=== PATIENT | female | born 1955 | race Caucasian/White ===

== ENCOUNTER 2019-08-21 17:54 | Emergency (ER) | payer BC, SELFPAY ==
[2019-08-21 18:05] VITALS: BP 148/84; PULSE 81; RESP 18; TEMP 37.1; O2SAT 97
--- NOTE | 2019-08-21 18:25 | ED.URI ---
HPI - URI/Sore Throat General Chief Complaint: Upper Respiratory Infection Stated Complaint: BLANCA/aches/cough/scratchy throat Time Seen by Provider: 08/21/19 18:25 Source: patient and RN notes reviewed Mode of arrival: ambulatory Limitations: no limitations History of Present Illness HPI Narrative: 64-year-old female who presents to [facility] care with complaints of body aches, sneezing,sinus drainage,headache, cough and chest congestion which started yesterday. 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 Patient is concerned since she has MS and is on Aubagio so is immunocompromised due to treatment. Patient denies any shortness of breath, lungs are clear to auscultation with respirations even and non labored, SAO2 97% on room air. MD elicited complaint: cough, rhinorrhea, nasal congestion and other (bodyaches, headache) Description of mucous: clear Able to tolerate fluids by mouth: Yes Exacerbating factors: exertion Relieving factors: NSAID Related Data Home Medications Medication Instructions Recorded Confirmed bupropion HCl [Wellbutrin SR] 100 mg PO DAILY 05/11/19 05/11/19 escitalopram oxalate [Lexapro] 5 mg PO DAILY 05/11/19 05/11/19 hydrochlorothiazide 25 mg PO DAILY 05/11/19 05/11/19 irbesartan 75 mg PO DAILY 05/11/19 05/11/19 teriflunomide 14 mg tablet 14 mg PO DAILY 05/14/19 citalopram 10 mg tablet 10 mg PO DAILY 07/28/19 diazepam 2 mg tablet 2 mg PO BID PRN 07/28/19 Allergies Allergy/AdvReac Type Severity Reaction Status Date / Time droperidol [From Inapsine] Allergy Unknown dystonic Verified 08/21/19 18:17 Penicillins Allergy Hives Verified 08/21/19 18:17 Sulfa (Sulfonamide Allergy Hives Verified 08/21/19 18:17 Antibiotics) Review of Systems Review of Systems: Narrative: CONSTITUTIONAL: Denies known fever, chills, or sweats. EYES: Denies visual changes, redness, or discharge. ENT: Positive rhinorrhea, congestion, sore throat, or otalgia. CARDIOVASCULAR: Denies chest pain, palpitations, or edema. RESPIRATORY: positive cough denies dyspnea. GASTROINTESTINAL: Denies abdominal pain, nausea, vomiting, or diarrhea. GENITOURINARY: Denies dysuria or hematuria. SKIN: Denies rash or itching. MUSCULOSKELETAL: Denies back pain, joint pain, voices body aches and fatigue NEUROLOGIC: positive headache, denies numbness, or weakness. PSYCHIATRIC: positive history anxiety or depression. All systems reviewed & are unremarkable except as noted in HPI and below PMFSH Past Medical History Medical History GERD (gastroesophageal reflux disease) Hypertension Multiple sclerosis Osteoarthritis of right knee PTSD (post-traumatic stress disorder) Tear of MCL (medial collateral ligament) of knee (~04/2019) Vision loss Surgical History Surgical History History of section 1978, 1983 History of colon resection 2003 History of hysterectomy 1994 History of toe surgery 2007- Jorden Ponce Family History Family History Other Cancer Diabetes mellitus Heart disease Hypertension Social History Social History Smoking status: Never smoker Alcohol intake: current Substance use: unknown Additional living arrangements comments: Spouse- Narayan Dyer 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 There is no relevant family history pertinent to the presenting complaint Exam Narrative: Exam Narrative: GENERAL: Well-appearing, well-nourished, and in no acute distress. HEAD: Normocephalic, atraumatic. EYES: PERRLA and EOMI.
== END 2019-08-21 18:50 | disposition home or self-care (01) ==
PROVIDERS: Emergency Provider Registered Nurse; PCP Registered Nurse
DX: J06.9 Acute upper respiratory infection, unspecified (principal); D84.9 Immunodeficiency, unspecified; K21.9 Gastro-esophageal reflux disease without esophagitis; I10 Essential (primary) hypertension; G35 Multiple sclerosis; M17.11 Unilateral primary osteoarthritis, right knee
CPT/HCPCS: 87804; 99213; G0463

== ENCOUNTER 2019-10-27 13:57 | Outpatient (RCR) | payer BC, SELFPAY ==
--- NOTE | 2019-10-27 15:47 | PTOPEVAL ---
INITIAL PHYSICAL THERAPY EVALUATION and PLAN OF CARE Thank you for referring Darshana Dyer to [facility]. She will be seen in PT 2x/wk x 5 wks. Please review, sign, date and return this plan of care FINA. I agree with and certify that the following plan of care is medically necessary. Referring Physician Date Admitting Provider: Attending Provider: Doug Avila MD Referring Provider: *PT Outpatient Evaluation Start: 10/27/19 14:22 Freq: Status: Active Protocol: Document 10/27/19 14:23 MARYURI (Rec: 10/27/19 15:47 MARYURI [id number]) Therapy Assessment Status Assessment Status Assessment Status Evaluation Outpatient Past Medical History Past Medical History Source of Past Medical History Patient Neurological History Hx Multiple Sclerosis Yes Cardiovascular History Hx Hypertension Yes Respiratory History Hx Respiratory Disorders No Significant History Gastrointestinal History Hx Diverticulitis Yes Hx Other Gastrointestinal Disorders Yes: colon resection due to diverticulitis Genitourinary History Hx Genitourinary Disorders No Significant History Musculoskeletal History Hx Other Musculoskeletal Disorders Yes: 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, R knee pain Endocrine History Hx Endocrine Disorders No Significant History Reproductive History Hx Hysterectomy Yes Psychosocial History Hx Post Traumatic Stress Disorder Yes Evaluation Information Problem Diagnosis R knee pain, OA Onset September 2018 Subjective Information Nothing specific - R knee just Query Text:As Reported By Patient/ started hurting - was living Family in [place] - steroid injection, gel injections - helped Moved to area in April 2019 - moved during rain - helping movers - was carrying a heavy box - on ramp - stepped and turned -felt pain, increase in posterior knee area A few days after this injury - anterior knee pain - inability to walk - saw Dr. Parson - took X rays Dr Avila July 2019 -steroid injection - helped beginning of September - steroid injection New Neuro - they wanted her to have PT before any type of procedure R leg is her weaker leg Still has a fear
--- NOTE | 2019-11-23 14:22 | PCPTNOTE ---
PHYSICAL THERAPY DISCHARGE NOTE Admitting Provider: Attending Provider: Doug Avila MD Patient:Darshana Dyer Date of :1955 Darshana has not returned for any further treatments since 10/27/2019. She was phoned and spoken with on 11/11/2019 in regards to PT and she said that she had forgotten to make appointments. She said that she would, but she has not returned to PT. Therefore she will be discharged at this time. Patient?s initial visit was on 10/27/2019 and that was the only visit she attended. HEP was provided. The goals have not been met. Thank you for referring Darshana to [facility]. Please review, sign, date and return this discharge summary FINA. I have been updated about Darshana's current status and I agree with discharge from the above service at this time. Referring Physician Date
== END 2019-11-24 11:10 | disposition home or self-care (01) ==
LOC: ANHPT 13:57
PROVIDERS: PCP Registered Nurse; Visit Provider Orthopaedic Surgery
DX: M17.11 Unilateral primary osteoarthritis, right knee (principal)
CPT/HCPCS: 97110; 97161

== ENCOUNTER 2019-11-11 08:05 | Outpatient (CLI) | payer BC, SELFPAY ==
--- NOTE | ~2019-11-11 | MR_ITS ---
EXAMINATION: MR knee RT wo con DATE: 11/11/2019 09:51 INDICATION: Right knee pain TECHNIQUE: Magnetic resonance imaging (MRI) of the right knee was performed without intravenous contr ast. Sequences included coronal PD-weighted FSE, coronal PD-weighted FS FSE, sagittal T2-weighted FS E, sagittal PD-weighted FS FSE and axial PD weighted fat saturated FSE. COMPARISON: None. FINDINGS: Medial compartment: Medial extrusion of the medial meniscal body. The posterior horn is small consistent with meniscal te ar with either displacement or secondary degeneration resulting in the decreased meniscal tissue. The re appears be cephalad displacement of a meniscal flap extending from the posterior aspect of the med ial meniscal body which extends into the recess deep to the proximal medial collateral ligament and w hich may account for the displaced tissue from the posterior horn. Extensive cartilage loss along the anterior to central medial tibial plateau and weightbearing medial femoral condyle. In places this r eaches full/near full full-thickness with underlying subarticular edema. In addition there is mild ir regularity to the articular cortex tiny central osteophytes at the central weightbearing medial femor al condyle. Small marginal osteophytes are present. Lateral compartment: Lateral meniscus is normal. Partial-thickness cartilage loss and deep fissuring without degenerative subarticular changes along the medial side of the lateral tibial plateau along the shoulder of the in tercondylar eminence. Deep oblique nondisplaced chondral flap tear at the anterior weightbearing late ral femoral condyle. Additional partial thickness cartilage loss with mild chondral surface regularit y the central aspect of the weightbearing lateral femoral condyle. Patellofemoral compartment: Deep chondral ulceration with relatively smooth chondral surface at the superomedial aspect of the la teral patellar facet. Additional deep chondral ulceration and fissuring with mild irregularity to the underlying articular cortex at the trochlear groove and medial side of the lateral trochlea. Ligaments and tendons: Anterior and posterior cruciate ligaments are normal. The medial collateral ligament and fibular ana ateral ligament complex are normal. Mild distal quadriceps and proximal patellar tendinopathy with sm all enthesophytes along the anterior patella and distal quadriceps tendon. The visualized medial and lateral hamstring tendons as well as the iliotibial band are normal. Fluid: Small right knee joint effusion with mild associated synovitis. No loose osteochondral bodies identif ied. 5.9 x 3.1 x 2.2 cm Jackson's cyst, also with mild associated synovitis. Osseous/other: Bone alignment is normal. No fracture or pathologic marrow replacing process. IMPRESSION: 1. Complex medial meniscal tear with likely displaced meniscal flap arising from the posterior horn. 2. Moderate medial compartment predominant tricompartmental osteoarthritis with regions of high-grade chondromalacia in the medial and patellofemoral compartments and moderate grade chondromalacia in th e lateral compartment. 3. Small right knee joint effusion with moderate sized Jackson's cyst. 4. Mild enthesopathy at the patellar insertions of the distal quadriceps and proximal patellar tendon s. Reviewed, dictated and finalized at location A. IMPRESSION: 1. Complex medial meniscal tear with likely displaced meniscal flap arising fro m the posterior horn. 2. Moderate medial compartment predominant tricompartmental osteoarthritis with regions of high-grade chondromalacia in the medial and patellofemoral compartm ents and moderate grade chondromalacia in the lateral compartment. 3. Small right knee joint effusion with mode
== END 2019-11-11 08:06 | disposition home or self-care (01) ==
PROVIDERS: PCP Registered Nurse; Visit Provider Orthopaedic Surgery
DX: M25.561 Pain in right knee (principal); S83.231A Complex tear of medial meniscus, current injury, right knee, initial encounter; M17.11 Unilateral primary osteoarthritis, right knee; M94.261 Chondromalacia, right knee; M25.461 Effusion, right knee; M71.21 Synovial cyst of popliteal space [Baker], right knee; M76.51 Patellar tendinitis, right knee
CPT/HCPCS: 73721

== ENCOUNTER 2020-01-18 09:43 | Emergency (ER) | payer BC, SELFPAY ==
[2020-01-18 09:55] VITALS: BP 155/80; PULSE 83; RESP 18; TEMP 36.3; O2SAT 97
--- NOTE | 2020-01-18 10:46 | ED.GENADULT ---
HPI - General Adult General Chief complaint: Unspecified Stated complaint: decreased smell, wants covid test Time Seen by Provider: 01/18/20 10:18 Source: patient Mode of arrival: ambulatory Limitations: no limitations History of Present Illness HPI narrative: This is a 64-year-old female that presents the emergency department for COVID testing. Reports she called the hotline yesterday and screened to be tested. She tried to get this set up through her primary and was unable to. Reports for the last 3 days she has had decreased sense of smell and taste. Also reports some fatigue. Denies fever, chest pain, shortness of breath, abdominal pain, vomiting, or dysuria. Related Data Allergies Allergy/AdvReac Type Severity Reaction Status Date / Time droperidol [From Inapsine] Allergy Unknown Verified 01/18/20 10:01 Penicillins Allergy Unknown Verified 01/18/20 10:01 Sulfa (Sulfonamide Allergy Unknown Verified 01/18/20 10:01 Antibiotics) Review of Systems Review of Systems: Narrative: CONSTITUTIONAL: Denies fever ENT: Denies rhinorrhea, congestion, sore throat CARDIOVASCULAR: Denies chest pain RESPIRATORY: Denies dyspnea. GASTROINTESTINAL: Denies abdominal pain, nausea, vomiting GENITOURINARY: Denies dysuria All systems reviewed & are unremarkable except as noted in HPI and below PMFSH Past Medical History Medical History (Updated 01/18/20 @ 10:51 by Laly Wagoner PA-C) History of hypertension History of multiple sclerosis Social History Social History Gender identity (if verbalized by the patient): Female Exam Narrative: Exam Narrative: GENERAL: Well-appearing, obese, and in no acute distress. HEAD: Normocephalic, atraumatic. EYES: PERRLA and EOMI. ENT: Nares clear, no rhinorrhea or epistaxis. Mucous membranes moist. Oropharynx without tonsillar hypertrophy exudate or other lesions. Bilateral TMs pearly yoo non-bulging NECK: Supple. No adenopathy or masses. CHEST: Clear to auscultation. No respiratory distress. No wheezes rales or rhonchi HEART: Regular rate and rhythm. No murmur heard. Normal peripheral pulses. ABDOMEN: Soft, nontender, nondistended, normal active bowel sounds. EXTREMITIES: Normal range of motion. No edema. Strength equal in bilateral upper and lower extremities (5/5) SKIN: Warm, dry, no rash. NEURO: No focal deficits. Alert and oriented x3. Cranial nerves II through XII grossly intact PSYCH: Normal mood and affect Course Vital Signs Vital signs: Vital Signs Temperature 97.3 F L 01/18/20 09:55 Pulse Rate 83 01/18/20 09:55 Respiratory Rate 18 01/18/20 09:55 Blood Pressure 155/80 H 01/18/20 09:55 Pulse Oximetry 97 01/18/20 09:55 Temperature 97.3 F L 01/18/20 09:55 Pulse Rate 83 01/18/20 09:55 Respiratory Rate 18 01/18/20 09:55 Blood Pressure 155/80 H 01/18/20 09:55 Pulse Oximetry 97 01/18/20 09:55 Medical Decision Making MDM Narrative Medical decision making narrative: Patient presents to the emergency department requesting COVID testing. Reports fatigue and decreased sense of smell. Denies any other localizing symptoms. She is afebrile and nontoxic-appearing. Oxygen saturation normal on room air. I offered laboratory evaluation. Patient declined. Reports she gets regular laboratory testing and does not think it is necessary. 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 Patient is stable and felt appropriate further outpatient evaluation. She was instructed to follow-up with her doctor. She was given warnings to return to the ER Vital Signs Vital Signs: Vital Signs Temperature 97.3 F L 01/18/20 09:55 Pulse Rate 83 01/18/20 09:55 Respiratory Rate 18 01/18/20 09:55 Blood Pressure 155/80 H 01/18/20 09:55 Pulse Oximetry 97 01/18/20 09:55 Temperature 97.3 F L 01/18/20 09:55 Pulse Rate 83 01/18/20 09:55 Respiratory Rate 18 01/18/20 09:55 Blood Pressure 155/8
[2020-01-18 19:09] LABS: SARS-CoV-2 RNA PCR Negative
== END 2020-01-18 11:18 | disposition home or self-care (01) ==
PROVIDERS: Physician Assistant; Emergency Provider Emergency Medicine; PCP Registered Nurse
DX: Z20.828 Contact with and (suspected) exposure to other viral communicable diseases (principal); R43.9 Unspecified disturbances of smell and taste; I10 Essential (primary) hypertension; G35 Multiple sclerosis
CPT/HCPCS: 87635; 99283; C9803; U0003

== ENCOUNTER 2020-05-31 08:06 | Outpatient (CLI) | payer BC, SELFPAY ==
--- NOTE | 2020-05-31 09:08 | ECG_ITS ---
Measurements Intervals [place] Rate: 70 P: 55 DC: 183 QRS: 28 QRSD: 86 T: 58 QT: 378 QTc: 409 Interpretive Statements SINUS RHYTHM DELAYED PRECORDIAL R/S TRANSITION BORDERLINE ECG Electronically Signed On 05-31-2020 9:25:22 [employer]IRRING [employer]ACHINE [employer]ATOR [employer] by Billy Frank D.O.
[2020-05-31 09:39] LABS: Albumin Level 4.5 g/dL (3.5-5.1)
[2020-05-31 09:41] LABS: Hemoglobin A1C 5.9 % (<5.7)
[2020-05-31 09:45] LABS: Urine Cotinine NEGATIVE
== END 2020-05-31 08:07 | disposition home or self-care (01) ==
PROVIDERS: PCP Registered Nurse; Visit Provider Orthopaedic Surgery
DX: Z01.810 Encounter for preprocedural cardiovascular examination (principal); M17.11 Unilateral primary osteoarthritis, right knee
CPT/HCPCS: 80307; 82040; 83036; 86850; 86900; 86901; 87081; 93005

== ENCOUNTER 2020-08-19 09:55 | Outpatient (CLI) | payer MEDICARE, BC, SELFPAY ==
[2020-08-19 11:03] LABS: Basophils Absolute Auto 0.1 K/mm3 (0.0-0.1); Basophils Percent Auto 0.9 % (0.2-1.2); Eosinophils Absolute Auto 0.2 K/mm3 (0-0.3); Eosinophils Percent Auto 2.6 % (0-4.4); Hematocrit 39.6 % (37.0-47.0); Hemoglobin 12.6 g/dL (12.0-15.0); Immature Granulocyte Absolute 0.03 K/mm3 (0.00-0.031); Immature Granulocyte Percent A 0.3 % (0-0.5); Lymphocytes Absolute Auto 1.63 K/mm3 (0.9-3.2); Lymphocytes Percent Auto 18.5 % (18.3-44.2); Mean Corpuscular HGB Conc 31.8 g/dl (32-36); Mean Corpuscular Hemoglobin 28.3 pg (26-34); Mean Platelet Volume 12.1 fl (7.4-10.4); Monocytes Absolute Auto 0.5 K/mm3 (0.1-0.6); Monocytes Percent Auto 5.8 % (2.6-8.5); Neutrophils Absolute Auto 6.3 K/mm3 (1.3-6.7); Neutrophils Percent Auto 71.9 % (45.5-73.1); Platelet Count Result 230 k/mm3 (150-375); Red Blood Count 4.45 M/mm3 (4.2-5.4); Red Cell Distribution Width 14.2 % (11.5-14.5); White Blood Count 8.8 K/mm3 (4.5-10.0)
[2020-08-19 11:18] LABS: Alanine Aminotransferase 19 U/L (4-35); Albumin Level 4.4 g/dL (3.5-5.1); Alkaline Phosphatase 57 U/L (38-126); Anion Gap 6 mmol/L (8-16); Aspartate Amino Transferase 25 U/L (14-36); Bilirubin,Total 0.3 mg/dL (0.2-1.3); Blood Urea Nitrogen 19 mg/dL (7-17); CRP 1.7 mg/dL (<1.0); Calcium 9.3 mg/dL (8.4-10.2); Carbon Dioxide 33 mmol/L (22-30); Chloride 101 mmol/L (98-107); Estimated Glomerular Filt Rate > 60; Glucose 101 mg/dL (65-105); Potassium 3.9 mmol/L (3.4-5.0); Sodium 140 mmol/L (137-145)
[2020-08-19 12:32] LABS: Vitamin D 25 Hydroxy 25.8 ng/mL
[2020-08-19 12:50] LABS: Erythrocyte Sedimentation Rate 22 mm/hr (0-20)
[2020-08-23 12:23] LABS: SM Antibody <1.0; SM/RNP Antibody <1.0
== END 2020-08-19 09:56 | disposition home or self-care (01) ==
PROVIDERS: PCP Registered Nurse
DX: M25.50 Pain in unspecified joint (principal); E03.9 Hypothyroidism, unspecified; E55.9 Vitamin D deficiency, unspecified
CPT/HCPCS: 36415; 80053; 82306; 84443; 85025; 85652; 86140; 86235

== ENCOUNTER 2020-10-09 12:14 | Outpatient (CLI) | payer MEDICARE, SELFPAY ==
--- NOTE | ~2020-10-09 | US_ITS ---
EXAMINATION: US venous doppler LE EXAM DATE: 10/09/2020 12:55 INDICATION: Bilateral leg swelling. TECHNIQUE: Multiple grayscale, color flow and Doppler images of the lower extremity deep venous syste ms bilaterally were obtained and reviewed. There is no prior study for comparison. FINDINGS: Right side: The right common femoral, femoral and profunda veins demonstrate normal color flow, respi ratory variation, augmentation and compressibility. Compressibility, color flow confirmed within the right popliteal, posterior tibial, peroneal, and greater saphenous veins. There is a Jackson's cyst me asuring 2.6 x 2.0 x 5.3 cm Left side: The left common femoral, femoral and profunda veins demonstrate normal color flow, respira tory variation, augmentation and compressibility. Compressibility, color flow confirmed within the l eft popliteal, posterior tibial, peroneal, and greater saphenous veins. IMPRESSION: 1. No lower extremity deep venous thrombosis bilaterally. 2. Moderate-sized right-sided Jackson's cyst. Reviewed, dictated and finalized at location A.
[2020-10-09 13:09] LABS: Basophils Absolute Auto 0.1 K/mm3 (0.0-0.1); Eosinophils Absolute Auto 0.3 K/mm3 (0-0.3); Eosinophils Percent Auto 3.2 % (0-4.4); Hematocrit 39.7 % (37.0-47.0); Hemoglobin 12.8 g/dL (12.0-15.0); Immature Granulocyte Absolute 0.03 K/mm3 (0.00-0.031); Immature Granulocyte Percent A 0.4 % (0-0.5); Lymphocytes Absolute Auto 1.78 K/mm3 (0.9-3.2); Lymphocytes Percent Auto 22.2 % (18.3-44.2); Mean Corpuscular HGB Conc 32.2 g/dl (32-36); Mean Platelet Volume 11.6 fl (7.4-10.4); Monocytes Absolute Auto 0.4 K/mm3 (0.1-0.6); Monocytes Percent Auto 5.5 % (2.6-8.5); Neutrophils Absolute Auto 5.4 K/mm3 (1.3-6.7); Neutrophils Percent Auto 67.7 % (45.5-73.1); Platelet Count Result 214 k/mm3 (150-375); Red Blood Count 4.41 M/mm3 (4.2-5.4); Red Cell Distribution Width 14.5 % (11.5-14.5)
[2020-10-09 13:22] LABS: Alanine Aminotransferase 21 U/L (4-35); Albumin Level 4.6 g/dL (3.5-5.1); Alkaline Phosphatase 50 U/L (38-126); Anion Gap 5 mmol/L (8-16); Aspartate Amino Transferase 28 U/L (14-36); Bilirubin,Total 0.2 mg/dL (0.2-1.3); Blood Urea Nitrogen 13 mg/dL (7-17); Calcium 9.2 mg/dL (8.4-10.2); Carbon Dioxide 35 mmol/L (22-30); Chloride 99 mmol/L (98-107); Estimated Glomerular Filt Rate > 60; Glucose 142 mg/dL (65-105); Potassium 3.6 mmol/L (3.4-5.0); Sodium 139 mmol/L (137-145)
[2020-10-09 13:31] LABS: NT Pro B Type Natriuretic Pept 50 PG/ML (5-100)
[2020-10-12 11:21] LABS: Hemoglobin A1C 5.9 % (<5.7)
== END 2020-10-09 12:15 | disposition home or self-care (01) ==
PROVIDERS: PCP Registered Nurse; Visit Provider Student in an Organized Health Care Education/Training Program
DX: R60.0 Localized edema (principal); R06.9 Unspecified abnormalities of breathing; R73.01 Impaired fasting glucose; M71.21 Synovial cyst of popliteal space [Baker], right knee
CPT/HCPCS: 36415; 80053; 83036; 83880; 85025; 93970

== ENCOUNTER 2021-02-02 14:19 | Emergency (ER) | payer MEDICARE, SELFPAY ==
--- NOTE | ~2021-02-02 | XR_ITS ---
EXAMINATION: XR knee LT min 4V EXAM DATE: 02/02/2021 15:29 INDICATION: Left knee pain posteriorly, hyperextension a month ago. TECHNIQUE: Left knee frontal, crosstable lateral, orthogonal oblique projections for interpretation. Comparison is made to prior examination from 12/30/2019. FINDINGS: No evidence osteochondral defect or joint body in the left knee joint. There is moderate patellofemoral, less tibiofemoral compartment primary osteoarthritis. There are no acute fractures o r dislocations identified. There is no subcutaneous gas. The soft tissue is unremarkable, No joint effusion. There are no radiopaque foreign bodies. IMPRESSION: Left knee patellofemoral compartment predominant osteoarthritis. Reviewed, dictated and finalized at location B.
[2021-02-02 14:37] VITALS: BP 135/67; PULSE 90; RESP 18; TEMP 36.4; O2SAT 98
--- NOTE | 2021-02-02 14:49 | ED.LOWEXIN ---
HPI - Extremity Injury (Lower) General Chief Complaint: Extremity Problem,Nontraumatic Stated Complaint: left knee pain Time Seen by Provider: 02/02/21 14:49 Source: patient Mode of arrival: ambulatory Limitations: no limitations History of Present Illness HPI Narrative: Darshana Dyer is a 65 yo female with a PMH of multiple sclerosis. Anxiety; hypertension; [facility] of left knee pain that is developed in the last couple weeks after hyperextending her knee while leaving the hospital. 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 She is waiting for a knee replacement on the right is been counseled 5x2 Covid and agrees that she probably favors her left leg. He has had some mask added to her right knee by her orthopedist for comfort until knee replacement can be done. She is scheduled to see him later this week and came here for preliminary treatment Related Data Home Medications Medication Instructions Recorded Confirmed bupropion HCl [Wellbutrin SR] 100 mg PO HS 05/11/19 02/02/21 hydrochlorothiazide 25 mg PO DAILY PRN 05/11/19 02/02/21 calcium carbonate [Tums] 200 mg PO HS 05/31/20 02/02/21 cholecalciferol (vitamin D3) 6,000 unit PO DAILY 05/31/20 02/02/21 irbesartan 300 mg PO QAM 05/31/20 02/02/21 meloxicam 7.5 mg PO DAILY PRN 05/31/20 02/02/21 Allergies Allergy/AdvReac Type Severity Reaction Status Date / Time droperidol [From Inapsine] Allergy Confusion Verified 02/02/21 16:04 Penicillins Allergy Hives Verified 02/02/21 16:04 Sulfa (Sulfonamide Allergy Hives Verified 02/02/21 16:04 Antibiotics) Review of Systems Review of Systems: CONSTITUTIONAL: Denies fever, chills, sweats. EYES: Denies visual changes, redness, discharge. ENT: Denies rhinorrhea, congestion, sore throat, otalgia. CARDIOVASCULAR: Denies chest pain, palpitations, edema. RESPIRATORY: Denies dyspnea, wheezing, cough GASTROINTESTINAL: Denies abdominal pain, nausea, vomiting, diarrhea. GENITOURINARY: Denies dysuria, hematuria, abnormal discharge SKIN: Denies rash or itching. NEUROLOGIC: Denies numbness, or focal weakness. PSYCHIATRIC: Denies anxiety or depression. Left knee pain with swelling of the lower extremity PMFSH Past Medical History Medical History BMI 34.0-34.9,adult BMI 36.0-36.9,adult BMI 38.0-38.9,adult GERD (gastroesophageal reflux disease) History of hypertension History of multiple sclerosis Hypertension Multiple sclerosis Osteoarthritis of right knee PTSD (post-traumatic stress disorder) Tear of MCL (medial collateral ligament) of knee (~04/2019) Vision loss Surgical History Surgical History History of section 1978, 1983 History of colon resection 2003 History of hysterectomy 1994 History of toe surgery 2007- Jorden Pocne Family History Family History Other Cancer Diabetes mellitus Heart disease Hypertension Social History Social History Smoking status: Never smoker Second hand tobacco smoke exposure: No Additional smoking assessment comments: DENIES ANY FORM OF TOBACCO USE Alcohol intake: current Alcohol use details: ONE DRINK PER MONTH Substance use: unknown Additional living arrangements comments: Spouse- Narayan Dyer 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 There is no relevant family history pertinent to the presenting complaint. Exam Narrative: GENERAL: This is a well-nourished, well-developed patient, in mild distress. HEAD: normocephalic, atraumatic. EYES: Sclera clear/white. Vision is gross
== END 2021-02-02 16:03 | disposition home or self-care (01) ==
PROVIDERS: Emergency Provider Nurse Practitioner; PCP Registered Nurse
DX: M25.562 Pain in left knee (principal); K21.9 Gastro-esophageal reflux disease without esophagitis; I10 Essential (primary) hypertension; G35 Multiple sclerosis; M17.11 Unilateral primary osteoarthritis, right knee
CPT/HCPCS: 73564; 99213; G0463

== ENCOUNTER 2021-02-15 11:05 | Emergency (ER) | payer MEDICARE, SELFPAY ==
[2021-02-15 11:42] VITALS: BP 140/90; PULSE 77; RESP 16; TEMP 36.9; O2SAT 98
--- NOTE | 2021-02-15 14:08 | ED.LOWEXIN ---
HPI - Extremity Injury (Lower) General Chief Complaint: Extremity Injury, Lower Stated Complaint: right knee pain Time Seen by Provider: 02/15/21 13:25 History of Present Illness HPI Narrative: 65 yo female with h/o arthritis, MS presents to the ED for left knee pain. She has chronic knee pain. Worse for about the past month after a minor injury. She reports that she was walking when she twisted and felt a pop. Since that time she has had increased pain. It was initially all over, now it is primarily located inferomedial to the patella. She has seen her PCP, ortho, and urgent care. She had x-rays done a few weeks ago showing nothing acute. Pain has gotten severe enough that she cannot walk upright. No fever, trauma, redness, swelling. Related Data Home Medications Medication Instructions Recorded Confirmed bupropion HCl [Wellbutrin SR] 100 mg PO HS 05/11/19 02/02/21 hydrochlorothiazide 25 mg PO DAILY PRN 05/11/19 02/02/21 calcium carbonate [Tums] 200 mg PO HS 05/31/20 02/02/21 cholecalciferol (vitamin D3) 6,000 unit PO DAILY 05/31/20 02/02/21 irbesartan 300 mg PO QAM 05/31/20 02/02/21 meloxicam 7.5 mg PO DAILY PRN 05/31/20 02/02/21 Allergies Allergy/AdvReac Type Severity Reaction Status Date / Time droperidol [From Inapsine] Allergy Confusion Verified 02/15/21 13:39 Penicillins Allergy Hives Verified 02/15/21 13:39 Sulfa (Sulfonamide Allergy Hives Verified 02/15/21 13:39 Antibiotics) Review of Systems Review of Systems: All systems reviewed & are unremarkable except as noted in HPI and below PMFSH Past Medical History Medical History BMI 34.0-34.9,adult BMI 36.0-36.9,adult BMI 38.0-38.9,adult GERD (gastroesophageal reflux disease) History of hypertension History of multiple sclerosis Hypertension Multiple sclerosis Osteoarthritis of right knee PTSD (post-traumatic stress disorder) Tear of MCL (medial collateral ligament) of knee (~04/2019) Vision loss Surgical History Surgical History History of section 1978, 1983 History of colon resection 2003 History of hysterectomy 1994 History of toe surgery 2007- Jorden Rodriguezn Family History Family History Other Cancer Diabetes mellitus Heart disease Hypertension Social History Social History Smoking status: Never smoker Second hand tobacco smoke exposure: No Additional smoking assessment comments: DENIES ANY FORM OF TOBACCO USE Alcohol intake: current Alcohol use details: ONE DRINK PER MONTH Substance use: unknown Additional living arrangements comments: Spouse- Narayan Dyer 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 Course Vital Signs Vital signs: Vital Signs Temperature 36.9 C 02/15/21 11:42 Pulse Rate 77 02/15/21 11:42 Respiratory Rate 16 02/15/21 11:42 Blood Pressure 140/90 02/15/21 11:42 Pulse Oximetry 98 02/15/21 11:42 Temperature 36.9 C 02/15/21 11:42 Pulse Rate 72 02/15/21 14:46 Respiratory Rate 14 02/15/21 14:46 Blood Pressure 147/90 H 02/15/21 14:56 Pulse Oximetry 98 02/15/21 14:46 Procedures Joint Aspiration/Injection Joint Asp./Inject. 1: Joint Aspiration Date: 02/15/21 Joint As
[2021-02-15 14:46] VITALS: PULSE 72; RESP 14; O2SAT 98
[2021-02-15 14:56] VITALS: BP 147/90
== END 2021-02-15 14:57 | disposition home or self-care (01) ==
PROVIDERS: Emergency Provider Emergency Medicine; PCP Registered Nurse
DX: M25.562 Pain in left knee (principal); I10 Essential (primary) hypertension; G35 Multiple sclerosis; M19.90 Unspecified osteoarthritis, unspecified site
CPT/HCPCS: 20610; 99282

== ENCOUNTER 2022-06-10 19:20 | Emergency (ER) | payer MEDICARE, SELFPAY ==
[2022-06-10 19:41] VITALS: BP 159/91; PULSE 77; RESP 18; TEMP 36.7; O2SAT 96
[2022-06-10 20:01] LABS: Basophils Absolute Auto 0.1 K/mm3 (0.0-0.1); Eosinophils Absolute Auto 0.2 K/mm3 (0-0.3); Eosinophils Percent Auto 2.5 % (0-4.4); Hemoglobin 12.5 g/dL (12.0-15.0); Immature Granulocyte Absolute 0.03 K/mm3 (0.00-0.031); Immature Granulocyte Percent A 0.3 % (0-0.5); Lymphocytes Absolute Auto 0.84 K/mm3 (0.9-3.2); Lymphocytes Percent Auto 9.6 % (18.3-44.2); Mean Corpuscular HGB Conc 32.9 g/dl (32-36); Mean Corpuscular Hemoglobin 30.3 pg (26-34); Mean Platelet Volume 11.7 fl (7.4-10.4); Monocytes Absolute Auto 0.7 K/mm3 (0.1-0.6); Monocytes Percent Auto 7.9 % (2.6-8.5); Neutrophils Absolute Auto 6.9 K/mm3 (1.3-6.7); Neutrophils Percent Auto 78.7 % (45.5-73.1); Platelet Count Result 209 k/mm3 (150-375); Red Blood Count 4.13 M/mm3 (4.2-5.4); Red Cell Distribution Width 14.1 % (11.5-14.5); White Blood Count 8.7 K/mm3 (4.5-10.0)
--- NOTE | 2022-06-10 20:07 | PC.NURSE ---
patient reports that pain is completely relieved and left waiting room without seeing a provider
[2022-06-10 20:12] LABS: Alanine Aminotransferase 70 U/L (6-35); Albumin Level 4.4 g/dL (3.5-5.1); Alkaline Phosphatase 65 U/L (38-126); Anion Gap 6 mmol/L (8-16); Aspartate Amino Transferase 115 U/L (14-36); Bilirubin,Total 0.3 mg/dL (0.2-1.3); Blood Urea Nitrogen 19 mg/dL (7-17); Calcium 8.9 mg/dL (8.4-10.2); Carbon Dioxide 32 mmol/L (22-30); Chloride 98 mmol/L (98-107); Estimated CRCL calculation 59 ml/min; Estimated Glomerular Filt Rate 55; Glucose 108 mg/dL (65-110); Lipase 79 U/L (23-300); Potassium 4.4 mmol/L (3.4-5.0); Sodium 136 mmol/L (137-145)
== END 2022-06-10 21:14 | disposition left against medical advice (07) ==
PROVIDERS: Emergency Provider Emergency Medicine; PCP Registered Nurse
DX: R10.11 Right upper quadrant pain (principal)
CPT/HCPCS: 36415; 80053; 83690; 85025; 99199

== ENCOUNTER 2022-06-18 10:17 | Outpatient (CLI) | payer MEDICARE, SELFPAY ==
--- NOTE | ~2022-06-18 | US_ITS ---
US abdomen limited INDICATION: Right upper quadrant pain PROCEDURE: Realtime right upper abdominal ultrasound. COMPARISON: No prior studies for comparison. FINDINGS: The pancreas is normal without focal mass or pancreatic ductal dilation. Liver echotexture is diffusely increased, consistent with fatty infiltration. There is normal directional flow in the portal vein. There is a gallstone. No gallbladder wall thickening or pericholecystic fluid. Common bile duct sylvia ures 9 mm. IMPRESSION: 1: Cholelithiasis with dilated common bile duct. Consider cholecystitis in the appropriate clinical s etting. 2: Hepatic steatosis. Reviewed, dictated and finalized at location B. ER ATTENDANT IMPRESSION: 1: Cholelithiasis with dilated common bile duct. Consider cholecystitis in the appropriate clinical setting. 2: Hepatic steatosis.
[2022-06-18 12:00] LABS: Basophils Absolute Auto 0.1 K/mm3 (0.0-0.1); Eosinophils Absolute Auto 0.2 K/mm3 (0-0.3); Eosinophils Percent Auto 2.8 % (0-4.4); Hematocrit 41.8 % (37.0-47.0); Hemoglobin 13.5 g/dL (12.0-15.0); Immature Granulocyte Absolute 0.02 K/mm3 (0.00-0.031); Immature Granulocyte Percent A 0.3 % (0-0.5); Lymphocytes Absolute Auto 0.27 K/mm3 (0.9-3.2); Lymphocytes Percent Auto 4.5 % (18.3-44.2); Mean Corpuscular HGB Conc 32.3 g/dl (32-36); Mean Corpuscular Hemoglobin 30.1 pg (26-34); Mean Corpuscular Volume 93.3 fl (80-100); Mean Platelet Volume 11.8 fl (7.4-10.4); Monocytes Absolute Auto 0.6 K/mm3 (0.1-0.6); Monocytes Percent Auto 9.2 % (2.6-8.5); Neutrophils Percent Auto 82.2 % (45.5-73.1); Platelet Count Result 232 k/mm3 (150-375); Red Blood Count 4.48 M/mm3 (4.2-5.4); Red Cell Distribution Width 14.3 % (11.5-14.5); White Blood Count 6.1 K/mm3 (4.5-10.0)
[2022-06-18 12:13] LABS: Alanine Aminotransferase 52 U/L (6-35); Albumin Level 4.4 g/dL (3.5-5.1); Alkaline Phosphatase 79 U/L (38-126); Anion Gap 5 mmol/L (8-16); Aspartate Amino Transferase 29 U/L (14-36); Bilirubin,Total 0.4 mg/dL (0.2-1.3); Blood Urea Nitrogen 15 mg/dL (7-17); Calcium 9.1 mg/dL (8.4-10.2); Carbon Dioxide 34 mmol/L (22-30); Chloride 101 mmol/L (98-107); Cholesterol 249 mg/dL (0-200); Estimated Glomerular Filt Rate > 60; Glucose 93 mg/dL (65-110); HDL Direct 59 mg/dL; Potassium 4.5 mmol/L (3.4-5.0); Sodium 140 mmol/L (137-145); Triglycerides 212 mg/dL (<150)
[2022-06-18 12:24] LABS: LDL Cholesterol Direct 111 mg/dL
[2022-06-18 12:48] LABS: Free T4 Free Thyroxine 0.98 ng/mL (0.78-2.19); Vitamin D 25 Hydroxy 37.5 ng/mL
== END 2022-06-18 10:18 | disposition home or self-care (01) ==
PROVIDERS: PCP Registered Nurse; Visit Provider Registered Nurse
DX: K80.20 Calculus of gallbladder without cholecystitis without obstruction (principal); K83.8 Other specified diseases of biliary tract; K76.0 Fatty (change of) liver, not elsewhere classified; E03.9 Hypothyroidism, unspecified; E55.9 Vitamin D deficiency, unspecified
CPT/HCPCS: 36415; 76705; 80053; 80061; 82306; 84439; 84443; 85025

== ENCOUNTER 2022-06-26 08:58 | Outpatient (CLI) | payer MEDICARE, SELFPAY ==
--- NOTE | 2022-06-26 09:09 | ECG_ITS ---
Measurements Intervals [place] Rate: 70 P: 55 PA: 191 QRS: 18 QRSD: 92 T: 47 QT: 383 QTc: 415 Interpretive Statements SINUS RHYTHM COMPARED TO ECG 05/31/2020 09:45:44 NO SIGNIFICANT CHANGES Electronically Signed On 06-26-2022 17:56:54 DANCE COSTUME DESIGNER by Paulo Rosario M.D.
[2022-06-26 09:42] LABS: Amylase 58 U/L (30-110)
== END 2022-06-26 08:59 | disposition home or self-care (01) ==
PROVIDERS: PCP Registered Nurse; Visit Provider Surgery
DX: K80.10 Calculus of gallbladder with chronic cholecystitis without obstruction (principal); I10 Essential (primary) hypertension; Z01.818 Encounter for other preprocedural examination
CPT/HCPCS: 36415; 82150; 86850; 86900; 86901; 93005

== ENCOUNTER 2022-07-03 00:57 | Day surgery (SDC) | payer MEDICARE, SELFPAY ==
[2022-06-25 12:42] VITALS: BMI 37.2
--- NOTE | 2022-06-25 13:06 | PC.NURSE ---
PRE0OP INSTRUCTIONS, PLEASE READ CAREFULLY Report to the Outpatient Waiting Room, entrance under the green pavilion located off [facility], at time _1200_ on date _07/03/22_. Planned Procedure Time: _2 PM_. Time changes happen often and if your time is changed the preop area will call you the afternoon before. - You and your visitor will be asked to self-screen and do not enter if you have any COVID symptoms. - Only one visitor is requested with a max of two and NO children visitors are allowed at this time. - The patient visitor may be requested to leave or wait in car when not with patient due to distancing restrictions. - A mask is requested within the hospital. Patients may have clear liquids (water, carbonated beverages, clear teas, apple juice) until 3 hours prior to surgery (1100 AM) with a maximum of 20 ounces. - No food from midnight until time of surgery Take the following medications with a SIP of water the morning of surgery: Medications to discontinue per physician Date to take last dose Please no make-up, nail danish, hairspray, perfume, deodorant, or body powder the day of surgery. No jewelry (including any body piercings) or valuables the day of surgery, leave them at home. Please take a shower or bath the night before, or the morning of, surgery with an antibacterial soap. Wear comfortable, loose fitting clothing. - Jewelry must be removed prior to entering the operating room. Rings and piercings that are not removed may be cut off. - The hospital will not accept responsibility for valuables. - Please leave all valuables, including medications, at home the day of surgery. If you are going home after surgery, a licensed hazmat truck driver must drive you home. - NO public transportation without another adult if you receive anesthesia. - We recommend that an adult stay with you for 24 hours following discharge. - We also recommend that you do not drive, make important decision, drink alcoholic beverages, or take any drugs that were not prescribed by your health care provider for at least 24 hours after your discharge time. Follow any additional instructions given to you from your surgeon. SAMICLENS DIRECTED If you or anyone in your household have experienced Covid symptoms in the past week, please notify your surgeon or the nurse liaison at the phone number below for possible testing. Telephone instructions given to _PATIENT_and asked if any additional questions and then verbalized understanding. Patient advised to call surgeon office or pre surgery nurse liaison [phone] if any additional questions.
--- NOTE | 2022-06-25 13:09 | PC.NURSE ---
PRE-OP INSTRUCTIONS, PLEASE READ CAREFULLY Report to the Outpatient Waiting Room, entrance under the green pavilion located off [facility], at time _1200_ on date _07/03/22_. Planned Procedure Time: _2 PM_. Time changes happen often and if your time is changed the preop area will call you the afternoon before. - You and your visitor will be asked to self-screen and do not enter if you have any COVID symptoms. - Only one visitor is requested with a max of two and NO children visitors are allowed at this time. - The patient visitor may be requested to leave or wait in car when not with patient due to distancing restrictions. - A mask is required within the hospital. Patients may have clear liquids (water, carbonated beverages, clear teas, apple juice) until 3 hours prior to surgery (1100 AM) with a maximum of 20 ounces. - No food from midnight until time of surgery Take the following medications with a SIP of water the morning of surgery: _LEVOTHYROXINE, SIPONIMOD, BACLOFEN IF NEEDED_ Medications to discontinue -_DICLOFENAC PER DR. WRIGHT'S INSTRUCTIONS__ Please no make-up, nail german, hairspray, perfume, deodorant, or body powder the day of surgery. No jewelry (including any body piercings) or valuables the day of surgery, leave them at home. Please take a shower or bath the night before, or the morning of, surgery with an antibacterial soap. Wear comfortable, loose fitting clothing. - Jewelry must be removed prior to entering the operating room. Rings and piercings that are not removed may be cut off. - The hospital will not accept responsibility for valuables. - Please leave all valuables, including medications, at home the day of surgery. If you are going home after surgery, a licensed non emergency services ambulance driver must drive you home. - NO public transportation without another adult if you receive anesthesia. - We recommend that an adult stay with you for 24 hours following discharge. - We also recommend that you do not drive, make important decision, drink alcoholic beverages, or take any drugs that were not prescribed by your health care provider for at least 24 hours after your discharge time. Follow any additional instructions given to you from your surgeon. HIBICLENS DIRECTED If you or anyone in your household have experienced Covid symptoms in the past week, please notify your surgeon or the nurse liaison at the phone number below for possible testing. Telephone instructions given to _PATIENT_and asked if any additional questions and then verbalized understanding. Patient advised to call surgeon office or pre surgery nurse liaison [phone] if any additional questions.
[2022-07-03] VITALS (10 sets, daily range): BP systolic 130–164; BP diastolic 52–91; PULSE 72–87; RESP 12–18; TEMP 36–37.1; O2SAT 93–100
[2022-07-03] MEDS: ACETAMINOPHEN 500 MG TABLET 1000 MG PO (12:12)
[2022-07-03] MEDS: LACTATED RINGERS 1,000 ML 30 ML IV CONT ×3 (12:30→16:54)
[2022-07-03] MEDS: KETOROLAC 15 MG/ML VIAL (*BKC) IV PUSH (12:38)
--- NOTE | 2022-07-03 13:16 | WPDANESEPPF ---
Anes - Initial Pre Proc Eval Procedure: Operation Date: 07/03/22 14:00 Proposed Procedures p Laparoscopic Cholecystectomy - Ana Nielsen MD Date/Time: 07/03/22 13:16 Surgeon: Ana Nielsen MD Pre Op Diagnosis: cholecystitis with stones Patient Data Age: 67 Gender: F Height: 1.68 m Weight: 105.7 kg Last Vital Signs Temp 37.1 C 07/03/22 12:19 Pulse 81 07/03/22 12:19 Resp 16 07/03/22 12:19 BP 152/85 H 07/03/22 12:19 Pulse Ox 98 07/03/22 12:19 O2 Del Method Room Air 07/03/22 12:19 Allergies Allergy/AdvReac Type Severity Reaction Status Date / Time droperidol [From Inapsine] Allergy Confusion Verified 07/03/22 12:07 Penicillins Allergy Hives Verified 07/03/22 12:07 Sulfa (Sulfonamide Allergy Hives Verified 07/03/22 12:07 Antibiotics) Home Medications Medication Instructions Recorded Confirmed Type bupropion HCl 100 mg tablet,12 hr 100 mg PO HS 05/11/19 07/03/22 History sustained-release (Wellbutrin SR) hydrochlorothiazide 25 mg tablet 25 mg PO DAILY 05/11/19 07/03/22 History baclofen 5 mg/5 mL oral solution 5 mg PO DAILY PRN Muscle Spasm 01/17/22 07/03/22 History siponimod 1 mg tablet (Mayzent) 2 mg PO DAILY 01/17/22 07/03/22 History lisinopril 10 mg tablet 10 mg PO DAILY 06/12/22 07/03/22 History chlorhexidine gluconate 4 % 1 applic topical .COMPLEX #118 mL 06/25/22 07/03/22 Rx topical liquid (Hibiclens) diclofenac sodium 75 mg 75 mg PO QAM 06/25/22 07/03/22 History tablet,delayed release levothyroxine 25 mcg tablet 25 mcg QAM 06/25/22 07/03/22 History Patient hx anesthesia problems: none Family hx anesthesia problems: none Results Review: All pre-operative results and documents have been reviewed as part of the pre-operative evaluation. [facility] Past Medical History Medical History BMI 34.0-34.9,adult BMI 36.0-36.9,adult BMI 38.0-38.9,adult GERD (gastroesophageal reflux disease) History of hypertension History of multiple sclerosis Hypertension Multiple sclerosis Osteoarthritis of right knee PTSD (post-traumatic stress disorder) Tear of MCL (medial collateral ligament) of knee (~04/2019) Vision loss Surgical History Surgical History (Updated 07/03/22 @ 13:17 by Reji Gonzalez MD) H/O cervical spine surgery History of section 1978, 1983 History of colon resection 2003 History of hysterectomy 1994 History of toe surgery 2007- Jorden Rodriguezn Family History Family History Other Cancer Diabetes mellitus Heart disease Hypertension Social History Social History Smoking status: Never smoker Second hand tobacco smoke exposure: No Additional smoking assessment comments: DENIES ANY FORM OF TOBACCO USE Alcohol intake: current Alcohol use details: MAYBE 1 / MONTH Substance use: never Substance use type: does not use Lack of Transportation: No Lack of Food: Never True Current Housing: I Have Housing Concerned About Future Housing: No Difficulty Paying Gas/Electric Bills: No Difficulty Paying for Meds: No Currently Unemployed: No Education: Master's Degree or Higher Difficulty w/ Childcare or Family Care: No Living arrangements: with family Additional living arrangements comments: Spouse- Narayan Dyer 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
--- NOTE | 2022-07-03 13:20 | WPDHPUPDATE1 ---
History and Physical Update Update Date/Time: 07/03/22 13:20 History and Physical has been reviewed, including an updated exam of the patient. There are NO changes in the patient's condition. Risks, benefits, and alternatives have been discussed and questions answered. Patient agrees to proceed with procedure.
[2022-07-03] MEDS: ceFAZolin 2 GM/D5W 50 ML 2 GM/50 ML BAG IVPB (14:04)
[2022-07-03] MEDS: BUPIVACAINE/EPINEPHRINE 0.5% 10 ML VIAL 30 ML INFILTRATE (14:33)
--- NOTE | 2022-07-03 14:52 | W.PM.PROC2 ---
Procedure Note - Detailed Date of Procedure 07/03/22 Pre-op Diagnosis cholecystitis with stones Post-op Diagnosis Same Procedure Performed Laparoscopic cholecystectomy Surgeon Ana Nielsen MD Anesthesia General Indications 67-year-old female presented to the office complaining of postprandial right upper quadrant abdominal pain associated with nausea and vomiting. Workup including imaging significant for cholecystitis, cholelithiasis. Findings Cholecystitis with cholelithiasis Description of Procedure The patient was taken to the operating room placed in the supine position. After adequate induction of general anesthesia, the patient was prepped and draped in normal sterile fashion. A time-out was then performed to verify the patient's identity as well as the procedure being performed. I then made a 5 mm incision in the infraumbilical region. Through this, a Veress needle was placed into the peritoneal cavity and CO2 gas was then insufflated. After adequate pneumoperitoneum was achieved, the Veress needle was removed and a 5 mm optiview trocar was placed through this incision under direct visualization. I then placed the laparoscope through this trocar site and under direct visualization placed a further 12 mm subxiphoid port as well as 2 additional 5 mm ports in the right upper abdomen. The gallbladder was then identified and was noted to be moderately inflamed and distended. I was able to place a grasper at the dome of the gallbladder and this was retracted anterior and cephalad up over the liver. A 2nd retractor was then placed at the infundibulum and retracted laterally, this allowed visualization of the triangle of Calot. I then was able to visualize the cystic duct in its entirety from its proximal insertion into the gallbladder, to its distal junction with the common hepatic/common bile duct junction. At this point, I carefully skeletonized the proximal cystic duct with the [place] dissector. I then clipped and transected the proximal cystic duct. Next I visualized the cystic artery. Again the artery was skeletonized, clipped, and transected. I then used the Bovie cautery to take down the peritoneal attachments of the gallbladder off the liver bed. This was somewhat difficult given the amount of inflammation in the posterior space. Once the gallbladder specimen was completely detached, an endo-pouch was placed through the 12 mm port site. I then placed the gallbladder specimen into the Endo pouch and removed the endo-pouch from the 12 mm port site. The specimen will now be sent to pathology for further review. I then copiously irrigated the right upper quadrant. Some mild oozing was noted in the liver bed and this was controlled with the bovie cautery. Hemostasis was noted in the liver bed, the clips were noted to be in good position on both the cystic duct stump and the cystic artery stump. No other pathology was noted in the right upper quadrant. I then moved the laparoscope to the subxiphoid port. No iatrogenic injury or other pathology was noted in the lower abdomen. I then closed the 12 mm trocar site under direct visualization using the Kristopher cone and 0 Vicryl suture. At this point, the abdomen was desufflated and all ports removed. All port sites were then closed with 4.O Monocryl subcuticular sutures. Dermabond was placed on each incision. The patient tolerated the procedure well, was extubated in the operating room postoperative and will be transferred to the recovery room in stable condition Estimated Blood Loss 5 Drains No Packing No Pathology Yes Complications No immediate complications Condition Stable Disposition PACU [facility] Billing Surgery - Charge Forward: Surgery Billing
[2022-07-03] MEDS: fentaNYL CITRATE INJ (*CRX) 100 MCG/2 ML VIAL 25 MCG IV PUSH ×6 (15:12→15:58)
[2022-07-03] MEDS: ONDANSETRON INJ 4 MG/2 ML VIAL IV PUSH (15:40)
[2022-07-03] MEDS: SCOPOLAMINE 1.5 MG PATCH TRANSDERM (16:45)
--- NOTE | 2022-07-03 17:15 | SUR.PHASEII ---
pt said she is feeling better with pain and nause improving but wants to hang out a little longer
== END 2022-07-03 17:44 | disposition home or self-care (01) ==
PROVIDERS: PCP Registered Nurse; Visit Provider Surgery
PROC: 0FT44ZZ Resection of Gallbladder, Percutaneous Endoscopic Approach (ICD-10-PCS; CPT 47562; principal; 2022-07-03 14:00)
DX: K81.1 Chronic cholecystitis (principal); I10 Essential (primary) hypertension; G35 Multiple sclerosis; K21.9 Gastro-esophageal reflux disease without esophagitis; F43.10 Post-traumatic stress disorder, unspecified; E66.9 Obesity, unspecified; Z68.37 Body mass index [BMI] 37.0-37.9, adult
CPT/HCPCS: 47562; 88304; A9270; J0690; J1100; J1885; J2250; J2405; J2704; J2710; J3010; J7120

== ENCOUNTER 2022-07-23 09:43 | Outpatient (CLI) | payer MEDICARE, SELFPAY ==
[2022-07-23 10:06] LABS: Basophils Absolute Auto 0.1 K/mm3 (0.0-0.1); Eosinophils Absolute Auto 0.2 K/mm3 (0-0.3); Hematocrit 39.4 % (37.0-47.0); Hemoglobin 12.7 g/dL (12.0-15.0); Immature Granulocyte Absolute 0.01 K/mm3 (0.00-0.031); Immature Granulocyte Percent A 0.2 % (0-0.5); Lymphocytes Percent Auto 4.8 % (18.3-44.2); Mean Corpuscular HGB Conc 32.2 g/dl (32-36); Mean Corpuscular Hemoglobin 29.5 pg (26-34); Mean Corpuscular Volume 91.4 fl (80-100); Mean Platelet Volume 11.9 fl (7.4-10.4); Monocytes Absolute Auto 0.6 K/mm3 (0.1-0.6); Monocytes Percent Auto 8.8 % (2.6-8.5); Neutrophils Absolute Auto 5.1 K/mm3 (1.3-6.7); Neutrophils Percent Auto 82.2 % (45.5-73.1); Platelet Count Result 232 k/mm3 (150-375); Red Blood Count 4.31 M/mm3 (4.2-5.4); White Blood Count 6.3 K/mm3 (4.5-10.0)
[2022-07-23 10:24] LABS: Alanine Aminotransferase 55 U/L (6-35); Albumin Level 4.3 g/dL (3.5-5.1); Alkaline Phosphatase 70 U/L (38-126); Anion Gap 5 mmol/L (8-16); Aspartate Amino Transferase 36 U/L (14-36); Bilirubin,Total 0.3 mg/dL (0.2-1.3); Blood Urea Nitrogen 19 mg/dL (7-17); Calcium 9.1 mg/dL (8.4-10.2); Carbon Dioxide 31 mmol/L (22-30); Chloride 100 mmol/L (98-107); Estimated Glomerular Filt Rate > 60; Glucose 96 mg/dL (65-110); Potassium 4.1 mmol/L (3.4-5.0); Sodium 136 mmol/L (137-145)
[2022-07-23 10:30] LABS: Prothrombin Time 12.6 Seconds (11.1-14.7)
[2022-07-23 10:31] LABS: Partial Thromboplastin Time 26.9 SECONDS (22.3-36.8)
[2022-07-23 11:30] LABS: Free T4 Free Thyroxine 0.96 ng/mL (0.78-2.19)
== END 2022-07-23 09:44 | disposition home or self-care (01) ==
PROVIDERS: PCP Registered Nurse
DX: E03.9 Hypothyroidism, unspecified (principal); R23.3 Spontaneous ecchymoses
CPT/HCPCS: 36415; 80053; 84439; 84443; 85025; 85610; 85730

== ENCOUNTER 2022-08-05 15:12 | Outpatient (RCR) | payer MEDICARE, SELFPAY ==
--- NOTE | 2022-08-05 16:08 | PTOPEVAL1 ---
Assessment and note entered by Quin Davila, PT Evaluation Information Assessment Status Evaluation Diagnosis L LE strengthening prior to L TKR Onset 2019 Subjective Information have had issues with scheduling L TKR- covid restrictions, neck surgery, gall bladder removed; have not had knee replacement yet; plan to get scheduled, may be October; has not been doing any fitness exercises, have been recovering from cervical surgery and gall bladder removed; do have a membership at [employer], returned there about 3 weeks ago- doing recumbant stepper for 5 min, then knee pain increases and arm weights; have pain in both knees, just got injection R knee last week---helped knee pain; also had injection L foot/achilles tendon Reported Pain Level Pain Score Self Report Additional Pain Score Comments pain range 0-8/10 L knee; increase pain with walking 15 minutes and stairs; get up from sitting when first stand up; decrease pain with heat, take diclofanac, but stopped recently due to bruising of unknown reason; Assessment PT Clinical Summary Darshana has PT orders for strengthening prior to L TKR. Her medical history includes recent cervical fusion and gall bladder removal; MS with sensory changes. She is retired, and was active before these recent surgeries. She also has L hip, R knee and B foot/ankle pain. With the evaluation, she has decreased extension ROM of L knee, with crepitus of L knee; decreased strength of L knee; 5 reps sit/stand test time and 2 minute walking distance were WNL; Skilled PT services are indicated to increase L knee strength, education for HEP in prep for TKR. Plan of Care Interventions Hot Pack/Cold Pack,Neuro Re-education,Patient/ Caregiver Education,Therapeutic Activities, Therapeutic Exercise,Other Other Interventions taping PT Services Indicated Yes Treatment Frequency and 0-1x/wk for 5 weeks Duration These treatments will address the objective and functional deficits as defined above. The patient will be advanced safely and appropriately in order for the patient to progress towards his/her prior level of function. Additional exercises will be introduced and as well as a comprehensive home exercise program upon discharge, if needed, ?to ensure carryover of functional gains achieved in the clinic. This
--- NOTE | 2022-09-20 13:13 | PCPTNOTE ---
PHYSICAL THERAPY DISCHARGE 09-20-22 Attending Provider: Darren Nelson MD Patient:Darshana Dyer Date of :1955 Ms. Dyer has not returned for any further treatments since the initial evaluation on 08/05/2022, therefore she will be discharged at this time. The goals were not assessed. Thank you for referring Darshana to [facility].
== END 2022-09-23 11:22 | disposition home or self-care (01) ==
LOC: ANHPT 15:12
PROVIDERS: PCP Registered Nurse; Visit Provider Orthopaedic Surgery
DX: M17.12 Unilateral primary osteoarthritis, left knee (principal)
CPT/HCPCS: 97110; 97161

== ENCOUNTER 2022-08-07 13:24 | Outpatient (CLI) | payer MEDICARE, SELFPAY ==
--- NOTE | ~2022-08-07 | CT_ITS ---
EXAMINATION: CT LE LT wo con DATE: 08/07/2022 14:04 INDICATION: Left knee pain TECHNIQUE: High resolution computed tomography (CT) of the left lower limb from the hip through the a nkle was performed without intravenous contrast. Additional sagittal and coronal reconstructions were performed. Automated exposure control and iterative reconstruction technique were employed. The dose -length product was 1674.65 mGy-cm. COMPARISON: 06/12/2022 FINDINGS: No fractures. Minimal genu varum with medial compartment joint space narrowing at the knee which is s evere on the prior weightbearing radiographs. There is subarticular eburnation on both the weightbear ing medial femoral condyle and medial tibial plateau. Small to moderate-sized marginal osteophytes in all 3 compartments of the knee. There are also enthesophytes along the proximal and distal patella. No right knee joint effusion. Moderate osteoarthritis at the left sacroiliac joint. Mild osteoarthrit is at the left hip and ankle joints. There is a 5 x 4 mm densely sclerotic lesion with surrounding ri m of relative lucency along the medial rim of the talar dome which could represent either a bone humberto nd with somewhat atypical surrounding lucency or osteochondral lesion with secondary central sclerosi s. Multiple small heterotopic ossicles at the deep deltoid ligament consistent with sequela of chroni c sprain. Small enthesopathic ossicles and moderate-sized enthesophytes at the calcaneal insertion of the distal Achilles tendon and proximal plantar aponeurosis. Postoperative changes in the pelvis inc luding prior hysterectomy and colon surgery with anastomotic suture line at the distal sigmoid colon. No pathologically enlarged left pelvic or inguinal lymphadenopathy. IMPRESSION: 1. Severe medial compartment predominant tricompartmental osteoarthritis of the left knee. 2. 5 x 4 mm densely sclerotic lesion at the medial rim of the talar dome most likely either a bone is land with somewhat atypical mild surrounding relative lucency or chronic osteochondral lesion with se condary sclerosis. Reviewed, dictated and finalized at location A. ER DEVELOPMENT ENGINEER IMPRESSION: 1. Severe medial compartment predominant tricompartmental osteoarthritis of the left knee. 2. 5 x 4 mm densely sclerotic lesion at the medial rim of the talar dome most l ikely either a bone island with somewhat atypical mild surrounding relative terell ency or chronic osteochondral lesion with secondary sclerosis.
== END 2022-08-07 13:25 | disposition home or self-care (01) ==
PROVIDERS: PCP Registered Nurse; Visit Provider Orthopaedic Surgery
DX: Z01.818 Encounter for other preprocedural examination (principal); M17.12 Unilateral primary osteoarthritis, left knee; M89.8X6 Other specified disorders of bone, lower leg
CPT/HCPCS: 73700

== ENCOUNTER 2022-10-04 09:45 | Outpatient (CLI) | payer MEDICARE, SELFPAY ==
[2022-10-04 11:15] LABS: Basophils Absolute Auto 0.1 K/mm3 (0.0-0.1); Basophils Percent Auto 1.4 % (0.2-1.2); Eosinophils Absolute Auto 0.2 K/mm3 (0-0.3); Eosinophils Percent Auto 2.9 % (0-4.4); Hematocrit 38.1 % (37.0-47.0); Hemoglobin 12.4 g/dL (12.0-15.0); Immature Granulocyte Absolute 0.02 K/mm3 (0.00-0.031); Immature Granulocyte Percent A 0.3 % (0-0.5); Lymphocytes Absolute Auto 1.19 K/mm3 (0.9-3.2); Lymphocytes Percent Auto 16.3 % (18.3-44.2); Mean Corpuscular HGB Conc 32.5 g/dl (32-36); Mean Corpuscular Hemoglobin 30.1 pg (26-34); Mean Corpuscular Volume 92.5 fl (80-100); Monocytes Absolute Auto 0.5 K/mm3 (0.1-0.6); Monocytes Percent Auto 7.4 % (2.6-8.5); Neutrophils Absolute Auto 5.2 K/mm3 (1.3-6.7); Neutrophils Percent Auto 71.7 % (45.5-73.1); Platelet Count Result 247 k/mm3 (150-375); Red Blood Count 4.12 M/mm3 (4.2-5.4); Red Cell Distribution Width 14.1 % (11.5-14.5); White Blood Count 7.3 K/mm3 (4.5-10.0)
[2022-10-04 11:24] LABS: Albumin Level 4.4 g/dL (3.5-5.1)
[2022-10-04 11:27] LABS: INR 1.1; Prothrombin Time 13.3 Seconds (11.1-14.7)
[2022-10-04 11:28] LABS: Partial Thromboplastin Time 27.3 SECONDS (22.3-36.8); Urine Cotinine NEGATIVE
[2022-10-04 11:29] LABS: Anion Gap 3 mmol/L (8-16); Blood Urea Nitrogen 15 mg/dL (7-17); Calcium 9.4 mg/dL (8.4-10.2); Carbon Dioxide 37 mmol/L (22-30); Chloride 98 mmol/L (98-107); Estimated Glomerular Filt Rate > 60; Glucose 89 mg/dL (65-110); Potassium 4.3 mmol/L (3.4-5.0); Sodium 138 mmol/L (137-145)
[2022-10-04 11:32] LABS: Hemoglobin A1C 5.5 % (<5.7)
== END 2022-10-04 09:46 | disposition home or self-care (01) ==
PROVIDERS: Anesthesiology; PCP Registered Nurse; Visit Provider Orthopaedic Surgery
DX: M17.12 Unilateral primary osteoarthritis, left knee (principal); R74.8 Abnormal levels of other serum enzymes; Z79.899 Other long term (current) drug therapy; Z01.818 Encounter for other preprocedural examination
CPT/HCPCS: 36415; 80048; 80307; 82040; 83036; 85025; 85610; 85730; 87081

== ENCOUNTER 2022-10-29 00:58 | Day surgery (SDC) | payer MEDICARE, SELFPAY ==
[2022-10-04 09:58] VITALS: BMI 38.0
[2022-10-04 10:05] VITALS: BP 128/77; PULSE 73; RESP 16; TEMP 37; O2SAT 94
--- NOTE | 2022-10-04 10:30 | PC.NURSE ---
Report to the Outpatient Waiting Room, entrance under the green pavilion located off [facility], at time __6:00AM on date __10/29/22 . Planned Procedure Time: __7:30AM . Time changes happen often and if your time is changed the preop area will call you the afternoon before. - You and your visitor will be asked to self-screen and do not enter if you have any COVID symptoms. - Only one visitor is requested with a max of two and NO children visitors are allowed at this time. - The patient visitor may be requested to leave or wait in car when not with patient due to distancing restrictions. - A mask is optional within the hospital at this time. Patients may have clear liquids (water, carbonated beverages, clear teas, apple juice) until 3 hours prior to surgery with a maximum of 20 ounces. - No food from midnight until time of surgery Take the following medications with a SIP of water the morning of surgery: ____BUPROPION, LEVOTHYROXINE DO NOT STOP ANY OF YOUR OTHER PRESCRIPTION MEDICATIONS PRIOR TO SURGERY ?EXCEPT THE FOLLOWING Medications to discontinue per physician ___HOLD ALL VITAMINS/SUPPLEMENTS 3 DAYS PRE-OP Date to take last dose____10/25/22 Please no make-up, nail syriac, hairspray, perfume, deodorant, or body powder the day of surgery. No jewelry (including any body piercings) or valuables the day of surgery, leave them at home. Please take a shower or bath the night before, or the morning of, surgery with an antibacterial soap. Wear comfortable, loose fitting clothing. Children are encouraged to wear pajamas. - Jewelry must be removed prior to entering the operating room. Rings and piercings that are not removed may be cut off. - The hospital will not accept responsibility for valuables. - Please leave all valuables, including medications, at home the day of surgery. If you are going home after surgery, a licensed compressed air pile driver operator must drive you home. - NO public transportation without another adult if you receive anesthesia. - We recommend that an adult stay with you for 24 hours following discharge. - We also recommend that you do not drive, make important decision, drink alcoholic beverages, or take any drugs that were not prescribed by your health care provider for at least 24 hours after your discharge time. Follow any additional instructions given to you from your surgeon. If you or anyone in your household have experienced Covid symptoms in the past week, please notify your surgeon or the nurse liaison at the phone number below for possible testing. Telephone instructions given to __PATIENT and asked if any additional questions and then verbalized understanding. Patient advised to call surgeon office or pre surgery nurse liaison [phone] if any additional questions.
--- NOTE | 2022-10-28 13:04 | WPDANESEPPF ---
Anes - Initial Pre Proc Eval Procedure: Operation Date: 10/29/22 07:30 Proposed Procedures p Left Custom Total Knee Arthroplasty - Darren Nelson MD Date/Time: 10/28/22 13:04 Surgeon: Darren Nelson MD Pre Op Diagnosis: Prim O.A. Lt Knee Patient Data Age: 67 Gender: F Height: 1.66 m Weight: 104.4 kg Last Vital Signs Temp 37.0 C 10/04/22 10:05 Pulse 73 10/04/22 10:05 Resp 16 10/04/22 10:05 BP 128/77 10/04/22 10:05 Pulse Ox 94 10/04/22 10:05 O2 Del Method Room Air 10/04/22 10:05 Allergies Allergy/AdvReac Type Severity Reaction Status Date / Time Penicillins Allergy Hives Verified 10/29/22 06:21 Sulfa (Sulfonamide Allergy Hives Verified 10/29/22 06:21 Antibiotics) droperidol [From Inapsine] AdvReac Confusion Verified 10/29/22 07:15 Home Medications Medication Instructions Recorded Confirmed Type bupropion HCl 100 mg tablet,12 hr 100 mg PO QAM 05/11/19 10/29/22 History sustained-release (Wellbutrin SR) hydrochlorothiazide 25 mg tablet 25 mg PO QAM 05/11/19 10/29/22 History lisinopril 10 mg tablet 10 mg PO QAM 06/12/22 10/29/22 History levothyroxine 25 mcg tablet 25 mcg PO QAM 06/25/22 10/29/22 History baclofen 10 mg tablet 10 mg PO TID PRN Muscle Spasm 10/04/22 10/29/22 History cholecalciferol (vitamin D3) 125 125 mcg PO DAILY 10/04/22 10/29/22 History mcg (5,000 unit) capsule semaglutide (weight loss) 0.5 0.5 mg subcut WEEKLY 10/04/22 10/29/22 History mg/0.5 mL subcutaneous pen injector gabapentin 100 mg capsule 100 mg PO TID 10/29/22 10/29/22 History Patient hx anesthesia problems: other (hx vocal cord paralysis) Family hx anesthesia problems: none Results Review: All pre-operative results and documents have been reviewed as part of the pre-operative evaluation. [facility] Past Medical History Medical History (Updated 10/28/22 @ 13:05 by Yonny Gil DO) BMI 34.0-34.9,adult BMI 36.0-36.9,adult BMI 38.0-38.9,adult GERD (gastroesophageal reflux disease) History of hypertension History of multiple sclerosis Hypertension Multiple sclerosis Osteoarthritis of right knee Panic attack PTSD (post-traumatic stress disorder) Tear of MCL (medial collateral ligament) of knee (~04/2019) Vision loss Vocal cord paralysis after cervical fusion 03/2022 Surgical History Surgical History H/O cervical spine surgery History of section 1978, 1983 History of colon resection 2003 History of hysterectomy 1994 History of toe surgery 2007- Jorden Ponce Hx laparoscopic cholecystectomy 07/03/22 Family History Family History Other Cancer Diabetes mellitus Heart disease Hypertension Social History Social History Smoking status: Never smoker Second hand tobacco smoke exposure: No Additional smoking assessment comments: DENIES ANY FORM OF TOBACCO USE Alcohol intake: current Alcohol use details: MAYBE 1 / MONTH Substance use: never Substance use type: does not use Lack of Transportation: No Lack of Food: Never True Current Housing: I Have Housing Concerned About Future Housing: No Difficulty Paying Gas/Electric Bills: No Difficulty Paying for Meds: No Currently Unemployed: No Education: Master's Degree or Higher Difficulty w/ Childcare or Family Care: No Living arrangements: with family Additional living arrangements comments: [place] Occupation/Education: occupation 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
[2022-10-29] VITALS (13 sets, daily range): BP systolic 108–149; BP diastolic 56–94; PULSE 72–88; RESP 8–20; TEMP 35.6–37; O2SAT 93–100
--- NOTE | ~2022-10-29 | XR_ITS ---
EXAMINATION: [id number] DATE: 10/29/2022 10:20 INDICATION: Total left knee arthroplasty. Postop. TECHNIQUE: 2 views of left knee were obtained. COMPARISON: Left knee radiographs 06/12/2022 FINDINGS: There is a total left knee arthroplasty with patellar resurfacing in near-anatomic alignmen t. No fracture. There is gas in the knee joint and soft tissues, consistent with recent surgery. IMPRESSION: 1. Total left knee arthroplasty in near-anatomic alignment. Reviewed, dictated and finalized at location A.
[2022-10-29] MEDS: TRANEXAMIC ACID 1,000MG/ISO100 1,000 MG/100 ML BAG 200 MG IVPB (06:58)
[2022-10-29] MEDS: LACTATED RINGERS 1,000 ML 30 ML IV CONT ×2 (07:01→10:42)
[2022-10-29] MEDS: SCOPOLAMINE 1.5 MG PATCH TRANSDERM (07:09)
--- NOTE | 2022-10-29 07:21 | WPDHPUPDATE1 ---
History and Physical Update Update Date/Time: 10/29/22 07:21 History and Physical has been reviewed, including an updated exam of the patient. There are NO changes in the patient's condition. Risks, benefits, and alternatives have been discussed and questions answered. Patient agrees to proceed with procedure.
[2022-10-29] MEDS: ceFAZolin 2 GM/D5W 50 ML 2 GM/50 ML BAG IVPB ×3 (07:34→23:10)
--- NOTE | 2022-10-29 07:34 | WPDANESPNB ---
Anes - Peripheral Nerve Block Date/Time: 10/29/22 07:34 I have discussed with the patient/family/POA the placement of a peripheral nerve block for post-operative pain management, including associated risks, benefits, complications, and side effects. Alternative methods of post-operative analgesia were detailed. Questions were solicited and answers provided to the satisfaction of the patient/family/POA. Time-Out: A pre-procedural Time-Out was completed immediately before starting the procedure and confirmed: Patient Identification, Site, Procedure, Patient Position and the Availability of Requisite Equipment. Clinical Indications: Acute post-operative pain management requested by the operative surgeon. Nerve Block Insertion Note Anes-nerve block: adductor canal left Patient position: supine Skin prep: chlorhexidine Needle: 22 gauge, stimulating, insulated echogenic needle. Needle length: 80 mm Technique: ultrasound Injectate: bupivacaine 0.5% with epi 5 mcg/ml (30cc - no epi) Observations: tolerated well Complications: none Procedure start time:: 726 Procedure end time:: 729
[2022-10-29] MEDS: GENTAMICIN BONE CEMENT REFOBACIN 1 EACH TOPICAL (08:17)
--- NOTE | 2022-10-29 10:14 | P.OP_ITS ---
Procedure Note - Detailed Date of Procedure 10/29/22 Pre-op Diagnosis Prim O.A. Lt Knee Post-op Diagnosis Same Procedure Performed Total knee arthroplasty, left Surgeon Darren Nelson MD Anesthesia General and Regional (Subsartorial block.) Findings Mild medial release. Slight PCL release. Very good bone quality. Description of Procedure Preoperative antibiotics were given. The limb was prepped and draped in the usual sterile fashion with a well-padded tourniquet high on the thigh. The limb was exsanguinated and the tourniquet inflated to 300 mmHg. A longitudinal incision was created just medial to the patella. A trivector approach to the knee was performed. Arthrotomy was taken down through the joint capsule. No significant releases were initially taken. The femur was exposed and the F1 jig was applied. The coring tool was used to remove the cartilage for the F2 jig to sit flush with the bone. The jig was pinned and the distal cut carefully taken. Caliper measurements confirmed appropriate bony resections according to the preoperative templated plan. The F4 cutting jig for the femur was applied, at the standard rotation. The AP and anterior chamfer cuts were taken. The F5 jig was applied and the posterior chamfer cuts were taken. The tibia was prepared using the T1 jig, after removing cartilage for the jig contact points. Proper alignment was checked with the alignment ajit. The tibia was cut using the T1u guide. Gap balancing was performed. Gap measurements were taken and the knee was trialed. Excellent alignment and soft tissue balancing was confirmed. The posterior cruciate ligament was recessed along the proximal tibia. The patella was cut for resurfacing. Three lug holes were drilled. Meniscal remnants were removed. The trial components were assembled. Excellent range of motion and proper soft tissue balancing were confirmed throughout the full range of motion. Patellar tracking was excellent. The knee was copiously irrigated periodically throughout the procedure. The real implants were izabel ented into position. Excess cement was carefully removed. The wound was closed in layers with interrupted #1 Vicryl suture, #2 strata fix suture, 2-0 strata fix suture, 3-0 strata fix suture. Steri-Strips placed on the skin with the knee flexed. Sterile bulky dressing applied. The patient was brought to the recovery room in stable condition. There were no complications. Implants [employer] total knee arthroplasty. Cemented. Cruciate retaining. 7 mm insert. 32 mm oval patella. Estimated Blood Loss -50.0 Tourniquet Time 70 Drains No Complications No immediate complications Condition Stable Disposition PACU [facility] Billing Surgery - Charge Forward: Surgery Billing
[2022-10-29] MEDS: fentaNYL CITRATE INJ (*CRX) 100 MCG/2 ML VIAL 25 MCG IV PUSH ×5 (10:38→11:10)
--- NOTE | 2022-10-29 11:40 | PC.NURSE ---
This patient, Darshana Dyer, was admitted to 3 [facility] Surg Room 329-01. Patient/family oriented to hospital policies and general routines including ID bracelet, bed and alarms, visiting hours, pain management, procedures, bathroom and other care routines, personal items, smoking policy, room service/diet, and visiting hours.Report received from Cady MARI. Information on how to activate the Rapid Response Team has been discussed. Patient/Family are encouraged to report perceived risks to care and to ask questions if they do not understand what they are told or what they should do.
[2022-10-29] MEDS: ACETAMINOPHEN 500 MG TABLET 1000 MG PO ×3 (12:23→23:10)
[2022-10-29] MEDS: ONDANSETRON INJ 4 MG/2 ML VIAL IV PUSH (12:25)
[2022-10-29] MEDS: GABAPENTIN 100 MG CAPSULE PO ×2 (13:39→17:36)
[2022-10-29] MEDS: MECLIZINE HCL 12.5 MG TABLET PO (17:35)
[2022-10-29] MEDS: MELOXICAM 7.5 MG TABLET PO (17:36)
[2022-10-29] MEDS: ASPIRIN 81 MG ENTERIC TABLET PO (17:37)
[2022-10-29] MEDS: FAMOTIDINE 20 MG TABLET PO (19:48)
[2022-10-30 00:27] VITALS: BP 134/78; PULSE 85; RESP 18; TEMP 36.3; O2SAT 94
[2022-10-30 04:00] VITALS: BP 113/64; PULSE 68; RESP 16; TEMP 36.2; O2SAT 91
[2022-10-30] MEDS: ceFAZolin 2 GM/D5W 50 ML 2 GM/50 ML BAG IVPB (05:57)
[2022-10-30] MEDS: ACETAMINOPHEN 500 MG TABLET 1000 MG PO (05:58)
[2022-10-30] MEDS: LEVOTHYROXINE SODIUM 25 MCG TABLET PO (05:58)
[2022-10-30 06:15] LABS: Basophils Percent Auto 0.2 % (0.2-1.2); Eosinophils Percent Auto 0.1 % (0-4.4); Hematocrit 33.5 % (37.0-47.0); Hemoglobin 10.5 g/dL (12.0-15.0); Immature Granulocyte Absolute 0.11 K/mm3 (0.00-0.031); Immature Granulocyte Percent A 0.7 % (0-0.5); Lymphocytes Absolute Auto 1.19 K/mm3 (0.9-3.2); Lymphocytes Percent Auto 7.4 % (18.3-44.2); Mean Corpuscular HGB Conc 31.3 g/dl (32-36); Mean Corpuscular Hemoglobin 29.4 pg (26-34); Mean Corpuscular Volume 93.8 fl (80-100); Mean Platelet Volume 11.6 fl (7.4-10.4); Monocytes Absolute Auto 1.2 K/mm3 (0.1-0.6); Monocytes Percent Auto 7.5 % (2.6-8.5); Neutrophils Absolute Auto 13.5 K/mm3 (1.3-6.7); Neutrophils Percent Auto 84.1 % (45.5-73.1); Platelet Count Result 209 k/mm3 (150-375); Red Blood Count 3.57 M/mm3 (4.2-5.4); Red Cell Distribution Width 14.1 % (11.5-14.5)
[2022-10-30 06:24] LABS: Anion Gap 4 mmol/L (8-16); Blood Urea Nitrogen 14 mg/dL (7-17); Calcium 8.3 mg/dL (8.4-10.2); Carbon Dioxide 34 mmol/L (22-30); Chloride 100 mmol/L (98-107); Estimated CRCL calculation 64 ml/min; Estimated Glomerular Filt Rate > 60; Glucose 108 mg/dL (65-110); Potassium 4.1 mmol/L (3.4-5.0); Sodium 138 mmol/L (137-145)
[2022-10-30 08:00] VITALS: BP 121/63; PULSE 66; RESP 16; TEMP 36; O2SAT 97
[2022-10-30] MEDS: buPROPion HCL SR (12HR) 100 MG TABCR PO (08:13)
[2022-10-30] MEDS: SENNA/DOCUSATE SODIUM TABLET 2 TAB PO (08:13)
[2022-10-30] MEDS: GABAPENTIN 100 MG CAPSULE PO (08:13)
[2022-10-30] MEDS: MELOXICAM 7.5 MG TABLET PO (08:13)
[2022-10-30] MEDS: hydroCHLOROthiazide 25 MG TABLET PO (08:13)
[2022-10-30] MEDS: predniSONE 5 MG TABLET PO (08:13)
[2022-10-30] MEDS: lisinopriL 10 MG TABLET PO (08:13)
[2022-10-30] MEDS: ASPIRIN 81 MG ENTERIC TABLET PO (08:13)
[2022-10-30] MEDS: FAMOTIDINE 20 MG TABLET PO (08:13)
--- NOTE | 2022-10-30 08:36 | PM.DS ---
DS: Admitting Diagnosis Discharge Date 10/30/22 Admitting Diagnosis OA knee Left DS: Discharge Diagnosis Discharge Diagnosis (1) Status post total left knee replacement: Code(s): Z96.652 - Presence of left artificial knee joint Status: Acute Assessment and Plan: Postop day 1: Left total Knee arthroplasty. Patient tolerated procedure well. No complications. Pain manageable with pain medication. No numbness or tingling. We had a lengthy discussion regarding postoperative wound care, limitations, expectations, and exercises. Patient shows good understanding. She has had initial physical therapy and is tolerating it well. White count slightly elevated. She is feeling fine. No fever or other source of infection. Likely response from surgery. We have already planned for extended antibiotics for the patient. Patient has followup appointment with Dr. Nelson in 3 weeks. DS: Summary Hospital Course Reason for hospitalization: Total knee arthroplasty Hospital Course: Patient tolerated procedure well. Has had initial PT/OT. Status at Discharge Functional status at discharge: uses cane/walker Overall status at discharge: patient is progressing back to baseline Time Spent with Patient Time attestation: Total time spent providing and/or coordinating discharge services: Exam Narrative: 67-year-old overweight female. Resting comfortably in chair. Alert and oriented x3. No acute distress. Wearing compression socks bilaterally. Dressing intact without drainage. Mild swelling. No ecchymosis. No erythema. No hematoma. Range of motion limited due to pain. Calf nontender. Neurologic status intact. No varicosities. Distal pulses palpable. DS: Data Data Completed and Pending Labs on day of discharge: Labs from last 24 hours 10/30/22 05:35 WBC 16.0 H RBC 3.57 L Hgb 10.5 L Hct 33.5 L MCV 93.8 MCH 29.4 MCHC 31.3 L RDW 14.1 Plt Count 209 MPV 11.6 H Immature Gran % (Auto) 0.7 H Neut % (Auto) 84.1 H Lymph % (Auto) 7.4 L [place] % (Auto) 7.5 Eos % (Auto) 0.1 Baso % (Auto) 0.2 Lymph # (Auto) 1.19 [place] # (Auto) 1.2 H Eos # (Auto) 0.0 Baso # (Auto) 0.0 Abs Immat Gran (auto) 0.11 H Absolute Neuts (auto) 13.5 H Absolute Nucleated RBC 0.0 Nucleated RBC % 0.0 Sodium 138 Potassium 4.1 Chloride 100 Carbon Dioxide 34 H Anion Gap 4 L BUN 14 Creatinine 0.90 Estim Creat Clear Calc 64 Estimated GFR > 60 Glucose 108 Calcium 8.3 L Discharge Plan Discharge Patient Disposition: Home, Self-Care Discharge Instructions: See green instruction sheets Patient Instructions: Knee Replacement (DC) Stand Alone Forms: General Discharge Instructions Follow-up/Referrals: Ana Rosa PA [Physician Guest Service Team Leader] - Discharge Medications: New aspirin 81 mg tablet,delayed release (DR/EC) 81 mg PO BID 14 Days Qty: 28 0RF meloxicam 15 mg tablet 15 mg PO DAILY Qty: 30 0RF Rx Instructions: Cut in half. Take 1/2 in morning and 1/2 at night. Take with food. Stop if stomach upset. prednisone 5 mg tablet 5 mg PO DAILY 21 Days Qty: 21 0RF oxycodone-acetaminophen 5-325 mg tablet 1 - 2 tablet PO Q4-6H MDD 6 PRN (Reason: pain) Qty: 30 0RF cephalexin 500 mg capsule 500 mg PO BID 10 Days Qty: 20 0RF Rx Instructions: Take twice a day for 10 days. ondansetron 4 mg tablet,disintegrating 4 mg PO Q6H PRN (Reason: nausea and vomiting) Qty: 20 0RF Continued bupropion HCl [Wellbutrin SR] 100 mg Tablet Sustained-Release 12 Hr 100 mg PO QAM hydrochlorothiazide 25 mg Tablet 25 mg PO QAM lisinopril 10 mg tablet 10 mg PO QAM Patient Comments: QAM levothyroxine 25 mcg tablet 25 mcg PO QAM baclofen 10 mg tablet 10 mg PO TID PRN (Reason: Muscle Spasm) cholecalciferol (vitamin D3) 125 mcg (5,000 unit) Capsule 125 mcg PO DAILY semaglutide (weight loss) 0.5 mg/0.5 mL Pen In
[2022-10-30] MEDS: traMADol HCL (*CRX) 50 MG TABLET PO (09:39)
== END 2022-10-30 11:15 | disposition home or self-care (01) ==
LOC: ANHSURGERY 10:23 → ANH3MEDSUR 11:34
PROVIDERS: Physician Assistant Surgical; PCP Registered Nurse; Visit Provider Orthopaedic Surgery
PROC: (CPT 27447; principal; 2022-10-29 07:30)
DX: M17.12 Unilateral primary osteoarthritis, left knee (principal); G89.18 Other acute postprocedural pain; I10 Essential (primary) hypertension; G35 Multiple sclerosis; F43.10 Post-traumatic stress disorder, unspecified; J38.00 Paralysis of vocal cords and larynx, unspecified; Z98.1 Arthrodesis status; Z79.899 Other long term (current) drug therapy; E66.9 Obesity, unspecified; Z68.37 Body mass index [BMI] 37.0-37.9, adult
CPT/HCPCS: 27447; 64447; 36415; 73560; 80048; 85025; 86850; 86900; 86901; 97110; 97116; 97161; 97165; 97530; 97535; A9270; C1713; C1776; J0131; J0171; J0330; J0690; J1100; J1170; J1885; J2250; J2270; J2405; J2704; J2795; J3010; J7120; J7512

== ENCOUNTER 2022-12-16 09:45 | Outpatient (RCR) | payer MEDICARE, SELFPAY ==
--- NOTE | 2022-11-12 11:43 | PTOPEVAL1 ---
Assessment and note entered by Quin Davila, PT Evaluation Information Assessment Status Evaluation Diagnosis L TKR Onset 10-29-22 Subjective Information using wheeled walker or cane in home, doing well getting around in her home; entry steps are wide and can use the walker on them; have not been into basement yet; doing the exercises from the hospital, doing 10 at a time, several times a day; wearing the compression socks from the hospital Reported Pain Level Pain Score Self Report Additional Pain Score Comments pain range in the past few days: 0-7/10; deep ache hurts, pain in L knee; sharp- medial-distal patella, numb over knee; taking tylenol PRN, using ice and heat--instructed to NOT use heat over red, swollen knee; have issues with cold due to MS; Assessment PT Clinical Summary Darshana is s/p L TKR 2 weeks ago. Prior to surgery, she used a cane for ambulation, due to MS and decreased balance/strength. She is motivated and has been doing her exercises at home. With the evaluation, she is using the wheeled walker for ambulation, 2 minute walking test distance of 290'; sitting R knee active ROM is (- 20') to 95' and with supine passive stretch knee extension (-15'); she reports more swelling in her knee this AM; 5 reps sit/stand time of 21 sec without use of UE's; Skilled PT services are indicated to increase L knee active ROM and strength, gait and balance skills, with modalities for pain control and education for progression of HEP and gait retraining. Plan of Care Interventions Electrical Stimulation,Gait Training,Hot Pack/Cold Pack,Intermittent Compression,Manual Therapy, Neuro Re-education,Patient/Caregiver Education, Therapeutic Activities,Therapeutic Exercise,Other Other Interventions taping PT Services Indicated Yes Treatment Frequency and 2x/wk for 4 weeks Duration These treatments will address the objective and functional deficits as defined above. The patient will be advanced safely and appropriately in order for the patient to progress towards his/her prior level of function. Additional exercises will be introduced and as well as a comprehensive home exercise program upon discharge, if needed, ?to ensure carryover of functional gains achieved in the clinic. This treatment plan has been reviewed and agreement upon by the patient.
--- NOTE | 2022-12-11 09:51 | PTOPPROG ---
Assessment and note entered by Quin Davila, PT Evaluation Information Assessment Status Progress Diagnosis L TKR Onset 10-29-22 Subjective Information Darshana reports: knee is doing great; L heel is really bothering her now; been doing the knee exercises; more active--did yard work and weed eater; still cannot get knee all the way straight ; want to continue with therapy; feel like her MS is hindering a little; foot dr does not want her to overstretch her calf due to foot pain; does OK going up the stairs, but anxious going down the stairs, due to hurting her heel; tends to avoid going into the basesment due to the stairs; PAIN: range in the past week 0-6/10; still have swelling in her knee; is using the ice and elevation; is taking tylenol PRN for pain; L heel is giving her more pain than the knee; Assessment PT Clinical Summary Darshana has received 9 PT sessions. She has improved in all areas: pain rating at worse; ROM and strength L knee; increased activity level--still hesitant on stairs due to L heel pain; not using assistive device; education for HEP. She is WNL for : 2 minute walking test distance of 525' and 5 reps sit/stand of 14 sec. Her active knee ROM is (-10') to 120' in sitting; there is edema over her knee. The goals were partially met--strength and mobility goals achieved; Continue PT to decrease edema and increase extension ROM. Plan of Care Interventions Gait Training,Intermittent Compression pump,Manual Therapy,Neuro Re-education,Patient Education,Therapeutic Activities,Therapeutic Exercise,Ultrasound,Other Other Interventions [facility] PT Services Indicated Yes Treatment Frequency and 2x/wk for 3 weeks Duration These treatments will address the objective and functional deficits as defined above. The patient will be advanced safely and appropriately in order for the patient to progress towards his/her prior level of function. Additional exercises will be introduced and as well as a comprehensive home exercise program upon discharge, if needed, ?to ensure carryover of functional gains achieved in the clinic. This treatment plan has been reviewe
--- NOTE | 2022-12-19 09:27 | PCPTNOTE ---
Pt. canceled the rest of her appointments as the MD released her for now but is planning on being back for another issue.
--- NOTE | 2022-12-20 15:47 | PTOPDC ---
Assessment and note entered by Quin Davila, PT Evaluation Information Assessment Status Discharge - Pt Not Present Diagnosis L TKR Onset 10-29-22 Assessment PT Clinical Summary Darshana called and canceled all of her remaining appointments; stated told her she did not need anymore therapy. Discharge PT services. Plan of Care PT Services Indicated No
== END 2022-12-20 16:17 | disposition home or self-care (01) ==
LOC: ANHPT 09:45
PROVIDERS: PCP Registered Nurse; Visit Provider Physician Assistant Surgical
DX: Z47.1 Aftercare following joint replacement surgery (principal); Z96.652 Presence of left artificial knee joint
CPT/HCPCS: 97014; 97016; 97110; 97112; 97116; 97140; 97161; 97530; G0283

== ENCOUNTER 2023-01-24 17:26 | Emergency (ER) | payer MEDICARE, SELFPAY ==
[2023-01-24 17:44] VITALS: BP 145/90; PULSE 88; RESP 16; TEMP 37.2; O2SAT 100
--- NOTE | 2023-01-24 17:58 | ED.SKABFB ---
HPI - Skin/Abscess/Foreign Bdy General Chief complaint: Skin/Abscess/Foreign Body Stated complaint: Right Foot Toe Pain Time Seen by Provider: 01/24/23 17:49 Source: patient and RN notes reviewed Mode of arrival: ambulatory Limitations: no limitations History of Present Illness HPI narrative: Patient presents today complaining of a one-week history of redness and drainage from the right toenail. She was started on twice daily Keflex by her PCP without much relief. She was also some clindamycin topically prescribed by her working second hand previously. Patient states she has also been cleaning her toe with peroxide. Patient previously had a partial toenail avulsion performed by her working second hand in August. Related Data Home Medications Medication Instructions Recorded Confirmed bupropion HCl 100 mg tablet,12 hr 100 mg PO QAM 05/11/19 12/20/22 sustained-release (Wellbutrin SR) lisinopril 10 mg tablet 10 mg PO QAM 06/12/22 12/20/22 levothyroxine 25 mcg tablet 25 mcg PO QAM 06/25/22 12/20/22 cholecalciferol (vitamin D3) 125 125 mcg PO DAILY 10/04/22 12/20/22 mcg (5,000 unit) capsule semaglutide (weight loss) 0.5 0.5 mg subcut WEEKLY 10/04/22 12/20/22 mg/0.5 mL subcutaneous pen injector gabapentin 100 mg capsule 100 mg PO TID 10/29/22 12/20/22 diazepam 2 mg tablet (Valium) 2 mg PO QHS PRN 11/20/22 12/20/22 diclofenac sodium 75 mg 75 mg PO ONCE 11/20/22 12/20/22 tablet,delayed release furosemide 20 mg tablet (Lasix) 20 mg PO QAM 12/19/22 12/20/22 Allergies Allergy/AdvReac Type Severity Reaction Status Date / Time Penicillins Allergy Hives Verified 01/24/23 17:40 Sulfa (Sulfonamide Allergy Hives Verified 01/24/23 17:40 Antibiotics) droperidol [From Inapsine] AdvReac Confusion Verified 01/24/23 17:40 Review of Systems Review of Systems: CONSTITUTIONAL: Denies body aches, fever, chills, or sweats. EYES: Denies visual changes, redness, or discharge. ENT: Denies rhinorrhea, congestion, sore throat, or otalgia. CARDIOVASCULAR: Denies chest pain, palpitations, or edema. RESPIRATORY: Denies cough or dyspnea. GASTROINTESTINAL: Denies abdominal pain, nausea, vomiting, or diarrhea. GENITOURINARY: Denies dysuria or hematuria. SKIN: + right great toe redness and drainage MUSCULOSKELETAL: Denies back pain, joint pain, or myalgia. NEUROLOGIC: Denies headache, numbness, tingling, or weakness. PSYCH: Denies depression or anxiety. COUNTS INCLUDE 234 BEDS AT THE [facility] Past Medical History Medical History BMI 34.0-34.9,adult BMI 36.0-36.9,adult BMI 38.0-38.9,adult GERD (gastroesophageal reflux disease) History of hypertension History of multiple sclerosis Hypertension Multiple sclerosis Osteoarthritis of right knee Panic attack PTSD (post-traumatic stress disorder) Tear of MCL (medial collateral ligament) of knee (~04/2019) Vision loss Vocal cord paralysis after cervical fusion 03/2022 Surgical History Surgical History H/O cervical spine surgery History of section 1978, 1983 History of colon resection 2003 History of hysterectomy 1994 History of left knee replacement (~10/29/22) History of toe surgery 2007- Jorden Ponce Hx laparoscopic cholecystectomy 07/03/22 Family History Family History Other Cancer Diabetes mellitus Heart disease Hypertension Social History Social History Smoking status: Never smoker Second hand tobacco smoke exposure: No Additional smoking assessment comments: DENIES ANY FORM OF TOBACCO USE Alcohol intake: never Alcohol use details: MAYBE 1 / MONTH Substance use: never Substance use type: does not use Lack of Transportation: No Lack of Food: Never True Current Housing: I Have Housing Concerned About Future Housing: No Difficulty Pay
== END 2023-01-24 18:08 | disposition home or self-care (01) ==
PROVIDERS: Emergency Provider Nurse Practitioner; PCP Registered Nurse
DX: L60.0 Ingrowing nail (principal); K21.9 Gastro-esophageal reflux disease without esophagitis; I10 Essential (primary) hypertension; G35 Multiple sclerosis; M17.11 Unilateral primary osteoarthritis, right knee; Z96.652 Presence of left artificial knee joint
CPT/HCPCS: 99213; G0463

== ENCOUNTER 2023-03-19 09:37 | Outpatient (CLI) | payer MEDICARE, SELFPAY ==
--- NOTE | ~2023-03-19 | MR_ITS ---
MRI of the left ankle Clinical history: Pain Technique: Coronal proton-density and proton-density fat-sat images, axial proton-density and proton- density fat-sat images, and sagittal proton-density and proton-density fat-sat images were acquired. Findings: Syndesmotic ligaments are intact. Anterior and posterior talofibular ligaments, and calcane ofibular ligament are intact. Deltoid ligament is intact. Medial flexor tendons, peroneal tendons, and anterior extensor tendons are intact. There is moderate to severe distal Achilles tendinosis with low-grade interstitial tearing distally. No high-grade part ial or full-thickness tear evident. There is mild thickening of the origin of the plantar fascia with plantar calcaneal spur present. No soft tissue edema at this region. No suspicious bone marrow signal abnormality seen. There is retroca lcaneal bursitis. No soft tissue mass seen. Normal signal preserved in the sinus Tarsi. Impression: Moderate to severe distal to stenosis with low-grade interstitial tearing. No high-grade partial or f ull-thickness tear. Thickening of the origin of the plantar fascia with plantar calcaneal spur. No surrounding soft tissu e edema. Mild retrocalcaneal bursitis. Reviewed, dictated and finalized at location . Impression: Moderate to severe distal to stenosis with low-grade interstitial tearing. No h igh-grade partial or full-thickness tear. Thickening of the origin of the plantar fascia with plantar calcaneal spur. No surrounding soft tissue edema. Mild retrocalcaneal bursitis.
--- NOTE | ~2023-03-19 | MR_ITS ---
MRI of the right ankle Clinical history: Pain Technique: Coronal proton-density and proton-density fat-sat images, axial proton-density and proton- density fat-sat images, and sagittal proton-density and proton-density fat-sat images were acquired. Findings: Syndesmotic ligaments are intact. Anterior and posterior talofibular ligaments, and calcane ofibular ligament are intact. Deltoid ligament is intact. Medial flexor tendons, peroneal tendons, and anterior extensor tendons are intact. There is moderate tendinosis of the distal Achilles tendon. No partial or full-thickness tear. No osteochondral lesion of the talar dome identified. Bone marrow signals are unremarkable. Mild dege nerative change of the tarsometatarsal joints noted. No significant joint effusion. Plantar fascia is intact. Normal signal preserved in the sinus Tarsi. Probable mild retrocalcaneal bu rsitis. Impression: Moderate distal Achilles tendinosis. Mild retrocalcaneal bursitis. Reviewed, dictated and finalized at location . Impression: Moderate distal Achilles tendinosis. Mild retrocalcaneal bursitis.
== END 2023-03-19 09:38 | disposition home or self-care (01) ==
PROVIDERS: PCP Registered Nurse; Visit Provider Student in an Organized Health Care Education/Training Program
DX: M25.571 Pain in right ankle and joints of right foot (principal); M76.61 Achilles tendinitis, right leg; M76.62 Achilles tendinitis, left leg
CPT/HCPCS: 73721

== ENCOUNTER 2023-04-23 08:35 | Outpatient (CLI) | payer MEDICARE, SELFPAY ==
--- NOTE | 2023-04-23 11:15 | NEURO_ITS ---
Impression: # Complains of feet pain. History of left total knee replacement. # Mild left posterior tibial nerve polyphasic response on proximal stimulation. # No Tarsal Tunnel Syndrome. # Needle/EMG exam revealed mild neurogenic changes in left gastroc but no acute changes. Nerve Conduction Studies Anti Sensory Summary Table Stim Site NR Peak (ms) P-T Amp (?V) Site1 Site2 Delta-P (ms) Dist (cm) Cricket (m/s) Left Sup Fibular Anti Sensory (Ant Lat Mall) 14 cm 3.9 4.8 14 cm Ant Lat Mall 3.9 16.0 41 Right Sup Fibular Anti Sensory (Ant Lat Mall) 14 cm 3.3 4.8 14 cm Ant Lat Mall 3.3 16.0 48 Left Sural Anti Sensory (Lat Mall) Calf 3.5 5.5 Calf Lat Mall 3.5 16.0 46 Right Sural Anti Sensory (Lat Mall) Calf 4.0 21.8 Calf Lat Mall 4.0 16.0 40 Motor Summary Table Stim Site NR Onset (ms) O-P Amp (mV) Site1 Site2 Delta-0 (ms) Dist (cm) Cricket (m/s) Left Lateral Plantar Motor (ADM) Med Mall 4.9 0.6 Right Lateral Plantar Motor (ADM) Med Mall 4.4 1.8 Left Peroneal Motor (Vastus Med) Ankle 4.1 2.0 Popit Ankle 7.7 40.0 52 Popit 11.8 1.5 Right Peroneal Motor (Vastus Med) Ankle 4.0 1.7 Popit Ankle 7.6 31.0 41 Popit 11.6 1.5 Left Tibial Motor (Abd Velasco Brev) Ankle 4.2 1.4 Knee Ankle 8.0 42.0 53 Knee 12.2 0.2 Right Tibial Motor (Abd Velasco Brev) Ankle 4.6 3.3 Knee Ankle 7.9 42.0 53 Knee 12.5 2.0 F Wave Studies NR F-Lat (ms) L-R F-Lat (ms) Left Peroneal (Mrkrs) (EDB) 50.00 2.63 Right Peroneal (Mrkrs) (EDB) 52.63 2.63 Left Tibial (Mrkrs) (Abd Hallucis) 50.74 0.87 Right Tibial (Mrkrs) (Abd Hallucis) 51.61 0.87 EMG Side Muscle Nerve Root Ins Act Fibs Amp Dur Recrt Comment Right AntTibialis Dp Br Fibular L4-5 Nml Nml Nml Nml Nml Right Gastroc Tibial S1-2 Nml Nml Nml Nml Nml Right Fibularis Long Sup Br Fibular L5-S1 Nml Nml Nml Nml Nml Right Flex Dig Long Tibial L5-S2 Nml Nml Nml Nml Nml Right Ext Dig Brev Dp Br Fibular L5, S1 Nml Nml Nml Nml Nml Left AntTibialis Dp Br Fibular L4-5 Nml Nml Nml Nml Nml Left Gastroc Tibial S1-2 Nml Nml Nml >12ms Reduced Left Fibularis Long Sup Br Fibular L5-S1 Nml Nml Nml Nml Nml Left Flex Dig Long Tibial L5-S2 Nml Nml Nml Nml Nml Left Ext Dig Brev Dp Br Fibular L5, S1 Nml Nml Nml Nml Nml MTDD
== END 2023-04-23 08:36 | disposition home or self-care (01) ==
LOC: ANHNEURO 08:36
PROVIDERS: PCP Registered Nurse; Visit Provider Student in an Organized Health Care Education/Training Program
DX: G57.51 Tarsal tunnel syndrome, right lower limb (principal); G57.52 Tarsal tunnel syndrome, left lower limb; Z96.652 Presence of left artificial knee joint; R94.131 Abnormal electromyogram [EMG]
CPT/HCPCS: 95886; 95911

== ENCOUNTER 2023-06-03 10:15 | Outpatient (RCR) | payer MEDICARE, SELFPAY ==
--- NOTE | 2023-04-04 09:03 | OPREHPOC ---
Outpatient Therapy Plan of Care This is a Multidisciplinary Plan of Care that may contain components documented by all disciplines (PT, OT, and ST.) PT Problem 1 PT Problem #1 Knowledge Deficit PT Goal 1 Goal 1* indep with HEP PT Problem 2 PT Problem #2 Pain PT Goal 1 Goal 1* pt report pain rating at worst in R and L heel of 7/10 2* pt report walking distance of 300' before pain increases pt able to tolerate light pressure over heel : 3* R 4* L PT Problem 3 PT Problem #3 Impaired Flexibility PT Goal 1 Goal increase ankle DF ROM to increase length of gastroc active DF in long sitting position 1* R 10' 2* L 10' 3* no tenderness with palpation over L medial gastroc
--- NOTE | 2023-04-04 09:03 | PTOPEVAL1 ---
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, and during work able to sit PRN; use cane PRN when more pain; does stretching when first wake up in AM: ankle DF/PF, circles, hamstring stretch,stand gastroc stretch; wear compression knee high socks; Reported Pain Level Pain Score Self Report Additional Pain Score Comments pain range past week 2-1010; 10/10 with zingers, at worst constant pain 7/10 R lateral foot and posterior heel; L Achilles shooting pain -zingers and more swollen; R seems to start hurting first but easier to calm down/ L more severe pain increase pain: walking over 150'; at store, use grocery cart to lean on; cannot tolerate any shoe touching her heel decrease pain: rest/sit,ice, hold L foot in inversion position;kinesiotape over foot/heel have ankle braces- use PRN, sometimes helps L heel have swelling over L posterior heel-changes reinforced pain control with ice, home stim, self massage, tape Assessment PT Clinical Summary Darshana has the diagnosis of R and L Achilles tendonitis. She has had MRI with changes noted of stenosis of interstitial tear, calcaneal spur, thickening plantar fascia. 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 She is to have an EMG in few weeks. With the evaluation, she has good ROM of her ankles, with tenderness & edema over posterior calcaneus and distal Achilles tendon--cannot tolerate shoe touching her heel.
--- NOTE | 2023-05-01 11:38 | OPREHPOC ---
Outpatient Therapy Plan of Care This is a Multidisciplinary Plan of Care that may contain components documented by all disciplines (PT, OT, and ST.) PT Problem 1 PT Problem #1 Knowledge Deficit PT Goal 1 Goal 1* indep with HEP Progress Met Comment 04-30-23 progress met goal continue with goal to progress education and HEP PT Problem 2 PT Problem #2 Pain PT Goal 1 Goal 1* pt report pain rating at worst in R and L heel of 7/10 2* pt report walking distance of 300' before pain increases pt able to tolerate light pressure over heel : 3* R 4* L Progress Partially Met Comment 04-30-23 progress met goals 3,4; NEW GOALS: 1* pain rating at worst of R and L heel/gastroc of 5/10 2* pt report walking distance of 250' before have to sit down PT Problem 3 PT Problem #3 Impaired Flexibility PT Goal 1 Goal increase ankle DF ROM to increase length of gastroc active DF in long sitting position 1* R 10' 2* L 10' 3* no tenderness with palpation over L medial gastroc Progress Met Comment 04-30-23 progress met goals NEW GOALS: with palpation over gastroc, minimal spasms and minimal tenderness reported: 1* R 2* L
--- NOTE | 2023-05-01 11:38 | PTOPPROG ---
Assessment and note entered by Quin Davila, PT Evaluation Information Assessment Status Progress Diagnosis R and L achilles tendonitis Onset about 18 months Subjective Information pain is better, able to sit/rest and not have any pain at all; is tracking her daily step totals-- they are staying at a higher number/day; PAIN: range in past week 0-8/10; have less zingers, sharp pain; R pain is more frequent and in a different spot; L has more zinger pain; decrease pain: sit, rest, heat, ice, tape; increase pain: after taking few steps and have to stop walking 150'; can tolerate light pressure over posterior calcaneus Assessment PT Clinical Summary Darshana has received a total of 7 PT sessions. Compared to the initial evaluation: pain has decreased from 2-10/10 to 0-8/10, with less times of sharp, zinger pain; increase flexibility of gastroc with ankle DF range of motion increase; less tenderness with palpation over R and L calcaneus and less spasms over R and L gastrocs; reported walking tolerance before have to sit down is the same at 150'; education for HEP, pain management techniques. The goals were partially achieved. Continue PT to further decrease pain and spasms over R and L gastrocs and heels. Plan of Care Interventions Gait Training,Manual Therapy,Neuro Re-education, Patient Education,Therapeutic Activities, Therapeutic Exercise,Ultrasound,Other Other Interventions tape, [facility] PT Services Indicated Yes Treatment Frequency and 1-2x/wk for 5 weeks Duration These treatments will address the objective and functional deficits as defined above. The patient will be advanced safely and appropriately in order for the patient to progress towards his/her prior level of function. Additional exercises will be introduced and as well as a comprehensive home exercise program upon discharge, if needed, ?to ensure carryover of functional gains achieved in the clinic. This treatment plan has been reviewed and agreement upon by the patient.
--- NOTE | 2023-06-03 11:12 | OPREHPOC ---
Outpatient Therapy Plan of Care This is a Multidisciplinary Plan of Care that may contain components documented by all disciplines (PT, OT, and ST.) PT Problem 1 PT Problem #1 Knowledge Deficit PT Goal 1 Goal 1* indep with HEP Progress Met Comment 04-30-23 progress met goal continue with goal to progress education and HEP PT Goal 2 Progress Met Comment 06-03-23 progress met goal continue to progress education and HEP PT Problem 2 PT Problem #2 Pain PT Goal 1 Goal 1* pt report pain rating at worst in R and L heel of 7/10 2* pt report walking distance of 300' before pain increases pt able to tolerate light pressure over heel : 3* R 4* L Progress Partially Met Comment 04-30-23 progress met goals 3,4; NEW GOALS: 1* pain rating at worst of R and L heel/gastroc of 5/10 2* pt report walking distance of 250' before have to sit down PT Goal 2 Progress Partially Met Comment 06-03-23 progress met goal 2: NEW GOALS: 1* pain rating at worst of 6/10 R and L PT Problem 3 PT Problem #3 Impaired Flexibility PT Goal 1 Goal increase ankle DF ROM to increase length of gastroc active DF in long sitting position 1* R 10' 2* L 10' 3* no tenderness with palpation over L medial gastroc Progress Met Comment 04-30-23 progress
--- NOTE | 2023-06-03 11:12 | PTOPPROG ---
Assessment and note entered by Quin Davila, PT Progress Information Assessment Status Progress Diagnosis R and L achilles tendonitis Onset about 18 months Subjective Information is walking more--step count up on smart watch; pain levels are the same at high, but now have times of NO pain; has an appointment with the foot tomorrow. Wants to continue therapy--to decrease the spasms of her calves and have better balance with walking. 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 She called and canceled 2 appointments due to illness. Compared to the last reevaluation: pain reports in both calves and ankles with less zingers and sharp pain, and can do more walking/activity before pain onset; continues to have 8/10 at worst has good ROM of ankle DF; less spasms and tightness over gastrocs, but continues to have tenderness over calcaneus; 2 minute walking distance of 375' with pain increase; decreased strength of ankles with single leg standing and bilateral PF standing. Dry needling treatments and manual therapy are helping to decrease her pain and spasms. The goals were partially met. Continue PT treatment to further decrease pain and spasms and increase strength and gait skills. With progression of HEP and activity as pain allows. Plan of Care Interventions Manual Therapy,Neuro Re-education,Patient Education,Therapeutic Activities,ther exercises Therapeutic Exercise,Other Other Interventions dry needling, [facility] PT Services Indicated Yes Treatment Frequency and 1x/wk for 5 weeks Duration These treatments will address the objective and functional deficits as defined above. The patient will be advanced safely and appropriately in order for the patient to progress towards hi
--- NOTE | 2023-07-02 15:48 | PTOPDC ---
Assessment and note entered by Quin Davila, PT Physical Therapy Discharge PT Clinical Summary Darshana has been ill and has not returned for PT since the last progress report dated 06-03-23. She called today and stated to discharge her from therapy. And she will obtain a new order when she feels better and goes back to Discharge PT services. The goals were not addressed. Plan of Care PT Services Indicated No
== END 2023-07-02 16:32 | disposition home or self-care (01) ==
LOC: ANHPT 10:15
PROVIDERS: PCP Registered Nurse; Visit Provider Student in an Organized Health Care Education/Training Program
DX: M76.61 Achilles tendinitis, right leg (principal); M76.62 Achilles tendinitis, left leg
CPT/HCPCS: 97110; 97140; 97161; 97530

== ENCOUNTER 2023-06-10 11:28 | Emergency (ER) | payer MEDICARE, SELFPAY ==
--- NOTE | 2023-06-10 11:37 | ED.URI ---
HPI - URI/Sore Throat General Chief Complaint: Upper Respiratory Infection Stated Complaint: covid + home test Time Seen by Provider: 06/10/23 11:37 Source: patient Mode of arrival: ambulatory Limitations: no limitations History of Present Illness HPI Narrative: Darshana is a 68-year-old female patient presenting to the clinic today with complaints of cough, chills, body aches, and sore throat since yesterday. She reports she tested positive for COVID yesterday. Did have COVID back on the 25 of May. States that she tested negative for to going back to work on Friday however she developed symptoms yesterday again and tested positive. States her tested positive for COVID yesterday as well. MD elicited complaint: sore throat and nasal congestion Related Data Home Medications Medication Instructions Recorded Confirmed bupropion HCl 100 mg tablet,12 hr 100 mg PO QAM 05/11/19 06/10/23 sustained-release (Wellbutrin SR) lisinopril 10 mg tablet 10 mg PO QAM 06/12/22 06/10/23 levothyroxine 25 mcg tablet 25 mcg PO QAM 06/25/22 06/10/23 cholecalciferol (vitamin D3) 125 125 mcg PO DAILY 10/04/22 06/10/23 mcg (5,000 unit) capsule gabapentin 100 mg capsule 100 mg PO TID 10/29/22 06/10/23 diazepam 2 mg tablet (Valium) 2 mg PO QHS PRN Anxiety 11/20/22 06/10/23 diclofenac sodium 75 mg 75 mg PO ONCE 11/20/22 06/10/23 tablet,delayed release furosemide 20 mg tablet (Lasix) 20 mg PO QAM 12/19/22 06/10/23 Allergies Allergy/AdvReac Type Severity Reaction Status Date / Time droperidol [From Inapsine] AdvReac Intermediate Confusion Verified 06/10/23 11:45 Penicillins AdvReac Mild Hives Verified 06/10/23 11:45 Sulfa (Sulfonamide AdvReac Mild Hives Verified 06/10/23 11:45 Antibiotics) Review of Systems Review of Systems: Pertinent positives per HPI. Patient denies any fever, chills, rash, headache, visual changes, dizziness, shortness of breath, chest pain, palpitations, nausea, vomiting, diarrhea, constipation, abdominal pain, or any urinary issues. PMFSH Past Medical History Medical History BMI 34.0-34.9,adult BMI 36.0-36.9,adult BMI 38.0-38.9,adult GERD (gastroesophageal reflux disease) History of hypertension History of multiple sclerosis Hypertension Multiple sclerosis Osteoarthritis of right knee Panic attack PTSD (post-traumatic stress disorder) Tear of MCL (medial collateral ligament) of knee (~04/2019) Vision loss Vocal cord paralysis after cervical fusion 03/2022 Surgical History Surgical History H/O cervical spine surgery History of section 1978, 1983 History of colon resection 2003 History of hysterectomy 1994 History of left knee replacement (~10/29/22) History of toe surgery 2007- Jorden Ponce Hx laparoscopic cholecystectomy 07/03/22 Family History Family History Other Cancer Diabetes mellitus Heart disease Hypertension Social History Social History Smoking status: Never smoker Second hand tobacco smoke exposure: No Additional smoking assessment comments: DENIES ANY FORM OF TOBACCO USE Alcohol intake: never Alcohol use details: MAYBE 1 / MONTH Substance use: never Substance use type: does not use Lack of Transportation: No Lack of Food: Never True Current Housing: I Have Housing Concerned About Future Housing: No Difficulty Paying Gas/Electric Bills: No Difficulty Paying for Meds: No Currently Unemployed: No Education: Master's Degree or Higher Difficulty w/ Childcare or Family Care: No Living arrangements: with family Additional living arrangements comments: [place] Occupation/Education: occupation 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
[2023-06-10 11:46] VITALS: BP 136/64; PULSE 77; RESP 18; TEMP 36.3; O2SAT 96
[2023-06-10 11:47] VITALS: BP 136/64; PULSE 77; RESP 18; TEMP 36.3; O2SAT 96
== END 2023-06-10 12:13 | disposition home or self-care (01) ==
PROVIDERS: Emergency Provider Nurse Practitioner Family; PCP Registered Nurse
DX: U07.1 COVID-19 (principal); J21.9 Acute bronchiolitis, unspecified; I10 Essential (primary) hypertension; G35 Multiple sclerosis; M17.11 Unilateral primary osteoarthritis, right knee; F41.0 Panic disorder [episodic paroxysmal anxiety]
CPT/HCPCS: 87081; 87426; 87804; 87880; 99213; C9803; G0463

== ENCOUNTER 2023-06-17 12:59 | Emergency (ER) | payer MEDICARE, SELFPAY ==
--- NOTE | ~2023-06-17 | XR_ITS ---
EXAMINATION: XR chest 2V DATE: 06/17/2023 14:06 INDICATION: Cough and shortness of breath TECHNIQUE: PA and lateral views of the chest are obtained. COMPARISON: 01/29/2023 FINDINGS: The lungs are free of acute opacities. No pleural effusion or pneumothorax. The cardiomedia stinal silhouette is normal. Changes of anterior fusion are noted in the cervicothoracic spine. Surgi oxana clips in the right upper quadrant are likely from prior cholecystectomy. IMPRESSION: 1. No acute cardiopulmonary abnormality. Reviewed, dictated and finalized at location L. [employer]
[2023-06-17 13:27] VITALS: BP 125/71; PULSE 92; RESP 18; TEMP 36.5; O2SAT 100
--- NOTE | 2023-06-17 14:03 | ED.URI ---
HPI - URI/Sore Throat General Chief Complaint: Upper Respiratory Infection Stated Complaint: cough,congestion, COVID + last week Source: patient Mode of arrival: ambulatory Limitations: no limitations History of Present Illness HPI Narrative: 68 y/o female presented for c/o relentless cough since 05/25/23, and now with sob with exertion. Cough is frequent nonproductive. Also reports ears itch, and right ear pain with blowing nose. pt tested positive for Covid on 05/25/23, symptoms improved, then tested positive again 06/10/23. Patient has been using a nebulizer machine, Tessalon Perles, and drinking whiskey at night. Denies significant improvement. Related Data Home Medications Medication Instructions Recorded Confirmed bupropion HCl 100 mg tablet,12 hr 100 mg PO QAM 05/11/19 06/17/23 sustained-release (Wellbutrin SR) lisinopril 10 mg tablet 10 mg PO QAM 06/12/22 06/17/23 levothyroxine 25 mcg tablet 25 mcg PO QAM 06/25/22 06/17/23 cholecalciferol (vitamin D3) 125 125 mcg PO DAILY 10/04/22 06/17/23 mcg (5,000 unit) capsule gabapentin 100 mg capsule 100 mg PO TID 10/29/22 06/17/23 diazepam 2 mg tablet (Valium) 2 mg PO QHS PRN Anxiety 11/20/22 06/17/23 diclofenac sodium 75 mg 75 mg PO ONCE 11/20/22 06/17/23 tablet,delayed release furosemide 20 mg tablet (Lasix) 20 mg PO QAM 12/19/22 06/17/23 Allergies Allergy/AdvReac Type Severity Reaction Status Date / Time droperidol [From Inapsine] AdvReac Intermediate Confusion Verified 06/17/23 13:53 Penicillins AdvReac Mild Hives Verified 06/17/23 13:53 Sulfa (Sulfonamide AdvReac Mild Hives Verified 06/17/23 13:53 Antibiotics) Review of Systems Review of Systems: CONSTITUTIONAL: Denies body aches, fever, chills, or sweats. EYES: Denies visual changes, redness, or discharge. ENT: Denies rhinorrhea, congestion, sore throat, or otalgia. CARDIOVASCULAR: Denies chest pain, palpitations, or edema. RESPIRATORY: Reports cough, sob, denies wheezing. GASTROINTESTINAL: Denies abdominal pain, nausea, vomiting, or diarrhea. GENITOURINARY: Denies dysuria or hematuria. SKIN: Denies rash, itching, or wounds. MUSCULOSKELETAL: Denies back pain, joint pain, or myalgia. NEUROLOGIC: Denies headache, numbness, tingling, or weakness. All systems reviewed & are unremarkable except as noted in HPI and below PMFSH Past Medical History Medical History BMI 34.0-34.9,adult BMI 36.0-36.9,adult BMI 38.0-38.9,adult GERD (gastroesophageal reflux disease) History of hypertension History of multiple sclerosis Hypertension Multiple sclerosis Osteoarthritis of right knee Panic attack PTSD (post-traumatic stress disorder) Tear of MCL (medial collateral ligament) of knee (~04/2019) Vision loss Vocal cord paralysis after cervical fusion 03/2022 Surgical History Surgical History H/O cervical spine surgery History of section 1978, 1983 History of colon resection 2003 History of hysterectomy 1994 History of left knee replacement (~10/29/22) History of toe surgery 2007- Jorden Ponce Hx laparoscopic cholecystectomy 07/03/22 Family History Family History Other Cancer Diabetes mellitus Heart disease Hypertension Social History Social History Smoking status: Never smoker Second hand tobacco smoke exposure: No Additional smoking assessment comments: DENIES ANY FORM OF TOBACCO USE Alcohol intake: never Alcohol use details: MAYBE 1 / MONTH Substance use: never Substance use type: does not use Lack of Transportation: No Lack of Food: Never True Current Housing: I Have Housing Concerned About Future Housing: No Difficulty Paying Gas/Electric Bills: No Difficulty Paying for Meds: No Currently Unemployed: No Education: Master's
== END 2023-06-17 14:30 | disposition home or self-care (01) ==
PROVIDERS: Emergency Provider Nurse Practitioner Family; PCP Registered Nurse
DX: B34.9 Viral infection, unspecified (principal); K21.9 Gastro-esophageal reflux disease without esophagitis; I10 Essential (primary) hypertension; G35 Multiple sclerosis; M17.11 Unilateral primary osteoarthritis, right knee; F41.0 Panic disorder [episodic paroxysmal anxiety]; F43.10 Post-traumatic stress disorder, unspecified; Z96.652 Presence of left artificial knee joint
CPT/HCPCS: 71046; 99213; G0463

== ENCOUNTER → 2023-07-29 08:30 | Outpatient (CLI) | payer MEDICARE, SELFPAY ==
--- NOTE | ~2023-07-29 | XR_ITS ---
XR knee LT 3V 07/29/2023 08:50 Indication: Left knee pain Procedure: 3 views left knee Comparison: 02/25/2023 Findings: No fracture, subluxation or dislocation. There are changes of left total knee arthroplasty. Stable prosthetic/bone interval lucency. No evidence for loosening. No significant joint effusion. Impression: 1: No acute bone or joint abnormality. Reviewed, dictated and finalized at location L. [employer] [employer] Impression: 1: No acute bone or joint abnormality.
== END ==
PROVIDERS: PCP Orthopaedic Surgery; Visit Provider Orthopaedic Surgery
DX: M25.562 Pain in left knee (principal); Z47.1 Aftercare following joint replacement surgery; Z96.652 Presence of left artificial knee joint
CPT/HCPCS: 73562

== ENCOUNTER 2024-01-20 10:51 | Observation (INO) | payer MEDICARE, SELFPAY ==
[2024-01-20] VITALS (9 sets, daily range): BP systolic 126–153; BP diastolic 64–81; PULSE 73–88; RESP 12–94; TEMP 36.2–36.6; O2SAT 12–98; BMI 36.8
--- NOTE | ~2024-01-20 | CT_ITS ---
Non-contrast Head CT History: Radial Technique: Axial non-contrast imaging of the brain was performed. Dose reduction technique was used on this scan by utilizing automated exposure control and iterative reconstruction technique. The dose -length product (DLP) was 681.00 mGy-cm. Findings: There is no evidence of intracranial hemorrhage, mass lesion, or acute infarct. Brain par enchyma appears normal. The ventricles and subarachnoid spaces are normal in size. The calvarium ap pears normal. The visualized paranasal sinuses and mastoid air cells are clear. Impression: No significant abnormality seen. Reviewed, dictated and finalized at location . Impression: No significant abnormality seen.
[2024-01-20 12:43] LABS: Basophils Absolute Auto 0.1 K/mm3 (0.0-0.1); Basophils Percent Auto 0.7 % (0.2-1.2); Eosinophils Absolute Auto 0.1 K/mm3 (0-0.3); Eosinophils Percent Auto 1.3 % (0-4.4); Hematocrit 39.3 % (37.0-47.0); Hemoglobin 12.8 g/dL (12.0-15.0); Immature Granulocyte Absolute 0.03 K/mm3 (0.00-0.031); Immature Granulocyte Percent A 0.3 % (0-0.5); Lymphocytes Absolute Auto 0.99 K/mm3 (0.9-3.2); Mean Corpuscular HGB Conc 32.6 g/dl (32-36); Mean Corpuscular Hemoglobin 29.3 pg (26-34); Mean Corpuscular Volume 89.9 fl (80-100); Mean Platelet Volume 11.9 fl (7.4-10.4); Monocytes Absolute Auto 0.5 K/mm3 (0.1-0.6); Monocytes Percent Auto 4.6 % (2.6-8.5); Neutrophils Absolute Auto 8.2 K/mm3 (1.3-6.7); Neutrophils Percent Auto 83.1 % (45.5-73.1); Platelet Count Result 214 k/mm3 (150-375); Red Blood Count 4.37 M/mm3 (4.2-5.4); Red Cell Distribution Width 14.5 % (11.5-14.5); White Blood Count 9.9 K/mm3 (4.5-10.0)
[2024-01-20 12:59] LABS: Alanine Aminotransferase 19 U/L (6-35); Albumin Level 4.7 g/dL (3.5-5.1); Alkaline Phosphatase 51 U/L (38-126); Anion Gap 9 mmol/L (4-12); Aspartate Amino Transferase 25 U/L (14-36); Bilirubin,Total 0.5 mg/dL (0.2-1.3); Blood Urea Nitrogen 22 mg/dL (7-17); Calcium 9.3 mg/dL (8.4-10.2); Carbon Dioxide 33 mmol/L (22-30); Chloride 97 mmol/L (98-107); Estimated CRCL calculation 63 ml/min; Estimated Glomerular Filt Rate > 60; Glucose 121 mg/dL (65-110); Potassium 4.7 mmol/L (3.4-5.0); Sodium 139 mmol/L (137-145)
[2024-01-20] MEDS: SODIUM CHLORIDE 0.9% IV 1,000 ML 999 ML IV CONT (13:07)
[2024-01-20] MEDS: SCOPOLAMINE 1 MG PATCH 1 PATCH TRANSDERM (13:09)
[2024-01-20] MEDS: MECLIZINE HCL 25 MG TABLET PO (13:09)
--- NOTE | 2024-01-20 15:39 | ED.GENADULT ---
HPI - General Adult General Chief complaint: Dizziness Stated complaint: dizziness, vomiting Time Seen by Provider: 01/20/24 11:52 History of Present Illness HPI narrative: This is a 60-year-old female with history of labyrinthitis and MS presenting with vertigo. Symptoms started last night at 7:30 p.m.. Patient took dose of her meclizine and then went to sleep. When she woke morning she was still having her vertigo symptoms. She says that she gets labyrinthitis about once a year. However he is not typically this year. Patient's symptoms completely resolved in between episodes. They are triggered by head movement. She noted that she had decreased hearing in her right ear yesterday but it has now returned to normal. Patient states that she has a history of double vision at baseline but denies any worsening of her vision. No dysarthria dysphagia or lack of coordination. No weakness to any extremity. Patient says that her MS typically presents with weakness in her right leg. Related Data Home Medications Medication Instructions Recorded Confirmed bupropion HCl 100 mg tablet,12 hr 100 mg PO QAM 05/11/19 07/29/23 sustained-release (Wellbutrin SR) levothyroxine 25 mcg tablet 25 mcg PO QAM 06/25/22 07/29/23 cholecalciferol (vitamin D3) 125 125 mcg PO DAILY 10/04/22 07/29/23 mcg (5,000 unit) capsule diazepam 2 mg tablet (Valium) 2 mg PO QHS PRN Anxiety 11/20/22 07/29/23 gabapentin 100 mg capsule 200 mg PO TID 07/29/23 07/29/23 hydrochlorothiazide 25 mg tablet 25 mg PO DAILY 07/29/23 07/29/23 losartan 25 mg tablet 25 mg PO DAILY 07/29/23 07/29/23 Allergies Allergy/AdvReac Type Severity Reaction Status Date / Time celecoxib [From Celebrex] Allergy Hives Verified 01/20/24 11:26 droperidol [From Inapsine] AdvReac Intermediate Confusion Verified 07/29/23 15:27 Penicillins AdvReac Mild Hives Verified 07/29/23 15:27 Sulfa (Sulfonamide AdvReac Mild Hives Verified 07/29/23 15:27 Antibiotics) [facility] Past Medical History Medical History BMI 34.0-34.9,adult BMI 36.0-36.9,adult BMI 38.0-38.9,adult GERD (gastroesophageal reflux disease) History of hypertension History of multiple sclerosis Hypertension Multiple sclerosis Osteoarthritis of right knee Panic attack PTSD (post-traumatic stress disorder) Tear of MCL (medial collateral ligament) of knee (~04/2019) Vision loss Vocal cord paralysis after cervical fusion 03/2022 Surgical History Surgical History H/O cervical spine surgery History of section 1978, 1983 History of colon resection 2003 History of hysterectomy 1994 History of left knee replacement (~10/29/22) History of toe surgery 2007- Jorden Ponce Hx laparoscopic cholecystectomy 07/03/22 Family History Family History Other Cancer Diabetes mellitus Heart disease Hypertension Social History Social History (Updated 07/29/23 @ 15:30 by Faith Beckham) Smoking status: Never smoker Second hand tobacco smoke exposure: No Additional smoking assessment comments: DENIES ANY FORM OF TOBACCO USE Alcohol intake: never Alcohol use details: MAYBE 1 / MONTH Substance use: never Substance use type: does not use Do You Feel Safe in your Home?: Yes Lack of Transportation: No Lack of Food: Never True Current Housing: I Have Housing Concerned About Future Housing: No Difficulty Paying Gas/Electric Bills: No Difficulty Paying for Meds: No Currently Unemployed: No Education: Master's Degree or Higher Difficulty w/ Childcare or Family Care: No Living arrangements: with family Additional living arrangements comments: [place] Occupation/Education: occupation 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
[2024-01-20] MEDS: METOCLOPRAMIDE HCL INJ 10 MG/2 ML VIAL IV PUSH (16:07)
[2024-01-20] MEDS: methylPREDNISolone SOD SUCC 1,000 MG in DEXTROSE 5% 100 ML 116 MG IVPB (16:10)
[2024-01-20] MEDS: diazePAM (*CRX) 2 MG TABLET 1 MG PO (16:16)
--- NOTE | 2024-01-20 19:20 | PM.IMHP ---
H&P: HPI History of Present Illness Date/Time: 01/20/24 21:15 Chief Complaint: Dizziness. Narrative: This is a pleasant 68-year-old female with history of vertigo, multiple sclerosis, hypertension, and hypothyroidism who presented to the emergency department via private vehicle for evaluation of dizziness. The patient provides the following history. 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 When she got off work at about 21:00 she felt a bit lightheaded and she noticed that she had some congestion on the right side of her face and the right ear seemed a bit muffled. She did not pay much attention to it and went to bed. A couple of hours later she was awakened from sleep with severe vertigo, feeling as things were moving. She had to go to the bathroom and her had to help her due to the vertigo. The vertigo was so severe that she was nauseated had several episodes of emesis. Sometime during the night she took a meclizine and was able to sleep. Upon waking she was still having vertigo and she came in for evaluation. Her symptoms are worse with position changes, especially when turning her head to the left. She has had similar symptoms in the past but never this severe. She has chronic, intermittent diplopia and right lower extremity weakness and paresthesias from her MS which is unchanged. She denies loss of hearing, headache, facial droop, dysarthria, dysphagia, and change in weakness or paresthesias from her baseline. In the ED: She was afebrile on arrival with stable vital signs. CMP and CBC did not show any significant findings. Head CT showed no significant abnormality. She received diazepam, meclizine, methylprednisolone, metoclopramide, scopolamine in the ED as well as 1 L of normal saline. Unfortunately she continues to have episodes of vertigo to the point where she cannot even stand without severe nausea. She is being admitted in this setting. Review of Systems Review of Systems: 12 systems were reviewed and are negative except for as per HPI. [facility] Past Medical History Medical History (Updated 01/20/24 @ 19:25 by Cherie Garza PA-C) Diverticulitis Gastroesophageal reflux disease Hypertension Hypothyroidism Kidney stones Multiple sclerosis Osteoarthritis of right knee Vocal cord paralysis after cervical fusion 03/2022 Surgical History Surgical History (Updated 01/20/24 @ 19:25 by Cherie Garza PA-C) History of appendectomy History of cataract extraction with lens replacement History of section 1983 History of colon resection (2003) For recurrent diverticulitis. History of fusion of cervical spine (03/2022) History of hysterectomy (1994) History of laparoscopic cholecystectomy (06/2022) History of left knee replacement (10/29/22) History of toe surgery (2007) Family History Family History (Updated 01/20/24 @ 21:46 by Joselin Norris RN) Mother Diabetes mellitus Heart disease Hypertension Cancer Father Diabetes mellitus Heart disease Cancer Hypertension Social History Social History (Updated 01/20/24 @ 19:26 by Cherie Garza PA-C) Social History: Surrogate medical decision maker: Narayan Dyer, spouse. Code status: Full code. Smoking status: Never smoker Second hand tobacco smoke exposure: No Alcohol intake: never Substance use: never Substance use type: does not use Do You Feel Safe in your Home?: Yes Lack of Transportation: YES Lack of Food: Never True Current Housing: I Have Housing Concerned About Future Housing: No Difficulty Paying Gas/Electric Bills: No Difficulty Paying for Meds: No Currently Unemployed: No Education: Master's Degree or Higher Difficulty w/ Childcare or Family Care: No Living arrangements: with family Additional living arrangements comments: Lives with spouse in [place]. Occupation/Education: occupation Ad
--- NOTE | 2024-01-20 21:39 | ADMGEN ---
This patient, Darshana Dyer, was admitted to Medical Room 341-01. Patient/family oriented to hospital policies and general routines including ID bracelet, bed and alarms, visiting hours, pain management, procedures, bathroom and other care routines, personal items, smoking policy, room service/diet, and visiting hours. Information on how to activate the Rapid Response Team has been discussed. Patient/Family are encouraged to report perceived risks to care and to ask questions if they do not understand what they are told or what they should do.
[2024-01-21 06:00] VITALS: BP 128/70; PULSE 76; RESP 16; TEMP 36.1; O2SAT 94
[2024-01-21] MEDS: LEVOTHYROXINE SODIUM 25 MCG TABLET PO (06:30)
[2024-01-21] MEDS: MECLIZINE HCL 25 MG TABLET PO (06:32)
[2024-01-21] MEDS: buPROPion HCL SR (12HR) 100 MG TABCR PO (08:44)
[2024-01-21] MEDS: lisinopriL 20 MG TABLET 40 MG PO (08:44)
[2024-01-21] MEDS: GABAPENTIN 100 MG CAPSULE 200 MG PO (08:44)
[2024-01-21] MEDS: hydroCHLOROthiazide 25 MG TABLET PO (08:44)
[2024-01-21] MEDS: CHOLECALCIFEROL 5,000 UNITS TABLET 5000 UNITS PO (08:44)
--- NOTE | 2024-01-21 13:22 | PM.DS ---
DS: Admitting Diagnosis Discharge Date 01/21/24 Admitting Diagnosis Vertigo Multiple sclerosis Hypertension Hypothyroidism DS: Summary Hospital Course Reason for hospitalization: Vertigo Multiple sclerosis Hypertension Hypothyroidism Hospital Course: This is a 68-year-old female who presented to the hospital on 01/20/2024 for evaluation of dizziness. Patient states that she felt a little lightheaded yesterday after work and reported not drinking enough water during her shift. She states that she felt a little bit congested on the right side of her face and her ear on the right seemed a bit muffled. She went to bed and did not pay much attention to it and then woke up several hours later with severe dizziness nausea and vomiting. Workup in the hospital included a head CT which did not show any significant abnormality. Initial labs were essentially unremarkable. Patient was given a dose of volume and meclizine while in the ED. she states today that she is feeling much better however she still feels a little bit dizzy and is requesting to go home. Patient is stable for discharge at this time. She was sent home with prescription meclizine and Zofran. PT was ordered for vestibular training. She was also given a Solu-Medrol Dosepak and told to take Flonase and Claritin or Zyrtec [id number]. She will need to follow up with her primary care physician in 1 week. Final diagnosis: Vertigo Status at Discharge Cognitive/behavioral status at discharge: Alert and oriented x4 Functional status at discharge: independent ambulation Overall status at discharge: patient is progressing back to baseline Time Spent with Patient Time attestation: Total time spent providing and/or coordinating discharge services: Time spent: Greater than 30 minutes Exam Narrative: General: In no acute distress, well nourished Head: atraumatic, no encephalopathy Eyes: EOMI, PERRLA, sclera clear, no nystagmus noted ENT: moist mucous membranes, nasal passages clear Neck: supple, no JVD, no adenopathy, trachea midline Cardiac: Normal S1 and S2. RRR, No murmur, gallops or friction rubs, peripheral pulses intact. Respiratory: Lungs clear to auscultation, no adventitious lung sounds currently on room air Gastrointestinal: soft, non-distended, non-tender, normoactive bowel sounds. : voiding without difficulty. Extremities: moves all extremities well, no edema, good ROM, strength 5/5 Skin: clean, dry, intact. No wounds or lesions. Neuro: Alert and oriented x4, cranial nerves intact, no neuro deficits. Still reports dizziness however much improved from yesterday Psych: normal mood, normal affect, interactive DS: Data Data Completed and Pending Completed studies during hospitalization: Head CT Pending studies at discharge: None Procedures/Treatments: None Discharge Plan Discharge Attending physician on discharge: Viri Gale Consulting providers: Candelaria Pena Discharging Clinician: Candelaria Pena Anticipated Discharge Date/Time: 01/21/24 13:15 Patient Disposition: Home, Self-Care Activity: as tolerated Diet: as tolerated Discharge Instructions: Continue Vestibular training as needed for your Vertigo Start taking Flonase daily as this will help open up your eustachian tubes and allow ear to drain Continue Meclizine. You can take up to 4x a day as tolerated. This medication may cause constipation and dry mouth. I also prescribed a steroid tape for you. Continue taking this medication as directed until completed I also prescribed Zofran for nausea in case you need this. Follow up with PCP in 1 week If your symptoms continue or worsen, please come back to the hospital Patient Instructions: Antibiotic Form, Meclizine (By mouth), Vertigo (DC) Patient Language: Mosotho Stand Alone Forms: General Discharge Information Follow-up/Referrals: primary [Other] - Follow Up with Primary Dr Discharge Medications: New
[2024-01-21 14:00] VITALS: BP 121/58; PULSE 84; RESP 19; TEMP 36.4; O2SAT 98
--- NOTE | 2024-01-21 16:31 | PCPTNOTE ---
On 01/21/24, the student, [Jessi Tim], provided care and completed [facility] documentation on this patient. I have reviewed the student's documentation and agree with the findings.
== END 2024-01-21 16:50 | disposition home or self-care (01) ==
LOC: ANHED 15:45 → ANH3MED 20:21
PROVIDERS: Admitting Provider Internal Medicine; Emergency Provider Emergency Medicine; PCP Registered Nurse; Visit Provider General Practice
DX: R42 Dizziness and giddiness (principal); G35 Multiple sclerosis; I10 Essential (primary) hypertension; F43.10 Post-traumatic stress disorder, unspecified; E03.9 Hypothyroidism, unspecified; K21.9 Gastro-esophageal reflux disease without esophagitis; Z98.1 Arthrodesis status
CPT/HCPCS: 36415; 70450; 80053; 83735; 85025; 96361; 96365; 96375; 97112; 97161; 99285; A9270; G0378; J2765; J2919; J7030

== ENCOUNTER 2024-02-16 13:22 | Outpatient (CLI) | payer MEDICARE, SELFPAY | END 2024-02-16 13:23 | disposition home or self-care (01) | PROVIDERS: PCP Registered Nurse; Visit Provider Registered Nurse | DX: R42 Dizziness and giddiness (principal) | CPT/HCPCS: 92557; 92567 ==

== ENCOUNTER 2024-11-19 12:46 | Outpatient (CLI) | payer MEDICARE, SELFPAY ==
--- NOTE | 2024-11-19 | ECHO_ITS ---
Patient Info Name: Darshana Dyer Age: 69 years : 1955 Gender: Female Ht: 66 in Wt: 222 lbs BSA: 2.21 m2 HR: 85 bpm BP: 144 / 93 mmHg Heart Rhythm: Sinus Rhythm Technical Quality: Good Exam Date: 11/19/2024 12:58 PM Patient Status: O Admit Date: 11/19/2024 Exam Type: CA echo doppler color flow Complete two-dimensional, color flow and Doppler transthoracic echocardiogram is performed. Gas Distribution And Emergency Clerk: Magdalena Alex Attending Provider: Candelaria Booker Summary 1. Complete two-dimensional, color flow and Doppler transthoracic echocardiogram is performed. 2. Left ventricular chamber dimension is normal. 3. Left ventricular systolic function is normal, estimated at 65-70. 4. The left ventricular diastolic function is grade I diastolic dysfunction. 5. E/e' 11 is mildly elevated. 6. Left atrial chamber dimension is mildly enlarged. 7. There is trace aortic valve regurgitation. 8. There is trace tricuspid valve regurgitation. 9. No pulmonary hypertension, estimated pulmonary arterial systolic pressure is 21 mmHg. Left Ventricle E/e' 11 is mildly elevated. Left ventricular chamber dimension is normal. Left ventricular systolic function is normal, estimated at 65-70. The left ventricular diastolic function is grade I diastolic dysfunction. Right Ventricle Right ventricular chamber dimension is normal. Right ventricular systolic function is normal. Left Atria Left atrial chamber dimension is mildly enlarged. Right Atria Right atrial chamber dimension is normal. Aortic Valve The aortic valve is trileaflet. There is no aortic valve stenosis. There is trace aortic valve regurgitation. Pulmonic Valve There is no pulmonic regurgitation. Mitral Valve There is no mitral valve stenosis. There is no mitral valve regurgitation. Tricuspid Valve There is trace tricuspid valve regurgitation. No pulmonary hypertension, estimated pulmonary arterial systolic pressure is 21 mmHg. Pericardium/Pleural There is no pericardial effusion. Inferior Vena Cava Normal inferior vena cava with >50% collapse upon inspiration consistent with normal right atrial pressure, 5 mmHg. Aorta The aortic root size at the sinus of Valsalva is normal. Left Ventricular Outflow Tract Name Value Normal LVOT 2D LVOT Diameter 2.0 cm LVOT Doppler LVOT Peak Velocity 158 cm/s LVOT Peak Gradient 10 mmHg LVOT Mean Gradient 5 mmHg LVOT VTI 29 cm LVOT VTI/AV VTI Ratio 0.8 LVOT Stroke Volume 94 ml LVOT CO 7.3 l/min LVOT CI 3.3 l/min/m2 Pulmonic Valve Name Value Normal RVOT Doppler RVOT Peak Velocity 101 cm/s RVOT Peak Gradient 4 mmHg PV Doppler PV Peak Velocity 124 cm/s PV Peak Gradient 6 mmHg Mitral Valve Name Value Normal MV Diastolic Function MV E Peak Velocity 85 cm/s MV A Peak Velocity 87 cm/s MV E/A 1.0 MV Decel Time (PW) 213 ms MV Annular TDI MV E/e' (Septal) 13.7 MV E/e' (Lateral) 9.8 MV E/e' (Average) 11.7 Tricuspid Valve Name Value Normal TV Regurgitation Doppler TR Peak Velocity 200 cm/s TR Peak Gradient 16 mmHg Estimated PAP/RSVP RA Pressure 5 mmHg <=5 PA Systolic Pressure 21 mmHg <36 RV Systolic Pressure 21 mmHg <36 TV Annular TDI TV Lateral Dinora s' Velocity 12.4 cm/s >=9.5 Aorta Name Value Normal Ascending Aorta Ao Root Diameter (MM) 3.5 cm Ao Root Diam Index (MM) 1.6 cm/m2 Aortic Valve Name Value Normal AV Doppler AV Peak Velocity 201 cm/s AV Peak Gradient 16 mmHg AV Mean Gradient 8 mmHg AV VTI 38 cm AV Area (Cont Eq VTI) 2.5 cm2 >=3.0 AV Area (Cont Eq Cricket) 2.5 cm2 AV DI (Cricket) 0.79 AV Regurgitation 2D LVOT Area 3.2 cm2 Ventricles Name Value Normal LV Dimensions 2D/MM IVS Diastolic Thickness (2D) 1.0 cm 0.6-1.0 LVID Diastole (2D) 5.0 cm 3.8-5.2 LVIW Diastolic Thickness (2D) 1.0 cm 0.6-0.9 LVID Systole (2D) 3.4 cm 2.2-3.5 LVOT Diameter 2.0 cm LV Mass (2D Cubed) 179.13 g 67.00-162.00 LV Mass Index (2D Cubed) 81 g/m2 43-95 Relative Wall Thickness (2D) 0.38 <=0.42 LV Fractional Shortening/Ejection Fraction 2D/MM LV Fractional Shortening (2D) 32 % 27-45 LV EF (2D Teichholz) 60 % LV Diastolic Volume (4C MOD) 58 ml LV EF (4C MOD) 72 % LV Diastolic Volume (2C MOD) 61 ml LV EF (2C MOD) 73 % LV Diastolic Volume (BP MOD) 59 ml 46-106 LV Diastolic Volume Index (BP MOD) 27 ml/m2 29-61 LV Systolic Volume (BP MOD) 16 ml 14-42 LV Systolic Volume Index (BP MOD) 7 ml/m2 8-24 LV EF (BP MOD) 72 % 54-74 LV Diastolic Length (4C) 7.5 cm LV Systolic Length (4C) 5.8 cm LV Stroke Volume (4C MOD) 41 ml Atria Name Value Normal LA Dimensions LA Dimension (MM) 4.0 cm 2.7-3.8 LA Volume (4C A-L) 79 ml LA Volume (BP A-L) 72 ml RA Dimensions RA Area (4C) 19.1 cm2 <=18.0 Report Signatures
--- OUTSIDE RECORDS SUMMARY | 2024-11-19 12:55 | XMS_ITS | Encounter Summary ---
Author Organization [facility] Address [address] [place] [address] Care Team Providers Care Mobile Pet Groomer Name Role Phone Candelaria Booker Primary Care Provider [phone] Encounter Details Date Type Department Care Team (Late st Contact Info) Description 05/02/2022 apta.met Message Enc [facility] Family & Internal Medicine [id number] [place] [address] Candelaria Booker APNP [facility] [place], [place] [id number] ENT notes Social History Tobacco Use Types Packs/Day Years Used Date Smoking Tobacco: Never Smokeless Tobacco: Never Comments:non smoker Alcohol Use Standard Drinks/Week Comments Yes 0 (1 standard drink = 0.6 oz pure alcohol) rarely-one glass in the past 4 months PHQ-2 Answer Date Recorded PHQ-2 Score - If the patient scores above 3, please move on to questions 3-9 1 05/03/2022 Comments No Sex and Gender Information Value Date Recorded Sex Assigned at Female 10/19/2024 11:31 AM CDT 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 No / Unsure 05/03/2022 11:39 AM CDT documented as of this encounter Plan of Treatment Not on file documented as of this encounter Visit Diagnoses Not on filedocumented in this encounter Additional Health Concerns Assessment Noted Time PHQ-9 Depression Total Score: 0 10/10/19 21 10:28 AM CDT documented as of this encounter Care Teams Mobile Pet Groomer Relationship Specialty Start Date End Date Candelaria Booker APNP [address] [place] [id number] PCP - General NURSE PRACTITIONER 08/02/19 documented as of this encounter
--- OUTSIDE RECORDS SUMMARY | 2024-11-19 12:55 | XMS_ITS | Encounter Summary ---
Author Organization 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
--- OUTSIDE RECORDS SUMMARY | 2024-11-19 12:55 | XMS_ITS | Encounter Summary ---
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
--- OUTSIDE RECORDS SUMMARY | 2024-11-19 12:55 | XMS_ITS | Encounter Summary ---
Author Organization [facility] Address [address] [place] [address] Phone Care Team Providers Care Box Estimator Name Role Phone Candelaria Booker Primary Care Provider + Encounter Details Date Type Department Care Team (Late st Contact Info) Description 08/19/2020 Orders Only [facility] Scanning, Provider Social History Tobacco Use Types Packs/Day Years Used Date Smoking Tobacco: Never Smokeless Tobacco: Never Comments Unknown Sex and Gender Information Value Date Recorded Sex Assigned at Not on file 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 Gender Identity Not on file Sexual Orientation Not on file documented as of this encounter Plan of Treatment Not on file documented as of this encounter Procedures Procedure Name Priority Date/Time Associated Diagnosis Comments SCAN - LABS 08/19/2020 documented in this encounter Results * SCAN - LABS (08/19/2020) us Provider Scanning Edited Result - Final documented in this encounter Visit Diagnoses Not on filedocumented in this encounter Care Teams Box Estimator Relationship Specialty Start Date End Date Candelaria Booker PA [address] [place] [phone] PCP - General Nurse Practitioner 08/26/19 documented as of this encounter
--- OUTSIDE RECORDS SUMMARY | 2024-11-19 12:55 | XMS_ITS | Referral Summary ---
Author Organization [facility] Address [address] [place] [address] Care Team Providers Care Marketing Director Assisted Living Name Role Phone Candelaria Booker Primary Care Provider + Allergies Active Allergy Reactions Criticality Noted Date Comments Celecoxib Itching Medium 08/15/2020 Droperidol Agitation,Anxiety,De julia ons,Dystonia,Other (See comments) High 11/05/2014 Dystonia Dystonia Oxycodone Hallucinations Medium 07/03/2023 Penicillins Hives Medium 11/05/2014 Childhood reaction Sulfa (Sulfonamide Antibiotics) Hives Medium 11/05/2014 Medications calcium carbonate (TUMS) 500 mg calcium (200 mg of elemental calcium) chewable tablet Take 1 tablet/chew tab (500 mg total) by mouth nightly Active hydroCHLOROthia zide (HYDRODIURIL) 25 mg tablet Take 1 tablet (25 mg total) by mouth daily Active albuterol HFA (PROVENTIL HFA,VENTOLIN HFA,PROAIR HFA) 90 mcg/actuation inhaler 2 inhalations q 4 hours prn. 0 Active diazePAM (VALIUM) 2 mg tablet Take 0.5 tablets (1 mg total) by mouth nightly as needed prn 0 Active levothyroxine (SYNTHROID) 25 mcg tablet Take 1 tablet (25 mcg total) by mouth daily 2 Active buPROPion XL (WELLBUTRIN XL) 150 mg 24 hr tablet Take 1 tablet (150 mg total) by mouth nightly Active cholecalciferol (VITAMIN D-3) 25 mcg (1,000 unit) tablet Take 3 tablets (3,000 Units total) by mouth daily Active diclofenac DR (VOLTAREN) 75 mg EC tablet Take 1 tablet (75 mg total) by mouth nightly Active diphenhydrAMINE -acetaminophen (TYLENOL PM) 25-500 mg tablet Take 1 tablet by mouth nightly as needed for sleep Active lisinopriL (PRINIVIL,ZESTR IL) 40 mg tablet Take 1 tablet (40 mg total) by mouth daily 3 Active semaglutide (OZEMPIC SUBQ) Inject under the skin Takes 0.1mg per week. Active baclofen (LIORESAL) 10 mg tablet 5-10 mg as needed for stiffness 30 tablet 5 4 Active gabapentin (NEURONTIN) 300 mg capsule Take 1 capsule (300 mg total) by mouth 2 (two) times a day 1 capsule early evening and 1 capsule at bedtime 60 capsule 3 5 Active Active Problems Problem Noted Date Diagnosed Date Dysesthesia of multiple sites 04/16/2024 History of COVID-19 04/16/2024 De Quervain's disease (radial styloid tenosynovi tis) 06/07/2023 Arthritis of carpometacarpal (CMC) joint of righ t thumb 06/07/2023 Voice hoarseness 04/30/2022 Overview (04/30/2022): Added automatically from request for surgery [id number] Vocal cord paralysis 04/30/2022 Overview (04/30/2022): Added automatically from request for surgery [id number] Cervical disc disorder with myelopathy 2 Cervical disc disorder with myelopathy of mid-cervical region 02/25/2022 Overview (02/25/2022): Added automatically from request for surgery [id number] Immunosuppression due to drug therapy 02/15/2022 Spasticity 02/15/2022 Immunocompromised 09/12/2021 Abnormality of gait and mobility 02/12/2021 Neurogenic bladder disorder 02/12/2021 Medication monitoring encounter 03/31/2020 Multiple sclerosis 09/09/2019 High risk medication use 09/09/2019 Abnormal MRI 09/09/2019 Vitamin D deficiency 09/09/2019 Mixed anxiety and depressive disorder 09/09/2019 Hypertension 08/02/2019 Dysphagia Immunizations Immunization Administration Dates Next Due Influenza, Quad, Adjuvantate d, Intramuscular 04/13/2021 Influenza, Quadrivalent, Hig h Dose, Preservative Free, Intrr 06/23/2022 Influenza, Quadrivalent, Spl it, Preservative Free, Intramuscular 06/06/2018 Influenza, Unspecified 04/07/2023,2022,04/13/2021,04/06,06/06/2018 Pfizer SARS-CoV-2 Monovalent Vaccination (12+ Yrs) PURPLE 08/01/2020,07/11/2020 Pneumococcal Polysaccharide PPV23 04/13/2021 Tdap 04/13/2021,08/02/2016 ZOSTER Recombinant 09/02/2023 Social History Tobacco Use Types Packs/Day Years Used Date Smoking Tobacco: Never Passive Smoke Exposure: Never Smokeless Tobacco: Never Tobacco Cessation:Counseling Given: Not Answered AUDIT-C Answer Date Recorded Q1: How often do you have a drink containing alcohol? Never 05/06/2022 Q2: How many drinks containi ng alcohol do you have on a typical day when you are drinking? Patient does not drink Q3: How often do you have si x or more drinks on one occasion? Never 05/06/2022 Comments No Sex and Gender Information Value Date Recorded Sex Assigned at Not on file Legal Sex Female 10:38 AM CONSTRUCTION DIRECTOR Gender Identity Not on file Sexual Orientation Not on file Last Filed Vital Signs Vital Sign Reading Time Taken Comments Blood Pressure 123/85 04/22/2024 12:59 PM CDT Pulse 75 04/22/2024 12:59 PM CDT Temperature 36.4 C (97.5 F) 04/22/2024 12:59 PM CDT Respiratory Rate 18 03/17/2022 9:27 AM CDT Oxygen Saturation 95% 05/06/2022 1:50 PM CDT Inhaled Oxygen Concentration - - Weight 104.1 kg (229 lb 9.6 oz) 024 12:59 PM CDT Height 167.6 cm (5' 6 ) 04/22/2024 12:5 9 PM CDT Body Mass Index 37.06 04/22/2024 12:59 PM CDT Plan of Treatment Not on file Medical Devices Implanted Type Area Access Director Device Identifier Shelf Expiration Date Model / Serial / Lot Abyrx Hemasorb Os-Spa Spatula Wax 2gm Bone Sterile Os-201 - [id number] Implanted:Qty: 1 on 03/13/2022 by Danny Stauffer MD at [facility] N/A: Spine Cervical Abyrx 11/03/2024 OS-201 / / [id number] [employer] Allograft Bone Putty 2.5cc 700 - [id number] Implanted:Qty: 1 on 03/13/2022 by Danny Stauffer MD at [facility] N/A: Spine Cervical [employer] [id number] 09/03/2024 700-025 / / [id number] [employer] Cage Spinal Cervical 12d X 14w X 7h 6 Degree [id number] - [id number] Implanted:Qty: 1 on 03/13/2022 by Danny Stauffer MD at [facility] N/A: Spine Cervical [employer] [id number] 05/03/2026 [id number] / / [id number] [employer] Cage Spinal Cervical 12d X 14w X 6h 6 Degree [id number] - [id number] Implanted:Qty: 1 on 03/13/2022 by Danny Stauffer MD at [facility] N/A: Spine Cervical [employer] [id number] 08/30/2026 [id number] / / [id number] [employer] Cage Spinal Cervical 12d X 14w X 6h 6 Degree [id number] - [id number] Implanted:Qty: 1 on 03/13/2022 by Danny Stauffer MD at [facility] N/A: Spine Cervical [employer] [id number] 12/20/2026 [id number] / / [id number] [facility] [id number] Mambo 40mm 6 Hole Modular [place] 1 Step Lock Mechanism Spine - [id number] Implanted:Qty: 1 on 03/13/2022 by Danny Stauffer MD at [facility] N/A: Spine Cervical [facility] 1820-40 / / [facility] [id number] Mambo Extension Spine Cervical Small Plate Bone Yellow - [id number] Implanted:Qty: 1 on 03/13/2022 by Danny Stauffer MD at [facility] N/A: Spine Cervical [facility] 1820-02 / / [facility] [id number] Mambo Settle Spinal Cervical Screw Bone Silver - [id number] Implanted:Qty: 3 on 03/13/2022 by Danny Stauffer MD at [facility] N/A: Spine Cervical [facility] 1826- / / [facility] Screw Mambo Bone Self-Drilling 3.5mm Length 15mm - [id number] Implanted:Qty: 8 on 03/13/2022 by Danny Stauffer MD at [facility] N/A: Spine Cervical [facility] 18307-21 / / Procedures Procedure Name Priority Date/Time Associated Diagnosis Comments HEPATITIS C ANTIBODY Routine 02/12/2021 11:56 AM CDT Multiple sclerosis (HCC) Medication monitoring encounter Abnormal MRI Vitamin D deficiency Abnormality of gait and mobility Mixed anxiety and depressive disorder from Last 3 Months or Most Recently Relevant to Health Maintenance Results * Hepatitis C antibody (02/12/2021 11:56 AM CDT) Hep C Ab Nonreactive Nonreactive [facility] Comment:Antibodies to HCV no t detected. Does NOT exclude the possibility of recent exposure to HCV. Blood specimen (specimen) 02/12/2021 11:56 AM CDT 02/12/2021 12:34 PM CDT Joselyn Rondon TELEPHONE ANSWERING SERVICE OPERATOR LAB MICROBIOLOGY - GENERAL ORD ERABLES Edited Result - Final [facility] Department [place] [address] from Last 3 Months or Most Recently Relevant to Health Maintenance Insurance MEDICARE [facility] MEDICARE BLUE CROSS MEDICARE SUPPLEMENT MEDICARE [facility] Advance Directives For more information, please contact: [phone] * Full Code (Latest Code Status on File) Date Activated Date Inactivated Comments 03/13/2022 3:08 PM 03/15/2022 9:16 PM Care Teams Marketing Director Assisted Living Relationship Specialty Start Date End Date Candelaria Booker PA [address] [place] [address] PCP - General Nurse Practitioner 08/26/19
--- OUTSIDE RECORDS SUMMARY | 2024-11-19 12:55 | XMS_ITS | Encounter Summary ---
Author Organization [facility] Address [address] [place] [address] Care Team Providers Care Optometric Assistant Name Role Phone Candelaria Booker Primary Care Provider [phone] Encounter Details Date Type Department Care Team (Late st Contact Info) Description 05/09/2022 IN[employer] Message Enc [facility] Medical Group Family & Internal Medicine [address] [place] [address] Candelaria Booker APNP [facility] [place], [place] [id number] We[employer]y Social History Tobacco Use Types Packs/Day Years [...] AM CDT Legal Sex Female 11:40 AM WELFARE ADVISER Gender Identity Not on file Sexual Orientation [...] documented as of this encounter Care Teams Optometric Assistant Relationship Specialty Start Date End Date Candelaria Booker APNP [address] [place] [address] PCP - General NURSE PRACTITIONER 08/02/19 documented as of this encounter
--- OUTSIDE RECORDS SUMMARY | 2024-11-19 12:55 | XMS_ITS | Encounter Summary ---
Author Organization [facility] Address [address] [place] [address] Care Team Providers Care Gate Attendant Name Role Phone Candelaria Booker Primary Care Provider [phone] Encounter Details Date Type Department Care Team (Late st Contact Info) Description 07/02/2022 Made[employer]oset Message Enc [facility] Medical Group Family & Internal Medicine [address] [address] Candelaria Booker APNP [address] [place] [address] Cholecystectomy Social History Tobacco Use Types Packs/Day Years [...] AM CDT Legal Sex Female 11:40 AM COAL CARRIER Gender Identity Not on file Sexual Orientation Not on file documented as of this encounter Plan of Treatment Not on file documented as of this encounter Visit Diagnoses Not on filedocumented in this encounter Additional Health Concerns Assessment Noted Time PHQ-9 Depression Total Score: 4 05/03/20 22 1:06 PM CDT documented as of this encounter Care Teams Gate Attendant Relationship Specialty Start Date End Date Candelaria Booker APNP [address] [place] [address] PCP - General NURSE PRACTITIONER 08/02/19 documented as of this encounter
--- OUTSIDE RECORDS SUMMARY | 2024-11-19 12:55 | XMS_ITS | Encounter Summary ---
Author Organization [facility] Address [address] [place] [address] Care Team Providers Care Bilingual School Psychologist Name Role Phone Candelaria Booker Primary Care Provider [phone] Encounter Details Date Type Department Care Team (Late st Contact Info) Description 05/13/2022 Brite[employer]hart Message Enc [facility] Medical Group Family & Internal Medicine [address] [place] [address] Candelaria Booker APNP [facility] [place], [place] [id number] Speech therapy Social History Tobacco Use Types Packs/Day Years [...] AM CDT Legal Sex Female 11:40 AM CHEMICAL DEPENDENCY THERAPIST Gender Identity Not on file Sexual Orientation [...] documented as of this encounter Care Teams Bilingual School Psychologist Relationship Specialty Start Date End Date Candelaria Booker APNP [address] [place] [address] PCP - General NURSE PRACTITIONER 08/02/19 documented as of this encounter
--- OUTSIDE RECORDS SUMMARY | 2024-11-19 12:55 | XMS_ITS | Encounter Summary ---
Author Organization [facility] Address [address] [place] [address] Care Team Providers Care Lead Esthetician Name Role Phone Candelaria Booker Primary Care Provider [phone] Encounter Details Date Type Department Care Team (Late st Contact Info) Description 05/05/2022 Airy [employer]st Message Enc [facility] Medical Group Family & Internal Medicine [address] [place] [address] Candelaria Booker APNP [facility] [place], [place] [id number] Lisinopril Social History Tobacco Use Types Packs/Day Years [...] AM CDT Legal Sex Female 11:40 AM STOCK ROLLER Gender Identity Not on file Sexual Orientation [...] documented as of this encounter Care Teams Lead Esthetician Relationship Specialty Start Date End Date Candelaria Booker APNP [address] [place] [address] PCP - General NURSE PRACTITIONER 08/02/19 documented as of this encounter
--- OUTSIDE RECORDS SUMMARY | 2024-11-19 12:55 | XMS_ITS | Clinical Summary ---
Author Organization [facility] Address [address] [place] [address] Care Team Providers Care Stock Counter Name Role Phone Candelaria Booker Primary Care [...] (04/30/2022): Added automatically from request for surgery [id number] Vocal cord paralysis 04/30/2022 Overview (04/30/2022): Added automatically from request for surgery [id number] Cervical disc disorder with myelopathy 2 Cervical disc disorder with myelopathy of mid-cervical region 02/25/2022 Overview (02/25/2022): Added automatically from request for surgery [id number] Immunosuppression due to drug therapy 02/15/2022 Spasticity [...] PPV23 04/13/2021 Tdap 04/13/2021,08/02/2016 ZOSTER Recombinant 09/02/2023 Surgical History Surgery Date Site/Laterality Comments COLECTOMY 07/07/2003 - 07/06/2004 diverticultitis SECTION HYSTERECTOMY TOE SURGERY LEG SURGERY SPINE SURGERY 03/13/2022 CHOLECYSTECTOMY 07/03/2022 JOINT REPLACEMENT 10/29/2022 Medical History Medical History Date Comments Multiple sclerosis (HCC) HTN (hypertension) Depression Coccidiomycosis, progressive 2016 Arthritis Neuromuscular disorder (HCC) GERD (gastroesophageal reflux disease) Thyroid disease Autoimmune disease Family History Medical History Relation Name Comments Multiple sclerosis Brother 1 Hypertension Brother 2 Jax Arthritis Father Reji Cancer Father Reji Heart disease Father Reji Hypertension Father Reji Osteoarthritis Father Reji Stroke Father Reji Diabetes Mother Anjana Hypertension Mother Anjana Hypothyroidism Mother Anjana Memory loss Mother Anjana Obesity Mother's Brother Bucky Obesity Mother's Sister Sandi Cancer Son Rikki Relation Name Status Comments Brother 1 Brother 2 Jax Father Reji Mother Anjana Mother's Brother Bucky Mother's Sister Sandi Son Rikki Social History Tobacco Use Types Packs/Day Years [...] on file Legal Sex Female 10:38 AM SECONDARY MARKET MANAGER Gender Identity Not on file Sexual Orientation Not on file Obstetrics History Last Filed Vital Signs Vital Sign Reading [...] 04/22/2024 12:59 PM CDT Plan of Treatment Health Maintenance Due Date Last Done Comments Colon Cancer Screening-Colonoscopy 1955 Depression Screening 1955 Osteoporosis Screening-Bone Density Scan 1955 Hepatitis B Screening 1973 Well Visit 65+ 2020 Pneumococcal vaccine 65+ (2 of 2 - PCV) 04/13/2022 04/13/2021 Fall Risk Assessment 05/06/2023 05/06/2022 Breast Cancer Screening-Mammogram 09/02/2023 09/02/2022, 09/02/2022, 05/25/2020 Zoster Vaccine (2 of 2) 10/28/2023 09/02/2023 Covid-19 Vaccine (4 - 2023-2 5 season) 2024 03/08/2021, 08/01/2020, 07/11/2020 Influenza Vaccine (Season Ended) 2025 04/07/2023, 04/06/2023, 06/23/2022, Additional history exists DTaP/Tdap/Td Vaccine (3 - Td or Tdap) 04/13/2031 04/13/2021, 08/02/2016 Hepatitis C Screening Completed 02/12/2021 Medical Devices Implanted Type Area City Council Member Device Identifier Shelf Expiration Date Model / Serial / Lot Abyrx Hemasorb Os-Spa Spatula Wax 2gm Bone Sterile Os-201 - [id number] Implanted:Qty: 1 on 03/13/2022 by Danny Stauffer MD at [facility] N/A: Spine Cervical Abyrx 11/03/2024 OS-201 / / [id number] [employer] Allograft Bone Putty 2.5cc 700-025 - [id number] Implanted:Qty: 1 on 03/13/2022 by Danny Stauffer MD at [facility] N/A: Spine Cervical [employer] [id number] 09/03/2024 700-025 / / [id number] [employer] Cage Spinal Cervical 12d X 14w X 7h 6 Degree [id number] - [id number] Implanted:Qty: 1 on 03/13/2022 by Danny Stauffer MD at [facility] N/A: Spine Cervical [employer] [id number] 05/03/2026 [id number] / / [id number] [employer] Cage Spinal Cervical 12d X 14w X 6h 6 Degree [id number] - [id number] Implanted:Qty: 1 on 03/13/2022 by Danny Stauffer MD at [facility] N/A: Spine Cervical [employer] [id number] 08/30/2026 [id number] / / [id number] [employer] Cage Spinal Cervical 12d X 14w X 6h 6 Degree [id number] - [id number] Implanted:Qty: 1 on 03/13/2022 by Danny Stauffer MD at [facility] N/A: Spine Cervical [employer] [id number] 12/20/2026 [id number] / / [id number] [facility] [id number] Mambo 40mm 6 Hole Modular [place] 1 Step Lock Mechanism Spine - [id number] Implanted:Qty: 1 on 03/13/2022 by Danny Stauffer MD at [facility] N/A: Spine Cervical [facility] CS 1820-40 / / [facility] [id number] Mambo Extension Spine Cervical Small Plate Bone Yellow - [id number] Implanted:Qty: 1 on 03/13/2022 by Danny Stauffer MD at [facility] N/A: Spine Cervical [facility] 1820- / / [facility] [id number] Mambo Settle Spinal Cervical Screw Bone Silver - [id number] Implanted:Qty: 3 on 03/13/2022 by Danny Stauffer MD at [facility] N/A: Spine Cervical [facility] 1826- / / [facility] Screw Mambo Bone Self-Drilling 3.5mm Length 15mm - [id number] Implanted:Qty: 8 on 03/13/2022 by Danny Stauffer MD at [facility] N/A: Spine Cervical [facility] / / Procedures Procedure Name Priority Date/Time [...] CDT) Hep C Ab Nonreactive Nonreactive [facility] Comment:Antibodies to HCV no t detected. Does NOT exclude the possibility of recent exposure to HCV. Blood specimen (specimen) 02/12/2021 11:56 AM CDT 02/12/2021 12:34 PM CDT Joselyn Rondon GRANULAR OPERATOR LAB MICROBIOLOGY - GENERAL ORD ERABLES Edited Result - Final [facility] [place] [address] from Last 3 Months or Most Recently Relevant to Health Maintenance Insurance MEDICARE [facility] MEDICARE BLUE CROSS MEDICARE SUPPLEMENT MEDICARE [facility] Advance Directives For more information, please contact: [phone] * Full Code (Latest Code Status on File) Date Activated Date Inactivated Comments 03/13/2022 3:08 PM 03/15/2022 9:16 PM Care Teams Stock Counter Relationship Specialty Start Date End Date Candelaria Booker PA [address] [place] [address] PCP - General Nurse Practitioner 08/26/19
--- OUTSIDE RECORDS SUMMARY | 2024-11-19 12:56 | XMS_ITS | Encounter Summary ---
Author Organization [facility] Address [address] [place] [address] Care Team Providers Care Fixed Route Operator Name Role Phone Candelaria Booker Primary Care Provider [phone] Encounter Details Date Type Department Care Team (Late st Contact Info) Description 10/04/2019 Cool de Sach[employer] Message Enc [facility] Medical Group Family & Internal Medicine [address] [address] Candelaria Booker APNP [facility] [place] [address] RE: Follow Up/Update Social History Tobacco Use Types Packs/Day Years Used Date Smoking Tobacco: Never Smokeless Tobacco: Never Alcohol Use Standard Drinks/Week Comments Yes 0 (1 standard drink = 0.6 oz pure alcohol) rarely-one glass in the past 4 months PHQ-2 Answer Date Recorded PHQ-2 Score 0 08/02/2019 Comments Unknown Sex and Gender Information Value Date Recorded Sex Assigned at Female 10/19/2024 11:31 AM CDT Legal Sex Female 11:40 AM DOOR TO DOOR FUNDRAISING COLLECTOR Gender Identity Not on file Sexual Orientation Not on file documented as of this encounter Plan of Treatment Not on file documented as of this encounter Visit Diagnoses Not on filedocumented in this encounter Additional Health Concerns Infection Onset Date Last Indicated Resolved Time COVID-19 Rule Out 01/18/2020 01/21/2020 02/02/2020 7:51 AM CDT COVID-19 Rule Out 05/29/2020 05/29/2020 07/28/2020 12:33 AM DOOR TO DOOR FUNDRAISING COLLECTOR Assessment Noted Time PHQ-9 Depression Total Score: 0 08/02/19 20 8:42 AM DOOR TO DOOR FUNDRAISING COLLECTOR documented as of this encounter Care Teams Fixed Route Operator Relationship Specialty Start Date End Date Candelaria Booker APNP [address] [place], [place] [phone] PCP - General NURSE PRACTITIONER 08/02/19 documented as of this encounter
--- OUTSIDE RECORDS SUMMARY | 2024-11-19 12:56 | XMS_ITS | Encounter Summary ---
Author Organization [facility] Address [address] [place] [address] Care Team Providers Care Electrician Chief Name Role Phone Candelaria Booker Primary Care Provider [phone] Encounter Details Date Type Department Care Team (Late st Contact Info) Description 10/23/2021 [facility] Message Enc [facility] Medical Group Family & Internal Medicine [address] [address] Candelraia Booker APNP [facility] [place], [place] [phone] Handicap car placard Social History Tobacco Use Types Packs/Day Years Used Date Smoking Tobacco: Never Smokeless Tobacco: Never Comments:non smoker Alcohol Use Standard Drinks/Week Comments Yes 0 (1 standard drink = 0.6 oz pure alcohol) rarely-one glass in the past 4 months PHQ-2 Answer Date Recorded PHQ-2 Score - If the patient scores above 3, please move on to questions 3-9 0 10/09/2020 Comments No Sex and Gender Information Value Date Recorded Sex Assigned at Female 10/19/2024 11:31 AM CDT Legal Sex Female 11:40 AM AIRPLANE FLIGHT ATTENDANT Gender Identity Not on file Sexual Orientation Not on file documented as of this encounter Plan of Treatment Not on file documented as of this encounter Visit Diagnoses Not on filedocumented in this encounter Additional Health Concerns Assessment Noted Time PHQ-9 Depression Total Score: 0 10/10/19 21 10:28 AM CDT documented as of this encounter Care Teams Electrician Chief Relationship Specialty Start Date End Date Candelaria Booker APNP [address] [place] [address] PCP - General NURSE PRACTITIONER 08/02/19 documented as of this encounter
--- OUTSIDE RECORDS SUMMARY | 2024-11-19 12:56 | XMS_ITS | Encounter Summary ---
Author Organization [facility] Address [address] [place] [address] Care Team Providers Care Manager Of Finance Name Role Phone Candelaria Booker Primary Care Provider [phone] Encounter Details Date Type Department Care Team (Late st Contact Info) Description 08/04/2020 BBspacehart Message Enc [facility] Medical Group Family & Internal Medicine [address] [phone] Candelaria Booker APNP [facility] [place] [address] RE: Test Results Social History Tobacco Use Types Packs/Day Years Used Date Smoking Tobacco: Never Smokeless Tobacco: Never Alcohol Use Standard Drinks/Week Comments Yes 0 (1 standard drink = 0.6 oz pure alcohol) rarely-one glass in the past 4 months PHQ-2 Answer Date Recorded PHQ-2 Score 0 08/02/2019 Comments No Sex and Gender Information Value Date Recorded Sex Assigned at Female 10/19/2024 11:31 AM CDT Legal Sex Female 11:40 AM WASH DRILLER HELPER Gender Identity Not on file Sexual Orientation Not on file COVID-19 Exposure Response Date Recorded In the last month, have you been in contact with someone who was confirmed or suspected to have Coronavirus / COVID-19? Yes 07/28/2020 10:46 AM WASH DRILLER HELPER documented as of this encounter Plan of Treatment Not on file documented as of this encounter Visit Diagnoses Not on filedocumented in this encounter Additional Health Concerns Assessment Noted Time PHQ-9 Depression Total Score: 0 08/02/19 20 8:42 AM WASH DRILLER HELPER documented as of this encounter Care Teams Manager Of Finance Relationship Specialty Start Date End Date Candelaria Booker APNP [address] [place] [address] PCP - General NURSE PRACTITIONER 08/02/19 documented as of this encounter
--- OUTSIDE RECORDS SUMMARY | 2024-11-19 12:56 | XMS_ITS | Encounter Summary ---
Author Organization [facility] Address [address] [place] [address] Care Team Providers Care Planning Official Name Role Phone Candelaria Booker Primary Care Provider [phone] Encounter Details Date Type Department Care Team (Late st Contact Info) Description 01/16/2023 Valentin Uzhunt Message Enc [facility] Medical Group Family & Internal Medicine [address] [phone] Candelaria Booker APNP [facility]1 [place], [place] [id number] Correction to telephone note Social History Tobacco Use Types Packs/Day Years [...] AM CDT Legal Sex Female 11:40 AM RN TEAM LEADER Gender Identity Not on file Sexual Orientation Not on file documented as of this encounter Plan of Treatment Not on file documented as of this encounter Visit Diagnoses Not on filedocumented in this encounter Additional Health Concerns Assessment Noted Time PHQ-9 Depression Total Score: 4 05/03/20 22 1:06 PM CDT documented as of this encounter Care Teams Planning Official Relationship Specialty Start Date End Date Candelaria Booker APNP [address] [place] [address] PCP - General NURSE PRACTITIONER 08/02/19 documented as of this encounter
--- OUTSIDE RECORDS SUMMARY | 2024-11-19 12:56 | XMS_ITS | Encounter Summary ---
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
--- OUTSIDE RECORDS SUMMARY | 2024-11-19 12:56 | XMS_ITS | Encounter Summary ---
Author Organization [facility] Address [address] [place] [address] Care Team Providers Care Biological Technician Name Role Phone Candelaria Booker Primary Care Provider [phone] Encounter Details Date Type Department Care Team (Late st Contact Info) Description 08/04/2020 Orqis Medicalhart Message Enc [facility] Medical Group Family & Internal Medicine [address] [phone] Candelaria Booker APNP [address] [place] [address] RE: Follow Up/Update Social History Tobacco Use [...] AM CDT Legal Sex Female 11:40 AM PHYSICS TUTOR Gender Identity Not on file Sexual Orientation Not on file COVID-19 Exposure Response Date Recorded In the last month, have you been in contact with someone who was confirmed or suspected to have Coronavirus / COVID-19? Yes 07/28/2020 10:46 AM PHYSICS TUTOR documented as of this encounter Plan of Treatment Not on file documented as of this encounter Visit Diagnoses Not on filedocumented in this encounter Additional Health Concerns Assessment Noted Time PHQ-9 Depression Total Score: 0 08/02/19 20 8:42 AM PHYSICS TUTOR documented as of this encounter Care Teams Biological Technician Relationship Specialty Start Date End Date Candelaria Booker APNP [address] [place] [address] PCP - General NURSE PRACTITIONER 08/02/19 documented as of this encounter
--- OUTSIDE RECORDS SUMMARY | 2024-11-19 12:56 | XMS_ITS | Encounter Summary ---
Author Organization [facility] Healthcare Address [address] [place] [address] Care Team Providers Care Director Of Occupational Therapy Name Role Phone Candelaria Booker Primary Care Provider + Encounter Details Date Type Department Care Team (Late st Contact Info) Description 01/17/2022 Telephone [facility] Radiology 1 [place] [address] Amanda Wayne MD [address] [facility] [address] [place] [address] Social History Tobacco Use Types Packs/Day Years Used Date Smoking Tobacco: Never Smokeless Tobacco: Never Comments Unknown Sex and Gender Information Value Date Recorded Sex Assigned at Not on file Legal Sex Female 10:38 AM GENERAL LABORER Gender Identity Not on file Sexual Orientation Not on file documented as of this encounter Plan of Treatment Not on file documented as of this encounter Visit Diagnoses Not on filedocumented in this encounter Care Teams Director Of Occupational Therapy Relationship Specialty Start Date End Date Candelaria Booker PA [address] [place] [address] PCP - General Nurse Practitioner 08/26/19 documented as of this encounter
--- OUTSIDE RECORDS SUMMARY | 2024-11-19 12:56 | XMS_ITS | Encounter Summary ---
Author Organization [facility] Address [address] [place] [address] Care Team Providers Care Spray Dyer Name Role Phone Candelaria Booker Primary Care Provider [phone] Encounter Details Date Type Department Care Team (Late st Contact Info) Description 11/05/2022 getuppt Message Enc [facility] Medical Group Family & Internal Medicine [address] [phone] Candelaria Booker APNP [address] [place] [address] Nystatin Social History Tobacco Use Types Packs/Day Years [...] AM CDT Legal Sex Female 11:40 AM TICKET COLLECTOR Gender Identity Not on file Sexual Orientation Not on file documented as of this encounter Plan of Treatment Not on file documented as of this encounter Visit Diagnoses Not on filedocumented in this encounter Additional Health Concerns Assessment Noted Time PHQ-9 Depression Total Score: 4 05/03/20 22 1:06 PM CDT documented as of this encounter Care Teams Spray Dyer Relationship Specialty Start Date End Date Candelaria Booker APNP [address] [place] [address] PCP - General NURSE PRACTITIONER 08/02/19 documented as of this encounter
--- OUTSIDE RECORDS SUMMARY | 2024-11-19 12:56 | XMS_ITS | Encounter Summary ---
Author Organization [facility] Address [address] [place] [address] Care Team Providers Care Manufacturer Representative Name Role Phone Candelaria Booker Primary Care Provider [phone] Encounter Details Date Type Department Care Team (Late st Contact Info) Description 07/10/2020 SecureWatershart Message Enc [facility] Medical Group Family & Internal Medicine [facility] [address] [place] [address] Candelaria Booker APNP [address] [place] [address] RE: Question Social History Tobacco Use Types Packs/Day Years [...] AM CDT Legal Sex Female 11:40 AM 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 Gender Identity Not on file Sexual Orientation Not on file documented as of this encounter Plan of Treatment Not on file documented as of this encounter Visit Diagnoses Not on filedocumented in this encounter Additional Health Concerns Infection Onset Date Last Indicated Resolved Time COVID-19 Rule Out 05/29/2020 05/29/2020 07/28/2020 12:33 AM 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 Assessment Noted Time PHQ-9 Depression Total Score: 0 08/02/19 20 8:42 AM 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 documented as of this encounter Care Teams Manufacturer Representative Relationship Specialty Start Date End Date Candelaria Booker APNP [address] [place] [address] PCP - General NURSE PRACTITIONER 08/02/19 documented as of this encounter
--- OUTSIDE RECORDS SUMMARY | 2024-11-19 12:56 | XMS_ITS | Encounter Summary ---
Author Organization [facility] Address [address] [place] [address] Care Team Providers Care Print Line Supervisor Name Role Phone Candelaria Booker Primary Care Provider [phone] Encounter Details Date Type Department Care Team (Late st Contact Info) Description 02/06/2021 Qoniachart Message Enc [facility] Medical Group Family & Internal Medicine [phone] [place] [phone] Candelaria Booker APNP [facility]1 [place], [place] [id number] RE: Medication Questions Social History Tobacco Use Types Packs/Day Years [...] AM CDT Legal Sex Female 11:40 AM OFFENDER EMPLOYMENT SPECIALIST Gender Identity Not on file Sexual Orientation Not on file COVID-19 Exposure Response Date Recorded In the last month, have you been in contact with someone who was confirmed or suspected to have Coronavirus / COVID-19? No / Unsure 02/06/2021 10:52 AM CDT documented as of this encounter Plan of Treatment Not on file documented as of this encounter Visit Diagnoses Not on filedocumented in this encounter Additional Health Concerns Assessment Noted Time PHQ-9 Depression Total Score: 0 10/10/19 21 10:28 AM CDT documented as of this encounter Care Teams Print Line Supervisor Relationship Specialty Start Date End Date Candelaria Booker APNP [address] [place] [address] PCP - General NURSE PRACTITIONER 08/02/19 documented as of this encounter
--- OUTSIDE RECORDS SUMMARY | 2024-11-19 12:56 | XMS_ITS | Encounter Summary ---
Author Organization [facility] Address [address] [place] [address] Care Team Providers Care Worldwide Chief Creative Officer Name Role Phone Candelaria Booker Primary Care Provider [phone] Encounter Details Date Type Department Care Team (Late st Contact Info) Description 08/27/2022 Reapplixt Message Enc [facility] Medical Group Family & Internal Medicine [address] [phone] Candelaria Booker APNP [address] [place] [address] Lab results Social History Tobacco Use Types Packs/Day Years [...] AM CDT Legal Sex Female 11:40 AM 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
--- OUTSIDE RECORDS SUMMARY | 2024-11-19 12:56 | XMS_ITS | Encounter Summary ---
Author Organization [facility] Address [address] [place] [address] Care Team Providers Care Energy Sales Broker Name Role Phone Candelaria Booker Primary Care Provider [phone] Encounter Details Date Type Department Care Team (Late st Contact Info) Description 09/16/2024 BabyFirstTVhart Message Enc [facility] Medical Group Family & Internal Medicine [address] [phone] Candelaria Booker APNP [address] [place] [address] [place] eye Social History Tobacco Use Types Packs/Day Years Used Date Smoking Tobacco: Never Smokeless Tobacco: Never Alcohol Use Standard Drinks/Week Comments Yes 0 (1 standard drink = 0.6 oz pure alcohol) rarely-one glass in the past 4 months PHQ-2 Answer Date Recorded Patient Health Questionnaire-2 Score 0 09/24/2023 Comments No Sex and Gender Information Value Date Recorded Sex Assigned at Female 10/19/2024 11:31 AM CDT Legal Sex Female 11:40 AM SCHOOL LABORATORY TECHNICIAN Gender Identity Not on file Sexual Orientation Not on file documented as of this encounter Progress Notes * JANINE Petty - 09/16/2024 4:35 PM CDT Abx sent over If too expensive or not covered, let us know documented in this encounter Plan of Treatment Not on file documented as of this encounter Visit Diagnoses Diagnosis Acute bacterial conjunctivitis of both eyes- Primary documented in this encounter Additional Health Concerns Assessment Noted Time PHQ-9 Depression Total Score: 4 05/03/20 22 1:06 PM CDT documented as of this encounter Care Teams Energy Sales Broker Relationship Specialty Start Date End Date Candelaria Booker APNP [address] [place] [address] PCP - General NURSE PRACTITIONER 08/02/19 documented as of this encounter
--- OUTSIDE RECORDS SUMMARY | 2024-11-19 12:56 | XMS_ITS | Encounter Summary ---
Author Organization [facility] Address [address] [place] [address] Care Team Providers Care Farm Equipment Mechanic Name Role Phone Candelaria Booker Primary Care Provider [phone] Reason for Visit * Reason Onset Date Comments Cough 09/27/2019 constant cough, constant tickle in her chest. cough and cold for two weeks. Encounter Details Date Type Department Care Team (Late st Contact Info) Description 09/27/2019 Cooolio Onlinet Message Enc [facility] Medical Group Family & Internal Medicine [facility] [address] [place] [address] Candelaria Booker APNP [address] [place] [address] RE: Other Social History Tobacco Use Types Packs/Day Years [...] AM CDT Legal Sex Female 11:40 AM AUTOMATION DESIGN ENGINEER Gender Identity Not on file Sexual Orientation Not on file documented as of this encounter Progress Notes * Mikhail Beltrán RN - 09/28/2019 9:06 AM CDT RN triaged respirators symptoms 2 week history of cough and cold. Afebrile. Tickle in her chest when she tries to take a deep breath. Head congestion- clear, post nasal drainage. 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 Constant tickle and cough. Taking medication as often as can take it. Coughing non stop on the phone. Sending to [place] [facility] for evaluation. Pt instructions: Push PO fluids, take over the counter Tylenol, decongestants, cough medications. Log twice daily temperature and any symptoms as they occur or resolve . Stay home, self isolate, use good hand hygiene, sanitize all surfaces. If symptoms worsen return call with update. documented in this encounter Plan of Treatment Not on file documented as of this encounter Visit Diagnoses Not on filedocumented in this encounter Additional Health Concerns Infection Onset Date Last Indicated Resolved Time COVID-19 Rule Out 01/18/2020 01/21/2020 02/02/2020 7:51 AM CDT COVID-19 Rule Out 05/29/2020 05/29/2020 07/28/2020 12:33 AM AUTOMATION DESIGN ENGINEER Assessment Noted Time PHQ-9 Depression Total Score: 0 08/02/19 20 8:42 AM AUTOMATION DESIGN ENGINEER documented as of this encounter Care Teams Farm Equipment Mechanic Relationship Specialty Start Date End Date Candelaria Booker APNP [address] [place] [address] PCP - General NURSE PRACTITIONER 08/02/19 documented as of this encounter
--- OUTSIDE RECORDS SUMMARY | 2024-11-19 12:56 | XMS_ITS | Encounter Summary ---
Author Organization [facility] Address [address] [place] [address] Care Team Providers Care Fuel Attendant Name Role Phone Candelaria Booker Primary Care Provider [phone] Encounter Details Date Type Department Care Team (Late st Contact Info) Description 09/16/2022 Heliaehart Message Enc [facility] Medical Group Family & Internal Medicine [address] [place] [address] Candelaria Booker APNP [facility] [place] [address] Covid Social History Tobacco Use Types Packs/Day Years [...] AM CDT Legal Sex Female 11:40 AM GOLF CLUB 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 No / Unsure 09/02/2022 2:55 PM GOLF CLUB WEIGHER documented as of this encounter Plan of Treatment Not on file documented as of this encounter Visit Diagnoses Not on filedocumented in this encounter Additional Health Concerns Assessment Noted Time PHQ-9 Depression Total Score: 4 05/03/20 22 1:06 PM CDT documented as of this encounter Care Teams Fuel Attendant Relationship Specialty Start Date End Date Candelaria Booker APNP [address] [place] [address] PCP - General NURSE PRACTITIONER 08/02/19 documented as of this encounter
--- OUTSIDE RECORDS SUMMARY | 2024-11-19 12:56 | XMS_ITS | Encounter Summary ---
Author Organization [facility] Address [address] [place] [address] Care Team Providers Care Mica Miner Blasting Name Role Phone Candelaria Booker Primary Care Provider [phone] Encounter Details Date Type Department Care Team (Late st Contact Info) Description 02/25/2021 [employer] [place] Foundationhart Message Enc [facility] Medical Group Family & Internal Medicine [address] [phone] Candelaria Booker [address]NP [facility] [place] [address] Medication Questions Social History Tobacco Use Types [...] AM CDT Legal Sex Female 11:40 AM PUBLIC INFORMATION OFFICER Gender Identity Not on file Sexual Orientation [...] documented as of this encounter Care Teams Mica Miner Blasting Relationship Specialty Start Date End Date Candelaria Booker APNP [address] [place] [address] PCP - General NURSE PRACTITIONER 08/02/19 documented as of this encounter
--- OUTSIDE RECORDS SUMMARY | 2024-11-19 12:56 | XMS_ITS | Encounter Summary ---
Author Organization [facility] Address [address] [place] [address] Care Team Providers Care Process Helper Name Role Phone Candelaria Booker Primary Care Provider [phone] Reason for Visit * Reason Onset Date Comments Letter 05/29/2020 Encounter Details Date Type Department Care Team (Late st Contact Info) Description 05/29/2020 Telephone [facility] Family & Internal Medicine [facility] [address] [place] [address] Candelaria Booker APNP [facility] [place], [place] [id number] Letter Social History Tobacco Use Types Packs/Day Years [...] AM CDT Legal Sex Female 11:40 AM ARCHITECTURAL DRAFTSPERSON Gender Identity Not on file Sexual Orientation Not on file COVID-19 Exposure Response Date Recorded In the last month, have you been in contact with someone who was confirmed or suspected to have Coronavirus / COVID-19? Yes 05/25/2020 12:51 PM ARCHITECTURAL DRAFTSPERSON documented as of this encounter Progress Notes * Najma Adhikari MA - 05/01/2021 3:29 PM CDT Medication sent to the pharmacy. Pt notified and v/u to this. BB 05/01/2021 * Najma Adhikari MA - 05/01/2021 3:27 PM CDT ----- Message from JANINE Petty sent at 05/01/2021 2:35 PM CDT ----- Regarding: FW: Medication Questions Contact: OK to refill diclofenac. 75 mg PO BID, #60, no refills ----- Message ----- From: Allison Rios MA Sent: 04/30/2021 4:37 PM CDT To: JANINE Petty Subject: FW: Medication Questions ----- Message ----- From: Darshana Dyer Sent: 04/30/2021 12:19 PM CDT To: Candelaria Paz Nurse Subject: Medication Questions Is it possible to get a refill on Diclofenac? I haven't had to get it refilled since I lived in [place] but I have been having to take it daily for my knees. It works much better than Tylenol or ibuprofen. Thanks * Najma Adhikari MA - 07/24/2020 4:11 PM CST COVID anti-body testing ordered for pt and sent. BB 07/24/20 ITECTURAL DRAFTSPERSON * Najma Adhikari MA - 07/24/2020 4:10 PM CST ----- Message from JANINE Petty sent at 07/10/2020 2:19 PM ARCHITECTURAL DRAFTSPERSON ----- Regarding: FW: Question Contact: Can you order COVID ab testing for this pt. ----- Message ----- From: Tiffanie Hankins MA Sent: 07/10/2020 12:33 PM ARCHITECTURAL DRAFTSPERSON To: JANINE Petty Subject: FW: Question ----- Message ----- From: Darshana Dyer Sent: 07/10/2020 7:38 AM ARCHITECTURAL DRAFTSPERSON To: Candelaria Paz Nurse Subject: Question Last question, I promise. Is it possible for me to have covid antibody testing? My nasal swab testing in January came back negative (headache. Complete loss of taste and smell), but it would be helpful to know if I have antibodies before I sign up for a vaccination. Thanks ITECTURAL DRAFTSPERSON * Najma Adhikari MA - 07/24/2020 4:05 PM CST ----- Message from JANINE Petty sent at 07/10/2020 2:19 PM ARCHITECTURAL DRAFTSPERSON ----- Regarding: FW: Question Contact: Can you order COVID ab testing for this pt. ----- Message ----- From: Tiffanie Hankins MA Sent: 07/10/2020 12:33 PM ARCHITECTURAL DRAFTSPERSON To: JANINE Petty Subject: FW: Question ----- Message ----- From: Darshana Dyer Sent: 07/10/2020 7:38 AM ARCHITECTURAL DRAFTSPERSON To: Candelaria Paz Nurse Subject: Question Last question, I promise. Is it possible for me to have covid antibody testing? My nasal swab testing in January came back negative (headache. Complete loss of taste and smell), but it would be helpful to know if I have antibodies before I sign up for a vaccination. Thanks ITECTURAL DRAFTSPERSON * Zina Carbajal RN - 06/05/2020 4:27 PM CST Patient did go to the hospital and they did a EKG and used blood work from [facility]. They typed and crossed her. This was done at [facility]. ITECTURAL DRAFTSPERSON * JANINE Petty - 06/05/2020 1:42 PM CST OK, Is pt still going to pre op at the hospital? I do not have a recent EKG on her. ITECTURAL DRAFTSPERSON * Christine Gage MA - 06/02/2020 11:26 AM CST Patient states at [facility]she asked if she needed to come in again and was told she did not. Her Surgery is scheduled as out patient on June 12 ITECTURAL DRAFTSPERSON * Zina Carbajal RN - 05/29/2020 11:15 AM CST Patient needing a new surgical clearance letter from us for Dr. Avila for knee replacement. She is atrail patient for the outpatient knee replacement. ITECTURAL DRAFTSPERSON documented in this encounter Plan of Treatment Not on file documented as of this encounter Visit Diagnoses Diagnosis Close exposure to COVID-19 virus- Primary Unknown status of immunity to COVID-19 virus Knee pain Pain in joint, lower leg documented in this encounter Additional Health Concerns Infection Onset Date Last Indicated Resolved Time COVID-19 Rule Out 05/29/2020 05/29/2020 07/28/2020 12:33 AM ARCHITECTURAL DRAFTSPERSON Assessment Noted Time PHQ-9 Depression Total Score: 0 08/02/19 20 8:42 AM ARCHITECTURAL DRAFTSPERSON documented as of this encounter Care Teams Process Helper Relationship Specialty Start Date End Date Candelaria Booker APNP [address] [place] [address] PCP - General NURSE PRACTITIONER 08/02/19 documented as of this encounter
--- OUTSIDE RECORDS SUMMARY | 2024-11-19 12:56 | XMS_ITS | Encounter Summary ---
Author Organization [facility] Address [address] [place] [address] Care Team Providers Care Design Director Name Role Phone Candelaria Booker Primary Care Provider [phone] Encounter Details Date Type Department Care Team (Late st Contact Info) Description 07/09/2020 Fanzilahart Message Enc [facility] Medical [facility] Family & Internal Medicine [facility] [address] [place] [address] Candelaria Booker APNP [address] [place] [address] RE: Question Social History Tobacco Use Types [...] AM CDT Legal Sex Female 11:40 AM BELT BUILDER HELPER Gender Identity Not on file Sexual Orientation Not on file documented as of this encounter Plan of Treatment Not on file documented as of this encounter Visit Diagnoses Not on filedocumented in this encounter Additional Health Concerns Infection Onset Date Last Indicated Resolved Time COVID-19 Rule Out 05/29/2020 05/29/2020 07/28/2020 12:33 AM BELT BUILDER HELPER Assessment Noted Time PHQ-9 Depression Total Score: 0 08/02/19 20 8:42 AM BELT BUILDER HELPER documented as of this encounter Care Teams Design Director Relationship Specialty Start Date End Date Candelaria Booker APNP [address] [place] [address] PCP - General NURSE PRACTITIONER 08/02/19 documented as of this encounter
--- OUTSIDE RECORDS SUMMARY | 2024-11-19 12:56 | XMS_ITS | Clinical Summary ---
Author Organization [facility] Address [address] [place] [address] Care Team Providers Care Mortarman Name Role Phone Rufino Booker JANINE Primary Care Provider Allergies Active Allergy Reactions Criticality Noted Date Comments Celecoxib Rash Low 09/22/2020 Droperidol Dystonia 11/05/2014 Dystonia Oxycodone Hallucinations Medium 07/03/2023 Penicillins Hives 11/05/2014 Sulfa Antibiotics Hives 11/05/2014 Medications albuterol sulfate HFA (PROAIR HFA) 108 (90 Base) MCG/ACT inhalerIndication s:Acute bronchitis, unspecified organism 2 inhalations q 4 hours prn. 1 Inhaler 020 Active calcium carbonate (TUMS) 500 MG chewable tablet Chew 1 tablet (500 mg total) by mouth daily. Active Cholecalciferol (VITAMIN D3) 50 MCG (2000 UT) Cap Take 2,000 Units by mouth daily. Active diphenhydrAMINE-A PAP (TYLENOL PM) 25-500 MG Tab tablet Take 1 tablet by mouth nightly as needed. Active diclofenac EC (VOLTAREN) 75 MG tabletIndications :Primary osteoarthritis of right knee Take 1 tablet (75 mg total) by mouth daily. 90 tablet 1 023 Active nystatin (MYCOSTATIN) 574646 UNIT/ML suspensionIndicat ions:Thrush Take 2 mLs (200,000 Units total) by mouth 4 (four) times daily. 240 mL 023 Active gabapentin (NEURONTIN) 100 MG capsuleIndication s:Peripheral polyneuropathy take 1 capsule by mouth three times daily 90 capsule 024 Active Additional Information Patient taking differently: 200 mgOralDaily, Reported on 09/24/2023 lisinopril (PRINIVIL) 40 MG tabletIndications :Primary hypertension Take 1 tablet by mouth once daily 90 tablet 3 024 Active baclofen (LIORESAL) 10 MG tablet 5-10 mg as needed for stiffness 024 Active meclizine (ANTIVERT) 25 MG tablet 024 Active ondansetron (ZOFRAN-ODT) 4 MG disintegrating tablet 024 Active diazePAM (VALIUM) 2 MG tabletIndications :PTSD (post-traumatic stress disorder) TAKE 1/2 (ONE-HALF) TABLET BY MOUTH EVERY 8 HOURS NEEDED FOR DIZZINESS. 15 tablet 024 Active levothyroxine (SYNTHROID) 25 MCG tabletIndications :Acquired hypothyroidism Take 1 tablet (25 mcg total) by mouth every morning. 90 tablet 1 024 Active Levomefolate Glucosamine (METHYL-FOLATE OR) Active Tobramycin-dexAME THasone 0.3-0.05 % SuspensionIndicat ions:Acute bacterial conjunctivitis of both eyes Place 1 drop into both eyes 3 (three) times daily. 5 mL 025 Active buPROPion SR (WELLBUTRIN SR) 150 MG 12 hr tabletIndications :PTSD (post-traumatic stress disorder) TAKE 1 TABLET BY MOUTH ONCE DAILY. APPOINTMENT NEEDED. PLEASE CONTACT OFFICE. 30 tablet 2 025 Active hydroCHLOROthiazi de (HYDRODIURIL) 25 MG tabletIndications :Primary hypertension TAKE 1 TABLET BY MOUTH ONCE DAILY IN THE MORNING 90 tablet 025 Active hydroCHLOROthiazi de (HYDRODIURIL) 25 MG tabletIndications :Primary hypertension TAKE 1 TABLET BY MOUTH ONCE DAILY IN THE MORNING 90 tablet 1 024 2024 Discontinued buPROPion SR (WELLBUTRIN SR) 150 MG 12 hr tabletIndications :PTSD (post-traumatic stress disorder) Take 1 tablet (150 mg total) by mouth daily. APPOINTMENT NEEDED. PLEASE CONTACT OFFICE. 30 tablet 025 2024 Discontinued Active Problems Problem Noted Date Diagnosed Date Class 2 severe obesity due t o excess calories with serious comorbidity and body mass index (BMI) of 37.0 to 37.9 in adult 01/30/2024 Primary osteoarthritis of right knee 06/07/2021 Abnormality of gait and mobility 02/12/2021 Neurogenic bladder 02/12/2021 Medication monitoring encounter 03/31/2020 Abnormal MRI 09/09/2019 High risk medication use 09/09/2019 Vitamin D deficiency 08/05/2019 Diverticulosis 08/05/2019 MS (multiple sclerosis) ([facility]) 2019 Hypertension 08/02/2019 PTSD (post-traumatic stress disorder) 08/02/2019 Encounters Date Type Department Care Team Description 10/19/2024 11:20 AM CDT Office Visit [facility] Family & Internal Medicine [address] [address] Rufino Booker APNP Surgical Clearance 10/19/2024 Travel 10/04/2024 Scan [employer] INFO SRVCS Scanned, Doc Med Group Image (SCAN) 09/16/2024 MyChart Message Enc [facility] Family & Internal [address] [address] Rufino Bokoer APNP [place] [facility] from Last 3 Months Immunizations Immunization Administration Dates Next Due Fluzone High Dose - >Age 65 (Prefilled Syringe) 04/07/2023,06/23/2022 Influenza (Generic) 04/06/2019 Influenza Adult (Generic) 04/13/2021,04/06/2019, 06/06/2018 PFIZER COVID-19 (ORIGINAL FO RMULATION, PURPLE CAP) mRNA, LNP-S, PF, 30 MCG/0.3 ML DOSE 08/01/2020,07/11/2020 Pneumococcal (Pneumovax 23) 04/13/2021 Shingrix 12/01/2023,09/02/2023 Tdap (Generic) 04/13/2021,08/02/2016 Family History Medical History Relation Comments CHF Brother 1 Multiple Sclerosis Brother 1 Mental Health Brother 2 Cancer Father colon Diabetes Father Heart Disease Father Hypertension Father Stroke Father hypothyroid Father Breast Cancer Mother Cancer Mother Dementia Mother Depression Mother Diabetes Mother Hypertension Mother Cancer Son Relation Status Comments Brother 1 Brother 2 Alive Father Mother Son Alive Social History Tobacco Use Types Packs/Day Years Used Date Smoking Tobacco: Never Smokeless Tobacco: Never Tobacco Cessation:Counseling Given: Not Answered Alcohol Use Standard Drinks/Week Comments Yes 0 (1 standard drink = 0.6 oz pur e alcohol) Rare PHQ-2 Answer Date Recorded Patient Health Questionnaire-2 Score 0 09/24/2023 Comments No Sex and Gender Information Value Date Recorded Sex Assigned at Female 10/19/2024 11:31 AM CDT Legal Sex Female 11:40 AM RENTAL CLERK 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 Gender Identity Not on file Sexual Orientation Not on file Last Filed Vital Signs Vital Sign Reading Time Taken Comments Blood Pressure 114/74 10/19/2024 11:31 AM CDT Pulse 81 10/19/2024 11:31 AM CDT Temperature 36.3 C (97.4 F) 10/19/2024 11:31 AM CDT Respiratory Rate 16 10/19/2024 11:31 AM CDT Oxygen Saturation 95% 10/19/2024 11:31 AM CDT Inhaled Oxygen Concentration - - Weight 101.6 kg (224 lb) 10/19/2024 11:31 AM CDT Height 167.6 cm (5' 6 ) 10/19/2024 11:31 AM CDT Body Mass Index 36.15 10/19/2024 11:31 AM CDT Plan of Treatment Health Maintenance Due Date Last Done Comments Colorectal Cancer Screening Colonoscopy (10 Years) 1955 Hepatitis C 1973 Annual Medicare Wellness Visit 2020 Dexa Scan (General) 2020 COVID-19 Vaccine (2023-2 5 season) 2024 03/08/2021, 08/01/2020, 07/11/2020 PHQ-2 (Physician [place]) 07/07/2024 09/24/2023 Mammogram Screening 09/02/2024 09/02/2022, 05/25/2020 Pneumococcal Vaccine: 50+ Years (2 of 2 - PCV) 10/19/2025 04/13/2021 Postponed from 02/2022 (Patient Refused) RSV Immunization or 60+ Years (1 - 1-dose 75+ series) 2030 DTaP, Tdap and Td Vaccines ( 3 - Td or Tdap) 04/13/2031 04/13/2021, 08/02/2016 Zoster Vaccines Completed 12/01/2023, 09/02/2023 Meningococcal B Vaccine Aged Out No l onger eligible based on patient's age to complete this topic Meningococcal Vaccine Aged Out No johnny manuel eligible based on patient's age to complete this topic RSV Immunizations Under 20 Months Aged Out No longer eligible b ased on patient's age to complete this topic Procedures Procedure Name Priority Date/Time Associated Diagnosis Comments ELECTROCARDIOGRAM (NON MIDMARK ACQUIRED) Routine 10/19/2024 12:18 PM CDT Pre-op examination URINALYSIS AUTO DIP Routine 10/19/2024 Other microscopic hematuria IMAGE GENERIC 10/04/2024 MG SCREENING W ARBEN BASSAM DIGI Routine 09/02/2022 3:43 PM RENTAL CLERK 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 Encounter for screening mammogram for malignant neoplasm of breast from Last 3 Months or Most Recently Relevant to Health Maintenance Results * EKG WELCHALLEN ACQUIRED (10/19/2024 12:18 PM CDT) 10/19/2024 12:1 8 PM CDT Narrative [facility] - 10/26/2024 5:18 PM CDT [place] [address] [address] Test Date: 2024-10-19 Pat Name: DARSHANA ANKUR Department: 171 Room: Gender: Female Financial Examiner: : 1955 Requested By: LYLE BRYAN Order Number: [id number] Reading MD: Lyle Bryan Measurements Intervals [place] Rate: 70 P: 62 HI: 187 QRS: 28 QRSD: 85 T: 61 QT: 375 QTc: 405 Interpretive Statements SINUS RHYTHM No prior ECG for comparison Procedure Note Lyle Bryan MD - 10/26/2024 [facility] [address] [place] [address] Test Date: 2024-10-19 Pat Name: DARSHANA PASCUAL Department: 171 Room: Gender: Female Financial Examiner: : 1955 Requested By: LYLE BRYAN Order Number: [id number] Reading MD: Lyle Bryan Measurements Intervals [place] Rate: 70 P: 62 HI: 187 QRS: 28 QRSD: 85 T: 61 QT: 375 QTc: 405 Interpretive Statements SINUS RHYTHM No prior ECG for comparison Lyle Bryan MD PROCEDURES-ORDERABLE NO CHARGE Final Result Performing Organization Address [facility] Co de Phone Number [facility] * URINALYSIS AUTO DIP (10/19/2024) COLOR (U) YELLOW YELLOW [facility] TRANSPARENCY CLEAR CLEAR [facility] GLUCOSE (U) NEGATIVE NEGATIVE MG/DL [facility] BILIRUBIN (U) NEGATIVE [facility]GATIVE [facility] KETONES MG/DL (U) NEGATIVE NEGATIVE MG/DL [facility] SPECIFIC GRAVITY (U) 1.025 1.001 - 1.035 [facility] BLOOD (U) NEGATIVE NEGATIVE [facility] U PH 5.5 5.0 - 9.0 [facility] PROTEIN (U) NEGATIVE NEGATIVE mg/dL [facility] UROBILINOGEN 0.2 0.2 - 1.0 EU/dL = mg/dL [facility] NITRITES NEGATIVE NEGATIVE MG/DL [facility] LEUKOCYTES (U) NEGATIVE NEGATIVE [facility] URINE SPECIMEN OBTAINED BY CLEAN CATCH PROCEDURE / Unknown 10/19/2024 Rufino MEHTA URINE ORDERABLES Final Resu lt Performing Organization Address [facility] de Phone Number [facility] [address] [place] [address], [place] * IMAGE GENERIC (10/04/2024) Anatomical Region Laterality Modality Other 10/04/2024 us [facility] Scanned SCANNING Final Resu lt * MG SCREENING W ARBEN BASSAM DIGI (09/02/2022 3:43 PM RENTAL CLERK 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) Anatomical Region Laterality Modality Breast Bilateral Mammography 09/03/2022 7:02 AM RENTAL CLERK 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 Narrative 09/03/2022 7:03 AM RENTAL CLERK 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 Examination: Screening bilateral mammogram Exam Date/Time: 09/02/2022 3:27 PM Clinical history: No current complaints. Comparison: 05/25/2020 Technique: Digital screening mammography of both breasts was performed. Breast tomosynthesis acquisitions were obtained and reviewed. This study was read with the assistance of a computer-aided detection system. Tissue density: There are scattered areas of fibroglandular density. Findings: No suspicious masses, malignant appearing calcifications, skin thickening or other abnormalities are present. No significant change from the prior exam. IMPRESSION: No suspicious mammographic findings. Recommendation: 1. Routine Screening, Bilateral Assessment: ACR BI-RADS 2 - BENIGN FINDING(S) Ordered By: RUFINO BOOKER Interpreted By: Philip Caputo, 09/03/2022 7:02 AM Rufino Booker APNP MAMMO Final Resul t from Last 3 Months or Most Recently Relevant to Health Maintenance Insurance MEDICARE [facility] Care Teams Mortarman Relationship Specialty Start Date End Date Rufino Booker APNP [address] [place] [address] [phone] PCP - General NURSE PRACTITIONER 08/02/19
--- OUTSIDE RECORDS SUMMARY | 2024-11-19 12:56 | XMS_ITS | Encounter Summary ---
Author Organization [facility] Address [address] [place] [address] Care Team Providers Care Educational Technology Coordinator Name Role Phone Candelaria Booker Primary Care Provider [phone] Encounter Details Date Type Department Care Team (Late st Contact Info) Description 11/16/2022 stickappshart Message Enc [facility] Medical Group Family & Internal Medicine [place] [id number] [place] [address] Candelaria Booker APNP [facility] [place] [address] Hctz Social History Tobacco Use Types Packs/Day Years [...] AM CDT Legal 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 notified * JANINE Petty - 11/20/2022 3:08 PM CDT Lasix and potassium sent over * JANINE Petty - 11/20/2022 2:16 PM CDTFrom: Darshana Dyer To: Candelaria Booker Sent: 11/16/2022 11:49 AM CDT Subject: Hctz Is it possible to switch from hctz to lasix or a different diuretic? Iâ€™ve really struggled with neuropathic pain in my feet, have bilateral Achilles tendinitis and it seems better since I stopped taking hctz. Without it my legs and feet get really puffy. Thanks documented in this encounter Plan of Treatment Not on file documented as of this encounter Visit Diagnoses Diagnosis Primary hypertension- Primary Unspecified essential hypertension documented in this encounter Additional Health Concerns Assessment Noted Time PHQ-9 Depression Total Score: 4 05/03/20 22 1:06 PM CDT documented as of this encounter Care Teams Educational Technology Coordinator Relationship Specialty Start Date End Date Candelaria Booker APNP [address] [place] [address] PCP - General NURSE PRACTITIONER 08/02/19 documented as of this encounter
--- OUTSIDE RECORDS SUMMARY | 2024-11-19 12:56 | XMS_ITS | Encounter Summary ---
Author Organization [facility] Address [address] [place] [address] Care Team Providers Care Network Specialist Name Role Phone Candelaria Booker Primary Care Provider [phone] Encounter Details Date Type Department Care Team (Late st Contact Info) Description 06/07/2021 Affiniohart Message Enc [facility] Family & Internal Medicine [address] [address] Candelaria Booker APNP [facility] [place] [address] Labs Social History Tobacco Use Types Packs/Day Years [...] AM CDT Legal Sex Female 11:40 AM WHITE LEAD 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 No / Unsure 06/07/2021 8:17 AM WHITE LEAD GRINDER documented as of this encounter Plan of Treatment Not on file documented as of this encounter Visit Diagnoses Not on filedocumented in this encounter Additional Health Concerns Assessment Noted Time PHQ-9 Depression Total Score: 0 10/10/19 21 10:28 AM CDT documented as of this encounter Care Teams Network Specialist Relationship Specialty Start Date End Date Candelaria Booker APNP [address] [place] [address] PCP - General NURSE PRACTITIONER 08/02/19 documented as of this encounter
--- OUTSIDE RECORDS SUMMARY | 2024-11-19 12:56 | XMS_ITS | Encounter Summary ---
Author Organization [facility] Address [address] [place] [address] Care Team Providers Care Diversional Therapist'S Assistant Name Role Phone Candelaria Booker Primary Care Provider [phone] Encounter Details Date Type Department Care Team (Late st Contact Info) Description 04/30/2021 Bustlet Message Enc [facility] Medical Group Family & Internal Medicine [address] [address] Candelaria Booker APNP [address] [place] [address] Medication Questions Social History Tobacco Use Types [...] AM CDT Legal Sex Female 11:40 AM RELIGIOUS LEADER Gender Identity Not on file Sexual Orientation Not on file documented as of this encounter Plan of Treatment Not on file documented as of this encounter Visit Diagnoses Not on filedocumented in this encounter Additional Health Concerns Assessment Noted Time PHQ-9 Depression Total Score: 0 10/10/19 21 10:28 AM CDT documented as of this encounter Care Teams Diversional Therapist'S Assistant Relationship Specialty Start Date End Date Candelaria Booker APNP [address] [place] [address] PCP - General NURSE PRACTITIONER 08/02/19 documented as of this encounter
--- OUTSIDE RECORDS SUMMARY | 2024-11-19 12:56 | XMS_ITS | Encounter Summary ---
Author Organization [facility] Address [address] [place] [address] Care Team Providers Care Seam Stayer Name Role Phone Candelaria Booker Primary Care Provider [phone] Encounter Details Date Type Department Care Team (Late st Contact Info) Description 09/20/2021 ProductBiohart Message Enc [facility] Family & Internal Medicine [id number] [place] [phone] Candelaria Booker APNP [facility] [place], [place] [id number] Covid vaccine Social History Tobacco Use Types Packs/Day Years [...] AM CDT Legal Sex Female 11:40 AM RADIOLOGY SPECIAL PROCEDURE TECH Gender Identity Not on file Sexual Orientation Not on file COVID-19 Exposure Response Date Recorded In the last 10 days, have yo u been in contact with someone who was confirmed or suspected to have Coronavirus/COVID-19? No / Unsure 08/31/2021 9:54 AM RADIOLOGY SPECIAL PROCEDURE TECH documented as of this encounter Plan of Treatment Not on file documented as of this encounter Visit Diagnoses Not on filedocumented in this encounter Additional Health Concerns Assessment Noted Time PHQ-9 Depression Total Score: 0 10/10/19 21 10:28 AM CDT documented as of this encounter Care Teams Seam Stayer Relationship Specialty Start Date End Date Candelaria Booker APNP [address] [place] [id number] PCP - General NURSE PRACTITIONER 08/02/19 documented as of this encounter
--- OUTSIDE RECORDS SUMMARY | 2024-11-19 12:56 | XMS_ITS | Encounter Summary ---
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
== END 2024-11-19 12:47 | disposition home or self-care (01) ==
LOC: ANHCARD 12:46
PROVIDERS: PCP Registered Nurse; Visit Provider Registered Nurse
DX: R93.1 Abnormal findings on diagnostic imaging of heart and coronary circulation (principal); R01.1 Cardiac murmur, unspecified
CPT/HCPCS: 93306

== ENCOUNTER 2024-12-29 12:26 | Emergency (ER) | payer MEDICARE, SELFPAY ==
[2024-12-29 12:35] VITALS: BP 141/84; PULSE 79; RESP 16; TEMP 36.8; O2SAT 96
--- NOTE | 2024-12-29 13:14 | ED_ITS ---
HPI - URI/Sore Throat General Chief Complaint: Upper Respiratory Infection Stated Complaint: headache Time Seen by Provider: 12/29/24 12:30 Source: patient and RN notes reviewed Mode of arrival: ambulatory Limitations: no limitations History of Present Illness HPI Narrative: 69-year-old female presents Express Care complaining of 6 sinus symptoms and headache for approximately 10 days. Patient stated symptoms started as sinus pressure in progress to a frontal headache along upper dental pain. She does report congestion and thick discharge. Patient denies any vision changes, blurry vision, focal weakness, slurred speech, dizziness, lightheadedness, loss of consciousness, fevers, body aches, chills, or any other upper respiratory symptoms. Patient has been taking Tylenol and ibuprofen for the pain and doing sinus rinses, and taking Sudafed and states she has gotten some relief but not getting much better. Related Data Home Medications ?Medication ?Instructions ?Recorded ?Confirmed ?Last Taken ?Type bupropion HCl 100 mg tablet,12 hr 100 mg PO QAM 05/11/19 10/04/24 10/29/22 05:30 History sustained-release (Wellbutrin SR) levothyroxine 25 mcg tablet 25 mcg PO QAM 06/25/22 10/04/24 10/29/22 05:30 History cholecalciferol (vitamin D3) 125 125 mcg PO DAILY 10/04/22 10/04/24 Unknown History mcg (5,000 unit) capsule gabapentin 100 mg capsule 200 mg PO DAILY 07/29/23 10/04/24 Unknown History hydrochlorothiazide 25 mg tablet 25 mg PO DAILY 07/29/23 10/04/24 Unknown History lisinopril 40 mg tablet 40 mg PO DAILY 01/20/24 10/04/24 Unknown History diazepam 2 mg tablet (Valium) 1 mg PO QHS PRN Anxiety 10/04/24 10/04/24 Unknown History Allergies Allergy/AdvReac Type Severity Reaction Status Date / Time celecoxib (From Celebrex) Allergy Hives Verified 10/04/24 08:43 droperidol (From Inapsine) AdvReac Intermediate Confusion Verified 10/04/24 08:43 Penicillins AdvReac Mild Hives Verified 10/04/24 08:43 Sulfa (Sulfonamide AdvReac Mild Hives Verified 10/04/24 08:43 Antibiotics) Review of Systems Review of Systems: CONSTITUTIONAL: Denies fever, chills, body aches, or sweats. EYES: Denies visual changes, blurry vision, redness, or discharge. ENT: Positive for rhinorrhea, sore throat, or otalgia. Positive for congestion and sinus pressure. CARDIOVASCULAR: Denies chest pain, palpitations, dizziness, lightheadedness, or edema. RESPIRATORY: Negative for dyspnea and cough. GASTROINTESTINAL: Denies abdominal pain, nausea, vomiting, or diarrhea. GENITOURINARY: Denies dysuria or hematuria. SKIN: Denies rash or itching. MUSCULOSKELETAL: Denies back pain, joint pain, or myalgia. NEUROLOGIC: Denies numbness, slurred speech, focal weakness, facial droop, loss of consciousness, seizures, or weakness. Positive for headaches. PSYCHIATRIC: Denies anxiety or depression. All other systems reviewed are negative, except as documented in HPI. [facility] Past Medical History Medical History Hypothyroidism Kidney stones Diverticulitis Gastroesophageal reflux disease Vocal cord paralysis after cervical fusion 03/2022 Osteoarthritis of right knee Hypertension Multiple sclerosis Surgical History Surgical History History of cataract extraction with lens replacement History of appendectomy History of laparoscopic cholecystectomy (06/2022) History of fusion of cervical spine (03/2022) History of left knee replacement (10/29/22) History of toe surgery (2007) History of colon resection (2003) For recurrent diverticulitis. History of hysterectomy (1994) History of section 1978, 1983 Family History Family History Mother Diabetes mellitus Heart disease Hypertension Cancer Father Diabetes mellitus Heart disease Cancer Hypertension Social History Social History Social History: Surrogate medical decision maker: Narayan Gomez, spouse. Code status: Full code. Smoking status: Never smoker Second hand tobacco smoke exposure: No Alcohol intake: never Substance use: never Substance use type: does not use Do You Feel Safe in your Home?: Yes Lack of Transportation: No Lack of Food: Never True Current Housing: I Have Housing Concerned About Future Housing: No Difficulty Paying Gas/Electric Bills: No Difficulty Paying for Meds: No Currently Unemployed: No Education: Master's Degree or Higher Difficulty w/ Childcare or Family Care: No Living arrangements: with family Additional living arrangements comments: Lives with spouse in [place]. 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 Spiritual care concerns: No Comments At the time of my signature, I reviewed and agree with the nursing past medical, surgical, social, and family history. There is no relevant family history pertinent to the patient complaint. Exam Narrative: GENERAL: This is a well-nourished, well-developed adult, in no apparent distress. They are non ill-appearing, nontoxic appearing. HEAD: normocephalic, atraumatic. EYES: Sclera clear/white. Vision is grossly intact. Conjunctiva normal bilaterally. Extraocular movements intact. Pupils PERRLA. EARS: External ears normal, auditory canals clear and without drainage, TMs without erythema or perforation. Hearing grossly intact. NOSE: External nose normal with no obvious nasal discharge, nasal turbinates erythematous with thick discharge present, no rhinorrhea. Sinus tenderness to palpation maxillary and frontal sinus. Abnormal transillumination maxillary sinuses bilaterally. THROAT: Mucous membranes moist, posterior pharynx without redness or swelling, no exudate. Uvula is midline. Postnasal drip present. NECK: Neck supple, non-tender without lymphadenopathy, masses or thyromegaly. CARDIOVASCULAR: Regular rate and rhythm without murmurs, gallops, or rubs. RESPIRATORY: Clear to auscultation. Breath sounds equal bilaterally. No wheezes, rales, or rhonchi. SKIN: warm, Dry, intact with no suspicious lesions or rash, good texture and turgor. NEURO: awake, alert, and oriented to person, place and time. There were no obvious focal neurologic abnormalities. No pronator drift, watch dial printer strength equal bilaterally, no limb ataxia, no facial droop, tongue midline, speech is clear and comprehensive. EXTREMITIES: No joint tenderness, effusion, or edema noted. BACK: Nontender without deformity. Course Course Emergency Course: Portions of this record may have been created with voice recognition software Level of Care: Express Care Visit Vital Signs Vital signs: Vital Signs Temperature 98.2 F 12/29/24 12:35 Pulse Rate 79 12/29/24 12:35 Respiratory Rate 16 12/29/24 12:35 Blood Pressure 141/84 H 12/29/24 12:35 Pulse Oximetry 96 12/29/24 12:35 Temperature 98.2 F 12/29/24 12:35 Pulse Rate 79 12/29/24 12:35 Respiratory Rate 16 12/29/24 12:35 Blood Pressure 141/84 H 12/29/24 12:35 Pulse Oximetry 96 12/29/24 12:35 MDM - URI/Sore Throat MDM Narrative Medical decision making narrative: Symptoms consistent with bacterial sinusitis given length of symptoms. Neurological exam unremarkable. Will treat with doxycycline. Patient has allergies to penicillins. Discussed physical exam findings. Advised supportive measures and signs/symptoms to go to the ER. Pt is appropriate for outpt treatment and f/u. Differential Diagnosis Differential diagnosis: Likely upper respiratory infection, sinusitis and other (Migraine, cluster headaches) Discharge Plan Discharge Clinical Impression: Sinusitis Qualifiers: Sinusitis location: unspecified location Chronicity: acute Recurrence: non- recurrent Qualified Code(s): J01.90 - Acute sinusitis, unspecified Patient Disposition: Home Condition: Stable Instructions: Antibiotic Form, Sinusitis (ED) Additional Instructions: Take the antibiotics as directed and complete the course even if you start to feel better. Please wear sunscreen if her to be outside while taking doxycycline. You may use a Neti pot saline rinse 3 times a day with lukewarm distilled water Continue to take Tylenol or Motrin for pain. Use a humidifier or vaporizer at night. Drink plenty of water. 8-10 glasses per day. Use flonase 2 times per day for 5 days then as needed Take mucinex 2 times per day and be sure to take with 8oz of water. Follow up with Primary provider in 3-5 days Please go to the ER if he develops any difficulty breathing, worsening headaches, focal weakness, slurred speech, worsening symptoms, or any other concerns Patient Language: Hungarian Prescriptions: New doxycycline monohydrate 100 mg capsule 100 mg PO BID 7 Days Qty: 14 0RF No Action bupropion HCl [Wellbutrin SR] 100 mg Tablet Sustained-Release 12 Hr 100 mg PO QAM hydrochlorothiazide 25 mg tablet 25 mg PO DAILY diazepam [Valium] 2 mg tablet 1 mg PO QHS PRN (Reason: Anxiety) levothyroxine 25 mcg tablet 25 mcg PO QAM lisinopril 40 mg tablet 40 mg PO DAILY meclizine 25 mg Tablet 25 mg PO BID PRN (Reason: Vertigo) Qty: 60 0RF ondansetron 4 mg tablet,disintegrating 4 mg PO Q8H PRN (Reason: nausea and vomiting) Qty: 14 0RF cholecalciferol (vitamin D3) 125 mcg (5,000 unit) Capsule 125 mcg PO DAILY gabapentin 100 mg capsule 200 mg PO DAILY Follow-up/Referrals: Ade,ADRIÁN Gaona [Primary Care Provider] - Time of Disposition: 12:58
== END 2024-12-29 13:00 | disposition home or self-care (01) ==
PROVIDERS: PCP Registered Nurse
DX: J01.90 Acute sinusitis, unspecified (principal); E03.9 Hypothyroidism, unspecified; I10 Essential (primary) hypertension
CPT/HCPCS: 99213; G0463

== ENCOUNTER 2025-02-15 06:51 | Outpatient (CLI) | payer MEDICARE, SELFPAY ==
--- OUTSIDE RECORDS SUMMARY | 2025-02-15 06:53 | XMS_ITS | Encounter Summary ---
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
--- OUTSIDE RECORDS SUMMARY | 2025-02-15 06:53 | XMS_ITS | Encounter Summary ---
Author Organization [facility] Address [address] [place] [address] Care Team Providers Care Duplicator Punch Set Up Operator Name Role Phone Candelaria Booker Primary Care Provider [phone] Encounter Details Date Type Department Care Team (Late st Contact Info) Description 06/11/2022 Auspherixt Message Enc [facility] Medical Group Family & Internal Medicine [address] [phone] Candelaria Booker APNP [address] [place] [phone] Abdominal pain Social History Tobacco Use Types [...] AM CDT Legal Sex Female 11:40 AM TELE RN Gender Identity Not on file Sexual Orientation Not on file documented as of this encounter Plan of Treatment Not on file documented as of this encounter Visit Diagnoses Not on filedocumented in this encounter Additional Health Concerns Assessment Noted Time PHQ-9 Depression Total Score: 4 05/03/20 22 1:06 PM CDT documented as of this encounter Care Teams Duplicator Punch Set Up Operator Relationship Specialty Start Date End Date Candelaria Booker APNP [address] [place] [id number] PCP - General NURSE PRACTITIONER 08/02/19 documented as of this encounter
--- OUTSIDE RECORDS SUMMARY | 2025-02-15 06:53 | XMS_ITS | Clinical Summary ---
Author Organization [facility] Address [address] [place] [address] Care Team Providers Care Fruit Or Nut Farmworker Name Role Phone Candelaria Booker Primary Care [...] (3,000 Units total) by mouth daily Active diphenhydrAMINE -acetaminophen (TYLENOL PM) 25-500 mg tablet Take 1 tablet by mouth nightly as needed for sleep Active lisinopriL (PRINIVIL,ZESTR IL) 40 mg tablet Take 1 tablet (40 mg total) by mouth daily 3 Active baclofen (LIORESAL) 10 mg tablet 5-10 mg as needed for stiffness 30 tablet 5 4 Active gabapentin (NEURONTIN) 100 mg capsuleIndicati ons:Neuropathic Pain 100 -200 mg BID prn neuropathic pain. 120 capsule 5 5 Active traMADoL (ULTRAM) 50 mg tablet Take 1 tablet (50 mg total) by mouth every 6 (six) hours as needed for pain 15 tablet 5 Active ibuprofen (ADVIL,MOTRIN) 600 mg tablet Take 1 tablet (600 mg total) by mouth every 8 (eight) hours as needed for pain 90 tablet 5 03/05/20 25 Active Active Problems Problem Noted Date Diagnosed Date Osteoarthritis of carpometac arpal (CMC) joint of right thumb 01/11/2025 Dysesthesia of multiple sites 04/16/2024 History of COVID-19 04/16/2024 De Quervain's disease (radial styloid tenosynovi tis) 06/07/2023 Arthritis of carpometacarpal (CMC) joint of righ t thumb 06/07/2023 Voice hoarseness 04/30/2022 Overview (04/30/2022): Added automatically from request for surgery [id number] Vocal cord paralysis 04/30/2022 Overview (04/30/2022): Added automatically from request for surgery [id number] Cervical disc disorder with myelopathy 2 Cervical disc disorder with myelopathy of mid-cervical region 02/25/2022 Overview (02/25/2022): Added automatically from request for surgery [id number] Immunosuppression due to drug therapy 02/15/2022 Spasticity 02/15/2022 Immunocompromised 09/12/2021 Abnormality of gait and mobility 02/12/2021 Neurogenic bladder disorder 02/12/2021 Medication monitoring encounter 03/31/2020 Multiple sclerosis 09/09/2019 High risk medication use 09/09/2019 Abnormal MRI 09/09/2019 Vitamin D deficiency 09/09/2019 Mixed anxiety and depressive disorder 09/09/2019 Hypertension 08/02/2019 Dysphagia Encounters Date Type Department Care Team Description 02/03/2025 11:30 AM CDT - 02/03/2025 12:30 PM CDT Surgery [facility] [place] [address] [place] [address] Doug Lazar MD RIGHT FIRST CARPOMETACARPAL ARTHROPLASTY WITH LIGAMENT RECONSTRUCTION 02/03/2025 10:56 AM CDT Anesthesia Event [facility] [place] [address] [place] [address] Cherri Augustin MD Kuntz, Navjot Schaefer MD 02/03/2025 9:25 AM CDT Ancillary Procedure [facility] [place] [address] [place] [address] 02/03/2025 8:26 AM CDT - 02/03/2025 1:20 PM CDT Hospital Encounter [facility] [place] [address] [place] [address] Doug Lazar MD Primary osteoarthritis of first carpometacarpal joint of right hand [M18.11] (Primary Dx); Arthritis of carpometacarpal (CMC) joint of right thumb [M18.11] Discharge Disposition: Discharge to home or self care 01/11/2025 Orders Only [facility] Multiple Sclerosis [address] [facility] 7[address] [place] [address] Joselyn Rondon, SINTER PRESS OPERATOR Multiple sclerosis (HCC) (Primary Dx); Dysesthesia of multiple sites 01/03/2025 10:00 AM CDT Office Visit [facility] Hand Surgery [facility] [address] [address] Doug Lazar MD Arthritis of carpometacarpal (CMC) joint of right thumb (Primary Dx) 12/10/2024 7:23 AM CDT - 12/10/2024 11:59 PM CDT Hospital Encounter [facility] 1 DIAG IMG [address] [place] [address] Right hand pain Discharge Disposition: Discharge to home or self care 12/10/2024 7:15 AM CDT Office Visit [facility] Hand Surgery [address] [facility] [address] [place] [phone] Doug Lazar MD Right hand pain (Primary Dx); De Quervain's disease (radial styloid tenosynovitis); Arthritis of carpometacarpal (CMC) joint of right thumb 11/23/2024 11:30 AM CDT Office Visit [facility] Multiple Sclerosis [facility] [facility] 7th [place] [address] Amanda Wayne MD Multiple sclerosis (HCC) (Primary Dx); Monocular diplopia of both eyes from Last 3 Months Immunizations Immunization Administration Dates Next Due Influenza, [...] SURGERY 03/13/2022 CHOLECYSTECTOMY 07/03/2022 JOINT REPLACEMENT 10/29/2022 HAND ARTHROPLASTY 02/03/2025 Right 1st cmc Medical History Medical History Date Comments Multiple sclerosis (HCC) HTN (hypertension) Depression Coccidiomycosis, progressive 2016 Arthritis Neuromuscular disorder GERD (gastroesophageal reflux disease) Thyroid disease Autoimmune disease Vocal cord paralysis 2021 left side i njury from past anesthesia. some residual remains. Aspiration potential in the past used thickened liquids. Normal consistency currently. Motion sickness PONV (postoperative nausea and vomiting) Obesity BPPV (benign paroxysmal posi tional vertigo) Family History Medical History Relation Name Comments [...] often do you have a drink containing alc ohol? Monthly or less 01/27/2025 Q2: How many drinks containi ng alcohol do you have on a typical day when you are drinking? 1 or 2 01/27/2025 Q3: How often do you have si x or more drinks on one occasion? Never 01/27/2025 Personal Safety Answer Date Recorded Have you ever been in or are you currently in a harmful physical or emotional relationship or is someone making you feel afraid or unsafe? Denies 02/03/2025 Comments No Sex and Gender Information Value Date Recorded Sex Assigned at Not on file Legal Sex Female 10:38 AM SURGICAL SERVICES ASST Gender Identity Not on file Sexual Orientation Not on file Obstetrics History Last Filed Vital Signs Vital Sign Reading Time Taken Comments Blood Pressure 144/85 02/03/2025 12:50 PM CDT Pulse 51 02/03/2025 12:50 PM CDT Temperature 36.1 C (97 F) 02/03/2025 12:20 PM CDT Respiratory Rate 16 02/03/2025 12:5 0 PM CDT Oxygen Saturation 95% 02/03/2025 12: 50 PM CDT Inhaled Oxygen Concentration - - Weight 102.6 kg (226 lb 3.2 oz) 02/03/2025 8:33 AM CDT Height 167.6 cm (5' 6) 02/03/2025 8:33 AM CDT Body Mass Index 36.51 02/03/2025 8:33 AM CDT Plan of Treatment Health Maintenance Due Date Last Done Comments Colon Cancer Screening-Colonoscopy 1955 Depression Screening 1955 Osteoporosis Screening-Bone Density Scan 1955 Hepatitis B Screening 1973 Well Visit 65+ 2020 Pneumococcal vaccine 65+ (2 of 2 - PCV) 04/13/2022 04/13/2021 Breast Cancer Screening-Mammogram 09/02/2023 09/02/2022, 09/02/2022, 05/25/2020 Covid-19 Vaccine (4 - 2023-2 5 season) 2024 03/08/2021, 08/01/2020, 07/11/2020 Influenza Vaccine (#1) 2025 , 04/06/2023, 06/23/2022, Additional history exists Fall Risk Assessment 02/03/2026 02/03/2025 DTaP/Tdap/Td Vaccine (3 - Td or Tdap) 04/13/2031 04/13/2021, 08/02/2016 Hepatitis C Screening Completed 02/12/2021 Zoster Vaccine Completed 12/01/2023, 09/02/2023 Medical Devices Implanted Type Area Senior Graduate Advisor Device Identifier Shelf Expiration Date Model / Serial / Lot Abyrx Hemasorb Os-Spa Spatula Wax 2gm Bone Sterile Os-201 - [id number] Implanted:Qty: 1 on 03/13/2022 by Danny Stauffer MD at [facility] N/A: Spine Cervical Abyrx 11/03/2024 OS-201 / / [id number] [employer] Allograft Bone Putty 2.5cc 700-025 - [id number] Implanted:Qty: 1 on 03/13/2022 by Danny Stauffer MD at [facility] N/A: Spine Cervical [employer] [id number] 09/03/2024 700-025 / / [id number] [employer] Cage Spinal Cervical 12d X 14w X 7h 6 Degree [id number] - [id number] Implanted:Qty: 1 on 03/13/2022 by Danny Stauffer MD at [facility] N/A: Spine Cervical [employer] [id number] 05/03/2026 [id number] / / [id number] [employer] Cage Spinal Cervical 12d X 14w X 6h 6 Degree [id number] - [id number] Implanted:Qty: 1 on 03/13/2022 by Danny Stauffer MD at [facility] N/A: Spine Cervical [employer] [id number] 08/30/2026 [id number] / / [id number] [employer] Cage Spinal Cervical 12d X 14w X 6h 6 Degree [id number] - [id number] Implanted:Qty: 1 on 03/13/2022 by Danny Stauffer MD at [facility] N/A: Spine Cervical [employer] [id number] 12/20/2026 [id number] / / [id number] [facility] [id number] Mambo 40mm 6 Hole Modular [place] 1 Step Lock Mechanism Spine - [id number] Implanted:Qty: 1 on 03/13/2022 by Danny Stauffer MD at [facility] N/A: Spine Cervical [facility] CS 1820-40 / / [facility] [id number] Mambo Extension Spine Cervical Small Plate Bone Yellow - [id number] Implanted:Qty: 1 on 03/13/2022 by Danny Stauffer MD at [facility] N/A: Spine Cervical [facility] CS 1820-02 / / [facility] [id number] Mambo Settle Spinal Cervical Screw Bone Silver - [id number] Implanted:Qty: 3 on 03/13/2022 by Danny Stauffer MD at [facility] N/A: Spine Cervical [facility] 1826- / / [facility] Screw Mambo Bone Self-Drilling 3.5mm Length 15mm 183-15 - [id number] Implanted:Qty: 8 on 03/13/2022 by Danny Stauffer MD at [facility] N/A: Spine Cervical [facility] 1831-15 / / [employer] Suture [place] Knotless Fibertak Resorbable [id number] - [id number] Implanted:Qty: 1 on 02/03/2025 by Doug Lazar MD at [facility] Right: Thumb [employer] [id number] 09/03/2029 [id number] / / [id number] Procedures Procedure Name Priority Date/Time Associated Diagnosis Comments FL FLUOROSCOPY < 1 HOUR IP Routine 02/03/2025 11:29 AM CDT OH AN PROCEDURE PLACEHOLDER Routine 02/03/2025 11:08 AM CDT OH AN ELECTIVE SUPRAGLOTTIC AIRWAY Routine 02/03/2025 11:08 AM CDT ARTHROPLASTY CARPOMETACARPAL INTERPOSITIONAL WITH RECONSTRUCTION LIGAMENT - THUMB 02/03/2025 10:56 AM CDT Osteoarthritis of carpometacarpal (CMC) joint of right thumb, unspecified osteoarthritis type Case Notes RT 1ST CMC ARTHROPLASTY WITH LIGAMENT RECON *ARTHREX* Special Needs ARTHREX OH AN PROCEDURE PLACEHOLDER Routine 02/03/2025 9:56 AM CDT POCUS INJ NERVOUS SYSTEM UNLISTED IP Routine 02/03/2025 9:22 AM CDT POCT CREATININE FOR CONTRAST EVALUATION Routine 02/03/2025 9:10 AM CDT POC BLOOD GAS AND CHEMISTRIES, VENOUS Routine 02/03/2025 9:06 AM CDT XR HAND RIGHT 3 OR MORE VIEWS Schedule Routine, Read Routine (OP Routine) 12/10/2024 7:29 AM CDT Right hand pain OH ARTHROCENTESIS ASPIR&/INJ SMALL JT/BURSA W/O US Routine 12/10/2024 7:15 AM CDT Arthritis of carpometacarpal (CMC) joint of right thumb HEPATITIS C ANTIBODY Routine 02/12/2021 11:56 AM CDT Multiple sclerosis (HCC) Medication monitoring encounter Abnormal MRI Vitamin D deficiency Abnormality of gait and mobility Mixed anxiety and depressive disorder from Last 3 Months or Most Recently Relevant to Health Maintenance Results * FL Fluoroscopy < 1 Hour (02/03/2025 11:29 AM CDT) Narrative LUCIEN_SELWYN_MHB_MHE - 02/03/2025 11:29 AM CDT The images from this study are not interpreted by Radiology. Please refer to the physician's procedure / OR operative note. us Doug Lazar MD IMG FLUOROSCOPY PROCEDUR ES Final Result RAD_SELWYN_MHB_MHE * OH AN ELECTIVE SUPRAGLOTTIC AIRWAY, OH AN PROCEDURE PLACEHOLDER (02/03/2025 11:08 AM CDT) Narrative Tim Mobley CRNA - 02/03/2025 11:08 AM CDT Tim Mobley CRNA 02/03/2025 11:08 AM Airway Patient location: OR Urgency: elective Indications for airway management: anesthesia Difficult airway: no Staff: Supervising provider: Cherri Augustin MD Placed by: TENTS ASSEMBLER: Tim Mobley CRNA Emergent airway documentation: Risks and benefits discussed: yes Consent obtained: yes Consent given by: patient Airway prep: Preoxygenated: yes Patient position: sniffing Mask difficulty assessment: 0 - not attempted Spontaneous ventilation during airway: absent Sedation level during airway: deep Final airway details: Final airway type: supraglottic airway Final supraglottic airway: classic SGA size: 4 Number of attempts: 1 us Cherri Augustin MD ANESTHESIA ORDERABLES Final Result * OH AN PROCEDURE PLACEHOLDER (02/03/2025 9:56 AM CDT) Narrative Cherri Augustin MD - 02/03/2025 9:56 AM CDT Cherri Augustin MD 02/03/2025 9:56 AM Peripheral Block Patient location during procedure: pre-op holding Start time: 02/03/2025 9:47 AM Reason for block: post-op pain management per surgeon request Ultrasound image in chart or stored: yes Block type: single shot Laterality: right Block type: brachial - supraclavicular Staff: Placed by: Anesthesiologist: Cherri Augustin MD Procedure prep: Preprocedure checklist: patient identified, procedure contraindications assessed, site marked, procedure consent, surgical consent, IV checked, risks, benefits and alternatives discussed, monitors and equipment checked and timeout performed Patient position: head of bed elevated and supine Procedure performed while patient: sedate with meaningful contact Monitoring: ECG, oximetry and blood pressure Supplemental O2: nasal cannula Prep solution: chlorhexidine/alcohol PPE: provider hat/mask, sterile gloves and sterile probe cover and gel Peripheral nerve block: Technique: ultrasound guided Needle type: insulated, short-bevel and echogenic Needle gauge: 22 G Needle length: 50 mm Injection assessment: injection made incrementally with constant monitoring, local visualized surrounding nerve on ultrasound, negative aspiration for heme, see flowsheet for medication details, no paresthesias noted and normal resistance to injection Assessment: Block success: full evaluation pending Events: patient tolerated procedure well with no complications Cherri Augustin MD ANESTHESIA ORDERABLES Final Result * POCUS INJ NERVOUS SYSTEM UNLISTED (02/03/2025 9:22 AM CDT) Narrative RAD_PACS_POCUS_[facility] - 02/03/2025 9:22 AM CDT This procedure was performed and interpreted by the provider. Please refer to the provider's procedure/OR operative note for results. Cherri Augustin MD POCUS ORDERABLES Final Resu lt RAD_PACS_POCUS_[facility] * POCT creatinine for contrast evaluation (02/03/2025 9:10 AM CDT) Creatinine POC 1.00 0.60 - 1.10 mg/dL Comment:Testing performed by : [facility], [address] [place] [address]., [address] Blood 02/03/2025 9:10 AM CDT 02/03/2025 9:10 AM CDT Doug Lazar MD POINT OF CARE TEST ORDER CHERYL Final Result [facility] [address] [facility] [place] [address] * (ABNORMAL) POC Blood Gas and Chemistries, Venous - (02/03/2025 9:06 AM CDT) pH,reid POC 7.41 7.32 - 7.43 Comment:Testing performed by : [address] [address] pCO2, reid POC 50 40 - 50 mmHg [facility] Comment:Testing performed by : [address] [address] pO2,reid POC 42 mmHg [facility] Comment: Interpretive Data No reference range established. Current interpretive data was last revised 2020. Testing performed by: [address] [address] HCO3, reid (Calc) POC 32(H) 20 - 30 mmol/L [facility] Comment:Testing performed by : [address] [address] Base excess, reid POC 7 mmol/L [facility] Comment: Interpretive Data No reference range established. Current interpretive data was last revised 2020. Testing performed by: [address] [address] Hemoglobin, reid POC 12.6 11.9 - 15.5 g/dL [facility] Comment:Testing performed by : [address] [address] Hematocrit, reid POC 37.0 35.6 - 45.5 % [facility] Comment:Testing performed by : [address] [address] Sodium, reid POC 140 135 - 145 mmol/L [facility] Comment:Testing performed by : [address] [address] Potassium, reid POC 4.1 3.3 - 4.9 mmol/L [facility] Comment: Interpretive Data This method is not able to assess for hemolysis, which may falsely increase potassium concentrations. If further testing is needed to evaluate this result, consider in-laboratory plasma potassium. Current Interpretive Data was last revised on 2022. Testing performed by: [address] [address] Glucose, reid POC 85 70 - 199 mg/dL [facility] Comment:Testing performed by : [address] [address] Ionized Calcium, reid POC 5.00 4.50 - 5.10 mg/dL [facility] Comment:Testing performed by : [address] [address] Blood 02/03/2025 9:06 AM CDT 02/03/2025 9:06 AM CDT us Doug Lazar MD LAB POCT ORDERABLES - DE VICE Final Result [facility] [address] [facility] [place] [address] * XR Hand Right 3 or More Views (12/10/2024 7:29 AM CDT) Anatomical Region Laterality Modality Upper Extremities, Hand Right Computed Radiography Impressions 02/09/2025 5:56 AM CDT Right 1st CMC arthrosis Narrative 02/09/2025 5:56 AM CDT EXAM DESCRIPTION: XR Hand Right 3 or More Views REASON FOR STUDY: Right hand pain COMPARISON: June 06, 2023 FINDINGS: AP lateral and oblique x-rays right hand show arthritic changes at the 1st CMC joint us Doug Lazar MD IMG XR PROCEDURES Final Result * OH ARTHROCENTESIS ASPIR&/INJ SMALL JT/BURSA W/O US (12/10/2024 7:15 AM CDT) Narrative Doug Lazar MD - 12/10/2024 7:15 AM CDT Doug Lazar MD 12/10/2024 7:49 AM Small Joint (Foot, Fingers, Toes) Injection: R thumb CMC Performed by: Doug Lazar MD Authorized by: Doug Lazar MD Small Joint Injection/Aspiration: Consent Given by: Patient Site marked: the procedure site was marked Verbal consent obtained?: Yes Supporting Documentation: Indications: Pain Procedure Details: Location: Thumb Site: R thumb CMC Prep: patient was prepped using a clean techinque Needle Size: 22 G Approach: Radial Ultrasound guidance: No Medications: 1 mL lidocaine 10 mg/mL (1 %); 40 mg triamcinolone 40 mg/mL Patient tolerance: Patient tolerated the procedure well with no immediate complications Doug Lazar MD IN CLINIC/BEDSIDE ORDERA BLES Final Result * Hepatitis C antibody (02/12/2021 11:56 AM CDT) Hep C Ab Nonreactive Nonreactive [facility] Comment:Antibodies to HCV no t detected. Does NOT exclude the possibility of recent exposure to HCV. Blood specimen (specimen) 02/12/2021 11:56 AM CDT 02/12/2021 12:34 PM CDT Joselyn Sheppard Harshadchava SINTER PRESS OPERATOR LAB MICROBIOLOGY - GENERAL ORD ERABLES Edited Result - Final [facility] Department [place] [address] from Last 3 Months or Most Recently Relevant to Health Maintenance Insurance MEDICARE [facility] MEDICARE SUPPLEMENT [facility] MEDICARE SUPPLEMENT MEDICARE [facility] Advance Directives For more information, please contact: [phone] * Full Code (Latest Code Status on File) Date Activated Date Inactivated Comments 03/13/2022 3:08 PM 03/15/2022 9:16 PM Care Teams Fruit Or Nut Farmworker Relationship Specialty Start Date End Date Candelaria Booker PA [address] [place] [address] PCP - General Nurse Practitioner 08/26/19
--- OUTSIDE RECORDS SUMMARY | 2025-02-15 06:53 | XMS_ITS | Encounter Summary ---
Author Organization [facility] Address [address] [place] [address] Care Team Providers Care System Safety Engineer Name Role Phone Candelaria Booker Primary Care Provider [phone] Encounter Details Date Type Department Care Team (Late st Contact Info) Description 05/09/2022 HighWire Presst Message Enc [facility] Family & Internal Medicine [id number] [place] [address] Candelaria Booker APNP [facility] [place], [place] [id number] Wegovy Social History Tobacco Use Types Packs/Day [...] AM CDT Legal Sex Female 11:40 AM GROUP FITNESS INSTRUCTOR Gender Identity Not on file Sexual Orientation [...] documented as of this encounter Care Teams System Safety Engineer Relationship Specialty Start Date End Date Candelaria Booker APNP [address] [place] [address] PCP - General NURSE PRACTITIONER 08/02/19 documented as of this encounter
--- OUTSIDE RECORDS SUMMARY | 2025-02-15 06:53 | XMS_ITS | Encounter Summary ---
Author Organization [facility] Address [address] [place] [address] Care Team Providers Care Bartenders Name Role Phone Candelaria Booker Primary Care Provider [phone] Encounter Details Date Type Department Care Team (Late st Contact Info) Description 05/02/2022 Hipcampt Message Enc [facility] Family & Internal Medicine [id number] [place] [phone] Candelaria Booker APNP [facility] [place], [place] [id number] ENT notes Social History Tobacco Use Types [...] AM CDT Legal Sex Female 11:40 AM TALLOW MAKER Gender Identity Not on file Sexual [...] documented as of this encounter Care Teams Bartenders Relationship Specialty Start Date End Date Candelaria Booker APNP [address] [place] [address] PCP - General NURSE PRACTITIONER 08/02/19 documented as of this encounter
--- OUTSIDE RECORDS SUMMARY | 2025-02-15 06:53 | XMS_ITS | Encounter Summary ---
Author Organization [facility] Address [address] [place] [address] Phone Care Team Providers Care Supervisor Epoxy Fabrication Name Role Phone Candelaria Booker Primary Care Provider + Encounter Details Date Type Department Care Team (Late st Contact Info) Description 08/19/2020 Orders Only [facility] Scanning, Provider Social History Tobacco Use Types Packs/Day Years Used Date Smoking Tobacco: Never Smokeless Tobacco: Never Comments Unknown Sex and Gender Information Value Date Recorded Sex Assigned at Not on file Legal Sex Female 10:38 AM ENGINE MECHANIC Gender Identity Not on file Sexual Orientation [...] on filedocumented in this encounter Care Teams Supervisor Epoxy Fabrication Relationship Specialty Start Date End Date Candelaria Booker PA [address] [place] [address] PCP - General Nurse Practitioner 08/26/19 documented as of this encounter
--- OUTSIDE RECORDS SUMMARY | 2025-02-15 06:53 | XMS_ITS | Encounter Summary ---
Author Organization [facility] Address [address] [place] [address] Care Team Providers Care Ferryboat Captain Name Role Phone Candelaria Booker Primary Care Provider [phone] Encounter Details Date Type Department Care Team (Late st Contact Info) Description 05/05/2022 NurseBuddyt Message Enc [facility] Family & Internal Medicine [phone] [place] [address] Candelaria oBoker APNP [facility] [place] [address] Lisinopril Social History Tobacco Use Types Packs/Day [...] AM CDT Legal Sex Female 11:40 AM FURNITURE FINISHER HELPER Gender Identity Not on file Sexual [...] documented as of this encounter Care Teams Ferryboat Captain Relationship Specialty Start Date End Date Candelaria Booker APNP [address] [place] [address] PCP - General NURSE PRACTITIONER 08/02/19 documented as of this encounter
--- OUTSIDE RECORDS SUMMARY | 2025-02-15 06:53 | XMS_ITS | Encounter Summary ---
Author Organization [facility] Address [address] [place] [address] Care Team Providers Care Bronc Buster Name Role Phone Candelaria Booker Primary Care Provider [phone] Encounter Details Date Type Department Care Team (Late st Contact Info) Description 06/18/2022 MaPSt Message Enc [facility] Medical Group Family & Internal Medicine [address] [address] Candelaria Booker APNP [address] [place] [address] Kacey goldberg Social History Tobacco Use Types [...] AM CDT Legal Sex Female 11:40 AM LEGEND MAKER Gender Identity Not on file Sexual Orientation Not on file documented as of this encounter Plan of Treatment Not on file documented as of this encounter Visit Diagnoses Not on filedocumented in this encounter Additional Health Concerns Assessment Noted Time PHQ-9 Depression Total Score: 4 05/03/20 22 1:06 PM CDT documented as of this encounter Care Teams Bronc Buster Relationship Specialty Start Date End Date Candelaria Booker APNP [address] [place] [address] PCP - General NURSE PRACTITIONER 08/02/19 documented as of this encounter
--- OUTSIDE RECORDS SUMMARY | 2025-02-15 06:53 | XMS_ITS | Encounter Summary ---
Author Organization [facility] Address [address] [place] [address] Care Team Providers Care Senior Tax Analyst Name Role Phone Candelaria Booker Primary Care Provider [phone] Encounter Details Date Type Department Care Team (Late st Contact Info) Description 05/13/2022 [employer] [place] [employer]hart Message Enc [facility] Medical Group Family & Internal Medicine [id number] [place] [address] Candelaria Booker APNP [facility] [place] [address] Speech therapy Social History Tobacco Use Types [...] AM CDT Legal Sex Female 11:40 AM FLOWER PICKER Gender Identity Not on file Sexual Orientation [...] documented as of this encounter Care Teams Senior Tax Analyst Relationship Specialty Start Date End Date Candelaria Booker APNP [address] [place] [address] PCP - General NURSE PRACTITIONER 08/02/19 documented as of this encounter
--- OUTSIDE RECORDS SUMMARY | 2025-02-15 06:54 | XMS_ITS | Encounter Summary ---
Author Organization [facility] Address [address] [place] [address] Care Team Providers Care Nailing Machine Operator Automatic Name Role Phone Candelaria Booker Primary Care Provider [phone] Encounter Details Date Type Department Care Team (Late st Contact Info) Description 07/10/2020 Innovatient Solutionshart Message Enc [facility] Medical Group Family & Internal Medicine [facility] [address] [place] [address] Candelaria Booker APNP [address] [place] [address] RE: Question Social History Tobacco Use Types [...] AM CDT Legal Sex Female 11:40 AM GAMING ASSOCIATE Gender Identity Not on file Sexual Orientation Not on file documented as of this encounter Plan of Treatment Not on file documented as of this encounter Visit Diagnoses Not on filedocumented in this encounter Additional Health Concerns Infection Onset Date Last Indicated Resolved Time COVID-19 Rule Out 05/29/2020 05/29/2020 07/28/2020 12:33 AM GAMING ASSOCIATE Assessment Noted Time PHQ-9 Depression Total Score: 0 08/02/19 20 8:42 AM GAMING ASSOCIATE documented as of this encounter Care Teams Nailing Machine Operator Automatic Relationship Specialty Start Date End Date Candelaria Booker APNP [address] [place] [address] PCP - General NURSE PRACTITIONER 08/02/19 documented as of this encounter
--- OUTSIDE RECORDS SUMMARY | 2025-02-15 06:54 | XMS_ITS | Encounter Summary ---
Author Organization [facility] Address [address] [place] [address] Care Team Providers Care Fitness And Wellness Instructor Name Role Phone Candelaria Booker Primary Care Provider [phone] Encounter Details Date Type Department Care Team (Late st Contact Info) Description 08/27/2022 Vital Sensorst Message Enc [facility] Medical Group Family & Internal Medicine [address] [address] Candelaria Booker APNP [address] [place] [address] Lab results Social History Tobacco Use Types [...] AM CDT Legal Sex Female 11:40 AM POLICE COMMUNICATIONS DISPATCHER Gender Identity Not on file Sexual Orientation Not on file documented as of this encounter Plan of Treatment Not on file documented as of this encounter Visit Diagnoses Not on filedocumented in this encounter Additional Health Concerns Assessment Noted Time PHQ-9 Depression Total Score: 4 05/03/20 22 1:06 PM CDT documented as of this encounter Care Teams Fitness And Wellness Instructor Relationship Specialty Start Date End Date Candelaria Booker APNP [address] [place] [address] PCP - General NURSE PRACTITIONER 08/02/19 documented as of this encounter
--- OUTSIDE RECORDS SUMMARY | 2025-02-15 06:54 | XMS_ITS | Encounter Summary ---
Author Organization [facility] Address [address] [place] [address] Care Team Providers Care Violent Crimes Detective Name Role Phone Candelaria Booker Primary Care Provider [phone] Encounter Details Date Type Department Care Team (Late st Contact Info) Description 04/30/2021 Motobuykerst Message Enc [facility] Medical Group Family & Internal Medicine [address] [address] Candelaria Booker APNP [address] [place] [address] Medication Questions Social History Tobacco Use Types [...] AM CDT Legal Sex Female 11:40 AM BROADCASTER Gender Identity Not on file Sexual Orientation Not on file documented as of this encounter Plan of Treatment Not on file documented as of this encounter Visit Diagnoses Not on filedocumented in this encounter Additional Health Concerns Assessment Noted Time PHQ-9 Depression Total Score: 0 10/10/19 21 10:28 AM CDT documented as of this encounter Care Teams Violent Crimes Detective Relationship Specialty Start Date End Date Candelaria Booker APNP [address] [place] [address] PCP - General NURSE PRACTITIONER 08/02/19 documented as of this encounter
--- OUTSIDE RECORDS SUMMARY | 2025-02-15 06:54 | XMS_ITS | Encounter Summary ---
Author Organization [facility] Address [address] [place] [address] Care Team Providers Care Gas Check Pad Maker Name Role Phone Candelaria Booker Primary Care Provider [phone] Encounter Details Date Type Department Care Team (Late st Contact Info) Description 10/23/2021 Applied Mineralst Message Enc [facility] Medical Group Family & Internal Medicine [address] [address] Candelaria Booker APNP [facility]1 [place], [place] [id number] Handicap car placard Social History Tobacco Use [...] AM CDT Legal Sex Female 11:40 AM CARD SERVICES SPECIALIST Gender Identity Not on file Sexual Orientation Not on file documented as of this encounter Plan of Treatment Not on file documented as of this encounter Visit Diagnoses Not on filedocumented in this encounter Additional Health Concerns Assessment Noted Time PHQ-9 Depression Total Score: 0 10/10/19 21 10:28 AM CDT documented as of this encounter Care Teams Gas Check Pad Maker Relationship Specialty Start Date End Date Candelaria Booker APNP [address] [place] [address] PCP - General NURSE PRACTITIONER 08/02/19 documented as of this encounter
--- OUTSIDE RECORDS SUMMARY | 2025-02-15 06:54 | XMS_ITS | Encounter Summary ---
Author Organization [facility] Address [address] [place] [address] Care Team Providers Care Hand Cutter Apprentice Name Role Phone Candelaria Booker Primary Care Provider [phone] Encounter Details Date Type Department Care Team (Late st Contact Info) Description 07/09/2020 Bliphart Message Enc [facility] Medical Group Family & Internal Medicine [facility] [address] [place] [address] Candelaria Booker APNP [address] [place] [address] RE: Question Social History Tobacco Use Types [...] AM CDT Legal Sex Female 11:40 AM SENIOR COMPENSATION ANALYST Gender Identity Not on file Sexual Orientation Not on file documented as of this encounter Plan of Treatment Not on file documented as of this encounter Visit Diagnoses Not on filedocumented in this encounter Additional Health Concerns Infection Onset Date Last Indicated Resolved Time COVID-19 Rule Out 05/29/2020 05/29/2020 07/28/2020 12:33 AM SENIOR COMPENSATION ANALYST Assessment Noted Time PHQ-9 Depression Total Score: 0 08/02/19 20 8:42 AM SENIOR COMPENSATION ANALYST documented as of this encounter Care Teams Hand Cutter Apprentice Relationship Specialty Start Date End Date Candelaria Booker APNP [address] [place] [address] PCP - General NURSE PRACTITIONER 08/02/19 documented as of this encounter
--- OUTSIDE RECORDS SUMMARY | 2025-02-15 06:54 | XMS_ITS | Encounter Summary ---
Author Organization [facility] Address [address] [place] [address] Care Team Providers Care Fingerer Name Role Phone Candelaria Booker Primary Care Provider [phone] Encounter Details Date Type Department Care Team (Late st Contact Info) Description 08/04/2020 Fridayhart Message Enc [facility] Medical Group Family & Internal Medicine [address] [address] Candelaria Booker APNP [facility]1 [place] [address] RE: Test Results Social History Tobacco Use [...] AM CDT Legal Sex Female 11:40 AM DENTAL MECHANIC Gender Identity Not on file Sexual Orientation Not on file COVID-19 Exposure Response Date Recorded In the last month, have you been in contact with someone who was confirmed or suspected to have Coronavirus / COVID-19? Yes 07/28/2020 10:46 AM DENTAL MECHANIC documented as of this encounter Plan of Treatment Not on file documented as of this encounter Visit Diagnoses Not on filedocumented in this encounter Additional Health Concerns Assessment Noted Time PHQ-9 Depression Total Score: 0 08/02/19 20 8:42 AM DENTAL MECHANIC documented as of this encounter Care Teams Fingerer Relationship Specialty Start Date End Date Candelaria Booker APNP [address] [place] [address] PCP - General NURSE PRACTITIONER 08/02/19 documented as of this encounter"
--- OUTSIDE RECORDS SUMMARY | 2025-02-15 06:54 | XMS_ITS | Encounter Summary ---
Author Organization [facility] Address [address] [place] [address] Care Team Providers Care Supervisor Hardboard Name Role Phone Candelaria Booker Primary Care Provider [phone] Encounter Details Date Type Department Care Team (Late st Contact Info) Description 09/16/2024 Soft Sciencehart Message Enc [facility] Medical Group Family & Internal Medicine [address] [address] Candelaria Booker APNP [address] [place] [address] [place]ronelle eye Social History Tobacco Use Types Packs/Day [...] AM CDT Legal Sex Female 11:40 AM EMBOSSING PRESS OPERATOR Gender Identity Not on file Sexual [...] documented as of this encounter Care Teams Supervisor Hardboard Relationship Specialty Start Date End Date Candelaria Booker APNP [address] [place] [address] PCP - General NURSE PRACTITIONER 08/02/19 documented as of this encounter
--- OUTSIDE RECORDS SUMMARY | 2025-02-15 06:54 | XMS_ITS | Encounter Summary ---
Author Organization [facility] Address [address] [place] [address] Care Team Providers Care Crm Marketing Analyst Name Role Phone Candelaria Booker Primary Care Provider [phone] Encounter Details Date Type Department Care Team (Late st Contact Info) Description 02/06/[address] [facility] Medical Group Family & Internal Medicine [address] [place] [address] Candelaria Booker APNP [facility] [place] [address] RE: Medication Questions Social History Tobacco Use [...] AM CDT Legal Sex Female 11:40 AM TIER AND DETONATOR Gender Identity Not on file Sexual Orientation [...] documented as of this encounter Care Teams Crm Marketing Analyst Relationship Specialty Start Date End Date Candelaria Booker APNP [address] [place] [address] PCP - General NURSE PRACTITIONER 08/02/19 documented as of this encounter
--- OUTSIDE RECORDS SUMMARY | 2025-02-15 06:54 | XMS_ITS | Clinical Summary ---
Author Organization [facility] Address [address] [place] [address] Care Team Providers Care Regrind Mill Operator Name Role Phone Rufino Weems JANINE Primary Care Provider [phone] Allergies Active Allergy Reactions Criticality Noted Date [...] tablet by mouth nightly as needed. Active gabapentin (NEURONTIN) 100 MG capsuleIndication s:Peripheral polyneuropathy take 1 capsule by mouth three times daily 90 capsule 024 Active Additional Information Patient taking differently: 200 mgOralDaily, Reported on 01/18/2025 baclofen (LIORESAL) 10 MG tablet 5-10 mg as needed for stiffness 024 Active meclizine (ANTIVERT) 25 MG tablet 024 Active diazePAM (VALIUM) 2 MG tabletIndications :PTSD (post-traumatic stress disorder) TAKE 1/2 (ONE-HALF) TABLET BY MOUTH EVERY 8 HOURS NEEDED FOR DIZZINESS. 15 tablet 024 Active Tobramycin-dexAME THasone 0.3-0.05 % SuspensionIndicat ions:Acute bacterial conjunctivitis of both eyes Place 1 drop into both eyes 3 (three) times daily. 5 mL 025 Active Additional Information Patient not taking.Reported on 01/18/2025 hydroCHLOROthiazi de (HYDRODIURIL) 25 MG tabletIndications :Primary hypertension TAKE 1 TABLET BY MOUTH ONCE DAILY IN THE MORNING 90 tablet 025 Active lisinopril (PRINIVIL) 40 MG tabletIndications :Primary hypertension Take 1 tablet by mouth once daily 90 tablet 025 Active levothyroxine (SYNTHROID) 25 MCG tabletIndications :Acquired hypothyroidism TAKE 1 TABLET BY MOUTH ONCE DAILY IN THE MORNING 90 tablet 025 Active nystatin (MYCOSTATIN) 531161 UNIT/ML suspensionIndicat ions:Thrush Take 2 mLs (200,000 Units total) by mouth 4 (four) times daily. 240 mL 1 025 Active buPROPion SR (WELLBUTRIN SR) 150 MG 12 hr tabletIndications :PTSD (post-traumatic stress disorder) Take 1 tablet (150 mg total) by mouth daily. 90 tablet 025 Active diclofenac EC (VOLTAREN) 75 MG tabletIndications :Primary osteoarthritis of right knee Take 1 tablet (75 mg total) by mouth daily. 90 tablet 1 023 2024 Discontinued nystatin (MYCOSTATIN) 852581 UNIT/ML suspensionIndicat ions:Thrush Take 2 mLs (200,000 Units total) by mouth 4 (four) times daily. 240 mL 023 2024 Discontinued(R eorder) ondansetron (ZOFRAN-ODT) 4 MG disintegrating tablet 024 2024 Discontinued(T herapy completed) Levomefolate Glucosamine (METHYL-FOLATE OR) 2024 Discontinued buPROPion SR (WELLBUTRIN SR) 150 MG 12 hr tabletIndications :PTSD (post-traumatic stress disorder) TAKE 1 TABLET BY MOUTH ONCE DAILY . APPOINTMENT REQUIRED FOR FUTURE REFILLS 30 tablet 025 2024 Discontinued Active Problems [...] deficiency 08/05/2019 Diverticulosis 08/05/2019 MS (multiple sclerosis) ([facility]) 2019 Hypertension 08/02/2019 PTSD (post-traumatic stress disorder) 08/02/2019 Encounters Date Type Department Care Team Description 01/18/2025 11:00 AM CDT Telemedicine [facility] Internal [address] [address] Rufino Weems APNP Thrush (Pt recently completed course of doxycycline and is now suffering thrush. She reports the roof of her mouth is raw and painful, and her tongue is fuzzy. She is requesting a refill of Nystatin oral suspension she has previously been prescribed. ) 01/18/2025 Travel 01/03/2025 Scan [facility] INFO SRVCS Scanned, Doc [facility] 12/30/2024 Telephone [facility] Internal [address] [address] Rufino Weems APNP Information 12/29/2024 Scan [facility] INFO SRVCS Scanned, Doc Med Group 12/10/2024 Scan [facility] INFO SRVCS Scanned, Doc Med Group 12/08/2024 MyChart Message Enc [facility] Internal [address] [address] Rufino Weems APNP Labs 12/03/2024 Telephone [facility] Internal [address] [address] Rufino Weems APNP Surgical Clearance 11/23/2024 Scan [facility] INFO SRVCS Scanned, Doc Med Group 11/19/2024 Scan [facility] INFO SRVCS Scanned, Doc Med Group Echo (SCAN) from Last 3 Months Immunizations Immunization Administration [...] AM CDT Legal Sex Female 11:40 AM AUTOMATIC WINDER OPERATOR Gender Identity Not on file Sexual [...] 11:31 AM CDT Height 167.6 cm (5' 6) 10/19/2024 11:31 AM CDT Body Mass Index 36.15 10/19/2024 11:31 AM CDT Plan of Treatment Health Maintenance Due Date Last Done Comments Colorectal Cancer Screening Colonoscopy (10 Years) 1955 Hepatitis C 1973 Annual Medicare Wellness Visit 2020 Dexa Scan (General) 2020 COVID-19 Vaccine (4 - 2023-2 5 season) 2024 03/08/2021, 08/01/2020, 07/11/2020 PHQ-2 (Physician [place]) 07/07/2024 09/24/2023 Mammogram Screening 09/02/2024 09/02/2022, 05/25/2020 [...] Procedure Name Priority Date/Time Associated Diagnosis Comments ECHO GENERIC (SCAN ORDER) 11/19/2024 MG SCREENING W ARBEN BASSAM DIGI Routine 09/02/2022 3:43 PM AUTOMATIC WINDER OPERATOR Encounter for screening mammogram for malignant neoplasm of breast from Last 3 Months or Most Recently Relevant to Health Maintenance Results * ECHO GENERIC (SCAN ORDER) (11/19/2024) Anatomical Region Laterality Modality Other 11/19/2024 us Doc [facility] Scanned SCANNING Final Resu lt * MG SCREENING W ARBEN BASSAM DIGI (09/02/2022 3:43 PM AUTOMATIC WINDER OPERATOR) Anatomical Region Laterality Modality Breast Bilateral Mammography 09/03/2022 7:02 AM AUTOMATIC WINDER OPERATOR Narrative 09/03/2022 7:03 AM AUTOMATIC WINDER OPERATOR Examination: Screening bilateral mammogram Exam Date/Time: 09/02/2022 [...] 2 - BENIGN FINDING(S) Ordered By: RUFINO WEEMS Interpreted By: Philip Caputo, 09/03/2022 7:02 AM Rufino Weems APNP MAMMO Final Resul t from Last 3 Months or Most Recently Relevant to Health Maintenance Insurance MEDICARE [facility] Care Teams Regrind Mill Operator Relationship Specialty Start Date End Date Rufino Weems APNP [facility] [place] [address] PCP - General NURSE PRACTITIONER 08/02/19
--- OUTSIDE RECORDS SUMMARY | 2025-02-15 06:54 | XMS_ITS | Encounter Summary ---
Author Organization [facility] Address [address] [place] [address] Care Team Providers Care Java Tech Lead Name Role Phone Candelaria Booker Primary Care Provider [phone] Encounter Details Date Type Department Care Team (Late st Contact Info) Description 06/07/2021 [employer]hart Message Enc [facility] Medical Group Family & Internal Medicine [address] [address] Candelaria Booker APNP [facility] [place] [address] Labs Social History Tobacco Use Types Packs/Day [...] AM CDT Legal Sex Female 11:40 AM MACHINE BANDER AND CELLOPHANER Gender Identity Not on file Sexual Orientation Not on file COVID-19 Exposure Response Date Recorded In the last month, have you been in contact with someone who was confirmed or suspected to have Coronavirus / COVID-19? No / Unsure 06/07/2021 8:17 AM MACHINE BANDER AND CELLOPHANER documented as of this encounter Plan of Treatment Not on file documented as of this encounter Visit Diagnoses Not on filedocumented in this encounter Additional Health Concerns Assessment Noted Time PHQ-9 Depression Total Score: 0 10/10/19 21 10:28 AM CDT documented as of this encounter Care Teams Java Tech Lead Relationship Specialty Start Date End Date Candelaria Booker APNP [address] [place] [address] PCP - General NURSE PRACTITIONER 08/02/19 documented as of this encounter
--- OUTSIDE RECORDS SUMMARY | 2025-02-15 06:54 | XMS_ITS | Encounter Summary ---
Author Organization [facility] Address [address] [place] [address] Care Team Providers Care Flatwork Tier Name Role Phone Candelaria Booker Primary Care Provider [phone] Encounter Details Date Type Department Care Team (Late st Contact Info) Description 10/04/2019 Contractors_A[employer]hart Message Enc [facility] Medical Group Family & Internal Medicine [address] [address] Candelaria Booker APNP [facility] [place] [address] RE: Follow Up/Update Social History Tobacco Use [...] AM CDT Legal Sex Female 11:40 AM STORE DELI MANAGER Gender Identity Not on file Sexual Orientation Not on file documented as of this encounter Plan of Treatment Not on file documented as of this encounter Visit Diagnoses Not on filedocumented in this encounter Additional Health Concerns Infection Onset Date Last Indicated Resolved Time COVID-19 Rule Out 01/18/2020 01/21/2020 02/02/2020 7:51 AM CDT COVID-19 Rule Out 05/29/2020 05/29/2020 07/28/2020 12:33 AM STORE DELI MANAGER Assessment Noted Time PHQ-9 Depression Total Score: 0 08/02/19 20 8:42 AM STORE DELI MANAGER documented as of this encounter Care Teams Flatwork Tier Relationship Specialty Start Date End Date Candelaria Booker APNP [address] [place], [place] [phone] PCP - General NURSE PRACTITIONER 08/02/19 documented as of this encounter
--- OUTSIDE RECORDS SUMMARY | 2025-02-15 06:54 | XMS_ITS | Encounter Summary ---
Author Organization [facility] Address [address] [place] [address] Care Team Providers Care Paintings Restorer Name Role Phone Candelaria Booker Primary Care Provider [phone] Encounter Details Date Type Department Care Team (Late st Contact Info) Description 08/05/2024 Ace Met[employer]hart Message Enc [facility] Medical Group Family & Internal Medicine [address] [address] Candelaria Booker APNP [facility] [place] [address] Tendonitis Social History Tobacco Use Types Packs/Day [...] AM CDT Legal Sex Female 11:40 AM 3D MODELER Gender Identity Not on file Sexual Orientation Not on file documented as of this encounter Plan of Treatment Not on file documented as of this encounter Visit Diagnoses Not on filedocumented in this encounter Additional Health Concerns Assessment Noted Time PHQ-9 Depression Total Score: 4 05/03/20 22 1:06 PM CDT documented as of this encounter Care Teams Paintings Restorer Relationship Specialty Start Date End Date Candelaria Booker APNP [address] [place] [address] PCP - General NURSE PRACTITIONER 08/02/19 documented as of this encounter
--- OUTSIDE RECORDS SUMMARY | 2025-02-15 06:54 | XMS_ITS | Encounter Summary ---
Author Organization [facility] Address [address] [place] [address] Care Team Providers Care Java Groovy Developer Name Role Phone Candelaria Booker Primary Care Provider [phone] Encounter Details Date Type Department Care Team (Late st Contact Info) Description 11/05/2022 [employer] Innovationst Message Enc [facility] Medical Group Family & Internal Medicine [address] [address] Candelaria Booker APNP [address] [place] [address] Nystatin Social History Tobacco Use Types Packs/Day [...] AM CDT Legal Sex Female 11:40 AM MOTOR COACH TOUR OPERATOR Gender Identity Not on file Sexual Orientation Not on file documented as of this encounter Plan of Treatment Not on file documented as of this encounter Visit Diagnoses Not on filedocumented in this encounter Additional Health Concerns Assessment Noted Time PHQ-9 Depression Total Score: 4 05/03/20 22 1:06 PM CDT documented as of this encounter Care Teams Java Groovy Developer Relationship Specialty Start Date End Date Candelaria Booker APNP [address] [place] [address] PCP - General NURSE PRACTITIONER 08/02/19 documented as of this encounter
--- OUTSIDE RECORDS SUMMARY | 2025-02-15 06:54 | XMS_ITS | Encounter Summary ---
Author Organization [facility] Address [address] [place] [address] Care Team Providers Care Rhic Systems Safety Engineer Name Role Phone Candelaria Booker Primary Care Provider [phone] Encounter Details Date Type Department Care Team (Late st Contact Info) Description 08/04/2020 Spinomixhart Message Enc [facility] Medical Group Family & Internal Medicine [address] [address] Candelaria Booker APNP [address] [place] [address] RE: Follow Up/Update Social History Tobacco Use [...] AM CDT Legal Sex Female 11:40 AM CERTIFIED MORTICIAN Gender Identity Not on file Sexual Orientation Not on file COVID-19 Exposure Response Date Recorded In the last month, have you been in contact with someone who was confirmed or suspected to have Coronavirus / COVID-19? Yes 07/28/2020 10:46 AM CERTIFIED MORTICIAN documented as of this encounter Plan of Treatment Not on file documented as of this encounter Visit Diagnoses Not on filedocumented in this encounter Additional Health Concerns Assessment Noted Time PHQ-9 Depression Total Score: 0 08/02/19 20 8:42 AM CERTIFIED MORTICIAN documented as of this encounter Care Teams Rhic Systems Safety Engineer Relationship Specialty Start Date End Date Candelaria Booker APNP [address] [place] [address] PCP - General NURSE PRACTITIONER 08/02/19 documented as of this encounter
--- OUTSIDE RECORDS SUMMARY | 2025-02-15 06:54 | XMS_ITS | Encounter Summary ---
Author Organization [facility] Address [address] [place] [address] Care Team Providers Care Yeast Pumper Name Role Phone Candelaria Booker Primary Care Provider [phone] Encounter Details Date Type Department Care Team (Late st Contact Info) Description 09/16/2022 Six3hart Message Enc [facility] Medical Group Family & Internal Medicine [address] [place] [address] Candelaria Booker APNP [facility] [place] [address] Covid Social History Tobacco Use Types Packs/Day [...] AM CDT Legal Sex Female 11:40 AM COATING INSPECTOR Gender Identity Not on file Sexual Orientation Not on file COVID-19 Exposure Response Date Recorded In the last 10 days, have yo u been in contact with someone who was confirmed or suspected to have Coronavirus/COVID-19? No / Unsure 09/02/2022 2:55 PM COATING INSPECTOR documented as of this encounter Plan of Treatment Not on file documented as of this encounter Visit Diagnoses Not on filedocumented in this encounter Additional Health Concerns Assessment Noted Time PHQ-9 Depression Total Score: 4 05/03/20 22 1:06 PM CDT documented as of this encounter Care Teams Yeast Pumper Relationship Specialty Start Date End Date Candelaria Booker APNP [address] [place] [address] PCP - General NURSE PRACTITIONER 08/02/19 documented as of this encounter
--- OUTSIDE RECORDS SUMMARY | 2025-02-15 06:54 | XMS_ITS | Encounter Summary ---
Author Organization [facility] Healthcare Address [address] [place] [address] Care Team Providers Care Environmental Officer Name Role Phone Candelaria Booker Primary Care Provider + Encounter Details Date Type Department Care Team (Late st Contact Info) Description 01/17/2022 Telephone [facility] Radiology 1 [place] [address] Amanda Wayne MD [address] [facility] [address] [place] [address] Social History Tobacco Use Types Packs/Day Years Used Date Smoking Tobacco: Never Smokeless Tobacco: Never Comments Unknown Sex and Gender Information Value Date Recorded Sex Assigned at Not on file Legal Sex Female 10:38 AM CONTRACTOR 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
--- OUTSIDE RECORDS SUMMARY | 2025-02-15 06:54 | XMS_ITS | Encounter Summary ---
Author Organization [facility] Address [address] [place] [address] Care Team Providers Care Boom Stick Man Name Role Phone Candelaria Booker Primary Care Provider [phone] Encounter Details Date Type Department Care Team (Late st Contact Info) Description 11/16/2022 KartRockethart Message Enc [facility] Medical Group Family & Internal Medicine [address] [place] [address] Candelaria Booker APNP [facility] [place] [address] Hctz Social History Tobacco Use Types Packs/Day [...] AM CDT Legal Sex Female 11:40 AM THERAPIST RADIATION Gender Identity Not on file Sexual Orientation [...] hctz to lasix or a different diuretic? I???ve really struggled with neuropathic pain in my [...] documented as of this encounter Care Teams Boom Stick Man Relationship Specialty Start Date End Date Candelaria Booker APNP [address] [place] [address] PCP - General NURSE PRACTITIONER 08/02/19 documented as of this encounter
--- OUTSIDE RECORDS SUMMARY | 2025-02-15 06:54 | XMS_ITS | Encounter Summary ---
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
--- OUTSIDE RECORDS SUMMARY | 2025-02-15 06:54 | XMS_ITS | Encounter Summary ---
Author Organization [facility] Address [address] [place] [address] Care Team Providers Care Plant Changer Name Role Phone Candelaria Booker Primary Care Provider [phone] Reason for Visit * Reason Onset Date Comments Cough 09/27/2019 constant cough, constant tickle in her chest. cough and cold for two weeks. Encounter Details Date Type Department Care Team (Late st Contact Info) Description 09/27/2019 Vilynxt Message Enc [facility] Medical Group Family & Internal Medicine [facility] [address] [place] [address] Candelaria Booker APNP [address] [place] [address] RE: Other Social History Tobacco [...] AM CDT Legal Sex Female 11:40 AM ABATTOIR MANAGER Gender Identity Not on file Sexual Orientation Not on file documented as of this encounter Progress Notes * Mikhail Beltrán RN - 09/28/2019 9:06 AM CDT RN triaged respirators symptoms 2 week history of cough and cold. Afebrile. Tickle in her chest when she tries to take a deep breath. Head congestion- clear, post nasal drainage. 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 Constant tickle and cough. Taking medication as often as can take it. Coughing non stop on the phone. Sending to [facility] for evaluation. Pt instructions: Push [...] Rule Out 05/29/2020 05/29/2020 07/28/2020 12:33 AM ABATTOIR MANAGER Assessment Noted Time PHQ-9 Depression Total Score: 0 08/02/19 20 8:42 AM ABATTOIR MANAGER documented as of this encounter Care Teams Plant Changer Relationship Specialty Start Date End Date Candelaria Booker APNP [address] [place] [address] PCP - General NURSE PRACTITIONER 08/02/19 documented as of this encounter
--- OUTSIDE RECORDS SUMMARY | 2025-02-15 06:54 | XMS_ITS | Encounter Summary ---
Author Organization [facility] Address [address] [place] [address] Care Team Providers Care Progressive Care Manager Name Role Phone Candelaria Booker Primary Care Provider [phone] Encounter Details Date Type Department Care Team (Late st Contact Info) Description 02/25/2021 phorushart Message Enc [facility] Medical Group Family & Internal Medicine [address] [address] Candelaria Booker APNP [facility][note 3]1 [place] [address] Medication Questions Social History Tobacco Use Types [...] AM CDT Legal Sex Female 11:40 AM STUDENT DEVELOPMENT COORDINATOR Gender Identity Not on file Sexual Orientation [...] documented as of this encounter Care Teams Progressive Care Manager Relationship Specialty Start Date End Date Candelaria Booker APNP [address] [place] [address] PCP - General NURSE PRACTITIONER 08/02/19 documented as of this encounter
--- OUTSIDE RECORDS SUMMARY | 2025-02-15 06:54 | XMS_ITS | Encounter Summary ---
Author Organization [facility] Address [address] [place] [address] Care Team Providers Care Commodity Supervisor Name Role Phone Candelaria Booker Primary Care Provider [phone] Reason for Visit * Reason Onset Date Comments Letter 05/29/2020 Encounter Details Date Type Department Care Team (Late st Contact Info) Description 05/29/2020 Telephone [facility] Medical Group Family & Internal Medicine [facility] [address] [place] [address] Candelaria Booker APNP [facility]1 [place], [place] [id number] Letter Social History Tobacco Use Types Packs/Day [...] AM CDT Legal Sex Female 11:40 AM SCADA TECHNICIAN Gender Identity Not on file Sexual Orientation Not on file COVID-19 Exposure Response Date Recorded In the last month, have you been in contact with someone who was confirmed or suspected to have Coronavirus / COVID-19? Yes 05/25/2020 12:51 PM SCADA TECHNICIAN documented as of this encounter Progress Notes [...] get it refilled since I lived in [place] but I have been having to take it daily for my knees. It works much better than Tylenol or ibuprofen. Thanks * Najma Adhikari MA - 07/24/2020 4:11 PM CST COVID anti-body testing ordered for pt and sent. BB 07/24/20 A TECHNICIAN * Najma Adhikari MA - 07/24/2020 4:10 PM CST ----- Message from JANINE Petty sent at 07/10/2020 2:19 PM SCADA TECHNICIAN ----- Regarding: FW: Question Contact: Can you order COVID ab testing for this pt. ----- Message ----- From: Tiffanie Hankins MA Sent: 07/10/2020 12:33 PM SCADA TECHNICIAN To: JANINE Petty Subject: FW: Question ----- Message ----- From: Darshana Dyer Sent: 07/10/2020 7:38 AM SCADA TECHNICIAN To: Candelaria Paz Nurse Subject: Question Last question, I promise. Is it possible for me to have covid antibody testing? My nasal swab testing in January came back negative (headache. Complete loss of taste and smell), but it would be helpful to know if I have antibodies before I sign up for a vaccination. Thanks A TECHNICIAN * Najma Adhikari MA - 07/24/2020 4:05 PM CST ----- Message from JANINE Petty sent at 07/10/2020 2:19 PM SCADA TECHNICIAN ----- Regarding: FW: Question Contact: Can you order COVID ab testing for this pt. ----- Message ----- From: Tiffanie Hankins MA Sent: 07/10/2020 12:33 PM SCADA TECHNICIAN To: JANINE Petty Subject: FW: Question ----- Message ----- From: Darshana Dyer Sent: 07/10/2020 7:38 AM SCADA TECHNICIAN To: Candelaria Paz Nurse Subject: Question Last question, I promise. Is it possible for me to have covid antibody testing? My nasal swab testing in January came back negative (headache. Complete loss of taste and smell), but it would be helpful to know if I have antibodies before I sign up for a vaccination. Thanks A TECHNICIAN * Zina Carbajal RN - 06/05/2020 4:27 PM CST Patient did go to the hospital and they did a EKG and used blood work from [facility]. They typed and crossed her. This was done at [facility]. A TECHNICIAN * JANINE Petty - 06/05/2020 1:42 PM CST OK, Is pt still going to pre op at the hospital? I do not have a recent EKG on her. A TECHNICIAN * Christine Gage MA - 06/02/2020 11:26 AM CST Patient states at [facility]she asked if she needed to come in again and was told she did not. Her Surgery is scheduled as out patient on June 12 A TECHNICIAN * Zina Carbajal RN - 05/29/2020 11:15 AM CST Patient needing a new surgical clearance letter from us for Dr. Avila for knee replacement. She is [facility] patient for the outpatient knee replacement. A TECHNICIAN documented in this encounter Plan of Treatment Not on file documented as of this encounter Visit Diagnoses Diagnosis Close exposure to COVID-19 virus- Primary Unknown status of immunity to COVID-19 virus Knee pain Pain in joint, lower leg documented in this encounter Additional Health Concerns Infection Onset Date Last Indicated Resolved Time COVID-19 Rule Out 05/29/2020 05/29/2020 07/28/2020 12:33 AM SCADA TECHNICIAN Assessment Noted Time PHQ-9 Depression Total Score: 0 08/02/19 20 8:42 AM SCADA TECHNICIAN documented as of this encounter Care Teams Commodity Supervisor Relationship Specialty Start Date End Date Candelaria Booker APNP [address] [place] [address] PCP - General NURSE PRACTITIONER 08/02/19 documented as of this encounter
--- OUTSIDE RECORDS SUMMARY | 2025-02-15 06:54 | XMS_ITS | Encounter Summary ---
Author Organization [facility] Address [address] [place] [address] Care Team Providers Care Rocket Engine Mechanic Name Role Phone Candelaria Booker Primary Care Provider [phone] Encounter Details Date Type Department Care Team (Late st Contact Info) Description 01/16/2023 CompareMyFaret Message Enc [facility] Medical Group Family & Internal Medicine [address] [phone] Candelaria Booker APNP [facility]1 [place] [address] Correction to telephone note Social History Tobacco [...] AM CDT Legal Sex Female 11:40 AM 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
--- OUTSIDE RECORDS SUMMARY | 2025-02-15 06:54 | XMS_ITS | Encounter Summary ---
Author Organization [facility] Address [address] [place] [address] Care Team Providers Care Siebel Solution Architect Name Role Phone Candelaria Booker Primary Care Provider [phone] Encounter Details Date Type Department Care Team (Late st Contact Info) Description 09/20/2021 Tapactivehart Message Enc [facility] Medical Group Family & Internal Medicine [address] [place] [address] Candelaria Booker APNP [facility]1 [place], [place] [phone] Covid vaccine Social History Tobacco Use Types [...] AM CDT Legal Sex Female 11:40 AM BLUEPRINT DUPLICATOR Gender Identity Not on file Sexual Orientation Not on file COVID-19 Exposure Response Date Recorded In the last 10 days, have yo u been in contact with someone who was confirmed or suspected to have Coronavirus/COVID-19? No / Unsure 08/31/2021 9:54 AM BLUEPRINT DUPLICATOR documented as of this encounter Plan of Treatment Not on file documented as of this encounter Visit Diagnoses Not on filedocumented in this encounter Additional Health Concerns Assessment Noted Time PHQ-9 Depression Total Score: 0 10/10/19 21 10:28 AM CDT documented as of this encounter Care Teams Siebel Solution Architect Relationship Specialty Start Date End Date Candelaria Booker APNP [address] [place] [address] PCP - General NURSE PRACTITIONER 08/02/19 documented as of this encounter
[2025-03-03 15:03] VITALS: BMI 35.8
--- NOTE | 2025-03-03 15:03 | WPDHOMESLEEP ---
Sleep Study - Home Unattended Date of Study: 02/15/25 Ordering Provider: Billy Frank DO Interpreting Provider: Zahida Barbosa DO Home Sleep Study Type: Watch PAT Height: 1.68 m Weight: 100.698 kg Body Mass Index: 35.8 Neck Circumference (inches): 17.5 [place]: 8 Reason for Sleep Study loud snoring, daytime hypersomnia and trouble staying asleep Sleep History If the patient is a 69-year-old female that had a sleep study ordered by her tobacco stripping machine operator for evaluation of sleep apnea. The patient snores loudly. She does have excessive daytime sleepiness and trouble maintaining sleep. She does have interruptions in breathing while asleep. She does choke or gasp at night. She denies having trouble breathing on her back. She denies morning headaches. She does have a dry or sore mouth / throat in the morning. She does have nocturnal heartburn. She urinates twice throughout the night. She does have trouble falling asleep. She does have difficulty returning to sleep if she wakes up throughout the night. She does feel anxious about sleep. She denies any hypnotic or sedative use. She does feel tired or sleepy during the day. She does feel tired in the morning. She does have the urge to fall asleep during the day. She does feel drowsy while driving. She denies sleep paralysis, cataplexy and hypnagogic/ hypnopompic hallucinations. She denies clenching or grinding her teeth. She does kick her jerk her legs excessively. She does have a restless feeling in her legs that does cause an urge to move her legs. It gets worse with rest and better with activity. It occurs in the evening or at night time and it does cause a disturbance in her sleep. She goes to bed at 11:00 p.m. every night. It takes her 75 minutes to fall asleep on work days and 90 minutes on her days off. She gets 6 hours of sleep on work days and 6-1/2 hours of sleep on her days off. Her sleep is somewhat restorative on days off. She denies taking any planned naps. She denies dream enactment behavior. She denies sleep walking. She consumes more than 5 caffeinated beverages per day. She denies tobacco use. She has 1 alcoholic beverage 1-2 nights per week. She does not exercise on a regular basis. [facility] Past Medical History Medical History Hypothyroidism Kidney stones Diverticulitis Gastroesophageal reflux disease Vocal cord paralysis after cervical fusion 03/2022 Osteoarthritis of right knee Hypertension Multiple sclerosis Surgical History Surgical History History of cataract extraction with lens replacement History of appendectomy History of laparoscopic cholecystectomy (06/2022) History of fusion of cervical spine (03/2022) History of left knee replacement (10/29/22) History of toe surgery (2007) History of colon resection (2003) For recurrent diverticulitis. History of hysterectomy (1994) History of section 1978, 1983 Family History Family History Mother Diabetes mellitus Heart disease Hypertension Cancer Father Diabetes mellitus Heart disease Cancer Hypertension Social History Social History Social History: Surrogate medical decision maker: Narayan Yder, spouse. Code status: Full code. Smoking status: Never smoker Second hand tobacco smoke exposure: No Alcohol intake: current Drinks per week: 1 Substance use: never Substance use type: does not use Do You Feel Safe in your Home?: Yes Lack of Transportation: No Lack of Food: Never True Current Housing: I Have Housing Concerned About Future Housing: No Difficulty Paying Gas/Electric Bills: No Difficulty Paying for Meds: No Currently Unemployed: No Education: Master's Degree or Higher Difficulty w/ Childcare or Family Care: No Living arrangements: with family Additional living arrangements comments: Lives with spouse in [place]. 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 Spiritual care concerns: No Medications Home Medications ?Medication ?Instructions ?Recorded ?Confirmed ?Type bupropion HCl 100 mg tablet,12 hr 100 mg PO QPM 05/11/19 03/05/25 History sustained-release (Wellbutrin SR) levothyroxine 25 mcg tablet 25 mcg PO QAM 06/25/22 03/05/25 History hydrochlorothiazide 25 mg tablet 25 mg PO DAILY 07/29/23 03/05/25 History lisinopril 40 mg tablet 40 mg PO DAILY 01/20/24 03/05/25 History meclizine 25 mg tablet 25 mg PO BID PRN Vertigo #60 tabs 01/21/24 03/05/25 Rx ondansetron 4 mg disintegrating 4 mg PO Q8H PRN nausea and 01/21/24 03/05/25 Rx tablet vomiting #14 tabs diazepam 2 mg tablet (Valium) 1 mg PO QHS PRN Anxiety 10/04/24 03/05/25 History gabapentin 100 mg capsule 100 mg PO QPM 01/18/25 03/05/25 History Sleep Procedure The sleep study was completed using FactonomyT a technically adequate device with seven channels: peripheral arterial tone, actigraphy, body position, snore, respiratory movement, pulse oximetry, sleep staging, and heart rate. Prior to using the device, the patient received verbal and written instructions for its application and was provided with the help desk phone number for additional telephonic instruction with 24-hour availability of qualified personnel to answer questions. The study was scored using CMS guidelines. Sleep Architecture The total recording time is 6 hrs, 42 min. The total sleep time is 6 hrs, 5 min. Sleep latency is 18 minutes. REM latency is 61 minutes. The patient had 5 episodes of waking. Sleep architecture shows 29.3% deep sleep, 36.0% light sleep, and (as % Total Sleep Time) showed NREM (Light 36.0%; Deep 29.3%), and a 34.7% stage REM. The patient spent 73.9% of total sleep time in the supine position. Sleep efficiency was 90.80. Respiratory Analysis The overall AHI (pAHI 4%:) is 18.6. The overall AHI (pAHI 3%:) is 23.1. The central AHI is 0.0. The AHI was 11.1 in NREM and 45.0 in REM sleep. The AHI was 25.6 in Supine and 16.4 in Non-supine sleep. Percent of Homer Gonzales respirations is 0.0. Oximetry Data The oxygen desaturation index (NGHIA 4%:) is 17.0. The mean saturation is 92%, and the lowest saturation is 72%. Time spent with saturation < 88% is 22.6 minutes. Snoring Profile Snoring average intensity is 44 dB. The patient snored above 45 decibels for 89.8 minutes, 24.6% of sleep time. Cardiac Profile The average pulse rate is 64 beats per minutes. The lowest pulse rate is 50 bpm. The highest pulse rate reported is 92 bpm. Atrial fibrillation was not detected. Premature beats occur <0.1 per minute. Assessment and Plan Assessment and Plan (1) YOKASTA (obstructive sleep apnea): Code(s): G47.33 - Obstructive sleep apnea (adult) (pediatric) Status: Acute Assessment and Plan: The patient had an overall AHI of 18.6 with desaturation down to 72%. This is consistent with moderate sleep apnea. I recommend that the patient be prescribed AutoPAP 5-15 cm H2O, CPAP mask/filters/tubing and heated humidity. A mandibular advancement device is also an acceptable treatment option. This should be used with all episodes of sleep.? Compliance should be reviewed within 31-90 days of starting therapy for usage greater than 4 hours per night greater than 70% of the nights. The patient should be asked about symptoms such as?excessive daytime sleepiness, quality of sleep, decreased nocturia, increased?mental functioning such as memory, mood, and concentration. The patient's sleep history is highly suggestive of Restless Leg Syndrome. I recommend that the patient have a serum ferritin drawn for evaluation of iron deficiency anemia. If the patient has a serum ferritin less than 75 ng/mL, I recommend starting a daily iron supplement and a Vitamin C supplement for better absorption. If the serum ferritin is greater than 75 ng/mL, I recommend starting a dopamine agonist and titrating the dose until symptoms resolve. There are nonpharmacological methods to treat limb movements including daily exercise, stretching calf muscles before bed, avoiding excessive amounts of caffeine and alcohol, vitamin B supplementation, magnesium lotion massaged into legs before bed, and use of a weighted blanket. Data The data obtained during this sleep study is adequate for interpretation. Certification This sleep study has been reviewed by a board certified sleep medicine physician.
== END 2025-02-16 09:57 | disposition home or self-care (01) ==
PROVIDERS: PCP Registered Nurse; Visit Provider Internal Medicine Cardiovascular Disease
DX: G47.10 Hypersomnia, unspecified (principal)
CPT/HCPCS: 95800

== ENCOUNTER 2025-03-03 08:00 | Outpatient (CLI) | payer MEDICARE, SELFPAY ==
--- NOTE | ~2025-03-03 | NM_ITS ---
EXAMINATION: NM barbi stress w perfusion DATE: 03/03/2025 13:47 CDT INDICATION: Preop examination TECHNIQUE: Rest images were obtained following intravenous administration of 10.9 mCi Tc99m tetrofosmin (Myoview). The patient was infused intravenously with Lexiscan (regadenoson). Then, 34.8 mCi Tc99m tetrofosmin (Myoview) was administered intravenously, and stress images were obtained. Data was karen nstructed into short axis and horizontal and vertical long axis SPECT images. Gated SPECT images were also obtained. COMPARISON: None. FINDINGS: No reversible perfusion abnormalities are seen. There is a small fixed perfusion abnormality of the lateral wall, suspicious for infarction.. There is no segmental wall motion abnormality. Left ventricular ejection fraction measures 73%. IMPRESSION: 1. Small fixed perfusion abnormality lateral wall, suspicious for infarction.. 2. Normal left ventricular ejection fraction measuring 73%. Reviewed, dictated and finalized at location O.
--- OUTSIDE RECORDS SUMMARY | 2025-03-03 08:04 | XMS_ITS | Encounter Summary ---
Author Organization [facility] Address [address] [place] [address] Care Team Providers Care Community Center Director Name Role Phone Candelaria Booker Primary Care Provider [phone] Encounter Details Date Type Department Care Team (Late st Contact Info) Description 10/23/2021 Tynkert Message Enc [facility] Medical Group Family & Internal Medicine [address] [address] Candelaria Booker APNP [facility] [place], [place] [id number] Handicap car placard Social History Tobacco Use [...] AM CDT Legal Sex Female 11:40 AM QM CONSULTANT Gender Identity Not on file Sexual Orientation Not on file documented as of this encounter Plan of Treatment Not on file documented as of this encounter Visit Diagnoses Not on filedocumented in this encounter Additional Health Concerns Assessment Noted Time PHQ-9 Depression Total Score: 0 10/10/19 21 10:28 AM CDT documented as of this encounter Care Teams Community Center Director Relationship Specialty Start Date End Date Candelaria Booker APNP [address] [place] [address] PCP - General NURSE PRACTITIONER 08/02/19 documented as of this encounter
--- OUTSIDE RECORDS SUMMARY | 2025-03-03 08:04 | XMS_ITS | Encounter Summary ---
Author Organization [facility] Address [address] [place] [address] Care Team Providers Care Systems Coordinator Name Role Phone Candelaria Booker Primary Care Provider [phone] Encounter Details Date Type Department Care Team (Late st Contact Info) Description 06/11/2022 Redbeacont Message Enc 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
--- OUTSIDE RECORDS SUMMARY | 2025-03-03 08:04 | XMS_ITS | Encounter Summary ---
Author Organization [facility] Address [address] [place] [address] Care Team Providers Care Chief Recordist Name Role Phone Candelaria Booker Primary Care Provider [phone] Encounter Details Date Type Department Care Team (Late st Contact Info) Description 09/20/2021 IDOS CORPhart Message Enc [facility] Medical Group Family & Internal Medicine [address] [place] [address] Candelaria Booker APNP [facility] [place], [place] [address] Covid vaccine Social History Tobacco Use Types [...] AM CDT Legal Sex Female 11:40 AM EARLY BREASTFEEDING CARE SPECIALIST Gender Identity Not on file Sexual Orientation Not on file COVID-19 Exposure Response Date Recorded In the last 10 days, have yo u been in contact with someone who was confirmed or suspected to have Coronavirus/COVID-19? No / Unsure 08/31/2021 9:54 AM EARLY BREASTFEEDING CARE SPECIALIST documented as of this encounter Plan of Treatment Not on file documented as of this encounter Visit Diagnoses Not on filedocumented in this encounter Additional Health Concerns Assessment Noted Time PHQ-9 Depression Total Score: 0 10/10/19 21 10:28 AM CDT documented as of this encounter Care Teams Chief Recordist Relationship Specialty Start Date End Date Candelaria Booker APNP [address] [place] [address] PCP - General NURSE PRACTITIONER 08/02/19 documented as of this encounter
--- OUTSIDE RECORDS SUMMARY | 2025-03-03 08:04 | XMS_ITS | Encounter Summary ---
Author Organization [facility] Address [address] [place] [address] Care Team Providers Care Dish Person Name Role Phone Candelaria Booker Primary Care Provider +[phone] Encounter Details Date Type Department Care Team (Late st Contact Info) Description 04/30/2021 Monscierget Message Enc [facility] Medical Group Family & Internal Medicine [address] [phone] Candelaria Booker APNP [address] [place] [address] Medication Questions Social History Tobacco Use Types [...] AM CDT Legal Sex Female 11:40 AM AUTOMATED CUTTING MACHINE 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
--- OUTSIDE RECORDS SUMMARY | 2025-03-03 08:04 | XMS_ITS | Encounter Summary ---
Author Organization [facility] Address [address] [place] [address] Care Team Providers Care It Infrastructure Specialist Name Role Phone Candelaria Booker Primary Care Provider [phone] Encounter Details Date Type Department Care Team (Late st Contact Info) Description 06/07/2021 Hastifyhart Message Enc [facility] Medical Group Family & Internal Medicine [address] [phone] Candelaria Booker APNP [facility] [place] [address] Labs Social History Tobacco Use Types Packs/Day [...] AM CDT Legal Sex Female 11:40 AM RESEARCH CHEMIST Gender Identity Not on file Sexual Orientation Not on file COVID-19 Exposure Response Date Recorded In the last month, have you been in contact with someone who was confirmed or suspected to have Coronavirus / COVID-19? No / Unsure 06/07/2021 8:17 AM RESEARCH CHEMIST documented as of this encounter Plan of Treatment Not on file documented as of this encounter Visit Diagnoses Not on filedocumented in this encounter Additional Health Concerns Assessment Noted Time PHQ-9 Depression Total Score: 0 10/10/19 21 10:28 AM CDT documented as of this encounter Care Teams It Infrastructure Specialist Relationship Specialty Start Date End Date Candelaria Booker APNP [address] [place] [address] PCP - General NURSE PRACTITIONER 08/02/19 documented as of this encounter
--- OUTSIDE RECORDS SUMMARY | 2025-03-03 08:04 | XMS_ITS | Encounter Summary ---
Author Organization [facility] Address [address] [place] [address] Care Team Providers Care Day Care Worker Name Role Phone Candelaria Booker Primary Care Provider [phone] Encounter Details Date Type Department Care Team (Late st Contact Info) Description 02/25/2021 US Dataworkshart Message Enc [facility] Medical Group Family & Internal Medicine [address] [phone] Candelaria Booker APNP [facility] [place] [address] Medication Questions Social History Tobacco Use Types [...] AM CDT Legal Sex Female 11:40 AM TELEPHONE DIRECTORY DELIVERER Gender Identity Not on file Sexual Orientation [...] documented as of this encounter Care Teams Day Care Worker Relationship Specialty Start Date End Date Candelaria Booker APNP [address] [place] [address] PCP - General NURSE PRACTITIONER 08/02/19 documented as of this encounter
--- OUTSIDE RECORDS SUMMARY | 2025-03-03 08:04 | XMS_ITS | Clinical Summary ---
Author Organization [facility] Address [address] [place] [address] Care Team Providers Care Duplicating Machine Servicer Name Role Phone Rufino Weems JANINE Primary Care Provider Allergies Active Allergy [...] MORNING 90 tablet 025 Active nystatin (MYCOSTATIN) 125919 UNIT/ML suspensionIndicat ions:Thrush Take 2 mLs (200,000 Units total) by mouth 4 (four) times daily. 240 mL 1 025 Active buPROPion SR (WELLBUTRIN SR) 150 MG 12 hr tabletIndications :PTSD (post-traumatic stress disorder) Take 1 tablet (150 mg total) by mouth daily. 90 tablet 025 Active buPROPion SR (WELLBUTRIN SR) 150 [...] deficiency 08/05/2019 Diverticulosis 08/05/2019 MS (multiple sclerosis) ([facility]) 2019 Hypertension 08/02/2019 PTSD (post-traumatic stress disorder) 08/02/2019 Encounters Date Type Department Care Team Description 02/16/2025 Scan [facility] HEALTH INFO SRVCS Scanned, Doc Med Group 01/18/2025 11:00 AM CDT Telemedicine [address] [phone] Rufino Weems APNP Thrush (Pt recently completed course of doxycycline and is now suffering thrush. She reports the roof of her mouth is raw and painful, and her tongue is fuzzy. She is requesting a refill of Nystatin oral suspension she has previously been prescribed. ) 01/18/2025 Travel 01/03/2025 Scan HEALTH INFO SRVCS Scanned, Doc Med Group 12/30/[address] [phone] Rufino Weems APNP Information 12/29/2024 Scan HEALTH INFO SRVCS Scanned, Doc Med Group 12/10/2024 Scan HEALTH INFO SRVCS Scanned, Doc Med Group 12/08/2024 MyChart Message Enc [address] [phone] Rufino Weems APNP Labs 12/03/[address] [phone] Rufino Weems APNP Surgical Clearance from Last 3 Months Immunizations Immunization Administration [...] CDT Legal Sex Female 11:40 AM THERAPIST SPEECH Gender Identity Not on file Sexual Orientation [...] 2020 Dexa Scan (General) 2020 COVID-19 Vaccine ( - 2023-2 5 season) 2024 03/08/2021, 08/01/2020, 07/11/2020 PHQ-2 (Physician [place]) 07/07/2024 09/24/2023 Mammogram Screening 09/02/2024 09/02/2022, 05/25/2020 [...] Procedure Name Priority Date/Time Associated Diagnosis Comments MG SCREENING W ARBEN BASSAM DIGI Routine 09/02/2022 3:43 PM THERAPIST SPEECH Encounter for screening mammogram for malignant neoplasm of breast from Last 3 Months or Most Recently Relevant to Health Maintenance Results * MG SCREENING W ARBEN BASSAM DIGI (09/02/2022 3:43 PM THERAPIST SPEECH) Anatomical Region Laterality Modality Breast Bilateral Mammography 09/03/2022 7:02 AM THERAPIST SPEECH Narrative 09/03/2022 7:03 AM THERAPIST SPEECH Examination: Screening bilateral mammogram Exam Date/Time: 09/02/2022 [...] Interpreted By: Philip Caputo, 09/03/2022 7:02 AM us Rufino Weems APNP MAMMO Final Resul t from Last 3 Months or Most Recently Relevant to Health Maintenance Insurance MEDICARE [facility] Care Teams Duplicating Machine Servicer Relationship Specialty Start Date End Date Rufino Weems APNP [address] [place] [address] PCP - General NURSE PRACTITIONER 08/02/19
--- OUTSIDE RECORDS SUMMARY | 2025-03-03 08:04 | XMS_ITS | Clinical Summary ---
Author Organization [facility] Address [address] [place] [address] Care Team Providers Care Sales Correspondent Name Role Phone Candelaria Booker Primary Care [...] (04/30/2022): Added automatically from request for surgery [id number] Vocal cord paralysis 04/30/2022 Overview (04/30/2022): Added automatically from request for surgery [id number] Cervical disc disorder with myelopathy 2 Cervical disc disorder with myelopathy of mid-cervical region 02/25/2022 Overview (02/25/2022): Added automatically from request for surgery [id number] Immunosuppression due to drug therapy 02/15/2022 Spasticity 02/15/2022 Immunocompromised 09/12/2021 Abnormality of gait and mobility 02/12/2021 Neurogenic bladder disorder 02/12/2021 Medication monitoring encounter 03/31/2020 Multiple sclerosis 09/09/2019 High risk medication use 09/09/2019 Abnormal MRI 09/09/2019 Vitamin D deficiency 09/09/2019 Mixed anxiety and depressive disorder 09/09/2019 Hypertension 08/02/2019 Dysphagia Encounters Date Type Department Care Team Description 02/16/2025 8:30 AM CDT Office Visit [facility] Medical Group Hand Surgery [facility] [address] [place] [phone] Krysten Orlando, ADRIÁN Arthritis of carpometacarpal (CMC) joint of right thumb (Primary Dx); Primary osteoarthritis of first carpometacarpal joint of right hand 02/03/2025 11:30 AM CDT - 02/03/2025 12:30 PM CDT Surgery [facility] [place] [address] [place] [address] Doug Lazar MD RIGHT FIRST CARPOMETACARPAL ARTHROPLASTY WITH LIGAMENT RECONSTRUCTION 02/03/2025 10:56 AM CDT Anesthesia Event [facility] [place] [address] [place] [address] Cherri Augustin MD Kuntz, Edward William, MD 02/03/2025 9:25 AM CDT Ancillary Procedure [facility] [place] [address] [place] [address] 02/03/2025 8:26 AM CDT - 02/03/2025 1:20 PM CDT Hospital Encounter [facility] [place] [address] [place] [address] Doug Lazar MD Primary osteoarthritis of first carpometacarpal joint of right hand [M18.11] (Primary Dx); Arthritis of carpometacarpal (CMC) joint of right thumb [M18.11] Discharge Disposition: Discharge to home or self care 01/11/2025 Orders Only [facility] Multiple Sclerosis [address] [facility] 7th [place] [address] Joselyn Rondon, RETAIL CHAIN STORE AREA SUPERVISOR Multiple sclerosis (HCC) (Primary Dx); Dysesthesia of multiple sites 01/03/2025 10:00 AM CDT Office Visit [facility] Medical Group Hand Surgery [address] [facility] [address] [place] [phone] Doug Lazar MD Arthritis of carpometacarpal (CMC) joint of right thumb (Primary Dx) 12/10/2024 7:23 AM CDT - 12/10/2024 11:59 PM CDT Hospital Encounter [facility] 1 DIAG IMG [address] [place] [address] Right hand pain Discharge Disposition: Discharge to home or self care 12/10/2024 7:15 AM CDT Office Visit [facility] Hand Surgery [address] [facility] [address] [place] [phone] Doug Laazr MD Right hand pain (Primary Dx); De Quervain's disease (radial styloid tenosynovitis); Arthritis of carpometacarpal (CMC) joint of right thumb from Last 3 Months Immunizations Immunization Administration [...] on file Legal Sex Female 10:38 AM CUSTOMER MANAGEMENT SPECIALIST Gender Identity Not on file Sexual [...] 12/01/2023, 09/02/2023 Medical Devices Implanted Type Area Landscape Designer Device Identifier Shelf Expiration Date Model / Serial / Lot Abyrx Hemasorb Os-Spa Spatula Wax 2gm Bone Sterile Os-201 - [id number] Implanted:Qty: 1 on 03/13/2022 by Danny Stauffer MD at [facility] N/A: Spine Cervical Abyrx 11/03/2024 OS-201 / / [id number] [employer] Inc Allograft Bone Putty 2.5cc 700-025 - [id number] Implanted:Qty: 1 on 03/13/2022 by Danny Stauffer MD at [facility] N/A: Spine Cervical [employer] [id number] 09/03/2024 700-025 / / [id number] [employer] Cage Spinal Cervical 12d X 14w X 7h 6 Degree [id number] - [id number] Implanted:Qty: 1 on 03/13/2022 by Danny Stauffer MD at [facility] N/A: Spine Cervical [employer] [id number] 05/03/2026 [id number] / / [id number] [employer] Cage Spinal Cervical 12d X 14w X 6h 6 Degree [id number] - [id number] Implanted:Qty: 1 on 03/13/2022 by Danny Stauffer MD at [facility] N/A: Spine Cervical [employer] [id number] 08/30/2026 [id number] / / [id number] [employer] Cage Spinal Cervical 12d X 14w X 6h 6 Degree [id number] - [id number] Implanted:Qty: 1 on 03/13/2022 by aDnny Stauffer MD at [facility] N/A: Spine Cervical [employer] [id number] 12/20/2026 [id number] / / [id number] [facility] [id number] Mambo 40mm 6 Hole Modular Doon 1 Step Lock Mechanism Spine - [id number] Implanted:Qty: 1 on 03/13/2022 by Danny Stauffer MD at [facility] N/A: Spine Cervical [facility] CS 1820-40 / / [facility] [id number] Mambo Extension Spine Cervical Small Plate Bone Yellow - [id number] Implanted:Qty: 1 on 03/13/2022 by Danny Stauffer MD at [facility] N/A: Spine Cervical [facility] CS 1820-02 / / [facility] [id number] Mambo Settle Spinal Cervical Screw Bone Silver - [id number] Implanted:Qty: 3 on 03/13/2022 by Danny Stauffer MD at [facility] N/A: Spine Cervical [facility] CS 1826- / / [facility] Screw Mambo Bone Self-Drilling 3.5mm Length 15mm 1831-15 - [id number] Implanted:Qty: 8 on 03/13/2022 by Danny Stauffer MD at [facility] N/A: Spine Cervical [facility] 1831-15 / / [employer] Suture [place] Knotless Fibertak Resorbable [id number] - [id number] Implanted:Qty: 1 on 02/03/2025 by Doug Lazar MD at [facility] Right: Thumb [employer] [id number] 09/03/2029 [id number] / / [id number] Procedures Procedure Name Priority Date/Time Associated Diagnosis Comments NM APPLICATION CAST HAND & LOWER FOREARM GAUNTLET Routine 02/16/2025 11:01 AM CDT Primary osteoarthritis of first carpometacarpal joint of right hand Arthritis of carpometacarpal (CMC) joint of right thumb FL FLUOROSCOPY < 1 HOUR IP Routine 02/03/2025 11:29 AM CDT NM AN PROCEDURE PLACEHOLDER Routine 02/03/2025 11:08 AM CDT NM AN ELECTIVE SUPRAGLOTTIC AIRWAY Routine 02/03/2025 11:08 AM CDT ARTHROPLASTY CARPOMETACARPAL INTERPOSITIONAL WITH RECONSTRUCTION LIGAMENT - THUMB 02/03/2025 10:56 AM CDT Osteoarthritis of carpometacarpal (CMC) joint of right thumb, unspecified osteoarthritis type Case Notes RT 1ST CMC ARTHROPLASTY WITH LIGAMENT RECON *ARTHREX* Special Needs ARTHREX NM AN PROCEDURE PLACEHOLDER Routine 02/03/2025 9:56 AM CDT POCUS INJ NERVOUS SYSTEM UNLISTED IP Routine 02/03/2025 9:22 AM CDT POCT CREATININE FOR CONTRAST EVALUATION Routine 02/03/2025 9:10 AM CDT POC BLOOD GAS AND CHEMISTRIES, VENOUS Routine 02/03/2025 9:06 AM CDT XR HAND RIGHT 3 OR MORE VIEWS Schedule Routine, Read Routine (OP Routine) 12/10/2024 7:29 AM CDT Right hand pain NM ARTHROCENTESIS ASPIR&/INJ SMALL JT/BURSA W/O US Routine 12/10/2024 7:15 AM CDT Arthritis of carpometacarpal (CMC) joint of right thumb HEPATITIS C ANTIBODY Routine 02/12/2021 11:56 AM CDT Multiple sclerosis (HCC) Medication monitoring encounter Abnormal MRI Vitamin D deficiency Abnormality of gait and mobility Mixed anxiety and depressive disorder from Last 3 Months or Most Recently Relevant to Health Maintenance Results * NM APPLICATION CAST HAND & LOWER FOREARM GAUNTLET (02/16/2025 11:01 AM CDT) Narrative Krysten Orlando NP - 02/16/2025 11:01 AM CDT Krysten Orlando NP 02/16/2025 11:03 AM Cast application Date/Time: 02/16/2025 11:01 AM Performed by: Krysten Orlando NP Authorized by: Krysten Orlando NP Consent given by: patient Injury Location details: right hand Dislocation type: carpometacarpal dislocation (thumb) Pre-procedure assessment neurovascularly intact Range of motion: reduced Procedure Immobilization: cast Cast type: thumb spica Supplies used: cotton padding and Ortho-Glass Post-procedure assessment neurovascularly intact Range of motion: unchanged Patient tolerance: patient tolerated the procedure well with no immediate complications Krysten Orlando NP IN CLINIC/BEDSIDE ORDERABLES Fi nal Result * FL Fluoroscopy < 1 Hour (02/03/2025 11:29 AM CDT) Narrative [id number] - 02/03/2025 11:29 AM CDT The images from this study are not interpreted by Radiology. Please refer to the physician's procedure / OR operative note. Doug Lazar MD IMG FLUOROSCOPY PROCEDUR ES Final Result [id number] * NM AN ELECTIVE SUPRAGLOTTIC AIRWAY, NM AN PROCEDURE PLACEHOLDER (02/03/2025 11:08 AM CDT) Narrative Tim Mobley CRNA - 02/03/2025 11:08 AM CDT Tim Mobley CRNA 02/03/2025 11:08 AM Airway Patient location: OR Urgency: elective Indications for airway management: anesthesia Difficult airway: no Staff: Supervising provider: Cherri Augustin MD Placed by: ELECTRICIAN MAINTENANCE: Tim Mobley CRNA Emergent airway documentation: Risks and benefits discussed: yes Consent obtained: yes Consent given by: patient Airway prep: Preoxygenated: yes Patient position: sniffing Mask difficulty assessment: 0 - not attempted Spontaneous ventilation during airway: absent Sedation level during airway: deep Final airway details: Final airway type: supraglottic airway Final supraglottic airway: classic SGA size: 4 Number of attempts: 1 Cherri Augustin MD ANESTHESIA ORDERABLES Final Result * NM AN PROCEDURE PLACEHOLDER (02/03/2025 9:56 AM CDT) [...] Augustin MD POCUS ORDERABLES Final Resu lt Performing Organization Address City/[facility]/ZIP Co de Phone Number [email or web address] * POCT creatinine for contrast evaluation (02/03/2025 9:10 AM CDT) Creatinine POC 1.00 0.60 - 1.10 mg/dL Comment:Testing performed by : [address] [address] Blood 02/03/2025 9:10 AM CDT 02/03/2025 9:10 AM CDT Doug Lazar MD POINT OF CARE TEST ORDER CHERYL Final Result Performing Organization Address City/[facility]/ZIP Co de Phone Number [facility] [address] [facility] Department [place] [address] * (ABNORMAL) POC Blood Gas and Chemistries, Venous - (02/03/2025 9:06 AM CDT) pH,reid POC 7.41 7.32 - 7.43 Comment:Testing performed by : [address] [address] pCO2, reid POC 50 40 - 50 mmHg [facility] [place] Comment:Testing performed by : [address] [address] pO2,reid POC 42 mmHg [facility] [place] Comment: Interpretive Data No reference range established. Current interpretive data was last revised 2020. Testing performed by: [address] [address] HCO3, reid (Calc) POC 32(H) 20 - 30 mmol/L [facility] Comment:Testing performed by : [address] [address] Base excess, reid POC 7 mmol/L [facility] Comment: Interpretive Data No reference range established. Current interpretive data was last revised 2020. Testing performed by: [address], [place]., [address] Hemoglobin, reid POC 12.6 11.9 - 15.5 g/dL [facility] Comment:Testing performed by : [address] [address] Hematocrit, reid POC 37.0 35.6 - 45.5 % [facility] Comment:Testing performed by : [address] [address] Sodium, reid POC 140 135 - 145 mmol/L [facility] Comment:Testing performed by : [address] [address] Potassium, reid POC 4.1 3.3 - 4.9 mmol/L [facility] Comment: Interpretive Data This method is not able to assess for hemolysis, which may falsely increase potassium concentrations. If further testing is needed to evaluate this result, consider in-laboratory plasma potassium. Current Interpretive Data was last revised on 2022. Testing performed by: [address] [address] Glucose, reid POC 85 70 - 199 mg/dL [facility] Comment:Testing performed by : [address] [address] Ionized Calcium, reid POC 5.00 4.50 - 5.10 mg/dL [facility] Comment:Testing performed by : [address] [address] Blood 02/03/2025 9:06 AM CDT 02/03/2025 9:06 AM CDT us Doug Lazar MD LAB POCT ORDERABLES - DE VICE Final Result [facility] [address] [facility] [place] [address] * XR Hand Right 3 or More [...] MD IMG XR PROCEDURES Final Result * NM ARTHROCENTESIS ASPIR&/INJ SMALL JT/BURSA W/O US (12/10/2024 [...] the procedure well with no immediate complications us Doug Lazar MD IN CLINIC/BEDSIDE ORDERA BLES Final Result * Hepatitis C antibody (02/12/2021 11:56 AM CDT) Hep C Ab Nonreactive Nonreactive [facility] Comment:Antibodies to HCV no t detected. Does NOT exclude the possibility of recent exposure to HCV. Blood specimen (specimen) 02/12/2021 11:56 AM CDT 02/12/2021 12:34 PM CDT Joselyn Rondon RETAIL CHAIN STORE AREA SUPERVISOR LAB MICROBIOLOGY - GENERAL ORD ERABLES Edited Result - Final JESSICAMATTY [facility] [place] [address] from Last 3 Months or Most Recently Relevant to Health Maintenance Insurance MEDICARE [facility] MEDICARE SUPPLEMENT MEDICARE [employer] MEDICARE SUPPLEMENT MEDICARE [facility] Advance Directives For more information, please contact: [phone] * Full Code (Latest Code Status on File) Date Activated Date Inactivated Comments 03/13/2022 3:08 PM 03/15/2022 9:16 PM Care Teams Sales Correspondent Relationship Specialty Start Date End Date Candelaria Booker PA [address] [place] [address] PCP - General Nurse Practitioner 08/26/19
--- OUTSIDE RECORDS SUMMARY | 2025-03-03 08:04 | XMS_ITS | Encounter Summary ---
Author Organization [facility] Address [address] [place] [address] Care Team Providers Care Manager Of Application Development Name Role Phone Candelaria Booker Primary Care Provider [phone] Encounter Details Date Type Department Care Team (Late st Contact Info) Description 05/02/2022 Organic Societyt Message Enc [facility] Medical Group Family & Internal Medicine [id number] [place] [phone] Candelaria Booker APNP [facility] [place], [place] [phone] ENT notes Social History Tobacco Use Types [...] AM CDT Legal Sex Female 11:40 AM BOATWRIGHT Gender Identity Not on file Sexual Orientation [...] of this encounter Care Teams Manager Of Application Development Relationship Specialty Start Date End Date Candelaria Booker APNP [address] [place] [address] PCP - General NURSE PRACTITIONER 08/02/19 documented as of this encounter
--- OUTSIDE RECORDS SUMMARY | 2025-03-03 08:04 | XMS_ITS | Encounter Summary ---
Author Organization [facility] Address [address] [place] [address] Care Team Providers Care Hospice Rn Name Role Phone Candelaria Booker Primary Care Provider [phone] Encounter Details Date Type Department Care Team (Late st Contact Info) Description 01/16/2023 ROBLOXt Message Enc [facility] Medical Group Family & Internal Medicine [address] [phone] Candelaria Booker APNP [facility] [place] [address] Correction to telephone note Social History Tobacco [...] AM CDT Legal Sex Female 11:40 AM PATCH DRILLER Gender Identity Not on file Sexual Orientation Not on file documented as of this encounter Plan of Treatment Not on file documented as of this encounter Visit Diagnoses Not on filedocumented in this encounter Additional Health Concerns Assessment Noted Time PHQ-9 Depression Total Score: 4 05/03/20 22 1:06 PM CDT documented as of this encounter Care Teams Hospice Rn Relationship Specialty Start Date End Date Candelaria Booker APNP [address] [place] [address] PCP - General NURSE PRACTITIONER 08/02/19 documented as of this encounter
--- OUTSIDE RECORDS SUMMARY | 2025-03-03 08:04 | XMS_ITS | Encounter Summary ---
Author Organization [facility] Address [address] [place] [address] Phone Care Team Providers Care Risk Compliance Manager Name Role Phone Candelaria Booker Primary [...] on file Legal Sex Female 10:38 AM TIPPLE BOSS Gender Identity Not on file Sexual Orientation [...] on filedocumented in this encounter Care Teams Risk Compliance Manager Relationship Specialty Start Date End Date Candelaria Booker PA [address] [place] [address] PCP - General Nurse Practitioner 08/26/19 documented as of this encounter
--- OUTSIDE RECORDS SUMMARY | 2025-03-03 08:04 | XMS_ITS | Encounter Summary ---
Author Organization [facility] Address [address] [place] [address] Care Team Providers Care Billet Heater Name Role Phone Candelaria Booker Primary Care Provider [phone] Encounter Details Date Type Department Care Team (Late st Contact Info) Description 06/18/2022 PredictAdt Message Enc [facility] Medical Group Family & Internal Medicine [address] [phone] Candelaria Booker APNP [address] [place] [address] Kacey goldberg Social History Tobacco Use Types [...] AM CDT Legal Sex Female 11:40 AM SOCIAL WORK THERAPIST Gender Identity Not on file Sexual Orientation Not on file documented as of this encounter Plan of Treatment Not on file documented as of this encounter Visit Diagnoses Not on filedocumented in this encounter Additional Health Concerns Assessment Noted Time PHQ-9 Depression Total Score: 4 05/03/20 22 1:06 PM CDT documented as of this encounter Care Teams Billet Heater Relationship Specialty Start Date End Date Candelaria Booker APNP [address] [place] [address] PCP - General NURSE PRACTITIONER 08/02/19 documented as of this encounter
--- OUTSIDE RECORDS SUMMARY | 2025-03-03 08:04 | XMS_ITS | Encounter Summary ---
Author Organization [facility] Address [address] [place] [address] Care Team Providers Care Signaling Design Engineer Name Role Phone Candelaria Booker Primary Care Provider [phone] Encounter Details Date Type Department Care Team (Late st Contact Info) Description 08/05/[address] [facility] Medical Group Family & Internal Medicine [address] [phone] Candelaria Booker APNP [facility] [place] [address] Tendonitis Social History Tobacco Use Types Packs/Day [...] AM CDT Legal Sex Female 11:40 AM TRAVEL RN OR Gender Identity Not on file Sexual Orientation Not on file documented as of this encounter Plan of Treatment Not on file documented as of this encounter Visit Diagnoses Not on filedocumented in this encounter Additional Health Concerns Assessment Noted Time PHQ-9 Depression Total Score: 4 05/03/20 22 1:06 PM CDT documented as of this encounter Care Teams Signaling Design Engineer Relationship Specialty Start Date End Date Candelaria Booker APNP [address] [place] [address] PCP - General NURSE PRACTITIONER 08/02/19 documented as of this encounter
--- OUTSIDE RECORDS SUMMARY | 2025-03-03 08:04 | XMS_ITS | Encounter Summary ---
Author Organization [facility] Address [address] [place] [address] Care Team Providers Care Telecommunications Field Technician Name Role Phone Candelaria Booker Primary Care Provider [phone] Encounter Details Date Type Department Care Team (Late st Contact Info) Description 05/13/2022 SavedPlus Inchart Message Enc [facility] Medical Group Family & Internal Medicine [address] [place] [address] Candelaria Booker APNP [facility] [place] [address] Speech therapy Social History Tobacco Use Types [...] AM CDT Legal Sex Female 11:40 AM TWISTING FRAME FIXER Gender Identity Not on file Sexual Orientation [...] documented as of this encounter Care Teams Telecommunications Field Technician Relationship Specialty Start Date End Date Candelaria Booker APNP [address] [place] [address] PCP - General NURSE PRACTITIONER 08/02/19 documented as of this encounter
--- OUTSIDE RECORDS SUMMARY | 2025-03-03 08:04 | XMS_ITS | Encounter Summary ---
Author Organization [facility] Address [address] [place] [address] Care Team Providers Care Headend Technician Name Role Phone Candelaria Booker Primary Care Provider [phone] Encounter Details Date Type Department Care Team (Late st Contact Info) Description 05/05/2022 [employer]t Message Enc [facility] Medical Group Family & Internal Medicine [address] [place] [address] [address] Booker [address] [facility] [place] [address] Lisinopril Social History Tobacco Use Types Packs/Day [...] AM CDT Legal Sex Female 11:40 AM PIT RECORDER Gender Identity Not on file Sexual Orientation [...] documented as of this encounter Care Teams Headend Technician Relationship Specialty Start Date End Date Candelaria Booker APNP [address] [place] [address] PCP - General NURSE PRACTITIONER 08/02/19 documented as of this encounter
--- OUTSIDE RECORDS SUMMARY | 2025-03-03 08:04 | XMS_ITS | Encounter Summary ---
Author Organization [facility] Address [address] [place] [address] Care Team Providers Care Manufacturers Agent Name Role Phone Candelaria Booker Primary Care Provider [phone] Encounter Details Date Type Department Care Team (Late st Contact Info) Description 09/16/2024 RuckPackhart Message Enc [facility] Medical Group Family & Internal Medicine [address] [address] Candelaria Booker APNP [address] [place] [address] [place] eye Social History Tobacco Use Types Packs/Day [...] AM CDT Legal Sex Female 11:40 AM SPACE PLANNER Gender Identity Not on file Sexual Orientation [...] documented as of this encounter Care Teams Manufacturers Agent Relationship Specialty Start Date End Date Candelaria Booker APNP [address] [place] [address] PCP - General NURSE PRACTITIONER 08/02/19 documented as of this encounter
--- OUTSIDE RECORDS SUMMARY | 2025-03-03 08:04 | XMS_ITS | Encounter Summary ---
Author Organization [facility] Address [address] [place] [address] Care Team Providers Care Bill Of Lading Clerk Name Role Phone Candelaria Booker Primary Care Provider [phone] Encounter Details Date Type Department Care Team (Late st Contact Info) Description 06/25/2023 Chalkablet Message Enc [facility] Medical Group Family & Internal Medicine [address] [phone] Candelaria Booker APNP [address] [place] [address] Cough Social History Tobacco Use Types Packs/Day [...] AM CDT Legal Sex Female 11:40 AM COLLECTOR OF PORT Gender Identity Not on file Sexual Orientation Not on file documented as of this encounter Plan of Treatment Not on file documented as of this encounter Visit Diagnoses Not on filedocumented in this encounter Additional Health Concerns Assessment Noted Time PHQ-9 Depression Total Score: 4 05/03/20 22 1:06 PM CDT documented as of this encounter Care Teams Bill Of Lading Clerk Relationship Specialty Start Date End Date Candelaria Booker APNP [address] [place] [address] PCP - General NURSE PRACTITIONER 08/02/19 documented as of this encounter
--- OUTSIDE RECORDS SUMMARY | 2025-03-03 08:04 | XMS_ITS | Encounter Summary ---
Author Organization [facility] Address [address] [place] [address] Care Team Providers Care Profile Saw Setup Operator Name Role Phone Candelaria Booker Primary Care Provider [phone] Encounter Details Date Type Department Care Team (Late st Contact Info) Description 07/02/2022 EatingWellt Message Enc [facility] Medical Group Family & Internal Medicine [address] [address] Candelaria Booker APNP [address] [place] [address] Cholecystectomy Social History Tobacco Use Types Packs/Day [...] AM CDT Legal Sex Female 11:40 AM ELEVATOR CONDUCTOR Gender Identity Not on file Sexual Orientation Not on file documented as of this encounter Plan of Treatment Not on file documented as of this encounter Visit Diagnoses Not on filedocumented in this encounter Additional Health Concerns Assessment Noted Time PHQ-9 Depression Total Score: 4 05/03/20 22 1:06 PM CDT documented as of this encounter Care Teams Profile Saw Setup Operator Relationship Specialty Start Date End Date Candelaria Booker APNP [address] [place] [address] PCP - General NURSE PRACTITIONER 08/02/19 documented as of this encounter
--- OUTSIDE RECORDS SUMMARY | 2025-03-03 08:04 | XMS_ITS | Encounter Summary ---
Author Organization [facility] Address [address] [place] [address] Care Team Providers Care Rrt Name Role Phone Candelaria Booker Primary Care Provider [phone] Encounter Details Date Type Department Care Team (Late st Contact Info) Description 05/09/2022 AudioNamet Message Enc [facility] Medical Group Family & Internal Medicine [address] [place] [address] Candelaria Booker APNP [facility][note 2]1 [place], [place] [id number] Wegovy Social History Tobacco Use Types Packs/Day [...] AM CDT Legal Sex Female 11:40 AM FIGHTER PILOT Gender Identity Not on file Sexual Orientation [...] documented as of this encounter Care Teams Rrt Relationship Specialty Start Date End Date Candelaria Booker APNP [address] [place] [address] PCP - General NURSE PRACTITIONER 08/02/19 documented as of this encounter
--- NOTE | 2025-03-03 08:05 | EST_ITS ---
Patient Info Name: Darshana Dyer Age: 69 years : 1955 Gender: Female Ht: 66 in Wt: 224 lbs BSA: 2.22 m2 HR: 64 bpm BP: 128 / 72 mmHg Exam Date: 03/03/2025 8:05 AM Patient Status: O Admit Date: 03/03/2025 Exam Type: CA stress barbi w NM A regadenoson stress test was performed. Staff Referring Physician: Billy Frank DO Attending Provider: Billy Frank DO Exercise Technologist: Kristen Longoria Exercise Physician: Billy Frank DO Summary 1. 1. Negative lexiscan stress test for ischemic ST changes by ECG criteria. 2. 2. Stable hemodynamics throughout the test. 3. 3. Nuclear scan to follow and will be reported separately. Please correlate with it. 4. 4. Patient informed of the above results. Protocol: Lexiscan Stress ECG Details Stage: REST Duration (min): 2 min : 10 sec HR (bpm): 67 SBP (mmHg): 128 DBP (mmHg): 72 Stage: REST Duration (min): 7 min : 38 sec HR (bpm): 66 SBP (mmHg): 128 DBP (mmHg): 72 Stage: STAGE 1 Duration (min): 1 min : 0 sec HR (bpm): 77 SBP (mmHg): 129 DBP (mmHg): 83 Stage: RECOVERY Duration (min): 1 min : 0 sec HR (bpm): 95 SBP (mmHg): 129 DBP (mmHg): 83 Stage: RECOVERY Duration (min): 2 min : 0 sec HR (bpm): 92 SBP (mmHg): 129 DBP (mmHg): 83 Stage: RECOVERY Duration (min): 3 min : 0 sec HR (bpm): 88 SBP (mmHg): 125 DBP (mmHg): 75 Stage: RECOVERY Duration (min): 4 min : 0 sec HR (bpm): 87 SBP (mmHg): 125 DBP (mmHg): 75 Stage: RECOVERY Duration (min): 5 min : 0 sec HR (bpm): 81 SBP (mmHg): 128 DBP (mmHg): 74 Stage: RECOVERY Duration (min): 5 min : 10 sec HR (bpm): 84 SBP (mmHg): 128 DBP (mmHg): 74 Rest HR: 66 bpm Peak HR: 97 bpm Rest Sys BP: 128 mmHg Peak Sys BP: 129 mmHg Max Pred HR: 151 bpm % Max Pred HR: 64 % Target HR: 128 bpm Max RPP: 12,513 bpm*mmHg Termination Reason: Completed protocol Cardiac Symptoms: Shortness of breath Total Time: 1 min : 0 sec Rest Adam BP: 72 mmHg Peak Adam BP: 83 mmHg Total Dose: 0.4 mg Resting ECG Sinus rhythm. Stress ECG No ST changes. Arrhythmias None. Report Signatures
--- OUTSIDE RECORDS SUMMARY | 2025-03-03 08:05 | XMS_ITS | Encounter Summary ---
Author Organization [facility] Address [address] [place] [address] Care Team Providers Care Flame Cutting Supervisor Name Role Phone Candelaria Booker Primary Care Provider [phone] Encounter Details Date Type Department Care Team (Late st Contact Info) Description 10/04/2019 Archipelagohart Message Enc [facility] Medical Group Family & Internal Medicine [address] [phone] Candelaria Booker APNP [facility] [place] [address] RE: Follow Up/Update Social History Tobacco Use [...] AM CDT Legal Sex Female 11:40 AM HOSPITAL TELEVISION RENTAL CLERK Gender Identity Not on file Sexual Orientation Not on file documented as of this encounter Plan of Treatment Not on file documented as of this encounter Visit Diagnoses Not on filedocumented in this encounter Additional Health Concerns Infection Onset Date Last Indicated Resolved Time COVID-19 Rule Out 01/18/2020 01/21/2020 02/02/2020 7:51 AM CDT COVID-19 Rule Out 05/29/2020 05/29/2020 07/28/2020 12:33 AM HOSPITAL TELEVISION RENTAL CLERK Assessment Noted Time PHQ-9 Depression Total Score: 0 08/02/19 20 8:42 AM HOSPITAL TELEVISION RENTAL CLERK documented as of this encounter Care Teams Flame Cutting Supervisor Relationship Specialty Start Date End Date Candelaria Booker APNP [address] [place], [place] [id number] PCP - General NURSE PRACTITIONER 08/02/19 documented as of this encounter
--- OUTSIDE RECORDS SUMMARY | 2025-03-03 08:05 | XMS_ITS | Encounter Summary ---
Author Organization [facility] Address [address] [place] [address] Care Team Providers Care Service Control Operator Name Role Phone Candelaria Booker Primary Care Provider [phone] Encounter Details Date Type Department Care Team (Late st Contact Info) Description 07/10/2020 Mc4hart Message Enc [facility] Medical Group Family & Internal Medicine [facility] [address] [place] [address] Candelaria Booker APNP [address] [place] [address] RE: Question Social History Tobacco Use Types [...] AM CDT Legal Sex Female 11:40 AM HOG RAISER Gender Identity Not on file Sexual Orientation Not on file documented as of this encounter Plan of Treatment Not on file documented as of this encounter Visit Diagnoses Not on filedocumented in this encounter Additional Health Concerns Infection Onset Date Last Indicated Resolved Time COVID-19 Rule Out 05/29/2020 05/29/2020 07/28/2020 12:33 AM HOG RAISER Assessment Noted Time PHQ-9 Depression Total Score: 0 08/02/19 20 8:42 AM HOG RAISER documented as of this encounter Care Teams Service Control Operator Relationship Specialty Start Date End Date Candelaria Booker APNP [address] [place] [address] PCP - General NURSE PRACTITIONER 08/02/19 documented as of this encounter
--- OUTSIDE RECORDS SUMMARY | 2025-03-03 08:05 | XMS_ITS | Encounter Summary ---
Author Organization [facility] Address [address] [place] [address] Care Team Providers Care Batch Plant Supervisor Name Role Phone Candelaria Booker Primary Care Provider + Encounter Details Date Type Department Care Team (Late st Contact Info) Description 01/17/2022 Telephone [facility] Radiology 1 [place] [address] Amanda Wayne MD [address] [facility] [address] [place] [address] Social History Tobacco Use Types Packs/Day Years Used Date Smoking Tobacco: Never Smokeless Tobacco: Never Comments Unknown Sex and Gender Information Value Date Recorded Sex Assigned at Not on file Legal Sex Female 10:38 AM CARDIOTHORACIC SURGEON Gender Identity Not on file Sexual Orientation Not on file documented as of this encounter Plan of Treatment Not on file documented as of this encounter Visit Diagnoses Not on filedocumented in this encounter Care Teams Batch Plant Supervisor Relationship Specialty Start Date End Date Candelaria Booker PA [address] [place] [address] PCP - General Nurse Practitioner 08/26/19 documented as of this encounter
--- OUTSIDE RECORDS SUMMARY | 2025-03-03 08:05 | XMS_ITS | Encounter Summary ---
Author Organization [facility] Address [address] [place] [address] Care Team Providers Care Reinforcer Name Role Phone Cnadelaria Booker Primary Care Provider [phone] Reason for Visit * Reason Onset Date Comments Letter 05/29/2020 Encounter Details Date Type Department Care Team (Late st Contact Info) Description 05/29/2020 Telephone [facility] Medical Group Family & Internal Medicine [facility] [address] [place] [address] Candelaria Booker APNP [facility]1 [place], [place] [id number] Letter Social History Tobacco Use Types Packs/Day [...] AM CDT Legal Sex Female 11:40 AM RESIDENT CARE DIRECTOR Gender Identity Not on file Sexual Orientation Not on file COVID-19 Exposure Response Date Recorded In the last month, have you been in contact with someone who was confirmed or suspected to have Coronavirus / COVID-19? Yes 05/25/2020 12:51 PM RESIDENT CARE DIRECTOR documented as of this encounter Progress Notes [...] get it refilled since I lived in [place] but I have been having to take it daily for my knees. It works much better than Tylenol or ibuprofen. Thanks * Najma Adhikari MA - 07/24/2020 4:11 PM CST COVID anti-body testing ordered for pt and sent. BB 07/24/20 DENT CARE DIRECTOR * Najma Adhikari MA - 07/24/2020 4:10 PM CST ----- Message from JANINE Petty sent at 07/10/2020 2:19 PM RESIDENT CARE DIRECTOR ----- Regarding: FW: Question Contact: Can you order COVID ab testing for this pt. ----- Message ----- From: Tiffanie Hankins MA Sent: 07/10/2020 12:33 PM RESIDENT CARE DIRECTOR To: JANINE Petty Subject: FW: Question ----- Message ----- From: Darshana Dyer Sent: 07/10/2020 7:38 AM RESIDENT CARE DIRECTOR To: Candelaria Paz Nurse Subject: Question Last question, I promise. Is it possible for me to have covid antibody testing? My nasal swab testing in January came back negative (headache. Complete loss of taste and smell), but it would be helpful to know if I have antibodies before I sign up for a vaccination. Thanks DENT CARE DIRECTOR * Najma Adhikari MA - 07/24/2020 4:05 PM CST ----- Message from JANINE Petty sent at 07/10/2020 2:19 PM RESIDENT CARE DIRECTOR ----- Regarding: FW: Question Contact: Can you order COVID ab testing for this pt. ----- Message ----- From: Tiffanie Hankins MA Sent: 07/10/2020 12:33 PM RESIDENT CARE DIRECTOR To: JANINE Petty Subject: FW: Question ----- Message ----- From: Darshana Dyer Sent: 07/10/2020 7:38 AM RESIDENT CARE DIRECTOR To: Candelaria Paz Nurse Subject: Question Last question, I promise. Is it possible for me to have covid antibody testing? My nasal swab testing in January came back negative (headache. Complete loss of taste and smell), but it would be helpful to know if I have antibodies before I sign up for a vaccination. Thanks DENT CARE DIRECTOR * Zina Carbajal RN - 06/05/2020 4:27 PM CST Patient did go to the hospital and they did a EKG and used blood work from [facility]. They typed and crossed her. This was done at [place]. DENT CARE DIRECTOR * JANINE Petty - 06/05/2020 1:42 PM CST OK, Is pt still going to pre op at the hospital? I do not have a recent EKG on her. DENT CARE DIRECTOR * Christine Gage MA - 06/02/2020 11:26 AM CST Patient states at [facility]she asked if she needed to come in again and was told she did not. Her Surgery is scheduled as out patient on June 12 DENT CARE DIRECTOR * Zina Carbajal RN - 05/29/2020 11:15 AM CST Patient needing a new surgical clearance letter from us for Dr. Avila for knee replacement. She is [facility] patient for the outpatient knee replacement. DENT CARE DIRECTOR documented in this encounter Plan of Treatment Not on file documented as of this encounter Visit Diagnoses Diagnosis Close exposure to COVID-19 virus- Primary Unknown status of immunity to COVID-19 virus Knee pain Pain in joint, lower leg documented in this encounter Additional Health Concerns Infection Onset Date Last Indicated Resolved Time COVID-19 Rule Out 05/29/2020 05/29/2020 07/28/2020 12:33 AM RESIDENT CARE DIRECTOR Assessment Noted Time PHQ-9 Depression Total Score: 0 08/02/19 20 8:42 AM RESIDENT CARE DIRECTOR documented as of this encounter Care Teams Reinforcer Relationship Specialty Start Date End Date Candelaria Booker APNP [address] [place] [address] PCP - General NURSE PRACTITIONER 08/02/19 documented as of this encounter
--- OUTSIDE RECORDS SUMMARY | 2025-03-03 08:05 | XMS_ITS | Encounter Summary ---
Author Organization [facility] Address [address] [place] [address] Care Team Providers Care Director Part Name Role Phone Candelaria Booker Primary Care Provider [phone] Encounter Details Date Type Department Care Team (Late st Contact Info) Description 11/05/2022 [employer] Message Enc [facility] Medical Group Family & Internal Medicine [address] [address] Candelaria Booker APNP [address] [place] [address] Nystatin Social History Tobacco Use Types Packs/Day [...] AM CDT Legal Sex Female 11:40 AM HOTEL SECURITY OFFICER Gender Identity Not on file Sexual Orientation Not on file documented as of this encounter Plan of Treatment Not on file documented as of this encounter Visit Diagnoses Not on filedocumented in this encounter Additional Health Concerns Assessment Noted Time PHQ-9 Depression Total Score: 4 05/03/20 22 1:06 PM CDT documented as of this encounter Care Teams Director Part Relationship Specialty Start Date End Date Candelaria Booker APNP [address] [place] [address] PCP - General NURSE PRACTITIONER 08/02/19 documented as of this encounter
--- OUTSIDE RECORDS SUMMARY | 2025-03-03 08:05 | XMS_ITS | Encounter Summary ---
Author Organization [facility] Address [address] [place] [address] Care Team Providers Care Circuit Breaker Mechanic Name Role Phone Candelaria Booker Primary Care Provider +[phone] Encounter Details Date Type Department Care Team (Late st Contact Info) Description 07/09/2020 Synapsifyhart Message Enc [facility] Medical Group Family & Internal Medicine [facility] [address] [place] [address] Candelaria Booker APNP [address] [place] [address] RE: Question Social History Tobacco Use Types [...] AM CDT Legal Sex Female 11:40 AM SAND SLINGER OPERATOR Gender Identity Not on file Sexual Orientation Not on file documented as of this encounter Plan of Treatment Not on file documented as of this encounter Visit Diagnoses Not on filedocumented in this encounter Additional Health Concerns Infection Onset Date Last Indicated Resolved Time COVID-19 Rule Out 05/29/2020 05/29/2020 07/28/2020 12:33 AM SAND SLINGER OPERATOR Assessment Noted Time PHQ-9 Depression Total Score: 0 08/02/19 20 8:42 AM SAND SLINGER OPERATOR documented as of this encounter Care Teams Circuit Breaker Mechanic Relationship Specialty Start Date End Date Candelaria Booker APNP [address] [place] [address] PCP - General NURSE PRACTITIONER 08/02/19 documented as of this encounter
--- OUTSIDE RECORDS SUMMARY | 2025-03-03 08:05 | XMS_ITS | Encounter Summary ---
Author Organization [facility] Address [address] [place] [address] Care Team Providers Care Senior Litigation Paralegal Name Role Phone Candelaria Booker Primary Care Provider [phone] Encounter Details Date Type Department Care Team (Late st Contact Info) Description 08/04/2020 FileLifehart Message Enc [facility] Medical Group Family & Internal Medicine [address] [address] Candelaria Booker APNP [address] [place] [address] RE: Follow Up/Update Social History Tobacco Use [...] AM CDT Legal Sex Female 11:40 AM MASK DESIGNER Gender Identity Not on file Sexual Orientation Not on file COVID-19 Exposure Response Date Recorded In the last month, have you been in contact with someone who was confirmed or suspected to have Coronavirus / COVID-19? Yes 07/28/2020 10:46 AM MASK DESIGNER documented as of this encounter Plan of Treatment Not on file documented as of this encounter Visit Diagnoses Not on filedocumented in this encounter Additional Health Concerns Assessment Noted Time PHQ-9 Depression Total Score: 0 08/02/19 20 8:42 AM MASK DESIGNER documented as of this encounter Care Teams Senior Litigation Paralegal Relationship Specialty Start Date End Date Candelaria Booker APNP [address] [place] [address] PCP - General NURSE PRACTITIONER 08/02/19 documented as of this encounter
--- OUTSIDE RECORDS SUMMARY | 2025-03-03 08:05 | XMS_ITS | Encounter Summary ---
Author Organization [facility] [place] Address [address] [place] [address] Care Team Providers Care General Machinist Name Role Phone Candelaria Booker Primary Care Provider +[phone] Encounter Details Date Type Department Care Team (Late st Contact Info) Description 08/04/2020 Enzymotechart Message Enc [facility] Medical Group Family & Internal Medicine [address] [address] Candelaria Booker APNP [facility]1 [place] [address] RE: Test Results Social History Tobacco Use [...] AM CDT Legal Sex Female 11:40 AM BOTTLE LABEL INSPECTOR Gender Identity Not on file Sexual Orientation Not on file COVID-19 Exposure Response Date Recorded In the last month, have you been in contact with someone who was confirmed or suspected to have Coronavirus / COVID-19? Yes 07/28/2020 10:46 AM BOTTLE LABEL INSPECTOR documented as of this encounter Plan of Treatment Not on file documented as of this encounter Visit Diagnoses Not on filedocumented in this encounter Additional Health Concerns Assessment Noted Time PHQ-9 Depression Total Score: 0 08/02/19 20 8:42 AM BOTTLE LABEL INSPECTOR documented as of this encounter Care Teams General Machinist Relationship Specialty Start Date End Date Candelaria Booker APNP [address] [place] [address] PCP - General NURSE PRACTITIONER 08/02/19 documented as of this encounter
--- OUTSIDE RECORDS SUMMARY | 2025-03-03 08:05 | XMS_ITS | Encounter Summary ---
Author Organization [facility] Address [address] [place] [address] Care Team Providers Care Insurance And Financial Services Agent Name Role Phone Candelaria Booker Primary Care Provider [phone] Encounter Details Date Type Department Care Team (Late st Contact Info) Description 09/16/2022 Biomass CHPhart Message Enc [facility] Medical Group Family & Internal Medicine [address] [place] [address] Candelaria Booker APNP [facility] [place] [address] Covid Social History Tobacco Use Types Packs/Day [...] AM CDT Legal Sex Female 11:40 AM AERIAL GUNNER SUPERINTENDENT Gender Identity Not on file Sexual Orientation Not on file COVID-19 Exposure Response Date Recorded In the last 10 days, have yo u been in contact with someone who was confirmed or suspected to have Coronavirus/COVID-19? No / Unsure 09/02/2022 2:55 PM AERIAL GUNNER SUPERINTENDENT documented as of this encounter Plan of Treatment Not on file documented as of this encounter Visit Diagnoses Not on filedocumented in this encounter Additional Health Concerns Assessment Noted Time PHQ-9 Depression Total Score: 4 05/03/20 22 1:06 PM CDT documented as of this encounter Care Teams Insurance And Financial Services Agent Relationship Specialty Start Date End Date Candelaria Booker APNP [address] [place] [address] PCP - General NURSE PRACTITIONER 08/02/19 documented as of this encounter
--- OUTSIDE RECORDS SUMMARY | 2025-03-03 08:05 | XMS_ITS | Encounter Summary ---
Author Organization [facility] Address [address] [place] [address] Care Team Providers Care Patient Insurance Clerk Name Role Phone Candelaria Booker Primary Care Provider [phone] Encounter Details Date Type Department Care Team (Late st Contact Info) Description 11/16/2022 MineSense Technologiest Message Enc [facility] Medical Group Family & Internal Medicine [address] [place] [address] Candelaria Booker APNP [facility] [place] [address] Hctz Social History Tobacco Use Types Packs/Day [...] AM CDT Legal Sex Female 11:40 AM DERMATOLOGY NURSE PRACTITIONER Gender Identity Not on file Sexual Orientation [...] documented as of this encounter Care Teams Patient Insurance Clerk Relationship Specialty Start Date End Date Candelaria Booker APNP [address] [place] [address] PCP - General NURSE PRACTITIONER 08/02/19 documented as of this encounter
--- OUTSIDE RECORDS SUMMARY | 2025-03-03 08:05 | XMS_ITS | Encounter Summary ---
Author Organization [facility] Address [address] [place] [address] Care Team Providers Care Glass Laminating Operator Name Role Phone Candelaria Booker Primary Care Provider [phone] Encounter Details Date Type Department Care Team (Late st Contact Info) Description 02/06/2021 BALALIKEAhart Message Enc [facility] Medical Group Family & Internal Medicine [address] [address] Candelaria Booker APNP [facility] [place] [address] RE: Medication Questions Social History Tobacco Use [...] AM CDT Legal Sex Female 11:40 AM CLIENT DELIVERY SPECIALIST Gender Identity Not on file Sexual [...] documented as of this encounter Care Teams Glass Laminating Operator Relationship Specialty Start Date End Date Candelaria Booker APNP [address] [place] [address] PCP - General NURSE PRACTITIONER 08/02/19 documented as of this encounter
--- OUTSIDE RECORDS SUMMARY | 2025-03-03 08:05 | XMS_ITS | Encounter Summary ---
Author Organization [facility] Address [address] [place] [address] Care Team Providers Care Shed Boss Name Role Phone Candelaria Booker Primary Care Provider [phone] Reason for Visit * Reason Onset Date Comments Cough 09/27/2019 constant cough, constant tickle in her chest. cough and cold for two weeks. Encounter Details Date Type Department Care Team (Late st Contact Info) Description 09/27/2019 VetCentrict Message Enc [facility] Medical Group Family & Internal Medicine [facility] [address] [place] [address] Candelaria Booker APNP [address] [place] [address] RE: Other Social History Tobacco [...] CDT Legal Sex Female 11:40 AM COMMUNICATIONS EQUIPMENT INSTALLER Gender Identity Not on file Sexual Orientation Not on file documented as of this encounter Progress Notes * Mikhail Beltrán RN - 09/28/2019 9:06 AM CDT RN triaged respirators symptoms 2 week history of cough and cold. Afebrile. Tickle in her chest when she tries to take a deep breath. Head congestion- clear, post nasal drainage. 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 Constant tickle and cough. Taking medication as often as can take it. Coughing non stop on the phone. Sending to [facility] for evaluation. Pt instructions: Push [...] Rule Out 05/29/2020 05/29/2020 07/28/2020 12:33 AM COMMUNICATIONS EQUIPMENT INSTALLER Assessment Noted Time PHQ-9 Depression Total Score: 0 08/02/19 20 8:42 AM COMMUNICATIONS EQUIPMENT INSTALLER documented as of this encounter Care Teams Shed Boss Relationship Specialty Start Date End Date Candelaria Booker APNP [address] [place] [address] PCP - General NURSE PRACTITIONER 08/02/19 documented as of this encounter
--- OUTSIDE RECORDS SUMMARY | 2025-03-03 08:05 | XMS_ITS | Encounter Summary ---
Author Organization [facility] Address [address] [place] [address] Care Team Providers Care Licensed Embalmer Name Role Phone Candelaria Booker Primary Care Provider [phone] Encounter Details Date Type Department Care Team (Late st Contact Info) Description 08/27/2022 Solst Message Enc [facility] Medical Group Family & Internal Medicine [address] [address] Candelaria Booker APNP [address] [place] [address] Lab results Social History Tobacco Use Types [...] AM CDT Legal Sex Female 11:40 AM TRANSPORT CONDUCTOR Gender Identity Not on file Sexual Orientation Not on file documented as of this encounter Plan of Treatment Not on file documented as of this encounter Visit Diagnoses Not on filedocumented in this encounter Additional Health Concerns Assessment Noted Time PHQ-9 Depression Total Score: 4 05/03/20 22 1:06 PM CDT documented as of this encounter Care Teams Licensed Embalmer Relationship Specialty Start Date End Date Candelaria Booker APNP [address] [place] [address] PCP - General NURSE PRACTITIONER 08/02/19 documented as of this encounter
== END 2025-03-03 08:01 | disposition home or self-care (01) ==
PROVIDERS: PCP Registered Nurse; Visit Provider Internal Medicine Cardiovascular Disease
DX: Z01.810 Encounter for preprocedural cardiovascular examination (principal)
CPT/HCPCS: 78452; 93017; A9502; J2785

== ENCOUNTER 2025-03-05 11:09 | Inpatient (IN) | payer MEDICARE, SELFPAY ==
--- NOTE | ~2025-03-05 | XR_ITS ---
XR abdomen gastric tube rechec INDICATION: Evaluate NG tube position. TECHNIQUE: Limited KUB perform for evaluating NG tube . COMPARISON: No prior studies for comparison. FINDINGS: NG tube tip in the stomach. Visualized bowel gas pattern is unremarkable.There are cholecystectomy clips. IMPRESSION: 1: NG tube tip in the stomach. Reviewed, dictated and finalized at location O.
--- NOTE | ~2025-03-05 | XR_ITS ---
XR abdomen gastric tube insert INDICATION: Evaluate NG tube position. TECHNIQUE: Limited KUB perform for evaluating NG tube . COMPARISON: No prior studies for comparison. FINDINGS: NG tube tip in the stomach. There are dilated small bowel loops in the left upper abdomen, consistent with obstruction. There are cholecystectomy clips.. IMPRESSION: 1: NG tube tip in the stomach. 2: Partially visualized bowel gas is consistent with small bowel obstruction. Reviewed, dictated and finalized at location O.
--- NOTE | ~2025-03-05 | CT_ITS ---
EXAMINATION: CT abdomen pelvis w con, 03/05/2025 13:04 CDT HISTORY: LLQ pain COMPARISON: No comparisons available. TECHNIQUE: CT scan of the abdomen and pelvis was performed with contrast. Isovue 300, 92cc injected IV. One or more of the following dose reduction techniques were used: automated exposure control, adjustment of the mA and/or kV according to patient size, use of iterative reconstruction technique. Unless otherwise stated, incidental findings do not require dedicated follow up imaging FINDINGS: CT abdomen: LUNG BASES: The lung bases are clear. The visualized portions of the heart and pericardium are unremarkable. LIVER: The main portal vein is patent. There is no intrahepatic biliary duct dilatation. SPLEEN: Unremarkable, no splenomegaly. KIDNEYS: Right Kidney: Subcentimeter probable right renal cysts. Left Kidney: Unremarkable. No calculi. No hydronephrosis ADRENAL GLANDS: Unremarkable. PANCREAS: Unremarkable. GALLBLADDER/BILIARY: Post cholecystectomy. STOMACH AND ESOPHAGUS: Small hiatal hernia. Hyperemia noted of the distal esophagus may relate to underlying esophagitis. BOWEL/MESENTERY: Moderate fecal content. Postsurgical changes sigmoid colon. Moderate diverticulosis, no colitis or diverticulitis. Post appendectomy. There are multiple dilated loops of small bowel the largest measuring 4 cm with decompressed small bowel loops in the pelvis. Mesentery appears normal. ADENOPATHY/RETROPERITONEUM: No lymphadenopathy. AORTA/VASCULATURE: Normal caliber aorta. FREE FLUID OR FREE AIR: Small amount of free fluid.. CT pelvis: SOLID ORGANS/REPRODUCTIVE: Posthysterectomy. No adnexal mass. BLADDER: Within normal limits. OSSEOUS STRUCTURES: No acute osseous abnormality.No suspicious lesions. OVERLYING SOFT TISSUES: Unremarkable. IMPRESSION: 1. Small bowel obstruction with transition point detailed above Reviewed, dictated and finalized at location A.
--- NOTE | ~2025-03-05 | XR_ITS ---
EXAMINATION: XR sm bowel follow through WS DATE: 03/08/2025 09:07 INDICATION: Follow-up small bowel obstruction TECHNIQUE: Seat Nailer radiograph(s) of the abdomen was/were obtained. Oral contrast was administered, and sequential radiographs of the abdomen were obtained until oral contrast was noted to be in the proximal colon. COMPARISON: CT dated 03/05/2025 FINDINGS: Seat Nailer image demonstrates nasogastric tube tip in proximal side port in the body the stomach. Cholecystectomy clips in the right upper quadrant. No dilated loops of gas-filled bowel to suggest obstruction. Transit time from the stomach to proximal colon was approximately 30 to 45 minutes. There is normal caliber and mucosal fold pattern throughout the small bowel. IMPRESSION: 1. Normal small bowel follow-through. Reviewed, dictated and finalized at location A.
--- NOTE | ~2025-03-05 | XR_ITS ---
EXAMINATION: XR abdomen/kub 1V DATE: 03/08/2025 05:27 INDICATION: Small bowel obstruction TECHNIQUE: A supine view of the abdomen on 2 radiographs was obtained. COMPARISON: 03/07/2025 FINDINGS: His gastric tube tip in proximal side port in the body the stomach. Small amount of gas and a moderate amount of stool scattered throughout the colon. No dilated gas-filled loops of small bowel to suggest obstruction. Cholecystectomy clips in the right upper quadrant. Additional surgical clips in right pelvis more likely related to prior appendectomy. Lung bases are clear. Heart size is normal. IMPRESSION: 1. Normal bowel gas pattern. Reviewed, dictated and finalized at location A.
--- NOTE | ~2025-03-05 | XR_ITS ---
EXAMINATION: XR abdomen/kub 1V DATE: 03/09/2025 04:13 INDICATION: Small bowel obstruction TECHNIQUE: A supine view of the abdomen on 2 radiographs was obtained. COMPARISON: 03/08/2025 FINDINGS: Cholecystectomy clips in right upper quadrant. Additional surgical clips in the right lower quadrant along the cecum suggesting prior appendectomy. There is small amount of residual oral contrast material scattered throughout the normal- appearing colon. No dilated loops of gas-filled to suggest obstruction. Subtle masslike suture line in the region of the sigmoid colon. IMPRESSION: 1. Small amount residual oral contrast material in the colon with no dilated bowel to suggest obstruction. Reviewed, dictated and finalized at location A. IMPRESSION: 1. Small amount residual oral contrast material in the colon with no dilated jaime wel to suggest obstruction.
--- NOTE | ~2025-03-05 | XR_ITS ---
EXAMINATION: XR abdomen/kub 1V DATE: 03/07/2025 05:48 INDICATION: Small bowel obstruction TECHNIQUE: A supine view of the abdomen on 2 radiographs was obtained. COMPARISON: CT and radiographs dated 03/05/2025 FINDINGS: Nasogastric tube tip in proximal side port in the body the stomach. Small amount of gas and moderate amount of stool scattered throughout the colon. There is a residual single short segment of mildly dilated gas-filled small bowel in the left abdomen. Cholecystectomy clips in right upper quadrant. Surgical clips in the right hemipelvis likely related to prior appendectomy. Lung bases are clear. Heart size is normal. . IMPRESSION: 1. Single short segment of residual mildly dilated small bowel in the left abdomen consistent with improving small bowel obstruction. Reviewed, dictated and finalized at location A. IMPRESSION: 1. Single short segment of residual mildly dilated small bowel in the left abdo men consistent with improving small bowel obstruction.
--- OUTSIDE RECORDS SUMMARY | 2025-03-05 11:11 | XMS_ITS | Encounter Summary ---
Author Organization [facility] Address [address] [place] [address] Care Team Providers Care Custodian Athletic Equipment Name Role Phone Candelaria Booker Primary Care Provider [phone] Encounter Details Date Type Department Care Team (Late st Contact Info) Description 05/13/2022 Demand Energy Networkshart Message Enc [facility] Medical Group Family & Internal Medicine [address] [place] [address] Candelaria Booker APNP [facility] [place] [address] Speech therapy Social History Tobacco Use Types [...] AM CDT Legal Sex Female 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
--- OUTSIDE RECORDS SUMMARY | 2025-03-05 11:11 | XMS_ITS | Encounter Summary ---
Author Organization [facility] Address [address] [place] [address] Care Team Providers Care Home Inspector Name Role Phone Canedlaria Booker Primary Care Provider [phone] Encounter Details Date Type Department Care Team (Late st Contact Info) Description 06/11/2022 Silicon [employer]igator [employer]t Message Enc [facility] Medical Group Family & Internal Medicine [address] [address] Candelaria Booker APNP [address] [place] [address] Abdominal pain Social History Tobacco Use Types [...] AM CDT Legal Sex Female 11:40 AM VULNERABILITY 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
--- OUTSIDE RECORDS SUMMARY | 2025-03-05 11:11 | XMS_ITS | Encounter Summary ---
Author Organization [facility] Address [address] [place] [address] Care Team Providers Care Telecommunications Operator Name Role Phone Candelaria Booker Primary Care Provider [phone] Encounter Details Date Type Department Care Team (Late st Contact Info) Description 05/09/2022 Varaani Workst Message Enc [facility] Medical Group Family & Internal Medicine [address] [place] [address] Candelaria Booker APNP [facility] [place], [place] [id number] Wegovy Social History Tobacco Use Types Packs/Day [...] AM CDT Legal Sex Female 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
--- OUTSIDE RECORDS SUMMARY | 2025-03-05 11:11 | XMS_ITS | Encounter Summary ---
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
--- OUTSIDE RECORDS SUMMARY | 2025-03-05 11:11 | XMS_ITS | Encounter Summary ---
Author Organization [facility] Address [address] [place] [address] Care Team Providers Care Drug Regulatory Affairs Specialist Name Role Phone Candelaria Booker Primary Care Provider [phone] Encounter Details Date Type Department Care Team (Late st Contact Info) Description 05/02/2022 Eco-Sitet Message Enc [facility] Medical Group Family & Internal Medicine [address] [place] [phone] Candelaria Booker APNP [facility] [place], [place] [id number] ENT notes Social History Tobacco Use Types [...] AM CDT Legal Sex Female 11:40 AM PILLOWCASE 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
--- OUTSIDE RECORDS SUMMARY | 2025-03-05 11:11 | XMS_ITS | Encounter Summary ---
Author Organization [facility] Address [address] [place] [address] Care Team Providers Care Cow Trimmer Name Role Phone Candelaria Booker Primary Care Provider [phone] Encounter Details Date Type Department Care Team (Late st Contact Info) Description 05/05/2022 Orbit Minder [employer]t Message Enc [facility] Medical Group Family & Internal Medicine [address] [place] [address] Candelaria Booker APNP [facility] [place], [place] [id number] Lisinopril Social History Tobacco Use Types Packs/Day [...] AM CDT Legal Sex Female 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
--- OUTSIDE RECORDS SUMMARY | 2025-03-05 11:12 | XMS_ITS | Encounter Summary ---
Author Organization [facility] Address [address] [place] [address] Care Team Providers Care Dumper Central Concrete Mixing Plant Name Role Phone Candelaria Booker Primary Care Provider [phone] Encounter Details Date Type Department Care Team (Late st Contact Info) Description 08/05/2024 World Business Lendershart Message Enc [facility] Medical Group Family & Internal Medicine [address] [address] Candelaria Booker APNP [facility] [place] [address] Tendonitis Social History Tobacco Use Types Packs/Day [...] AM CDT Legal Sex Female 11:40 AM 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
--- OUTSIDE RECORDS SUMMARY | 2025-03-05 11:12 | XMS_ITS | Encounter Summary ---
Author Organization [facility] Address [address] [place] [address] Care Team Providers Care Nat Instructor Name Role Phone Candelaria Booker Primary Care Provider [phone] Encounter Details Date Type Department Care Team (Late st Contact Info) Description 10/23/2021 CareOnet Message Enc [facility] Medical Group Family & Internal Medicine [address] [address] Candelaria Booker APNP 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
--- OUTSIDE RECORDS SUMMARY | 2025-03-05 11:12 | XMS_ITS | Encounter Summary ---
Author Organization [facility] Address [address] [place] [address] Care Team Providers Care Social Media Marketer Name Role Phone Candelaria Booker Primary Care Provider [phone] Encounter Details Date Type Department Care Team (Late st Contact Info) Description 02/06/2021 Wide Limited Release Film Distribution Fundhart Message Enc [facility] Medical Group Family & Internal Medicine [address] [address] Candelaria Booker APNP [facility] [place] [place] [place] [address] RE: Medication Questions Social History Tobacco Use [...] AM CDT Legal Sex Female 11: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
--- OUTSIDE RECORDS SUMMARY | 2025-03-05 11:12 | XMS_ITS | Encounter Summary ---
Author Organization [facility] Address [address] [place] [address] Care Team Providers Care Piano Maker Name Role Phone Candelaria Booker Primary Care Provider [phone] Encounter Details Date Type Department Care Team (Late st Contact Info) Description 02/25/2021 MemSQLhart Message Enc [facility] Medical Group Family & Internal Medicine [address] [address] [address] [facility] [place] [address] Medication Questions Social History Tobacco Use Types [...] AM CDT Legal Sex Female 11:40 AM DIRECTOR LABOR STANDARDS Gender Identity Not on file Sexual Orientation [...] documented as of this encounter Care Teams Piano Maker Relationship Specialty Start Date End Date Candelaria Booker APNP [address] [place] [address] PCP - General NURSE PRACTITIONER 08/02/19 documented as of this encounter
--- OUTSIDE RECORDS SUMMARY | 2025-03-05 11:12 | XMS_ITS | Encounter Summary ---
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
--- OUTSIDE RECORDS SUMMARY | 2025-03-05 11:12 | XMS_ITS | Clinical Summary ---
Author Organization [facility] Address [address] [place] [address] Care Team Providers Care Solutions Executive Cloud Sales Name Role Phone Rufino Weems JANINE Primary [...] MORNING 90 tablet 025 Active nystatin (MYCOSTATIN) 537152 UNIT/ML suspensionIndicat ions:Thrush Take 2 mLs (200,000 [...] deficiency 08/05/2019 Diverticulosis 08/05/2019 MS (multiple sclerosis) ([facility]) 2019 Hypertension 08/02/2019 PTSD (post-traumatic stress disorder) 08/02/2019 Encounters Date Type Department Care Team Description 02/16/2025 Scan [facility] HEALTH INFO SRVCS Scanned, Doc Med Group 01/18/2025 11:00 AM CDT Telemedicine [address] [address] Rufino Weems APNP Thrush (Pt recently completed course of doxycycline and is now suffering thrush. She reports the roof of her mouth is raw and painful, and her tongue is fuzzy. She is requesting a refill of Nystatin oral suspension she has previously been prescribed. ) 01/18/2025 Travel 01/03/2025 Scan HEALTH INFO SRVCS Scanned, Doc Med Group 12/30/[address] [address] Rufino Weems APNP Information 12/29/2024 Scan HEALTH INFO SRVCS Scanned, Doc Med Group 12/10/2024 Scan HEALTH INFO SRVCS Scanned, Doc Med Group 12/08/2024 MyChart Message Enc [address] [address] Rufino Weems APNP Labs 12/03/[address] [address] Rufino Weems APNP Surgical Clearance [...] AM CDT Legal Sex Female 11:40 AM PLANT CONTROL AIDE Gender Identity Not on file Sexual Orientation [...] season) 2024 03/08/2021, 08/01/2020, 07/11/2020 PHQ-2 (Physician [place]) 07/07/2024 09/24/2023 Mammogram Screening 09/02/2024 09/02/2022, 05/25/2020 [...] ARBEN BASSAM DIGI Routine 09/02/2022 3:43 PM PLANT CONTROL AIDE Encounter for screening mammogram for malignant neoplasm of breast from Last 3 Months or Most Recently Relevant to Health Maintenance Results * MG SCREENING W ARBEN BASSAM DIGI (09/02/2022 3:43 PM PLANT CONTROL AIDE) Anatomical Region Laterality Modality Breast Bilateral Mammography 09/03/2022 7:02 AM PLANT CONTROL AIDE Narrative 09/03/2022 7:03 AM PLANT CONTROL AIDE Examination: Screening bilateral mammogram Exam Date/Time: 09/02/2022 [...] Recently Relevant to Health Maintenance Insurance MEDICARE [facility] Care Teams Solutions Executive Cloud Sales Relationship Specialty Start Date End Date Rufino Weems APNP [address] [place] [address] PCP - General NURSE PRACTITIONER 08/02/19
--- OUTSIDE RECORDS SUMMARY | 2025-03-05 11:12 | XMS_ITS | Encounter Summary ---
Author Organization [facility] Address [address] [place] [address] Care Team Providers Care J2Ee Developer Name Role Phone Candelaria Booker Primary Care Provider [phone] Encounter Details Date Type Department Care Team (Late st Contact Info) Description 09/20/2021 Weilver Network Technology ([employer])hart Message Enc [facility] Medical Group Family & Internal Medicine [place] [id number] [place] [address] Candelaria Booker [address] [facility] [place], [place] [id number] Covid vaccine Social History Tobacco Use Types [...] AM CDT Legal Sex Female 11:40 AM JEWELRY COATER Gender Identity Not on file Sexual Orientation Not on file COVID-19 Exposure Response Date Recorded In the last 10 days, have yo u been in contact with someone who was confirmed or suspected to have Coronavirus/COVID-19? No / Unsure 08/31/2021 9:54 AM JEWELRY COATER documented as of this encounter Plan of Treatment Not on file documented as of this encounter Visit Diagnoses Not on filedocumented in this encounter Additional Health Concerns Assessment Noted Time PHQ-9 Depression Total Score: 0 10/10/19 21 10:28 AM CDT documented as of this encounter Care Teams J2Ee Developer Relationship Specialty Start Date End Date Candelaria Booker APNP [address] [place] [address] PCP - General NURSE PRACTITIONER 08/02/19 documented as of this encounter
--- OUTSIDE RECORDS SUMMARY | 2025-03-05 11:12 | XMS_ITS | Encounter Summary ---
Author Organization [facility] Address [address] [place] [address] Care Team Providers Care Electrocardiograph Operator Name Role Phone Candelaria Booker Primary Care Provider [phone] Encounter Details Date Type Department Care Team (Late st Contact Info) Description 11/05/2022 Freedom Farmst Message Enc [facility] Medical Group Family & Internal Medicine [address] [address] Candelaria Booker APNP [address] [place] [address] Nystatin Social History Tobacco Use Types Packs/Day [...] AM CDT Legal Sex Female 11:40 AM TOILET ATTENDANT Gender Identity Not on file Sexual Orientation Not on file documented as of this encounter Plan of Treatment Not on file documented as of this encounter Visit Diagnoses Not on filedocumented in this encounter Additional Health Concerns Assessment Noted Time PHQ-9 Depression Total Score: 4 05/03/20 22 1:06 PM CDT documented as of this encounter Care Teams Electrocardiograph Operator Relationship Specialty Start Date End Date Candelaria Booker APNP [address] [place] [address] PCP - General NURSE PRACTITIONER 08/02/19 documented as of this encounter
--- OUTSIDE RECORDS SUMMARY | 2025-03-05 11:12 | XMS_ITS | Encounter Summary ---
Author Organization [facility] Address [address] [place] [address] Care Team Providers Care Senior Health Educator Name Role Phone Candelaria Booker Primary Care Provider [phone] Encounter Details Date Type Department Care Team (Late st Contact Info) Description 06/25/2023 Whiteyboardt Message Enc [facility] Medical Group Family & Internal Medicine [address] [address] Candelaria Booker APNP [address] [place] [address] Cough Social History Tobacco Use Types Packs/Day [...] AM CDT Legal Sex Female 11:40 AM RURAL ROUTE CARRIER Gender Identity Not on file Sexual Orientation Not on file documented as of this encounter Plan of Treatment Not on file documented as of this encounter Visit Diagnoses Not on filedocumented in this encounter Additional Health Concerns Assessment Noted Time PHQ-9 Depression Total Score: 4 05/03/20 22 1:06 PM CDT documented as of this encounter Care Teams Senior Health Educator Relationship Specialty Start Date End Date Candelaria Booker APNP [address] [place] [address] PCP - General NURSE PRACTITIONER 08/02/19 documented as of this encounter
--- OUTSIDE RECORDS SUMMARY | 2025-03-05 11:12 | XMS_ITS | Encounter Summary ---
Author Organization [facility] Address [address] [place] [address] Care Team Providers Care Field Administrator Name Role Phone Candelaria Booker Primary Care Provider [phone] Encounter Details Date Type Department Care Team (Late st Contact Info) Description 06/18/[address] [facility] Medical Group Family & Internal Medicine [address] [address] Candelaria Booker APNP [address] [place] [address] Kacey goldberg Social History Tobacco Use Types [...] CDT Legal Sex Female 11:40 AM MIRROR FINISHING MACHINE OPERATOR Gender Identity Not on file Sexual Orientation Not on file documented as of this encounter Plan of Treatment Not on file documented as of this encounter Visit Diagnoses Not on filedocumented in this encounter Additional Health Concerns Assessment Noted Time PHQ-9 Depression Total Score: 4 05/03/20 22 1:06 PM CDT documented as of this encounter Care Teams Field Administrator Relationship Specialty Start Date End Date Candelaria Booker APNP [address] [place] [address] PCP - General NURSE PRACTITIONER 08/02/19 documented as of this encounter
--- OUTSIDE RECORDS SUMMARY | 2025-03-05 11:12 | XMS_ITS | Encounter Summary ---
Author Organization [facility] Address [address] [place] [address] Care Team Providers Care Youth Services Librarian Name Role Phone Candelaria Booker Primary Care Provider [phone] Encounter Details Date Type Department Care Team (Late st Contact Info) Description 01/16/2023 Use It Bettert Message Enc [facility] Medical Group Family & Internal Medicine [address] [phone] Candelaria Booker APNP [facility] [place] [address] Correction to telephone note Social History Tobacco [...] AM CDT Legal Sex Female 11:40 AM SCOW DERRICK OPERATOR Gender Identity Not on file Sexual Orientation Not on file documented as of this encounter Plan of Treatment Not on file documented as of this encounter Visit Diagnoses Not on filedocumented in this encounter Additional Health Concerns Assessment Noted Time PHQ-9 Depression Total Score: 4 05/03/20 22 1:06 PM CDT documented as of this encounter Care Teams Youth Services Librarian Relationship Specialty Start Date End Date Candelaria Booker APNP [address] [place] [address] PCP - General NURSE PRACTITIONER 08/02/19 documented as of this encounter
--- OUTSIDE RECORDS SUMMARY | 2025-03-05 11:12 | XMS_ITS | Encounter Summary ---
Author Organization [facility] Address [address] [place] [address] Care Team Providers Care Prison Guard Name Role Phone Candelaria Booker Primary Care Provider +[phone] Encounter Details Date Type Department Care Team (Late st Contact Info) Description 07/09/2020 Woqu.comhart Message Enc [facility] Medical Group Family & Internal Medicine [facility] [address] [place] [address] Candelaria Booker APNP [address] [place] [address] RE: Question Social History Tobacco Use Types [...] AM CDT Legal Sex Female 11:40 AM MEDICAL OFFICE TECHNOLOGY INSTRUCTOR Gender Identity Not on file Sexual Orientation Not on file documented as of this encounter Plan of Treatment Not on file documented as of this encounter Visit Diagnoses Not on filedocumented in this encounter Additional Health Concerns Infection Onset Date Last Indicated Resolved Time COVID-19 Rule Out 05/29/2020 05/29/2020 07/28/2020 12:33 AM MEDICAL OFFICE TECHNOLOGY INSTRUCTOR Assessment Noted Time PHQ-9 Depression Total Score: 0 08/02/19 20 8:42 AM MEDICAL OFFICE TECHNOLOGY INSTRUCTOR documented as of this encounter Care Teams Prison Guard Relationship Specialty Start Date End Date Candelaria Booker APNP [address] [place] [address] PCP - General NURSE PRACTITIONER 08/02/19 documented as of this encounter
--- OUTSIDE RECORDS SUMMARY | 2025-03-05 11:12 | XMS_ITS | Encounter Summary ---
Author Organization [facility] Address [address] [place] [address] Care Team Providers Care Compatibility Test Engineer Name Role Phone Candelaria Booker Primary Care Provider [phone] Encounter Details Date Type Department Care Team (Late st Contact Info) Description 09/16/2024 PT Global Tiket Networkhart Message Enc [facility] Medical Group Family & Internal Medicine [address] [address] Candelaria Booker APNP [address] [place] [address] Plato eye Social History Tobacco Use Types Packs/Day [...] AM CDT Legal Sex Female 11:40 AM TON CYLINDER INSPECTOR Gender Identity Not on file Sexual [...] documented as of this encounter Care Teams Compatibility Test Engineer Relationship Specialty Start Date End Date Candelaria Booker APNP [address] [place] [address] PCP - General NURSE PRACTITIONER 08/02/19 documented as of this encounter
--- OUTSIDE RECORDS SUMMARY | 2025-03-05 11:12 | XMS_ITS | Encounter Summary ---
Author Organization [facility] Address [address] [place] [address] Care Team Providers Care Local Operator Name Role Phone Candelaria Booker Primary Care Provider [phone] Encounter Details Date Type Department Care Team (Late st Contact Info) Description 08/27/2022 Contentment Ltdt Message Enc [facility] Medical Group Family & Internal Medicine [address] [phone] Candelaria Booker APNP [address] [place] [address] Lab results Social History Tobacco Use Types [...] AM CDT Legal Sex Female 11:40 AM TRANSFER KNITTER Gender Identity Not on file Sexual Orientation Not on file documented as of this encounter Plan of Treatment Not on file documented as of this encounter Visit Diagnoses Not on filedocumented in this encounter Additional Health Concerns Assessment Noted Time PHQ-9 Depression Total Score: 4 05/03/20 22 1:06 PM CDT documented as of this encounter Care Teams Local Operator Relationship Specialty Start Date End Date Candelaria Booker APNP [address] [place] [address] PCP - General NURSE PRACTITIONER 08/02/19 documented as of this encounter
--- OUTSIDE RECORDS SUMMARY | 2025-03-05 11:12 | XMS_ITS | Encounter Summary ---
Author Organization [facility] Address [address] [place] [address] Care Team Providers Care Ski Production Supervisor Name Role Phone Candelaria Booker Primary Care Provider [phone] Encounter Details Date Type Department Care Team (Late st Contact Info) Description 06/07/2021 Framebenchhart Message Enc [facility] Medical Group Family & Internal Medicine [address] [address] Candelaria Booker APNP [facility] [place] [address] Labs Social History Tobacco Use Types Packs/Day [...] AM CDT Legal Sex Female 11:40 AM PILLOW FILLER Gender Identity Not on file Sexual Orientation Not on file COVID-19 Exposure Response Date Recorded In the last month, have you been in contact with someone who was confirmed or suspected to have Coronavirus / COVID-19? No / Unsure 06/07/2021 8:17 AM PILLOW FILLER documented as of this encounter Plan of Treatment Not on file documented as of this encounter Visit Diagnoses Not on filedocumented in this encounter Additional Health Concerns Assessment Noted Time PHQ-9 Depression Total Score: 0 10/10/19 21 10:28 AM CDT documented as of this encounter Care Teams Ski Production Supervisor Relationship Specialty Start Date End Date Candelaria Booker APNP [address] [place] [address] PCP - General NURSE PRACTITIONER 08/02/19 documented as of this encounter
--- OUTSIDE RECORDS SUMMARY | 2025-03-05 11:12 | XMS_ITS | Encounter Summary ---
Author Organization [facility] Address [address] [place] [address] Care Team Providers Care Sap Bods Developer Name Role Phone Candelaria Booker Primary Care Provider [phone] Encounter Details Date Type Department Care Team (Late st Contact Info) Description 04/30/2021 Brand Affinity Technologiest Message Enc [facility] Medical Group Family & Internal Medicine [address] [phone] Candelaria Booker APNP [address] [place] [address] Medication Questions Social History Tobacco Use Types [...] AM CDT Legal Sex Female 11:40 AM KILN STOKER Gender Identity Not on file Sexual Orientation Not on file documented as of this encounter Plan of Treatment Not on file documented as of this encounter Visit Diagnoses Not on filedocumented in this encounter Additional Health Concerns Assessment Noted Time PHQ-9 Depression Total Score: 0 10/10/19 21 10:28 AM CDT documented as of this encounter Care Teams Sap Bods Developer Relationship Specialty Start Date End Date Candelaria Booker APNP [address] [place] [address] PCP - General NURSE PRACTITIONER 08/02/19 documented as of this encounter
--- OUTSIDE RECORDS SUMMARY | 2025-03-05 11:12 | XMS_ITS | Encounter Summary ---
Author Organization [facility] Address [address] [place] [address] Care Team Providers Care Housekeeper/Laundry Assistant Name Role Phone Candelaria Booker Primary Care Provider [phone] Reason for Visit * Reason Onset Date Comments Letter 05/29/2020 Encounter Details Date Type Department Care Team (Late st Contact Info) Description 05/29/2020 Telephone [facility] Medical Group Family & Internal Medicine [facility] [address] [place] [address] Candelaria Booker APNP [facility] [place], [place] [id number] Letter Social History Tobacco Use Types Packs/Day [...] AM CDT Legal Sex Female 11:40 AM FUNERAL DIRECTOR Gender Identity Not on file Sexual Orientation Not on file COVID-19 Exposure Response Date Recorded In the last month, have you been in contact with someone who was confirmed or suspected to have Coronavirus / COVID-19? Yes 05/25/2020 12:51 PM FUNERAL DIRECTOR documented as of this encounter Progress [...] ordered for pt and sent. BB 07/24/20 RAL DIRECTOR * Najma Adhikari MA - 07/24/2020 4:10 PM CST ----- Message from JANINE Petty sent at 07/10/2020 2:19 PM FUNERAL DIRECTOR ----- Regarding: FW: Question Contact: Can you order COVID ab testing for this pt. ----- Message ----- From: Tifafnie Hankins MA Sent: 07/10/2020 12:33 PM FUNERAL DIRECTOR To: JANINE Petty Subject: FW: Question ----- Message ----- From: Darshana Dyer Sent: 07/10/2020 7:38 AM FUNERAL DIRECTOR To: Candelaria Paz Nurse Subject: Question Last question, I promise. Is it possible for me to have covid antibody testing? My nasal swab testing in January came back negative (headache. Complete loss of taste and smell), but it would be helpful to know if I have antibodies before I sign up for a vaccination. Thanks RAL DIRECTOR * Najma Adhikari MA - 07/24/2020 4:05 PM CST ----- Message from JANINE Petty sent at 07/10/2020 2:19 PM FUNERAL DIRECTOR ----- Regarding: FW: Question Contact: Can you order COVID ab testing for this pt. ----- Message ----- From: Tiffanie Hankins MA Sent: 07/10/2020 12:33 PM FUNERAL DIRECTOR To: JANINE Petty Subject: FW: Question ----- Message ----- From: Darshana Dyer Sent: 07/10/2020 7:38 AM FUNERAL DIRECTOR To: Candelaria Paz Nurse Subject: Question Last question, I promise. Is it possible for me to have covid antibody testing? My nasal swab testing in January came back negative (headache. Complete loss of taste and smell), but it would be helpful to know if I have antibodies before I sign up for a vaccination. Thanks RAL DIRECTOR * Zina Carbajal RN - 06/05/2020 4:27 PM CST Patient did go to the hospital and they did a EKG and used blood work from [facility]. They typed and crossed her. This was done at [place]. RAL DIRECTOR * JANINE Petty - 06/05/2020 1:42 PM CST OK, Is pt still going to pre op at the hospital? I do not have a recent EKG on her. RAL DIRECTOR * Christine Gage MA - 06/02/2020 11:26 AM CST Patient states at [facility]she asked if she needed to come in again and was told she did not. Her Surgery is scheduled as out patient on June 12 RAL DIRECTOR * Zina Carbajal RN - 05/29/2020 11:15 AM CST Patient needing a new surgical clearance letter from us for Dr. Avila for knee replacement. She is [facility] patient for the outpatient knee replacement. RAL DIRECTOR documented in this encounter Plan of Treatment Not on file documented as of this encounter Visit Diagnoses Diagnosis Close exposure to COVID-19 virus- Primary Unknown status of immunity to COVID-19 virus Knee pain Pain in joint, lower leg documented in this encounter Additional Health Concerns Infection Onset Date Last Indicated Resolved Time COVID-19 Rule Out 05/29/2020 05/29/2020 07/28/2020 12:33 AM FUNERAL DIRECTOR Assessment Noted Time PHQ-9 Depression Total Score: 0 08/02/19 20 8:42 AM FUNERAL DIRECTOR documented as of this encounter Care Teams Housekeeper/Laundry Assistant Relationship Specialty Start Date End Date Candelaria Booker APNP [address] [place] [address] PCP - General NURSE PRACTITIONER 08/02/19 documented as of this encounter
--- OUTSIDE RECORDS SUMMARY | 2025-03-05 11:12 | XMS_ITS | Encounter Summary ---
Author Organization [facility] Address [address] [place] [address] Care Team Providers Care Overhead Distribution Engineer Name Role Phone Candelaria Booker Primary Care Provider [phone] Reason for Visit * Reason Onset Date Comments Cough 09/27/2019 constant cough, constant tickle in her chest. cough and cold for two weeks. Encounter Details Date Type Department Care Team (Late st Contact Info) Description 09/27/2019 Loop Commercet Message Enc [facility] Medical Group Family & Internal Medicine [facility] [address] [place] [address] Candelaria Booker APNP [address] [place] [address] RE: Other Social History Tobacco [...] AM CDT Legal Sex Female 11:40 AM AUTOMOTIVE SERVICE ADVISOR Gender Identity Not on file Sexual Orientation Not on file documented as of this encounter Progress Notes * Mikhail Beltrán RN - 09/28/2019 9:06 AM CDT RN triaged respirators symptoms 2 week history of cough and cold. Afebrile. Tickle in her chest when she tries to take a deep breath. Head congestion- clear, post nasal drainage. 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 Constant tickle and cough. Taking medication as often as can take it. Coughing non stop on the phone. Sending to [place] [facility] for evaluation. Pt instructions: Push [...] Rule Out 05/29/2020 05/29/2020 07/28/2020 12:33 AM AUTOMOTIVE SERVICE ADVISOR Assessment Noted Time PHQ-9 Depression Total Score: 0 08/02/19 20 8:42 AM AUTOMOTIVE SERVICE ADVISOR documented as of this encounter Care Teams Overhead Distribution Engineer Relationship Specialty Start Date End Date Candelaria Booker APNP [address] [place] [address] PCP - General NURSE PRACTITIONER 08/02/19 documented as of this encounter
--- OUTSIDE RECORDS SUMMARY | 2025-03-05 11:12 | XMS_ITS | Encounter Summary ---
Author Organization [facility] Address [address] [place] [address] Care Team Providers Care Director Export Name Role Phone Candelaria Booker Primary Care Provider [phone] Encounter Details Date Type Department Care Team (Late st Contact Info) Description 10/04/2019 Social Shopt Message Enc [facility] Medical Group Family & Internal Medicine [address] [address] Candelaria Booker APNP [facility] [place] [address] RE: Follow Up/Update Social History Tobacco Use [...] AM CDT Legal Sex Female 11:[address]EEPER Gender Identity Not on file Sexual Orientation Not on file documented as of this encounter Plan of Treatment Not on file documented as of this encounter Visit Diagnoses Not on filedocumented in this encounter Additional Health Concerns Infection Onset Date Last Indicated Resolved Time COVID-19 Rule Out 01/18/2020 01/21/2020 02/02/2020 7:51 AM CDT COVID-19 Rule Out 05/29/2020 05/29/2020 07/28/2020 12:[address] SWEEPER Assessment Noted Time PHQ-9 Depression Total Score: 0 08/02/19 20 8:[address]EEPER documented as of this encounter Care Teams Director Export Relationship Specialty Start Date End Date Candelaria Booker APNP [address] [place], [place] [id number] PCP - General NURSE PRACTITIONER 08/02/19 documented as of this encounter
--- OUTSIDE RECORDS SUMMARY | 2025-03-05 11:12 | XMS_ITS | Encounter Summary ---
Author Organization [facility] Address [address] [place] [address] Care Team Providers Care Senior Property Manager Name Role Phone Candelaria Booker Primary Care Provider [phone] Encounter Details Date Type Department Care Team (Late st Contact Info) Description 11/16/2022 Seres Healtht Message Enc [facility] Medical Group Family & Internal Medicine [address] [place] [address] Candelaria Booker APNP [facility] [place] [address] Hctz Social History Tobacco Use Types Packs/Day [...] CDT Legal Sex Female 11:40 AM POLICE CADET Gender Identity Not on file Sexual Orientation [...] as of this encounter Care Teams Senior Property Manager Relationship Specialty Start Date End Date Candelaria Booker APNP [address] [place] [address] PCP - General NURSE PRACTITIONER 08/02/19 documented as of this encounter
--- OUTSIDE RECORDS SUMMARY | 2025-03-05 11:12 | XMS_ITS | Encounter Summary ---
Author Organization [facility] Address [address] [place] [address] Care Team Providers Care Intelligence Clerk Name Role Phone Candelaria Booker Primary Care Provider + Encounter Details Date Type Department Care Team (Late st Contact Info) Description 01/17/2022 Telephone [facility] Radiology [address] [place] [address] Amanda Wayne MD [address] [facility] [address] [place] [address] Social History Tobacco Use Types Packs/Day Years Used Date Smoking Tobacco: Never Smokeless Tobacco: Never Comments Unknown Sex and Gender Information Value Date Recorded Sex Assigned at Not on file Legal Sex Female 10:38 AM SMOKING TOBACCO PACKING MACHINE HAND Gender Identity Not on file Sexual Orientation Not on file documented as of this encounter Plan of Treatment Not on file documented as of this encounter Visit Diagnoses Not on filedocumented in this encounter Care Teams Intelligence Clerk Relationship Specialty Start Date End Date Candelaria Booker PA [address] [place] [address] PCP - General Nurse Practitioner 08/26/19 documented as of this encounter
--- OUTSIDE RECORDS SUMMARY | 2025-03-05 11:12 | XMS_ITS | Encounter Summary ---
Author Organization [facility] Address [address] [place] [address] Care Team Providers Care Traffic Monitor Specialist Name Role Phone Candelaria Booker Primary Care Provider [phone] Encounter Details Date Type Department Care Team (Late st Contact Info) Description 08/04/2020 Raiinghart Message Enc [facility] Medical Group Family & Internal Medicine [address] [address] Candelaria Booker APNP [address] [place] [address] RE: Follow Up/Update Social History Tobacco Use [...] AM CDT Legal Sex Female 11:40 AM UI APPLICATION DEVELOPER Gender Identity Not on file Sexual Orientation Not on file COVID-19 Exposure Response Date Recorded In the last month, have you been in contact with someone who was confirmed or suspected to have Coronavirus / COVID-19? Yes 07/28/2020 10:46 AM UI APPLICATION DEVELOPER documented as of this encounter Plan of Treatment Not on file documented as of this encounter Visit Diagnoses Not on filedocumented in this encounter Additional Health Concerns Assessment Noted Time PHQ-9 Depression Total Score: 0 08/02/19 20 8:42 AM UI APPLICATION DEVELOPER documented as of this encounter Care Teams Traffic Monitor Specialist Relationship Specialty Start Date End Date Candelaria Booker APNP [address] [place] [address] PCP - General NURSE PRACTITIONER 08/02/19 documented as of this encounter
--- OUTSIDE RECORDS SUMMARY | 2025-03-05 11:12 | XMS_ITS | Encounter Summary ---
Author Organization [facility] Address [address] [place] [address] Care Team Providers Care Fermenter Helper Name Role Phone Candelaria Booker Primary Care Provider [phone] Encounter Details Date Type Department Care Team (Late st Contact Info) Description 08/04/2020 Allinea Softwarehart Message Enc [facility] Medical Group Family & Internal Medicine [address] [address] Candelaria Booker APNP [facility] [place] [address] RE: Test Results Social History Tobacco Use [...] AM CDT Legal Sex Female 11:40 AM REPAIRER EVAPORATOR Gender Identity Not on file Sexual Orientation Not on file COVID-19 Exposure Response Date Recorded In the last month, have you been in contact with someone who was confirmed or suspected to have Coronavirus / COVID-19? Yes 07/28/2020 10:46 AM REPAIRER EVAPORATOR documented as of this encounter Plan of Treatment Not on file documented as of this encounter Visit Diagnoses Not on filedocumented in this encounter Additional Health Concerns Assessment Noted Time PHQ-9 Depression Total Score: 0 08/02/19 20 8:42 AM REPAIRER EVAPORATOR documented as of this encounter Care Teams Fermenter Helper Relationship Specialty Start Date End Date Candelaria Booker APNP [address] [place] [address] PCP - General NURSE PRACTITIONER 08/02/19 documented as of this encounter
--- OUTSIDE RECORDS SUMMARY | 2025-03-05 11:12 | XMS_ITS | Encounter Summary ---
Author Organization [facility] Address [address] [place] [address] Care Team Providers Care Quality Control Representative Name Role Phone Candelaria Booker Primary Care Provider [phone] Encounter Details Date Type Department Care Team (Late st Contact Info) Description 07/10/2020 Accelergyhart Message Enc [facility] Medical Group Family & Internal Medicine [facility] [address] [place] [address] Candelaria Booker APNP [address] [place] [address] RE: Question Social History Tobacco Use Types [...] AM CDT Legal Sex Female 11:40 AM GAS LINE REPAIRER Gender Identity Not on file Sexual Orientation Not on file documented as of this encounter Plan of Treatment Not on file documented as of this encounter Visit Diagnoses Not on filedocumented in this encounter Additional Health Concerns Infection Onset Date Last Indicated Resolved Time COVID-19 Rule Out 05/29/2020 05/29/2020 07/28/2020 12:33 AM GAS LINE REPAIRER Assessment Noted Time PHQ-9 Depression Total Score: 0 08/02/19 20 8:42 AM GAS LINE REPAIRER documented as of this encounter Care Teams Quality Control Representative Relationship Specialty Start Date End Date Candelaria Booker APNP [address] [place] [address] PCP - General NURSE PRACTITIONER 08/02/19 documented as of this encounter
--- OUTSIDE RECORDS SUMMARY | 2025-03-05 11:12 | XMS_ITS | Clinical Summary ---
Author Organization [facility] Address [address] [place] [address] Care Team Providers Care Cleaner Window Name Role Phone Candelaria Booker Primary Care [...] (04/30/2022): Added automatically from request for surgery [id number] Vocal cord paralysis 04/30/2022 Overview (04/30/2022): Added automatically from request for surgery [id number] Cervical disc disorder with myelopathy 2 Cervical disc disorder with myelopathy of mid-cervical region 02/25/2022 Overview (02/25/2022): Added automatically from request for surgery [id number] Immunosuppression due to drug therapy 02/15/2022 Spasticity 02/15/2022 Immunocompromised 09/12/2021 Abnormality of gait and mobility 02/12/2021 Neurogenic bladder disorder 02/12/2021 Medication monitoring encounter 03/31/2020 Multiple sclerosis 09/09/2019 High risk medication use 09/09/2019 Abnormal MRI 09/09/2019 Vitamin D deficiency 09/09/2019 Mixed anxiety and depressive disorder 09/09/2019 Hypertension 08/02/2019 Dysphagia Encounters Date Type Department Care Team Description 02/16/2025 8:30 AM CDT Office Visit [facility] Medical Group Hand Surgery [facility] [place] [phone] Krysten Orlando, ADRIÁN Arthritis of carpometacarpal (CMC) joint of right thumb (Primary Dx); Primary osteoarthritis of first carpometacarpal joint of right hand 02/03/2025 11:30 AM CDT - 02/03/2025 12:30 PM CDT Surgery [facility] OR [address] [place] [address] Doug Lazar MD RIGHT FIRST CARPOMETACARPAL ARTHROPLASTY WITH LIGAMENT RECONSTRUCTION 02/03/2025 10:56 AM CDT Anesthesia Event [facility] OR [address] [place] [address] Cherri Augustin MD Kuntz, Edward William, MD 02/03/2025 9:25 AM CDT Ancillary Procedure [facility] OR [address] [place] [address] 02/03/2025 8:26 AM CDT - 02/03/2025 1:20 PM CDT Hospital Encounter [facility] OR [address] [place] [address] Doug Lazar MD Primary osteoarthritis of first carpometacarpal joint of right hand [M18.11] (Primary Dx); Arthritis of carpometacarpal (CMC) joint of right thumb [M18.11] Discharge Disposition: Discharge to home or self care 01/11/2025 Orders Only [facility] Multiple Sclerosis [address] [facility] 7th [place] [address] Joselyn Rondon, TAR CHASER Multiple sclerosis (HCC) (Primary Dx); Dysesthesia of multiple sites 01/03/2025 10:00 AM CDT Office Visit [facility] Medical Group Hand Surgery [address] [place] [phone] Doug Lazar MD Arthritis of carpometacarpal (CMC) joint of right thumb (Primary Dx) 12/10/2024 7:23 AM CDT - 12/10/2024 11:59 PM CDT Hospital Encounter [facility] MOB 1 DIAG IMG [address] [place] [address] Right hand pain Discharge Disposition: Discharge to home or self care 12/10/2024 7:15 AM CDT Office Visit [facility] Hand Surgery [address] [facility] [address] [place] [phone] Doug Lazar MD Right hand pain (Primary [...] on file Legal Sex Female 10:38 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 UP 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 BANQUET Gender Identity Not on file Sexual Orientation [...] 12/01/2023, 09/02/2023 Medical Devices Implanted Type Area Carbonizer Device Identifier Shelf Expiration Date Model / Serial / Lot Abyrx Hemasorb Os-Spa Spatula Wax 2gm Bone Sterile Os-201 - [id number] Implanted:Qty: 1 on 03/13/2022 by Danny Stauffer MD at [facility] N/A: Spine Cervical Abyrx 11/03/2024 OS-201 / / [id number] [employer] Inc Allograft Bone Putty 2.5cc 700-025 - [id number] Implanted:Qty: 1 on 03/13/2022 by Danny Stauffer MD at [facility] N/A: Spine Cervical [employer] [id number] 09/03/2024 700-025 / / [id number] [employer] Cage Spinal Cervical 12d X 14w X 7h 6 Degree [id number] - [id number] Implanted:Qty: 1 on 03/13/2022 by Danny Stauffer MD at [facility] N/A: Spine Cervical [employer] [id number] 05/03/2026 [id number] / / [id number] [employer] Cage Spinal Cervical 12d X 14w X 6h 6 Degree [id number] - [id number] Implanted:Qty: 1 on 03/13/2022 by Danny Stauffer MD at [facility] N/A: Spine Cervical [employer] [id number] 08/30/2026 [id number] / / [id number] [employer] Cage Spinal Cervical 12d X 14w X 6h 6 Degree [id number] - [id number] Implanted:Qty: 1 on 03/13/2022 by Danny Stauffer MD at [facility] N/A: Spine Cervical [employer] [id number] 12/20/2026 [id number] / / [id number] [facility] [id number] Mambo 40mm 6 Hole Modular Canalou 1 Step Lock Mechanism Spine - [id number] Implanted:Qty: 1 on 03/13/2022 by Danny Stauffer MD at [facility] N/A: Spine Cervical [facility] CS 1820-40 / / [facility] [id number] Mambo Extension Spine Cervical Small Plate Bone Yellow - [id number] Implanted:Qty: 1 on 03/13/2022 by Danny Stauffer MD at [facility] N/A: Spine Cervical [facility] CS 1820-02 / / [facility] [id number] Mambo Settle Spinal Cervical Screw Bone Silver - [id number] Implanted:Qty: 3 on 03/13/2022 by Danny Stauffer MD at [facility] N/A: Spine Cervical [facility] CS 1826- / / [facility] Screw Mambo Bone Self-Drilling 3.5mm Length 15mm 1831-15 - [id number] Implanted:Qty: 8 on 03/13/2022 by Danny Stauffer MD at [facility] N/A: Spine Cervical [facility] 1831-15 / / [employer] Suture [place] Knotless Fibertak Resorbable [id number] - [id number] Implanted:Qty: 1 on 02/03/2025 by Doug Lazar MD at [facility] Right: Thumb [employer] [id number] 09/03/2029 [id number] / / [id number] Procedures Procedure Name Priority Date/Time Associated Diagnosis Comments ND APPLICATION CAST HAND & LOWER FOREARM GAUNTLET Routine 02/16/2025 11:01 AM CDT Primary osteoarthritis of first carpometacarpal joint of right hand Arthritis of carpometacarpal (CMC) joint of right thumb FL FLUOROSCOPY < 1 HOUR IP Routine 02/03/2025 11:29 AM CDT ND AN PROCEDURE PLACEHOLDER Routine 02/03/2025 11:08 AM CDT ND AN ELECTIVE SUPRAGLOTTIC AIRWAY Routine 02/03/2025 11:08 AM CDT ARTHROPLASTY CARPOMETACARPAL INTERPOSITIONAL WITH RECONSTRUCTION LIGAMENT - THUMB 02/03/2025 10:56 AM CDT Osteoarthritis of carpometacarpal (CMC) joint of right thumb, unspecified osteoarthritis type Case Notes RT 1ST CMC ARTHROPLASTY WITH LIGAMENT RECON *ARTHREX* Special Needs ARTHREX ND AN PROCEDURE PLACEHOLDER Routine 02/03/2025 9:56 AM CDT POCUS INJ NERVOUS SYSTEM UNLISTED IP Routine 02/03/2025 9:22 AM CDT POCT CREATININE FOR CONTRAST EVALUATION Routine 02/03/2025 9:10 AM CDT POC BLOOD GAS AND CHEMISTRIES, VENOUS Routine 02/03/2025 9:06 AM CDT XR HAND RIGHT 3 OR MORE VIEWS Schedule Routine, Read Routine (OP Routine) 12/10/2024 7:29 AM CDT Right hand pain ND ARTHROCENTESIS ASPIR&/INJ SMALL JT/BURSA W/O US Routine 12/10/2024 7:15 AM CDT Arthritis of carpometacarpal (CMC) joint of right thumb HEPATITIS C ANTIBODY Routine 02/12/2021 11:56 AM CDT Multiple sclerosis (HCC) Medication monitoring encounter Abnormal MRI Vitamin D deficiency Abnormality of gait and mobility Mixed anxiety and depressive disorder from Last 3 Months or Most Recently Relevant to Health Maintenance Results * ND APPLICATION CAST HAND & LOWER FOREARM GAUNTLET [...] FLUOROSCOPY PROCEDUR ES Final Result [id number] * ND AN ELECTIVE SUPRAGLOTTIC AIRWAY, ND AN PROCEDURE PLACEHOLDER (02/03/2025 11:08 AM CDT) Narrative Tim Mobley CRNA - 02/03/2025 11:08 AM CDT Tim Mobley CRNA 02/03/2025 11:08 AM Airway Patient location: OR Urgency: elective Indications for airway management: anesthesia Difficult airway: no Staff: Supervising provider: Cherri Augustin MD Placed by: POLITICAL RESEARCHER: Tim Mobley CRNA Emergent airway documentation: Risks [...] Augustin MD ANESTHESIA ORDERABLES Final Result * ND AN PROCEDURE PLACEHOLDER (02/03/2025 9:56 AM CDT) [...] ORDERABLES Final Resu lt Performing Organization Address City/[facility]/ZIP Co de Phone Number [id number] * POCT creatinine for contrast evaluation (02/03/2025 9:10 AM CDT) Creatinine POC 1.00 0.60 - 1.10 mg/dL Comment:Testing performed by : [address] [address] Blood 02/03/2025 9:10 AM CDT 02/03/2025 9:10 AM CDT Doug Lazar MD POINT OF CARE TEST ORDER CHERYL Final Result Performing Organization Address City/[facility]/ZIP Co de Phone Number [facility] [address] Department [place] [address] * (ABNORMAL) POC Blood Gas and Chemistries, Venous - (02/03/2025 9:06 AM CDT) pH,reid POC 7.41 7.32 - 7.43 Comment:Testing performed by : [address] [address] pCO2, reid POC 50 40 - 50 mmHg [facility] [place] Comment:Testing performed by : [address] [address] pO2,reid POC 42 mmHg [facility] [place] Comment: Interpretive Data No reference range established. Current interpretive data was last revised 2020. Testing performed by: [address] [address] HCO3, reid (Calc) POC 32(H) 20 - 30 mmol/L [facility] Comment:Testing performed by : [address] [address] Base excess, reid POC 7 mmol/L [facility] Comment: Interpretive Data No reference range established. Current interpretive data was last revised 2020. Testing performed by: [address], [place]., [address] Hemoglobin, reid POC 12.6 11.9 - 15.5 g/dL [facility] Comment:Testing performed by : [address] [address] Hematocrit, reid POC 37.0 35.6 - 45.5 % [facility] Comment:Testing performed by : [address] [address] Sodium, reid POC 140 135 - 145 mmol/L [facility] Comment:Testing performed by : [address] [address] Potassium, reid POC 4.1 3.3 - 4.9 mmol/L [facility] Comment: Interpretive Data This method is not able to assess for hemolysis, which may falsely increase potassium concentrations. If further testing is needed to evaluate this result, consider in-laboratory plasma potassium. Current Interpretive Data was last revised on 2022. Testing performed by: [address] [address] Glucose, reid POC 85 70 - 199 mg/dL [facility] Comment:Testing performed by : [address] [address] Ionized Calcium, reid POC 5.00 4.50 - 5.10 mg/dL [facility] Comment:Testing performed by : [address] [address] Blood 02/03/2025 9:06 AM CDT 02/03/2025 9:06 AM CDT us Doug Lazar MD LAB POCT ORDERABLES - DE VICE Final Result [facility] [address] Department [place] [address] * XR Hand Right 3 or More [...] MD IMG XR PROCEDURES Final Result * ND ARTHROCENTESIS ASPIR&/INJ SMALL JT/BURSA W/O US (12/10/2024 [...] CDT) Hep C Ab Nonreactive Nonreactive [facility] Comment:Antibodies to HCV no t detected. Does NOT exclude the possibility of recent exposure to HCV. Blood specimen (specimen) 02/12/2021 11:56 AM CDT 02/12/2021 12:34 PM CDT Joselyn Rondon TAR CHASER LAB MICROBIOLOGY - GENERAL ORD ERABLES Edited Result - Final JESSICAMATTY [facility] Department [place] [address] from Last 3 Months or Most Recently Relevant to Health Maintenance Insurance MEDICARE [facility] MEDICARE SUPPLEMENT MEDICARE [employer] MEDICARE SUPPLEMENT MEDICARE [facility] Advance Directives For more information, please contact: [phone] * Full Code (Latest Code Status on File) Date Activated Date Inactivated Comments 03/13/2022 3:08 PM 03/15/2022 9:16 PM Care Teams Cleaner Window Relationship Specialty Start Date End Date Candelaria Booker PA [address] [place] [address] PCP - General Nurse Practitioner 08/26/19
--- OUTSIDE RECORDS SUMMARY | 2025-03-05 11:12 | XMS_ITS | Encounter Summary ---
Author Organization [facility] Address [address] [place] [address] Care Team Providers Care Epic Director Name Role Phone Candelaria Booker Primary Care Provider +[phone] Encounter Details Date Type Department Care Team (Late st Contact Info) Description 09/16/2022 Appianhart Message Enc [facility] Medical Group Family & Internal Medicine [phone] [place] [address] Candelaria Booker APNP [facility] [place] [address] Covid Social History Tobacco Use Types Packs/Day [...] AM CDT Legal Sex Female 11:40 AM HEALTH INSPECTOR FOOD Gender Identity Not on file Sexual Orientation Not on file COVID-19 Exposure Response Date Recorded In the last 10 days, have yo u been in contact with someone who was confirmed or suspected to have Coronavirus/COVID-19? No / Unsure 09/02/2022 2:55 PM HEALTH INSPECTOR FOOD documented as of this encounter Plan of Treatment Not on file documented as of this encounter Visit Diagnoses Not on filedocumented in this encounter Additional Health Concerns Assessment Noted Time PHQ-9 Depression Total Score: 4 05/03/20 22 1:06 PM CDT documented as of this encounter Care Teams Epic Director Relationship Specialty Start Date End Date Candelaria Booker APNP [address] [place] [address] PCP - General NURSE PRACTITIONER 08/02/19 documented as of this encounter
[2025-03-05 11:16] VITALS: BP 123/92; PULSE 97; RESP 18; TEMP 37.3; O2SAT 95
[2025-03-05] MEDS: ONDANSETRON INJ 4 MG/2 ML VIAL IV PUSH ×2 (11:38→18:39)
[2025-03-05] MEDS: KETOROLAC 30 MG/ML VIAL (*BKC) IV PUSH (11:38)
[2025-03-05] MEDS: SODIUM CHLORIDE 0.9% IV 1,000 ML 999 ML IV CONT (11:38)
[2025-03-05 11:47] LABS: Hematocrit 43.0 % (37.0-47.0); Hemoglobin 13.9 g/dL (12.0-15.0); Immature Granulocyte Percent A 0.3 % (0-0.5); Lymphocytes Absolute Auto 1.08 K/mm3 (0.9-3.2); Mean Corpuscular HGB Conc 32.3 g/dl (32-36); Mean Corpuscular Hemoglobin 28.7 pg (26-34); Mean Corpuscular Volume 88.7 fl (80-100); Nucleated Red Blood Cells Absolute Auto 0.000 K/mm3 (0.0-0.012); Nucleated Red Blood Cells Perc 0.0 % (0.0-0.2); Platelet Count Result 276 k/mm3 (150-375); Red Blood Count 4.85 M/mm3 (4.2-5.4); White Blood Count 15.2 K/mm3 (4.5-10.0)
[2025-03-05 12:04] LABS: INR 1.0; Prothrombin Time 13.7 Seconds (11.1-14.7)
[2025-03-05 12:05] LABS: Partial Thromboplastin Time 24.9 Seconds (22.3-36.8)
[2025-03-05 12:06] LABS: Alanine Aminotransferase 33 U/L (6-35); Albumin Level 4.5 g/dL (3.5-5.1); Alkaline Phosphatase 70 U/L (38-126); Anion Gap 8 mmol/L (4-12); Aspartate Amino Transferase 38 U/L (14-36); Bilirubin,Total 0.5 mg/dL (0.2-1.3); Blood Urea Nitrogen 18 mg/dL (7-17); Calcium 9.6 mg/dL (8.4-10.2); Carbon Dioxide 30 mmol/L (22-30); Chloride 101 mmol/L (98-107); Estimated CRCL calculation 61 ml/min; Estimated Glomerular Filt Rate > 60; Glucose 147 mg/dL (65-110); Potassium 4.3 mmol/L (3.4-5.0); Sodium 139 mmol/L (137-145); Total Protein 7.5 g/dL (6.3-8.2)
--- NOTE | 2025-03-05 14:10 | ED.ABDPAIN ---
HPI - Abdominal Pain General Chief Complaint: Abdominal Pain Stated Complaint: diverticultis Time Seen by Provider: 03/05/25 11:12 History of Present Illness HPI narrative: Patient is a 69-year-old female who presents ER with concerns for diverticulitis. She near performed a week ago the and is concerned open the head may have triggered diverticulitis. She has had a partial colon resection due to diverticulitis. No history of bowel obstruction. Reports she is very gaseous yesterday. She has not been having diarrhea. Today she is having left-sided abdominal discomfort as well as vomiting. She has tried taking Zofran and Flagyl without improvement. Related Data Home Medications ?Medication ?Instructions ?Recorded ?Confirmed ?Last Taken ?Type bupropion HCl 100 mg tablet,12 hr 100 mg PO QAM 05/11/19 01/18/25 10/29/22 05:30 History sustained-release (Wellbutrin SR) levothyroxine 25 mcg tablet 25 mcg PO QAM 06/25/22 01/18/25 10/29/22 05:30 History cholecalciferol (vitamin D3) 125 125 mcg PO DAILY 10/04/22 01/18/25 Unknown History mcg (5,000 unit) capsule hydrochlorothiazide 25 mg tablet 25 mg PO DAILY 07/29/23 01/18/25 Unknown History lisinopril 40 mg tablet 40 mg PO DAILY 01/20/24 01/18/25 Unknown History diazepam 2 mg tablet (Valium) 1 mg PO QHS PRN Anxiety 10/04/24 01/18/25 Unknown History gabapentin 100 mg capsule 100 mg PO DAILY 01/18/25 01/18/25 Unknown History Allergies Allergy/AdvReac Type Severity Reaction Status Date / Time celecoxib (From Celebrex) Allergy Hives Verified 03/05/25 11:39 droperidol (From Inapsine) AdvReac Intermediate Confusion Verified 03/05/25 11:39 Penicillins AdvReac Mild Hives Verified 03/05/25 11:39 Sulfa (Sulfonamide AdvReac Mild Hives Verified 03/05/25 11:39 Antibiotics) Review of Systems Review of Systems: All systems reviewed & are unremarkable except as noted in HPI and below Constitutional: Constitutional: Reports no additional constitutional complaints ENT: Reports system reviewed and no additional complaints, except as documented Cardiovascular: Cardiovascular: Reports no additional cardiovascular complaints Respiratory: Respiratory: Reports no additional respiratory complaints Gastrointestinal: Gastrointestinal: Reports no additional gastrointestinal complaints [facility] Past Medical History Medical History Hypothyroidism Kidney stones Diverticulitis Gastroesophageal reflux disease Vocal cord paralysis after cervical fusion 03/2022 Osteoarthritis of right knee Hypertension Multiple sclerosis Surgical History Surgical History History of cataract extraction with lens replacement History of appendectomy History of laparoscopic cholecystectomy (06/2022) History of fusion of cervical spine (03/2022) History of left knee replacement (10/29/22) History of toe surgery (2007) History of colon resection (2003) For recurrent diverticulitis. History of hysterectomy (1994) History of section 1978, 1983 Family History Family History Mother Diabetes mellitus Heart disease Hypertension Cancer Father Diabetes mellitus Heart disease Cancer Hypertension Social History Social History Social History: Surrogate medical decision maker: Narayan Gomez, spouse. Code status: Full code. Smoking status: Never smoker Second hand tobacco smoke exposure: No Alcohol intake: never Substance use: never Substance use type: does not use Do You Feel Safe in your Home?: Yes Lack of Transportation: No Lack of Food: Never True Current Housing: I Have Housing Concerned About Future Housing: No Difficulty Paying Gas/Electric Bills: No Difficulty Paying for Meds: No Currently Unemployed: No Education: Master's Degree or Higher Difficulty w/ Childcare or Family Care: No Living arrangements: with family Additional living arrangements comments: Lives with spouse in [place]. 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 Spiritual care concerns: No Exam Narrative: GENERAL: Well-appearing, well-nourished, and in no acute distress. HEAD: Normocephalic, atraumatic. ENT: Mucous membranes moist. CHEST: Clear to auscultation. No respiratory distress. HEART: Regular rate and rhythm. Normal peripheral pulses. ABDOMEN: Soft, TTP diffusely but worse on the left, nondistended. EXTREMITIES: Normal range of motion. No edema. SKIN: Warm, dry, no rash. NEURO: Alert and oriented x3. PSYCH: Normal mood and affect. Course Course Emergency Course: Patient resting comfortably, informed of results. Discussed surgery cool recommendation of NG tube. Patient declines NG tube but is willing to stay overnight with fluids and NPO. She reports she would be amenable to an injury 2 tomorrow if her symptoms are not improving and she has been evaluated by General surgery. This seems to be a fair compromise. Patient accepted by hospitalist service. Vital Signs Vital signs: Vital Signs Temperature 99.1 F 03/05/25 11:16 Pulse Rate 97 03/05/25 11:16 Respiratory Rate 18 03/05/25 11:16 Blood Pressure 123/92 H 03/05/25 11:16 Pulse Oximetry 95 03/05/25 11:16 Oxygen Delivery Room Air 03/05/25 11:16 Temperature 98.5 F 03/05/25 14:51 Pulse Rate 80 03/05/25 14:50 Respiratory Rate 14 03/05/25 14:50 Blood Pressure 129/79 03/05/25 14:50 Pulse Oximetry 98 03/05/25 14:50 Oxygen Delivery Room Air 03/05/25 11:16 MDM - Abdominal Pain Lab Data 03/05/25 11:33 03/05/25 11:33 Labs: Lab Results 03/05/25 Range/Units 11:33 WBC 15.2 H (4.5-10.0) K/mm3 RBC 4.85 (4.2-5.4) M/mm3 Hgb 13.9 (12.0-15.0) g/dL Hct 43.0 (37.0-47.0) % MCV 88.7 (80-100) fl MCH 28.7 (26-34) pg MCHC 32.3 (32-36) g/dl RDW 14.1 (11.5-14.5) % Plt Count 276 (150-375) k/mm3 MPV 11.9 H (7.4-10.4) fl Immature Gran % (Auto) 0.3 (0-0.5) % Neut % (Auto) 88.0 H (45.5-73.1) % Lymph % (Auto) 7.1 L (18.3-44.2) % [place] % (Auto) 3.8 (2.6-8.5) % Eos % (Auto) 0.3 (0-4.4) % Baso % (Auto) 0.5 (0.2-1.2) % Lymph # (Auto) 1.08 (0.9-3.2) K/mm3 [place] # (Auto) 0.6 (0.1-0.6) K/mm3 Eos # (Auto) 0.0 (0-0.3) K/mm3 Baso # (Auto) 0.1 (0.0-0.1) K/mm3 Abs Immat Gran (auto) 0.05 H (0.00-0.031) K/mm3 Absolute Neuts (auto) 13.4 H (1.3-6.7) K/mm3 Absolute Nucleated RBC 0.000 (0.0-0.012) K/mm3 Nucleated RBC % 0.0 (0.0-0.2) % PT 13.7 (11.1-14.7) Seconds INR 1.0 APTT 24.9 (22.3-36.8) Seconds Sodium 139 (137-145) mmol/L Potassium 4.3 (3.4-5.0) mmol/L Chloride 101 (98-107) mmol/L Carbon Dioxide 30 (22-30) mmol/L Anion Gap 8 (4-12) mmol/L BUN 18 H (7-17) mg/dL Creatinine 0.91 (0.7-1.0) mg/dL Estim Creat Clear Calc 61 ml/min Estimated GFR > 60 (59 - ) Glucose 147 H (65-110) mg/dL Calcium 9.6 (8.4-10.2) mg/dL Total Bilirubin 0.5 (0.2-1.3) mg/dL AST 38 H (14-36) U/L ALT 33 (6-35) U/L Alkaline Phosphatase 70 (38-126) U/L Total Protein 7.5 (6.3-8.2) g/dL Albumin 4.5 (3.5-5.1) g/dL Imaging Data Radiologist's impression: ITS Impressions Abdomen/Pelvis CT 03/05/25 15:37 IMPRESSION: 1. Small bowel obstruction with transition point detailed above Discharge Plan Discharge Clinical Impression: SBO (small bowel obstruction) Patient Disposition: Still a Patient Condition: Stable Patient Language: Ukrainian Prescriptions: No Action bupropion HCl [Wellbutrin SR] 100 mg Tablet Sustained-Release 12 Hr 100 mg PO QAM hydrochlorothiazide 25 mg tablet 25 mg PO DAILY diazepam [Valium] 2 mg tablet 1 mg PO QHS PRN (Reason: Anxiety) levothyroxine 25 mcg tablet 25 mcg PO QAM lisinopril 40 mg tablet 40 mg PO DAILY meclizine 25 mg Tablet 25 mg PO BID PRN (Reason: Vertigo) Qty: 60 0RF ondansetron 4 mg tablet,disintegrating 4 mg PO Q8H PRN (Reason: nausea and vomiting) Qty: 14 0RF cholecalciferol (vitamin D3) 125 mcg (5,000 unit) Capsule 125 mcg PO DAILY gabapentin 100 mg capsule 100 mg PO DAILY Follow-up/Referrals: Ade,ADRIÁN Gaona [Primary Care Provider]
[2025-03-05 14:50] VITALS: BP 129/79; PULSE 80; RESP 14; O2SAT 98
[2025-03-05 14:51] VITALS: TEMP 36.9
--- NOTE | 2025-03-05 17:47 | PC.NURSE ---
Pt refusing NG tube at this time
[2025-03-05 17:48] VITALS: BP 150/75; PULSE 98; RESP 18; O2SAT 95
[2025-03-05] MEDS: SODIUM CHLORIDE 0.9% IV 1,000 ML 125 ML IV CONT (18:33)
[2025-03-05] MEDS: KETOROLAC 15 MG/ML VIAL (*BKC) IV PUSH (18:34)
[2025-03-05 18:58] VITALS: BP 147/70; PULSE 96; RESP 18; TEMP 36.2; O2SAT 96
[2025-03-05 19:35] VITALS: BMI 35.6
--- NOTE | 2025-03-05 20:24 | ADMGEN ---
This patient, Darshana Dyer, was admitted to Medical Room 254-01. Patient/family oriented to hospital policies and general routines including ID bracelet, bed and alarms, visiting hours, pain management, procedures, bathroom and other care routines, personal items, smoking policy, room service/diet, and visiting hours. Information on how to activate the Rapid Response Team has been discussed. Patient/Family are encouraged to report perceived risks to care and to ask questions if they do not understand what they are told or what they should do.
[2025-03-05] MEDS: LIDOCAINE 2% GEL UROJET 10 ML PKG MUCOUS MEM (20:45)
[2025-03-05] MEDS: BENZOCAINE (*SP) 60 ML SPRAY CAN (HURRICAINE) 1 SPRAY MUCOUS MEM (20:45)
[2025-03-05 21:01] VITALS: BP 157/91; PULSE 85; RESP 18; TEMP 36.6; O2SAT 98
--- NOTE | 2025-03-05 21:09 | P.HP_ITS ---
H&P: HPI History of Present Illness Date/Time: 03/05/25 21:09 Chief Complaint: Abdominal pain Narrative: 69-year-old female presents the hospital with abdominal pain. Patient has a history of a small-bowel resection due to diverticulitis. She was afraid that she was having a flare up. So she presented to the hospital. She states that she threw up about 15 times this morning. Patient states the pain is in her left upper quadrant. Patient is reluctant to have NG tube. Lidocaine lubrication and Hurricaine spray ordered. In the ED lab work shows leukocytosis at 15.2, BUN of 18, glucose of 147, AST 38. Abdominal pelvis CT shows small-bowel obstruction with transition point. General surgery has been consulted with recommendations for NG tube NPO on IV fluids. Review of Systems Review of Systems: 12 systems were reviewed and are negativ e except for as per HPI. [facility] Past Medical History Medical History Hypothyroidism Kidney stones Diverticulitis Gastroesophageal reflux disease Vocal cord paralysis after cervical fusion 03/2022 Osteoarthritis of right knee Hypertension Multiple sclerosis Surgical History Surgical History History of cataract extraction with lens replacement History of appendectomy History of laparoscopic cholecystectomy (06/2022) History of fusion of cervical spine (03/2022) History of left knee replacement (10/29/22) History of toe surgery (2007) History of colon resection (2003) For recurrent diverticulitis. History of hysterectomy (1994) History of section 1978, 1983 Family History Family History Mother Diabetes mellitus Heart disease Hypertension Cancer Father Diabetes mellitus Heart disease Cancer Hypertension Social History Social History Social History: Surrogate medical decision maker: Narayan Dyre, spouse. Code status: Full code. Smoking status: Never smoker Second hand tobacco smoke exposure: No Alcohol intake: current Drinks per week: 1 Substance use: never Substance use type: does not use Do You Feel Safe in your Home?: Yes Lack of Transportation: No Lack of Food: Never True Current Housing: I Have Housing Concerned About Future Housing: No Difficulty Paying Gas/Electric Bills: No Difficulty Paying for Meds: No Currently Unemployed: No Education: Master's Degree or Higher Difficulty w/ Childcare or Family Care: No Living arrangements: with family Additional living arrangements comments: Lives with spouse in [place]. 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 Spiritual care concerns: No Meds Home Medications and Allergies Home Medications ?Medication ?Instructions ?Recorded ?Confirmed ?Type bupropion HCl 100 mg tablet,12 hr 100 mg PO QPM 03/05/25 History sustained-release (Wellbutrin SR) levothyroxine 25 mcg tablet 25 mcg PO QAM 06/25/22 History hydrochlorothiazide 25 mg tablet 25 mg PO DAILY 03/05/25 History lisinopril 40 mg tablet 40 mg PO DAILY 01/20/2402/06 History meclizine 25 mg tablet 25 mg PO BID PRN Vertigo #60 tabs 01/21/24 03/05/25 Rx ondansetron 4 mg disintegrating 4 mg PO Q8H PRN nausea and 01/21/24 03/05/25 Rx tablet vomiting #14 tabs diazepam 2 mg tablet (Valium) 1 mg PO QHS PRN Anxiety 10/04/24 03/05/25 History gabapentin 100 mg capsule 100 mg PO QPM 01/18/2503/05 History Allergies Allergy/AdvReac Type Severity Reaction Status Date / Time celecoxib (From Celebrex) Allergy Hives Verified 03/05/25 11:39 droperidol (From Inapsine) AdvReac Intermediate Confusion Verified 03/05/25 11:39 Penicillins AdvReac Mild Hives Verified 03/05/25 11:39 Sulfa (Sulfonamide AdvReac Mild Hives Verified 03/05/25 11:39 Antibiotics) Vital Signs Vital Signs - 24 hr 03/05/25 11:16 03/05/25 14:50 03/05/25 14:51 Temperature 99.1 F 98.5 F Pulse Rate 97 80 Respiratory Rate 18 14 Blood Pressure 123/92 H 129/79 Pulse Oximetry 95 98 Oxygen Delivery Room Air 03/05/25 17:48 03/05/25 18:58 03/05/25 21:01 Temperature 97.2 F L 97.8 F Pulse Rate 98 96 85 Respiratory Rate 18 18 18 Blood Pressure 150/75 H 147/70 H 157/91 H Pulse Oximetry 95 96 98 Oxygen Delivery Exam Narrative: General: well appearing, appears stated age. HEENT: normocephalic, atraumatic. Mucous membranes moist. EOMI, PERRLA, bilateral sclera anicteric, no conjunctival injection. Neck supple without JVD, lymphadenopathy, or bruit. Respiratory: clear to ascultation bilaterally. No rales/rhonic/wheezes. Cardiovascular: Regular rate and rhythm, normal S1-S2 upon ascultation. No murmurs, rubs, or clicks. PMI is nondisplaced, capillary refill less than 3 second. Abdomen: Soft, round, no pulsatile masses, nondistended and nontender. No rebound, no guarding. No CVA tenderness, no hepatosplenomegaly. Bowel sounds present to all four quadrants. No high pitch or tinkling sounds, resonant to percussion. Extremities: No cyanosis, clubbing, or edema present. Pulses are palpable 2/2. Active ROM to all four extremities. Neuro: Alert and orientated x 4. PERRLA. Cranial nerves 2-12 intact without focal deficit. Skin: Warm, dry, and intact, without rash, erythema, or lesion. Psych: pleasant, cooperative, normal speech, normal affect, no hallucinations, no dysarthia H&P: Results Labs Labs: Short CBC 03/05/25 Range/Units 11:33 WBC 15.2 H (4.5-10.0) K/mm3 Hgb 13.9 (12.0-15.0) g/dL Hct 43.0 (37.0-47.0) % Plt Count 276 (150-375) k/mm3 BMP 03/05/25 11:33 Sodium 139 Potassium 4.3 Chloride 101 Carbon Dioxide 30 BUN 18 H Creatinine 0.91 Glucose 147 H Calcium 9.6 Liver Function 03/05/25 Range/Units 11:33 Total Bilirubin 0.5 (0.2-1.3) mg/dL AST 38 H (14-36) U/L ALT 33 (6-35) U/L Alkaline Phosphatase 70 (38-126) U/L Albumin 4.5 (3.5-5.1) g/dL Assessment and Plan Assessment and plan (1) SBO (small bowel obstruction): Code(s): K56.609 - Unspecified intestinal obstruction, unspecified as to partial versus complete obstruction Status: Acute Assessment and Plan: Surgery consulted NPO hold home medications in until okay with surgery NG tube to suction Lidocaine lubrication and Hurricaine spray IVF for hydration (2) Hypertension: Qualifiers: Hypertension type: primary hypertension Qualified Code(s): I10 - Essential (primary) hypertension Code(s): I10 - Essential (primary) hypertension Status: Acute (3) PTSD (post-traumatic stress disorder): Code(s): F43.10 - Post-traumatic stress disorder, unspecified Status: Chronic Assessment and Plan: Holding meds until okay with surgery (4) Hypothyroidism: Code(s): E03.9 - Hypothyroidism, unspecified Status: Acute Assessment and Plan: IV Synthroid (5) Multiple sclerosis: Code(s): G35 - Multiple sclerosis Status: Acute Assessment and Plan: Holding meds until okay with surgery Quality VTE Prophylaxis VTE prophylaxis: mechanical ordered and pharmacologic ordered Hospitalist MIPS Advance Care Plan I have confirmed that the patient's Advanced Care Plan is present, code status is documented, or surrogate decision maker is listed in patient medical record.: Yes Medication Reconciliation I have utilized all available resources to obtain, update and review the patients current medications (includes all prescriptions, OTC, herbals, cannabis, and nutritional supplements).: Yes
[2025-03-06] MEDS: KETOROLAC 15 MG/ML VIAL (*BKC) IV PUSH ×3 (00:08→23:55)
[2025-03-06 04:43] VITALS: BP 137/74; PULSE 86; RESP 16; TEMP 36.8; O2SAT 96
[2025-03-06] MEDS: SODIUM CHLORIDE 0.9% IV 1,000 ML 125 ML IV CONT ×3 (05:38→23:59)
[2025-03-06] MEDS: LEVOTHYROXINE SODIUM INJ 100 MCG/5 ML VIAL 12.5 MCG IV PUSH (05:39)
--- NOTE | 2025-03-06 06:22 | PC.NURSE ---
NG placed around 2100, and stat KUB ordered to confirm placement. KUB was performed but no report has come through to verify placement. Pt not hooked to suction due to no verification of NG placement. RN has been intermittently draining NG contents by gravity and measuring.
--- NOTE | 2025-03-06 07:07 | P.PNIM_ITS ---
Progress Note: A&P Assessment and Plan (1) SBO (small bowel obstruction): Code(s): K56.609 - Unspecified intestinal obstruction, unspecified as to partial versus complete obstruction Status: Acute Assessment and Plan: * NPO hold home medications in until okay with surgery * NG tube to suction * Lidocaine lubrication and Hurricaine spray * Gentle IV fluid resuscitation given the patient's NPO status * P.r.n. Anti emetics, avoid reglan * Abd XR: NG tube tip in the stomach. Partially visualized bowel gas is consistent with small bowel obstruction. * Will start NG suction * Surgery consulted - pending further recommendation (2) Hypertension: Qualifiers: Hypertension type: primary hypertension Qualified Code(s): I10 - Essential (primary) hypertension Code(s): I10 - Essential (primary) hypertension Status: Acute Assessment and Plan: * Patient's blood pressure was reviewed on 03/06 * Blood pressure remains well controlled * Holding meds until okay with surgery * 137/74 (3) PTSD (post-traumatic stress disorder): Code(s): F43.10 - Post-traumatic stress disorder, unspecified Status: Chronic Assessment and Plan: * Holding meds until okay with surgery (4) Hypothyroidism: Code(s): E03.9 - Hypothyroidism, unspecified Status: Acute Assessment and Plan: * IV Synthroid (5) Multiple sclerosis: Code(s): G35 - Multiple sclerosis Status: Acute Assessment and Plan: * Holding meds until okay with surgery Subjective Date/time seen: 03/06/25 07:07 Interval history: 69-year-old female presents the hospital with abdominal pain. Patient has a history of a small-bowel resection due to diverticulitis. She was afraid that she was having a flare up. 03/06/2025 Patient sitting comfortably at bedside during exam. NG tube is placed but as radiology has not read abd XR, suction has not been initiated. She actually endorses significant improvement in abdominal pain and overall symptomatology. General surgery has been consulted - pending further recommendations. Continue IVF. Review of Systems Review of Systems: 12 systems were reviewed and are negativ e except for as per HPI. Exam Narrative: General: well appearing, appears stated age. HEENT: normocephalic, atraumatic. Mucous membranes moist. EOMI, PERRLA, bilateral sclera anicteric, no conjunctival injection. Neck supple without JVD, lymphadenopathy, or bruit. Respiratory: clear to ascultation bilaterally. No rales/rhonic/wheezes. Cardiovascular: Regular rate and rhythm, normal S1-S2 upon ascultation. No murmurs, rubs, or clicks. PMI is nondisplaced, capillary refill less than 3 second. Abdomen: Soft, round, no pulsatile masses, nondistended and nontender. No rebound, no guarding. No CVA tenderness, no hepatosplenomegaly. Bowel sounds present to all four quadrants. No high pitch or tinkling sounds, resonant to percussion. Extremities: No cyanosis, clubbing, or edema present. Pulses are palpable 2/2. Active ROM to all four extremities. Neuro: Alert and orientated x 4. PERRLA. Cranial nerves 2-12 intact without focal deficit. Skin: Warm, dry, and intact, without rash, erythema, or lesion. Psych: pleasant, cooperative, normal speech, normal affect, no hallucinations, no dysarthia Objective Data Vital Signs Vital Signs: Vital Signs - 24 hr 03/05/25 11:16 03/05/25 14:50 03/05/25 14:51 Temperature 99.1 F 98.5 F Pulse Rate 97 80 Respiratory Rate 18 14 Blood Pressure 123/92 H 129/79 Pulse Oximetry 95 98 Oxygen Delivery Room Air 03/05/25 17:48 03/05/25 18:58 03/05/25 20:00 Temperature 97.2 F L Pulse Rate 98 96 Respiratory Rate 18 18 Blood Pressure 150/75 H 147/70 H Pulse Oximetry 95 96 Oxygen Delivery Room Air 03/05/25 21:01 03/06/25 04:43 Temperature 97.8 F 98.3 F Pulse Rate 85 86 Respiratory Rate 18 16 Blood Pressure 157/91 H 137/74 Pulse Oximetry 98 96 Oxygen Delivery Intake/Output Intake/Output: Intake & Output 03/03/25 03/04/25 03/05/25 03/06/25 23:59 23:59 23:59 23:59 Intake Total 1000 1000 Balance 1000 1000 Meds/Results Medications: Active Medications Generic Name Dose Route Start Last Admin Trade Name Freq PRN Reason Stop Dose Admin Enoxaparin Sodium 40 mg 03/06/25 09:00 Enoxaparin 40 Mg/0.4 Ml Syringe SUB-Q DAILY KACIE Sodium Chloride 1,000 mls @ 125 mls/hr 03/05/25 17:30 03/06/25 05:38 Normal Saline Iv IV CONT 125 mls/hr .Q8H KACIE Administration Ketorolac Tromethamine 15 mg 03/05/25 18:00 03/06/25 05:40 Ketorolac 15 Mg/Ml Vial (*Bkc) IV PUSH 15 mg Q6H KACIE Administration Levothyroxine Sodium 12.5 mcg 03/06/25 06:30 03/06/25 05:39 Levothyroxine Sodium Inj 100 Mcg/5 Ml Vial IV PUSH 12.5 mcg DAILY@0630 KACIE Administration Morphine Sulfate 4 mg 03/05/25 17:29 Morphine Sulfate (*Crx) 4 Mg/Ml Inj IV PUSH Q2H PRN Pain Rated 7-10 Ondansetron HCl 4 mg 03/05/25 17:29 03/05/25 18:39 Ondansetron Inj 4 Mg/2 Ml Vial IV PUSH 4 mg Q4H PRN Administration Nausea Phenol 1 spray 03/05/25 19:25 Phenol/Sod Pheno [place] Ortiz (*Bkc) MUCOUS MEM PRN PRN Sore Throat Radiology Results: ITS Impressions Abdomen/Pelvis CT 03/05/25 15:37 IMPRESSION: 1. Small bowel obstruction with transition point detailed above Labs Labs: Laboratory Results - last 24 hr 03/05/25 11:33 WBC 15.2 H RBC 4.85 Hgb 13.9 Hct 43.0 MCV 88.7 MCH 28.7 MCHC 32.3 RDW 14.1 Plt Count 276 MPV 11.9 H Immature Gran % (Auto) 0.3 Neut % (Auto) 88.0 H Lymph % (Auto) 7.1 L [place] % (Auto) 3.8 Eos % (Auto) 0.3 Baso % (Auto) 0.5 Lymph # (Auto) 1.08 [place] # (Auto) 0.6 Eos # (Auto) 0.0 Baso # (Auto) 0.1 Abs Immat Gran (auto) 0.05 H Absolute Neuts (auto) 13.4 H Absolute Nucleated RBC 0.000 Nucleated RBC % 0.0 PT 13.7 INR 1.0 APTT 24.9 Sodium 139 Potassium 4.3 Chloride 101 Carbon Dioxide 30 Anion Gap 8 BUN 18 H Creatinine 0.91 Estim Creat Clear Calc 61 Estimated GFR > 60 Glucose 147 H Calcium 9.6 Total Bilirubin 0.5 AST 38 H ALT 33 Alkaline Phosphatase 70 Total Protein 7.5 Albumin 4.5 Quality VTE Prophylaxis VTE prophylaxis: mechanical ordered and pharmacologic ordered
[2025-03-06 07:38] LABS: Hematocrit 36.4 % (37.0-47.0); Hemoglobin 11.5 g/dL (12.0-15.0); Immature Granulocyte Percent A 0.4 % (0-0.5); Lymphocytes Absolute Auto 1.39 K/mm3 (0.9-3.2); Mean Corpuscular HGB Conc 31.6 g/dl (32-36); Mean Corpuscular Hemoglobin 29.3 pg (26-34); Mean Corpuscular Volume 92.9 fl (80-100); Nucleated Red Blood Cells Absolute Auto 0.000 K/mm3 (0.0-0.012); Nucleated Red Blood Cells Perc 0.0 % (0.0-0.2); Platelet Count Result 186 k/mm3 (150-375); Red Blood Count 3.92 M/mm3 (4.2-5.4); White Blood Count 13.5 K/mm3 (4.5-10.0)
[2025-03-06 08:04] LABS: Alanine Aminotransferase 29 U/L (6-35); Albumin Level 3.5 g/dL (3.5-5.1); Alkaline Phosphatase 53 U/L (38-126); Anion Gap 5 mmol/L (4-12); Aspartate Amino Transferase 30 U/L (14-36); Bilirubin,Total 0.4 mg/dL (0.2-1.3); Blood Urea Nitrogen 23 mg/dL (7-17); Calcium 8.6 mg/dL (8.4-10.2); Carbon Dioxide 30 mmol/L (22-30); Chloride 104 mmol/L (98-107); Estimated CRCL calculation 54 ml/min; Estimated Glomerular Filt Rate 53; Glucose 105 mg/dL (65-110); Potassium 4.2 mmol/L (3.4-5.0); Sodium 139 mmol/L (137-145); Total Protein 5.8 g/dL (6.3-8.2)
[2025-03-06 08:52] VITALS: O2SAT 96
[2025-03-06 14:00] VITALS: BP 135/65; PULSE 74; RESP 14; TEMP 36.1; O2SAT 99
--- NOTE | 2025-03-06 14:12 | PM.CNGS ---
Assessment and Plan Assessment and plan (1) SBO (small bowel obstruction): Code(s): K56.609 - Unspecified intestinal obstruction, unspecified as to partial versus complete obstruction Status: Acute Assessment and Plan: explained the nature of this problem. Also explained that, most frequently, this does resolve with nasogastric suction, bowel rest, IV fluids, and as needed analgesics. Her bowel gas pattern is already improved on today's plain films. She is still having pain, however, and has no bowel sounds. Plan to follow with daily plain films, labs, exam. Explained that if this does not resolve, laparotomy can be needed. All questions answered. (2) History of partial colectomy: Code(s): Z90.49 - Acquired absence of other specified parts of digestive tract Status: Chronic Assessment and Plan: Performed at outside hospital in 2003. Performed for multiple episodes of diverticulitis, presumably sigmoidectomy was done. (3) Multiple sclerosis: Code(s): G35 - Multiple sclerosis Status: Chronic Assessment and Plan: Diagnosed 15 years ago. Managed by a physician at [facility]. Not currently on any medications but plans are to discuss restarting medications this fall. (4) GERD (gastroesophageal reflux disease): Qualifiers: Esophagitis presence: esophagitis presence not specified Qualified Code(s): K21.9 - Gastro-esophageal reflux disease without esophagitis Code(s): K21.9 - Gastro-esophageal reflux disease without esophagitis Status: Chronic Assessment and Plan: Patient was on a med preserve all but it seemed to stop working so she quit taking it. Tells me she frequently gets episodes of heartburn and will take [id number] medications on a p.r.n. basis. No record of EGD done in our EHR. (5) History of surgery on right wrist: Code(s): Z98.890 - Other specified postprocedural states Status: Acute Assessment and Plan: as spica cast on right hand and wrist, due to have the cast removed on 03/09/2025 History of Present Illness Consult details Consult date: 03/06/25 Reason for consult: abdominal pain Requesting physician: Obey Roman MD Narrative: patient is a 69-year-old woman who presented to the emergency room yesterday afternoon with left-sided abdominal pain. She tells me that she was out to eat with her for supper 2 nights ago. They were at a [place] restaurant. She was not very hungry. She had chicken fajitas, re fried beans, rice. She ate probably less than half of this and did not finish her Sujatha. This is all unusual for her. About 2 hours later, she began experiencing severe left-sided abdominal pain. She has had diverticulitis several times in the past. She thought that this was a recurrence. She has often noted that she will get recurrent diverticulitis after eating corn. She did have some corn about 6 days ago and thought the pain was diverticulitis related to that. The pain worsened and then she developed severe nausea and vomiting. She had multiple episodes of vomiting. She then came to the emergency room yesterday. Evaluation there included a CT scan which showed small bowel obstruction with transition point felt to be in the pelvis or just above the pelvis. She had a colon resection for diverticulitis done in [place], [place] in 2003. she had a hysterectomy in 1994. She has had an appendectomy, 2 sections, and a laparoscopic cholecystectomy. She is seen now regarding small-bowel obstruction. Patient has a significant medical history in that she has multiple sclerosis affecting primarily her right leg with some sensory deficits on the left side of her face. She has a history of GERD but is not currently on any medication. 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 Review of Systems Review of Systems: All systems reviewed & are unremarkable except as noted in HPI and below ( HPI) [facility] Past Medical History Medical History (Updated 03/06/25 @ 14:30 by Armin Faith MD) Hypothyroidism Kidney stones Diverticulitis Gastroesophageal reflux disease Vocal cord paralysis after cervical fusion 03/2022 Osteoarthritis of right knee Hypertension Multiple sclerosis Surgical History Surgical History (Updated 03/06/25 @ 14:35 by Armin Faith MD) History of cataract extraction with lens replacement History of appendectomy History of laparoscopic cholecystectomy (06/2022) History of fusion of cervical spine (03/2022) History of left knee replacement (10/29/22) History of toe surgery (2007) History of colon resection (2003) For recurrent diverticulitis. History of hysterectomy (1994) History of section 1978, 1983 Family History Family History Mother Diabetes mellitus Heart disease Hypertension Cancer Father Diabetes mellitus Heart disease Cancer Hypertension Social History Social History Social History: Surrogate medical decision maker: Narayan Dyer, spouse. Code status: Full code. Smoking status: Never smoker Second hand tobacco smoke exposure: No Alcohol intake: current Drinks per week: 1 Substance use: never Substance use type: does not use Do You Feel Safe in your Home?: Yes Lack of Transportation: No Lack of Food: Never True Current Housing: I Have Housing Concerned About Future Housing: No Difficulty Paying Gas/Electric Bills: No Difficulty Paying for Meds: No Currently Unemployed: No Education: Master's Degree or Higher Difficulty w/ Childcare or Family Care: No Living arrangements: with family Additional living arrangements comments: Lives with spouse in [place]. Occupation/Education: occupation Additional occupation/education comments: Registered nurse with [employer]. Spiritual care concerns: No Meds Home Medications and Allergies Home Medications ?Medication ?Instructions ?Recorded ?Confirmed ?Type bupropion HCl 100 mg tablet,12 hr 100 mg PO QPM 05/11/19 03/05/25 History sustained-release (Wellbutrin SR) levothyroxine 25 mcg tablet 25 mcg PO QAM 06/25/22 03/05/25 History hydrochlorothiazide 25 mg tablet 25 mg PO DAILY 07/29/23 03/05/25 History lisinopril 40 mg tablet 40 mg PO DAILY 01/20/24 03/05/25 History meclizine 25 mg tablet 25 mg PO BID PRN Vertigo #60 tabs 01/21/24 03/05/25 Rx ondansetron 4 mg disintegrating 4 mg PO Q8H PRN nausea and 01/21/24 03/05/25 Rx tablet vomiting #14 tabs diazepam 2 mg tablet (Valium) 1 mg PO QHS PRN Anxiety 10/04/24 03/05/25 History gabapentin 100 mg capsule 100 mg PO QPM 01/18/25 03/05/25 History Allergies Allergy/AdvReac Type Severity Reaction Status Date / Time celecoxib (From Celebrex) Allergy Hives Verified 03/05/25 11:39 droperidol (From Inapsine) AdvReac Intermediate Confusion Verified 03/05/25 11:39 Penicillins AdvReac Mild Hives Verified 03/05/25 11:39 Sulfa (Sulfonamide AdvReac Mild Hives Verified 03/05/25 11:39 Antibiotics) Vital Signs Vital Signs - 24 hr 03/05/25 14:50 03/05/25 14:51 03/05/25 17:48 Temperature 36.9 C Pulse Rate 80 98 Respiratory Rate 14 18 Blood Pressure 129/79 150/75 H Pulse Oximetry 98 95 Oxygen Delivery 03/05/25 18:58 03/05/25 20:00 03/05/25 21:01 Temperature 36.2 C L 36.6 C Pulse Rate 96 85 Respiratory Rate 18 18 Blood Pressure 147/70 H 157/91 H Pulse Oximetry 96 98 Oxygen Delivery Room Air 03/06/25 04:43 03/06/25 08:52 03/06/25 14:00 Temperature 36.8 C 36.1 C L Pulse Rate 86 74 Respiratory Rate 16 14 Blood Pressure 137/74 135/65 Pulse Oximetry 96 96 99 Oxygen Delivery Room Air Exam Const: General: comfortable, no acute distress, alert and awake HENMT: Head: normocephalic and atraumatic Mouth: Yes Normal oral and palatal mucosa present Eyes: Conjunctivae: conjunctivae normal Pupils: Equal, round and reactive pupils present EOM: EOMs intact bilaterally Neck: Neck: normal visual inspection, no lymphadenopathy and nontender Resp: Effort & Inspection: normal respiratory effort Auscultation: clear to auscultation bilaterally Cardio: Rate: regular rate Rhythm: regular rhythm Heart sounds: no gallops, no murmurs and no rubs GI: Inspection: distended, scar and no visible herniation GI Palp: Yes Soft to palpation, Yes Tenderness to palpation present (GI) ( left side predominantly, mild guarding), Yes Guarding due to palpation present (GI), No Hepatomegaly present, No Splenomegaly present, No Hernia present and No Palpable mass present Auscultation: absent bowel sounds Skin: Lesions: no lesions Rashes: no rashes Neuro: General: no focal motor deficits and CN's II-XI intact bilaterally Cranial nerves: Yes Equal, round and reactive pupils present, Yes Bilaterally intact EOM present, Yes facial symmetry and Yes Midline tongue present Speech: normal speech Motor exam (neuro): 5/5 motor strength present throughout and Motor abnormalities not present Extrem: General: no clubbing, cyanosis or edema and edema Right upper extremity: wrist and Extremity exam: right hand ( Spica cast in place, had surgery for arthritic bone in wrist) Psych: Affect: normal affect Thought process: Normal thought process present Insight: Good insight present (Psych) Results Labs 03/06/25 07:16 03/06/25 07:16 Labs: Abnormal lab results 03/06/25 Range/Units 07:16 WBC 13.5 H (4.5-10.0) K/mm3 RBC 3.92 L (4.2-5.4) M/mm3 Hgb 11.5 L (12.0-15.0) g/dL Hct 36.4 L (37.0-47.0) % MCHC 31.6 L (32-36) g/dl MPV 11.9 H (7.4-10.4) fl Neut % (Auto) 81.1 H (45.5-73.1) % Lymph % (Auto) 10.3 L (18.3-44.2) % [place] # (Auto) 0.9 H (0.1-0.6) K/mm3 Abs Immat Gran (auto) 0.05 H (0.00-0.031) K/mm3 Absolute Neuts (auto) 10.9 H (1.3-6.7) K/mm3 BUN 23 H (7-17) mg/dL Creatinine 1.03 H (0.7-1.0) mg/dL Estimated GFR 53 L (59 - ) Total Protein 5.8 L (6.3-8.2) g/dL Diabetes panel 03/06/25 Range/Units 07:16 Sodium 139 (137-145) mmol/L Potassium 4.2 (3.4-5.0) mmol/L Chloride 104 (98-107) mmol/L Carbon Dioxide 30 (22-30) mmol/L BUN 23 H (7-17) mg/dL Creatinine 1.03 H (0.7-1.0) mg/dL Glucose 105 (65-110) mg/dL Calcium 8.6 (8.4-10.2) mg/dL AST 30 (14-36) U/L ALT 29 (6-35) U/L Alkaline Phosphatase 53 (38-126) U/L Total Protein 5.8 L (6.3-8.2) g/dL Albumin 3.5 (3.5-5.1) g/dL Calcium panel 03/06/25 Range/Units 07:16 Calcium 8.6 (8.4-10.2) mg/dL Albumin 3.5 (3.5-5.1) g/dL Pituitary panel 03/06/25 Range/Units 07:16 Sodium 139 (137-145) mmol/L Potassium 4.2 (3.4-5.0) mmol/L Chloride 104 (98-107) mmol/L Carbon Dioxide 30 (22-30) mmol/L BUN 23 H (7-17) mg/dL Creatinine 1.03 H (0.7-1.0) mg/dL Glucose 105 (65-110) mg/dL Calcium 8.6 (8.4-10.2) mg/dL Adrenal panel 03/06/25 Range/Units 07:16 Sodium 139 (137-145) mmol/L Potassium 4.2 (3.4-5.0) mmol/L Chloride 104 (98-107) mmol/L Carbon Dioxide 30 (22-30) mmol/L BUN 23 H (7-17) mg/dL Creatinine 1.03 H (0.7-1.0) mg/dL Glucose 105 (65-110) mg/dL Calcium 8.6 (8.4-10.2) mg/dL Total Bilirubin 0.4 (0.2-1.3) mg/dL AST 30 (14-36) U/L ALT 29 (6-35) U/L Alkaline Phosphatase 53 (38-126) U/L Total Protein 5.8 L (6.3-8.2) g/dL Albumin 3.5 (3.5-5.1) g/dL All other labs normal. Imaging Abdominal x-ray: report reviewed and image reviewed ( yesterday and today's films reviewed, NG tube is in good position, dilated bowel in yesterday's film is no longer seen in today's film. Normal bowel gas pattern) Abdomen CT scan report/results: report reviewed and image reviewed ( dilated fluid-filled small bowel consistent with obstruction) CT scan - pelvis: report reviewed and image reviewed
[2025-03-06] MEDS: GABAPENTIN 100 MG CAPSULE PO (18:12)
[2025-03-06] MEDS: buPROPion HCL SR (12HR) 100 MG TABCR PO (18:12)
[2025-03-06 20:05] VITALS: BP 142/71; PULSE 91; RESP 18; TEMP 36.5; O2SAT 95
[2025-03-07 04:39] LABS: Hematocrit 34.5 % (37.0-47.0); Hemoglobin 10.6 g/dL (12.0-15.0); Immature Granulocyte Percent A 0.4 % (0-0.5); Lymphocytes Absolute Auto 1.67 K/mm3 (0.9-3.2); Mean Corpuscular HGB Conc 30.7 g/dl (32-36); Mean Corpuscular Hemoglobin 29.0 pg (26-34); Mean Corpuscular Volume 94.5 fl (80-100); Nucleated Red Blood Cells Absolute Auto 0.000 K/mm3 (0.0-0.012); Nucleated Red Blood Cells Perc 0.0 % (0.0-0.2); Platelet Count Result 181 k/mm3 (150-375); Red Blood Count 3.65 M/mm3 (4.2-5.4); White Blood Count 10.3 K/mm3 (4.5-10.0)
[2025-03-07 04:58] LABS: Alanine Aminotransferase 22 U/L (6-35); Albumin Level 3.2 g/dL (3.5-5.1); Alkaline Phosphatase 49 U/L (38-126); Anion Gap 4 mmol/L (4-12); Aspartate Amino Transferase 24 U/L (14-36); Bilirubin,Total 0.4 mg/dL (0.2-1.3); Blood Urea Nitrogen 23 mg/dL (7-17); Calcium 8.0 mg/dL (8.4-10.2); Carbon Dioxide 28 mmol/L (22-30); Chloride 107 mmol/L (98-107); Estimated CRCL calculation 71 ml/min; Estimated Glomerular Filt Rate > 60; Glucose 97 mg/dL (65-110); Potassium 3.7 mmol/L (3.4-5.0); Sodium 139 mmol/L (137-145); Total Protein 5.4 g/dL (6.3-8.2)
[2025-03-07] MEDS: KETOROLAC 15 MG/ML VIAL (*BKC) IV PUSH ×3 (05:32→17:00)
[2025-03-07] MEDS: LEVOTHYROXINE SODIUM INJ 100 MCG/5 ML VIAL 12.5 MCG IV PUSH (05:34)
[2025-03-07 06:00] VITALS: BP 125/76; PULSE 78; RESP 18; TEMP 36.5; O2SAT 91
--- NOTE | 2025-03-07 07:11 | P.PNIM_ITS ---
Progress Note: A&P Assessment and Plan (1) SBO (small bowel obstruction): Code(s): K56.609 - Unspecified intestinal obstruction, unspecified as to partial versus complete obstruction Status: Acute Assessment and Plan: * NPO hold home medications in until okay with surgery * NG tube to suction * Lidocaine lubrication and Hurricaine spray * Gentle IV fluid resuscitation given the patient's NPO status * P.r.n. Anti emetics, avoid reglan * Abd XR: NG tube tip in the stomach. Partially visualized bowel gas is consistent with small bowel obstruction. * Will start NG suction * Surgery consulted * Conservative management with NG tube/suction, bowel rest * Serial abdominal exams, daily plain films/labs * If SBO doesn't resolve - laparotomy (2) Hypertension: Qualifiers: Hypertension type: primary hypertension Qualified Code(s): I10 - Essential (primary) hypertension Code(s): I10 - Essential (primary) hypertension Status: Acute Assessment and Plan: * Patient's blood pressure was reviewed on 03/06 * Blood pressure remains well controlled * Holding meds until okay with surgery * 125/76 (3) PTSD (post-traumatic stress disorder): Code(s): F43.10 - Post-traumatic stress disorder, unspecified Status: Chronic Assessment and Plan: * Holding meds until okay with surgery (4) Hypothyroidism: Code(s): E03.9 - Hypothyroidism, unspecified Status: Acute Assessment and Plan: * IV Synthroid (5) Multiple sclerosis: Code(s): G35 - Multiple sclerosis Status: Chronic Assessment and Plan: * Holding meds until okay with surgery Subjective Date/time seen: 03/07/25 07:11 Interval history: 69-year-old female presents the hospital with abdominal pain. Patient has a history of a small-bowel resection due to diverticulitis. She was afraid that she was having a flare up. 03/07/2025 Patient sitting comfortably at bedside during exam. Doing better today, no abd pain, n/v, chest pain at time of exam. Suction is connected to NG, pt remains ambulatory, continues to pass flatus. Will continue to monitor with General surgery. Remains afebrile, leukocytosis improving. No other concerns at this time. Review of Systems Review of Systems: 12 systems were reviewed and are negativ e except for as per HPI. Exam Narrative: General: well appearing, appears stated age. HEENT: normocephalic, atraumatic. Mucous membranes moist. EOMI, PERRLA, bilateral sclera anicteric, no conjunctival injection. Neck supple without JVD, lymphadenopathy, or bruit. Respiratory: clear to auscultation bilaterally. No rales/rhonci/wheezes. Cardiovascular: Regular rate and rhythm, normal S1-S2 upon auscultation. No murmurs, rubs, or clicks. PMI is nondisplaced, capillary refill less than 3 second. Abdomen: TTP LLQ, mild guarding throughout, no bowel sounds. No Hepato/splenomegaly, no palpable masses Extremities: No cyanosis, clubbing, or edema present. Pulses are palpable 2/2. Active ROM to all four extremities. Neuro: Alert and orientated x 4. PERRLA. Cranial nerves 2-12 intact without focal deficit. Skin: Warm, dry, and intact, without rash, erythema, or lesion. Psych: pleasant, cooperative, normal speech, normal affect, no hallucinations, no dysarthia Objective Data Vital Signs Vital Signs: Vital Signs - 24 hr 03/06/25 08:00 03/06/25 08:52 03/06/25 14:00 Temperature 97.0 F L Pulse Rate 74 Respiratory Rate 14 Blood Pressure 135/65 Pulse Oximetry 96 99 Oxygen Delivery Room Air Room Air 03/06/25 20:05 03/07/25 06:00 Temperature 97.7 F 97.7 F Pulse Rate 91 78 Respiratory Rate 18 18 Blood Pressure 142/71 H 125/76 Pulse Oximetry 95 91 Oxygen Delivery Intake/Output Intake/Output: Intake & Output 03/04/25 03/05/25 03/06/25 03/07/25 23:59 23:59 23:59 23:59 Intake Total 1000 3030 160 Output Total 350 400 Balance 1000 2680 -240 Meds/Results Medications: Active Medications Generic Name Dose Route Start Last Admin Trade Name Freq PRN Reason Stop Dose Admin Bupropion HCl 100 mg 03/06/25 18:00 03/06/25 18:12 Bupropion Hcl Sr (12hr) 100 Mg Tabcr PO 100 mg QPM KACIE Administration Enoxaparin Sodium 40 mg 03/06/25 09:00 03/06/25 09:58 Enoxaparin 40 Mg/0.4 Ml Syringe SUB-Q Not Given DAILY KACIE Gabapentin 100 mg 03/06/25 18:00 03/06/25 18:12 Gabapentin 100 Mg Capsule PO 100 mg QPM KACIE Administration Sodium Chloride 1,000 mls @ 125 mls/hr 03/05/25 17:30 03/06/25 23:59 Normal Saline Iv IV CONT 125 mls/hr .Q8H KACIE Administration Ketorolac Tromethamine 15 mg 03/05/25 18:00 03/07/25 05:32 Ketorolac 15 Mg/Ml Vial (*Bkc) IV PUSH 15 mg Q6H KACIE Administration Levothyroxine Sodium 12.5 mcg 03/06/25 06:30 03/07/25 05:34 Levothyroxine Sodium Inj 100 Mcg/5 Ml Vial IV PUSH 12.5 mcg DAILY@0630 KACIE Administration Morphine Sulfate 4 mg 03/05/25 17:29 Morphine Sulfate (*Crx) 4 Mg/Ml Inj IV PUSH Q2H PRN Pain Rated 7-10 Morphine Sulfate 2 mg 03/06/25 14:37 Morphine Sulfate (*Crx) 2 Mg/Ml Inj IV PUSH Q2H PRN Pain Rated 4-6 Ondansetron HCl 4 mg 03/05/25 17:29 03/05/25 18:39 Ondansetron Inj 4 Mg/2 Ml Vial IV PUSH 4 mg Q4H PRN Administration Nausea Phenol 1 spray 03/05/25 19:25 Phenol/Sod Pheno [place] Ortiz (*Bkc) MUCOUS MEM PRN PRN Sore Throat Radiology Results: ITS Impressions Abdomen/Pelvis CT 03/05/25 15:37 IMPRESSION: 1. Small bowel obstruction with transition point detailed above Labs Labs: Laboratory Results - last 24 hr 03/06/25 03/06/25 03/06/25 07:16 18:20 23:36 WBC 13.5 H RBC 3.92 L Hgb 11.5 L Hct 36.4 L MCV 92.9 MCH 29.3 MCHC 31.6 L RDW 14.5 Plt Count 186 MPV 11.9 H Immature Gran % (Auto) 0.4 Neut % (Auto) 81.1 H Lymph % (Auto) 10.3 L [place] % (Auto) 6.5 Eos % (Auto) 1.2 Baso % (Auto) 0.5 Lymph # (Auto) 1.39 [place] # (Auto) 0.9 H Eos # (Auto) 0.2 Baso # (Auto) 0.1 Abs Immat Gran (auto) 0.05 H Absolute Neuts (auto) 10.9 H Absolute Nucleated RBC 0.000 Nucleated RBC % 0.0 Sodium 139 Potassium 4.2 Chloride 104 Carbon Dioxide 30 Anion Gap 5 BUN 23 H Creatinine 1.03 H Estim Creat Clear Calc 54 Estimated GFR 53 L Glucose 105 POC Capillary Glucose 81 101 Calcium 8.6 Total Bilirubin 0.4 AST 30 ALT 29 Alkaline Phosphatase 53 Total Protein 5.8 L Albumin 3.5 03/07/25 03/07/25 04:07 05:54 WBC 10.3 H RBC 3.65 L Hgb 10.6 L Hct 34.5 L MCV 94.5 MCH 29.0 MCHC 30.7 L RDW 14.4 Plt Count 181 MPV 12.0 H Immature Gran % (Auto) 0.4 Neut % (Auto) 73.0 Lymph % (Auto) 16.3 L [place] % (Auto) 6.5 Eos % (Auto) 2.9 Baso % (Auto) 0.9 Lymph # (Auto) 1.67 [place] # (Auto) 0.7 H Eos # (Auto) 0.3 Baso # (Auto) 0.1 Abs Immat Gran (auto) 0.04 H Absolute Neuts (auto) 7.5 H Absolute Nucleated RBC 0.000 Nucleated RBC % 0.0 Sodium 139 Potassium 3.7 Chloride 107 Carbon Dioxide 28 Anion Gap 4 BUN 23 H Creatinine 0.77 Estim Creat Clear Calc 71 Estimated GFR > 60 Glucose 97 POC Capillary Glucose 109 H Calcium 8.0 L Total Bilirubin 0.4 AST 24 ALT 22 Alkaline Phosphatase 49 Total Protein 5.4 L Albumin 3.2 L Quality VTE Prophylaxis VTE prophylaxis: mechanical ordered and pharmacologic ordered
[2025-03-07] MEDS: SODIUM CHLORIDE 0.9% IV 1,000 ML 125 ML IV CONT (09:57)
[2025-03-07 13:45] VITALS: BP 130/68; PULSE 75; RESP 14; O2SAT 97
--- NOTE | 2025-03-07 14:00 | P.PNGS_ITS ---
Progress Note: A&P Assessment and Plan (1) SBO (small bowel obstruction): Code(s): K56.609 - Unspecified intestinal obstruction, unspecified as to partial versus complete obstruction Status: Acute Assessment and Plan: improving. Continue present treatment. Recheck labs, exam, plain film of the abdomen again tomorrow morning. Doing well. Subjective Subjective Date/Time Seen: 03/07/25 14:00 Patient reports: feels better, still having pain ( Left lower quadrant), fl atus, no bowel movement and afebrile Interval history: patient was up ambulating in the hallway when I arrived. Review of Systems Review of Systems: All systems reviewed & are unremarkable except as noted in HPI and below ( HPI) Exam Const: General: comfortable, no acute distress, alert and awake Orientation/consciousness: patient oriented x3 GI: Inspection: distended GI Palp: Yes Soft to palpation, Yes Tenderness to palpation present (GI) ( mostly left lower quadrant), No Guarding due to palpation present (GI) and No Rebound tenderness present Auscultation: Hypoactive bowel sounds present ( more bowel sounds than yesterday.) Neuro: General: patient oriented x3 and no focal motor deficits Extrem: General: no calf tenderness and no edema Psych: Affect: normal affect Insight: Good insight present (Psych) Judgement: Good judgement present (Psych) Objective Data Vital Signs Vital Signs: Vital Signs - 24 hr 03/06/25 20:05 03/07/25 06:00 03/07/25 08:00 Temperature 36.5 C 36.5 C Pulse Rate 91 78 Respiratory Rate 18 18 Blood Pressure 142/71 H 125/76 Pulse Oximetry 95 91 Oxygen Delivery Room Air Intake/Output Intake/Output: Intake & Output 03/04/25 03/05/25 03/06/25 03/07/25 23:59 23:59 23:59 23:59 Intake Total 1000 3030 1160 Output Total 350 400 Balance 1000 2680 760 Meds/Results Medications: Active Medications Generic Name Dose Route Start Last Admin Trade Name Freq PRN Reason Stop Dose Admin Bupropion HCl 100 mg 03/06/25 18:00 03/06/25 18:12 Bupropion Hcl Sr (12hr) 100 Mg Tabcr PO 100 mg QPM KACIE Administration Enoxaparin Sodium 40 mg 03/06/25 09:00 03/07/25 09:58 Enoxaparin 40 Mg/0.4 Ml Syringe SUB-Q Not Given DAILY KACIE Gabapentin 100 mg 03/06/25 18:00 03/06/25 18:12 Gabapentin 100 Mg Capsule PO 100 mg QPM KACIE Administration Sodium Chloride 1,000 mls @ 125 mls/hr 03/05/25 17:30 03/07/25 09:57 Normal Saline Iv IV CONT 125 mls/hr .Q8H KACIE Administration Ketorolac Tromethamine 15 mg 03/05/25 18:00 03/07/25 12:10 Ketorolac 15 Mg/Ml Vial (*Bkc) IV PUSH 15 mg Q6H KACIE Administration Levothyroxine Sodium 12.5 mcg 03/06/25 06:30 03/07/25 05:34 Levothyroxine Sodium Inj 100 Mcg/5 Ml Vial IV PUSH 12.5 mcg DAILY@0630 KACIE Administration Morphine Sulfate 4 mg 03/05/25 17:29 Morphine Sulfate (*Crx) 4 Mg/Ml Inj IV PUSH Q2H PRN Pain Rated 7-10 Morphine Sulfate 2 mg 03/06/25 14:37 Morphine Sulfate (*Crx) 2 Mg/Ml Inj IV PUSH Q2H PRN Pain Rated 4-6 Ondansetron HCl 4 mg 03/05/25 17:29 03/05/25 18:39 Ondansetron Inj 4 Mg/2 Ml Vial IV PUSH 4 mg Q4H PRN Administration Nausea Phenol 1 spray 03/05/25 19:25 Phenol/Sod Pheno [place] Ortiz (*Bkc) MUCOUS MEM PRN PRN Sore Throat Radiology Results: ITS Impressions Abdomen/Pelvis CT 03/05/25 15:37 IMPRESSION: 1. Small bowel obstruction with transition point detailed above Abdomen X-Ray 03/07/25 11:36 IMPRESSION: 1. Single short segment of residual mildly dilated small bowel in the left abdomen consistent with improving small bowel obstruction. Labs Labs: Laboratory Results - last 24 hr 03/06/25 03/06/25 03/07/25 18:20 23:36 04:07 WBC 10.3 H RBC 3.65 L Hgb 10.6 L Hct 34.5 L MCV 94.5 MCH 29.0 MCHC 30.7 L RDW 14.4 Plt Count 181 MPV 12.0 H Immature Gran % (Auto) 0.4 Neut % (Auto) 73.0 Lymph % (Auto) 16.3 L [place] % (Auto) 6.5 Eos % (Auto) 2.9 Baso % (Auto) 0.9 Lymph # (Auto) 1.67 [place] # (Auto) 0.7 H Eos # (Auto) 0.3 Baso # (Auto) 0.1 Abs Immat Gran (auto) 0.04 H Absolute Neuts (auto) 7.5 H Absolute Nucleated RBC 0.000 Nucleated RBC % 0.0 Sodium 139 Potassium 3.7 Chloride 107 Carbon Dioxide 28 Anion Gap 4 BUN 23 H Creatinine 0.77 Estim Creat Clear Calc 71 Estimated GFR > 60 Glucose 97 POC Capillary Glucose 81 101 Calcium 8.0 L Total Bilirubin 0.4 AST 24 ALT 22 Alkaline Phosphatase 49 Total Protein 5.4 L Albumin 3.2 L 03/07/25 03/07/25 05:54 12:24 WBC RBC Hgb Hct MCV MCH MCHC RDW Plt Count MPV Immature Gran % (Auto) Neut % (Auto) Lymph % (Auto) [place] % (Auto) Eos % (Auto) Baso % (Auto) Lymph # (Auto) [place] # (Auto) Eos # (Auto) Baso # (Auto) Abs Immat Gran (auto) Absolute Neuts (auto) Absolute Nucleated RBC Nucleated RBC % Sodium Potassium Chloride Carbon Dioxide Anion Gap BUN Creatinine Estim Creat Clear Calc Estimated GFR Glucose POC Capillary Glucose 109 H 96 Calcium Total Bilirubin AST ALT Alkaline Phosphatase Total Protein Albumin Imaging Attestation: I personally reviewed and interpreted this imaging study as follows: ( Plain film of the abdomen this morning) My impression: nasogastric tube in excellent position. Decreased small-bowel dilatation. Almost a normal pattern. Radiologist's impression: Same -1 persistent dilated loop of bowel in the mid abdomen
[2025-03-07] MEDS: buPROPion HCL SR (12HR) 100 MG TABCR PO (17:00)
[2025-03-07] MEDS: GABAPENTIN 100 MG CAPSULE PO (17:00)
[2025-03-07] MEDS: KCL 40 MEQ/D5/0.9% SOD CHL 1,000 ML 100 ML IV CONT (17:01)
[2025-03-07 20:09] VITALS: BP 129/84; PULSE 69; RESP 20; TEMP 36.7; O2SAT 97
[2025-03-07] MEDS: FAMOTIDINE 20 MG/2 ML VIAL IV PUSH (20:11)
[2025-03-08] MEDS: KETOROLAC 15 MG/ML VIAL (*BKC) IV PUSH ×2 (00:02→05:54)
[2025-03-08] MEDS: KCL 40 MEQ/D5/0.9% SOD CHL 1,000 ML 100 ML IV CONT (02:25)
[2025-03-08 04:30] VITALS: BP 130/72; PULSE 66; RESP 20; TEMP 36.5; O2SAT 99
[2025-03-08 04:49] LABS: Hematocrit 35.8 % (37.0-47.0); Hemoglobin 10.9 g/dL (12.0-15.0); Immature Granulocyte Percent A 0.3 % (0-0.5); Lymphocytes Absolute Auto 1.42 K/mm3 (0.9-3.2); Mean Corpuscular HGB Conc 30.4 g/dl (32-36); Mean Corpuscular Hemoglobin 29.0 pg (26-34); Mean Corpuscular Volume 95.2 fl (80-100); Nucleated Red Blood Cells Absolute Auto 0.000 K/mm3 (0.0-0.012); Nucleated Red Blood Cells Perc 0.0 % (0.0-0.2); Platelet Count Result 172 k/mm3 (150-375); Red Blood Count 3.76 M/mm3 (4.2-5.4); White Blood Count 9.8 K/mm3 (4.5-10.0)
[2025-03-08 05:15] LABS: Alanine Aminotransferase 25 U/L (6-35); Albumin Level 3.6 g/dL (3.5-5.1); Alkaline Phosphatase 48 U/L (38-126); Anion Gap 4 mmol/L (4-12); Aspartate Amino Transferase 32 U/L (14-36); Bilirubin,Total 0.4 mg/dL (0.2-1.3); Blood Urea Nitrogen 19 mg/dL (7-17); Calcium 8.2 mg/dL (8.4-10.2); Carbon Dioxide 26 mmol/L (22-30); Chloride 109 mmol/L (98-107); Estimated CRCL calculation 71 ml/min; Estimated Glomerular Filt Rate > 60; Glucose 113 mg/dL (65-110); Potassium 4.0 mmol/L (3.4-5.0); Sodium 139 mmol/L (137-145); Total Protein 5.9 g/dL (6.3-8.2)
[2025-03-08] MEDS: LEVOTHYROXINE SODIUM INJ 100 MCG/5 ML VIAL 12.5 MCG IV PUSH (05:54)
--- NOTE | 2025-03-08 07:01 | P.PNIM_ITS ---
Progress Note: A&P Assessment and Plan (1) SBO (small bowel obstruction): Code(s): K56.609 - Unspecified intestinal obstruction, unspecified as to partial versus complete obstruction Status: Acute Assessment and Plan: * NPO hold home medications in until okay with surgery * NG tube to suction * Lidocaine lubrication and Hurricaine spray * Gentle IV fluid resuscitation given the patient's NPO status * P.r.n. Anti emetics, avoid reglan * Abd XR: NG tube tip in the stomach. Partially visualized bowel gas is consistent with small bowel obstruction. * Will start NG suction * Surgery consulted * Conservative management with NG tube/suction, bowel rest * Serial abdominal exams, daily plain films/labs * If SBO doesn't resolve - laparotomy * 03/08 * Leukocytosis resolved * Abd XR: Normal bowel gas pattern. * Small bowel XR: Normal small bowel follow-through * Likely to consider removal of NG tube - pending General surgery reevaluation (2) Hypertension: Qualifiers: Hypertension type: primary hypertension Qualified Code(s): I10 - Essential (primary) hypertension Code(s): I10 - Essential (primary) hypertension Status: Acute Assessment and Plan: * Patient's blood pressure was reviewed on 03/06 * Blood pressure remains well controlled * Holding meds until okay with surgery * 130/72 (3) PTSD (post-traumatic stress disorder): Code(s): F43.10 - Post-traumatic stress disorder, unspecified Status: Chronic Assessment and Plan: * Holding meds until okay with surgery (4) Hypothyroidism: Code(s): E03.9 - Hypothyroidism, unspecified Status: Acute Assessment and Plan: * IV Synthroid (5) Multiple sclerosis: Code(s): G35 - Multiple sclerosis Status: Chronic Assessment and Plan: * Holding meds until okay with surgery Subjective Date/time seen: 03/08/25 07:01 Interval history: 69-year-old female presents the hospital with abdominal pain. Patient has a history of a small-bowel resection due to diverticulitis. She was afraid that she was having a flare up. 03/08/2025 Patient sitting comfortably at bedside during exam. Had small bowel follow through this morning and repeat abd XR - both normal. Will wait for reassessment from general surgery but likely will consider removal of NG tube within next 24- 48 hours. She denies any CP/SOB at this point, abd pain resolving and she has had 2 BMs within past 24 hours. Pt otherwise doing well at this point. Review of Systems Review of Systems: 12 systems were reviewed and are negativ e except for as per HPI. Exam Narrative: General: well appearing, appears stated age. HEENT: normocephalic, atraumatic. Mucous membranes moist. EOMI, PERRLA, bilateral sclera anicteric, no conjunctival injection. Neck supple without JVD, lymphadenopathy, or bruit. Respiratory: clear to auscultation bilaterally. No rales/rhonci/wheezes. Cardiovascular: Regular rate and rhythm, normal S1-S2 upon auscultation. No murmurs, rubs, or clicks. PMI is nondisplaced, capillary refill less than 3 second. Abdomen: Improving TTP LLQ, mild guarding throughout, no bowel sounds. No Hepato/splenomegaly, no palpable masses Extremities: No cyanosis, clubbing, or edema present. Pulses are palpable 2/2. Active ROM to all four extremities. Neuro: Alert and orientated x 4. PERRLA. Cranial nerves 2-12 intact without focal deficit. Skin: Warm, dry, and intact, without rash, erythema, or lesion. Psych: pleasant, cooperative, normal speech, normal affect, no hallucinations, no dysarthia Objective Data Vital Signs Vital Signs: Vital Signs - 24 hr 03/07/25 08:00 03/07/25 13:45 03/07/25 20:09 Temperature 98.1 F Pulse Rate 75 69 Respiratory Rate 14 20 Blood Pressure 130/68 129/84 Pulse Oximetry 97 97 Oxygen Delivery Room Air 03/08/25 04:30 Temperature 97.7 F Pulse Rate 66 Respiratory Rate 20 Blood Pressure 130/72 Pulse Oximetry 99 Oxygen Delivery Intake/Output Intake/Output: Intake & Output 03/05/25 03/06/25 03/07/25 03/08/25 23:59 23:59 23:59 23:59 Intake Total 1000 3030 1280 1090 Output Total 350 800 450 Balance 1000 2680 480 640 Meds/Results Medications: Active Medications Generic Name Dose Route Start Last Admin Trade Name Freq PRN Reason Stop Dose Admin Bupropion HCl 100 mg 03/06/25 18:00 03/07/25 17:00 Bupropion Hcl Sr (12hr) 100 Mg Tabcr PO 100 mg QPM KACIE Administration Enoxaparin Sodium 40 mg 03/06/25 09:00 03/07/25 09:58 Enoxaparin 40 Mg/0.4 Ml Syringe SUB-Q Not Given DAILY KACIE Famotidine 20 mg 03/07/25 21:00 03/07/25 20:11 Famotidine 20 Mg/2 Ml Vial IV PUSH 20 mg Q12HR KACIE Administration Gabapentin 100 mg 03/06/25 18:00 03/07/25 17:00 Gabapentin 100 Mg Capsule PO 100 mg QPM KACIE Administration Potassium Chloride/Dextrose/Sod Cl 1,000 mls @ 100 mls/hr 03/07/25 14:10 03/08/25 02:25 Kcl 40 Meq/D5ns IV CONT 100 mls/hr .Q10H KACIE Administration Ketorolac Tromethamine 15 mg 03/05/25 18:00 03/08/25 05:54 Ketorolac 15 Mg/Ml Vial (*Bkc) IV PUSH 15 mg Q6H KACIE Administration Levothyroxine Sodium 12.5 mcg 03/06/25 06:30 03/08/25 05:54 Levothyroxine Sodium Inj 100 Mcg/5 Ml Vial IV PUSH 12.5 mcg DAILY@0630 KACIE Administration Morphine Sulfate 4 mg 03/05/25 17:29 Morphine Sulfate (*Crx) 4 Mg/Ml Inj IV PUSH Q2H PRN Pain Rated 7-10 Morphine Sulfate 2 mg 03/06/25 14:37 Morphine Sulfate (*Crx) 2 Mg/Ml Inj IV PUSH Q2H PRN Pain Rated 4-6 Ondansetron HCl 4 mg 03/05/25 17:29 03/05/25 18:39 Ondansetron Inj 4 Mg/2 Ml Vial IV PUSH 4 mg Q4H PRN Administration Nausea Phenol 1 spray 03/05/25 19:25 Phenol/Sod Pheno [place] Ortiz (*Bkc) MUCOUS MEM PRN PRN Sore Throat Radiology Results: ITS Impressions Abdomen/Pelvis CT 03/05/25 15:37 IMPRESSION: 1. Small bowel obstruction with transition point detailed above Labs Labs: Laboratory Results - last 24 hr 03/07/25 03/07/25 03/08/25 12:24 20:08 00:34 WBC RBC Hgb Hct MCV MCH MCHC RDW Plt Count MPV Immature Gran % (Auto) Neut % (Auto) Lymph % (Auto) [place] % (Auto) Eos % (Auto) Baso % (Auto) Lymph # (Auto) [place] # (Auto) Eos # (Auto) Baso # (Auto) Abs Immat Gran (auto) Absolute Neuts (auto) Absolute Nucleated RBC Nucleated RBC % Sodium Potassium Chloride Carbon Dioxide Anion Gap BUN Creatinine Estim Creat Clear Calc Estimated GFR Glucose POC Capillary Glucose 96 87 96 Calcium Total Bilirubin AST ALT Alkaline Phosphatase Total Protein Albumin 03/08/25 03/08/25 04:42 06:13 WBC 9.8 RBC 3.76 L Hgb 10.9 L Hct 35.8 L MCV 95.2 MCH 29.0 MCHC 30.4 L RDW 14.2 Plt Count 172 MPV 11.9 H Immature Gran % (Auto) 0.3 Neut % (Auto) 74.0 H Lymph % (Auto) 14.5 L [place] % (Auto) 7.6 Eos % (Auto) 2.9 Baso % (Auto) 0.7 Lymph # (Auto) 1.42 [place] # (Auto) 0.8 H Eos # (Auto) 0.3 Baso # (Auto) 0.1 Abs Immat Gran (auto) 0.03 Absolute Neuts (auto) 7.3 H Absolute Nucleated RBC 0.000 Nucleated RBC % 0.0 Sodium 139 Potassium 4.0 Chloride 109 H Carbon Dioxide 26 Anion Gap 4 BUN 19 H Creatinine 0.77 Estim Creat Clear Calc 71 Estimated GFR > 60 Glucose 113 H POC Capillary Glucose 106 H Calcium 8.2 L Total Bilirubin 0.4 AST 32 ALT 25 Alkaline Phosphatase 48 Total Protein 5.9 L Albumin 3.6 Quality VTE Prophylaxis VTE prophylaxis: mechanical ordered and pharmacologic ordered
[2025-03-08 08:00] VITALS: O2SAT 99
[2025-03-08] MEDS: ONDANSETRON INJ 4 MG/2 ML VIAL IV PUSH (09:55)
--- NOTE | 2025-03-08 10:31 | P.PNGS_ITS ---
Progress Note: A&P Assessment and Plan (1) SBO (small bowel obstruction): Code(s): K56.609 - Unspecified intestinal obstruction, unspecified as to partial versus complete obstruction Status: Acute Assessment and Plan: * Abdominal xray and small bowel follow through today were both normal. Patient having regular bowel movements. Pain improved. * Will pull NG and start on clear liquids. Advance as tolerated. * Of note, patient has not had a colonoscopy in 15+ years and she has a family history of colon cancer. She will need to schedule an outpatient colonoscopy upon discharge. Plan Discussed patient's case and plan of care with Dr. Faith. Subjective Subjective Date/Time Seen: 03/08/25 10:31 Patient reports: no new complaints, feels better and bowel movement Interval history: Patient is doing well today. No acute events overnight. Normal WBC today at 9.8. Plain film demonstrated a normal bowel gas pattern. Small bowel follow through was normal with a transit time of 30-45 minutes. Patient has had multiple bowel movements this morning. Exam Const: General: comfortable and no acute distress Neck: Neck: supple Resp: Effort & Inspection: normal respiratory effort Cardio: Rate: regular rate GI: Inspection: non-distended GI Palp: Yes Soft to palpation, Yes Tenderness to palpation present (GI) (minimal RLQ) and No Guarding due to palpation present (GI) Auscultation: normal bowel sounds Objective Data Vital Signs Vital Signs: Vital Signs - 24 hr 03/07/25 13:45 03/07/25 20:09 03/08/25 04:30 Temperature 98.1 F 97.7 F Pulse Rate 75 69 66 Respiratory Rate 14 20 20 Blood Pressure 130/68 129/84 130/72 Pulse Oximetry 97 97 99 Oxygen Delivery 03/08/25 08:00 Temperature Pulse Rate Respiratory Rate Blood Pressure Pulse Oximetry 99 Oxygen Delivery Room Air Intake/Output Intake/Output: Intake & Output 03/05/25 03/06/25 03/07/25 03/08/25 23:59 23:59 23:59 23:59 Intake Total 1000 3030 1280 1090 Output Total 350 800 450 Balance 1000 2680 480 640 Meds/Results Medications: Active Medications Generic Name Dose Route Start Last Admin Trade Name Freq PRN Reason Stop Dose Admin Bupropion HCl 100 mg 03/06/25 18:00 03/07/25 17:00 Bupropion Hcl Sr (12hr) 100 Mg Tabcr PO 100 mg QPM [facility] Administration Enoxaparin Sodium 40 mg 03/06/25 09:00 03/08/25 09:55 Enoxaparin 40 Mg/0.4 Ml Syringe SUB-Q Not Given DAILY [facility] Famotidine 20 mg 03/08/25 21:00 Famotidine 20 Mg Tablet PO Q12HR [facility] Gabapentin 100 mg 03/06/25 18:00 03/07/25 17:00 Gabapentin 100 Mg Capsule PO 100 mg QPM KACIE Administration Potassium Chloride/Dextrose/Sod Cl 1,000 mls @ 60 mls/hr 03/07/25 14:10 03/08/25 02:25 Kcl 40 Meq/D5ns IV CONT 100 mls/hr .[id number] [facility] Administration Ketorolac Tromethamine 15 mg 03/05/25 18:00 03/08/25 05:54 Ketorolac 15 Mg/Ml Vial (*Bkc) IV PUSH 15 mg Q6H KACIE Administration Levothyroxine Sodium 12.5 mcg 03/06/25 06:30 03/08/25 05:54 Levothyroxine Sodium Inj 100 Mcg/5 Ml Vial IV PUSH 12.5 mcg DAILY@0630 [facility] Administration Morphine Sulfate 4 mg 03/05/25 17:29 Morphine Sulfate (*Crx) 4 Mg/Ml Inj IV PUSH Q2H PRN Pain Rated 7-10 Morphine Sulfate 2 mg 03/06/25 14:37 Morphine Sulfate (*Crx) 2 Mg/Ml Inj IV PUSH Q2H PRN Pain Rated 4-6 Ondansetron HCl 4 mg 03/05/25 17:29 03/08/25 09:55 Ondansetron Inj 4 Mg/2 Ml Vial IV PUSH 4 mg Q4H PRN Administration Nausea Phenol 1 spray 03/05/25 19:25 Phenol/Sod Pheno [place] Ortiz (*Bkc) MUCOUS MEM PRN PRN Sore Throat Radiology Results: ITS Impressions Abdomen/Pelvis CT 03/05/25 15:37 IMPRESSION: 1. Small bowel obstruction with transition point detailed above Abdomen X-Ray 03/08/25 07:48 IMPRESSION: 1. Normal bowel gas pattern. Small Bowel X-Ray 03/08/25 09:19 IMPRESSION: 1. Normal small bowel follow-through. Labs Labs: Laboratory Results - last 24 hr 03/07/25 03/07/25 03/08/25 12:24 20:08 00:34 WBC RBC Hgb Hct MCV MCH MCHC RDW Plt Count MPV Immature Gran % (Auto) Neut % (Auto) Lymph % (Auto) [place] % (Auto) Eos % (Auto) Baso % (Auto) Lymph # (Auto) [place] # (Auto) Eos # (Auto) Baso # (Auto) Abs Immat Gran (auto) Absolute Neuts (auto) Absolute Nucleated RBC Nucleated RBC % Sodium Potassium Chloride Carbon Dioxide Anion Gap BUN Creatinine Estim Creat Clear Calc Estimated GFR Glucose POC Capillary Glucose 96 87 96 Calcium Total Bilirubin AST ALT Alkaline Phosphatase Total Protein Albumin 03/08/25 03/08/25 04:42 06:13 WBC 9.8 RBC 3.76 L Hgb 10.9 L Hct 35.8 L MCV 95.2 MCH 29.0 MCHC 30.4 L RDW 14.2 Plt Count 172 MPV 11.9 H Immature Gran % (Auto) 0.3 Neut % (Auto) 74.0 H Lymph % (Auto) 14.5 L [place] % (Auto) 7.6 Eos % (Auto) 2.9 Baso % (Auto) 0.7 Lymph # (Auto) 1.42 [place] # (Auto) 0.8 H Eos # (Auto) 0.3 Baso # (Auto) 0.1 Abs Immat Gran (auto) 0.03 Absolute Neuts (auto) 7.3 H Absolute Nucleated RBC 0.000 Nucleated RBC % 0.0 Sodium 139 Potassium 4.0 Chloride 109 H Carbon Dioxide 26 Anion Gap 4 BUN 19 H Creatinine 0.77 Estim Creat Clear Calc 71 Estimated GFR > 60 Glucose 113 H POC Capillary Glucose 106 H Calcium 8.2 L Total Bilirubin 0.4 AST 32 ALT 25 Alkaline Phosphatase 48 Total Protein 5.9 L Albumin 3.6
--- NOTE | 2025-03-08 13:06 | PC.NURSE ---
On 03/08/25, the student, [Keeley Mercado], provided care and completed [facility] documentation on this patient. I have reviewed the student's documentation and agree with the findings.
[2025-03-08 13:50] VITALS: BP 119/68; PULSE 76; RESP 18; TEMP 36.3; O2SAT 100
[2025-03-08] MEDS: GABAPENTIN 100 MG CAPSULE PO (17:10)
[2025-03-08] MEDS: buPROPion HCL SR (12HR) 100 MG TABCR PO (17:10)
[2025-03-08 20:00] VITALS: PULSE 76; RESP 16; O2SAT 98
[2025-03-08 20:08] VITALS: BP 137/71; PULSE 76; RESP 16; TEMP 36.9; O2SAT 98
[2025-03-08] MEDS: FAMOTIDINE 20 MG TABLET PO (20:41)
[2025-03-09 04:58] LABS: Hematocrit 34.3 % (37.0-47.0); Hemoglobin 10.7 g/dL (12.0-15.0); Immature Granulocyte Percent A 0.5 % (0-0.5); Lymphocytes Absolute Auto 1.76 K/mm3 (0.9-3.2); Mean Corpuscular HGB Conc 31.2 g/dl (32-36); Mean Corpuscular Hemoglobin 29.0 pg (26-34); Mean Corpuscular Volume 93.0 fl (80-100); Nucleated Red Blood Cells Absolute Auto 0.000 K/mm3 (0.0-0.012); Nucleated Red Blood Cells Perc 0.0 % (0.0-0.2); Platelet Count Result 200 k/mm3 (150-375); Red Blood Count 3.69 M/mm3 (4.2-5.4); White Blood Count 8.4 K/mm3 (4.5-10.0)
[2025-03-09 05:11] LABS: Alanine Aminotransferase 33 U/L (6-35); Albumin Level 3.7 g/dL (3.5-5.1); Alkaline Phosphatase 58 U/L (38-126); Anion Gap 5 mmol/L (4-12); Aspartate Amino Transferase 32 U/L (14-36); Bilirubin,Total 0.2 mg/dL (0.2-1.3); Blood Urea Nitrogen 14 mg/dL (7-17); Calcium 8.8 mg/dL (8.4-10.2); Carbon Dioxide 28 mmol/L (22-30); Chloride 106 mmol/L (98-107); Estimated CRCL calculation 64 ml/min; Estimated Glomerular Filt Rate > 60; Glucose 98 mg/dL (65-110); Potassium 3.8 mmol/L (3.4-5.0); Sodium 139 mmol/L (137-145); Total Protein 6.1 g/dL (6.3-8.2)
[2025-03-09] MEDS: LEVOTHYROXINE SODIUM 25 MCG TABLET PO (05:28)
[2025-03-09 06:19] VITALS: BP 116/54; PULSE 66; RESP 16; TEMP 36.8; O2SAT 97
--- NOTE | 2025-03-09 07:15 | P.PNIM_ITS ---
Progress Note: A&P Assessment and Plan (1) SBO (small bowel obstruction): Code(s): K56.609 - Unspecified intestinal obstruction, unspecified as to partial versus complete obstruction Status: Acute Assessment and Plan: - admit CT A/P consistent with SBO - SBFT 03/08 with no obstruction - s/p NGT placement, removed 03/08. Patient now having regular bowel movements. Started on CLD, advance diet per general surgery - leukocytosis resolved - surgery following. Will need colonoscopy as outpatient. (2) Hypertension: Qualifiers: Hypertension type: primary hypertension Qualified Code(s): I10 - Essential (primary) hypertension Code(s): I10 - Essential (primary) hypertension Status: Acute Assessment and Plan: -Blood pressure remains well controlled - Holding meds for now until intake improves (3) PTSD (post-traumatic stress disorder): Code(s): F43.10 - Post-traumatic stress disorder, unspecified Status: Chronic Assessment and Plan: - resume home meds (4) Hypothyroidism: Code(s): E03.9 - Hypothyroidism, unspecified Status: Acute Assessment and Plan: - PO Synthroid (5) Multiple sclerosis: Code(s): G35 - Multiple sclerosis Status: Chronic Assessment and Plan: -Holding meds until okay with surgery Subjective Date/time seen: 03/09/25 07:15 Interval history: 69-year-old female presents to the hospital with abdominal pain. Patient seen and examined at bedside. Review of Systems Review of Systems: All systems reviewed & are unremarkable except as noted in HPI and below Exam Narrative: General: NAD Eyes: EOMI ENT: neck supple Cardiovascular: Regular rate and rhythm Respiratory: Clear to auscultation, respirations even and unlabored on RA Gastrointestinal: Soft, non tender Genitourinary: no suprapubic tenderness Musculoskeletal: No edema Skin: warm, dry Neuro: Alert. Psych: Mood appropriate Objective Data Vital Signs Vital Signs: Vital Signs - 24 hr 03/08/25 08:00 03/08/25 13:50 03/08/25 20:00 Temperature 97.3 F L Pulse Rate 76 76 Respiratory Rate 18 16 Blood Pressure 119/68 Pulse Oximetry 99 100 98 Oxygen Delivery Room Air Room Air 03/08/25 20:08 03/09/25 06:19 Temperature 98.4 F 98.2 F Pulse Rate 76 66 Respiratory Rate 16 16 Blood Pressure 137/71 116/54 L Pulse Oximetry 98 97 Oxygen Delivery Intake/Output Intake/Output: Intake & Output 03/06/25 03/07/25 03/08/25 03/09/25 23:59 23:59 23:59 23:59 Intake Total 3030 1280 1810 150 Output Total 350 800 450 Balance 2680 480 1360 150 Meds/Results Medications: Active Medications Generic Name Dose Route Start Last Admin Trade Name Freq PRN Reason Stop Dose Admin Bupropion HCl 100 mg 03/06/25 18:00 03/08/25 17:10 Bupropion Hcl Sr (12hr) 100 Mg Tabcr PO 100 mg QPM KACIE Administration Enoxaparin Sodium 40 mg 03/06/25 09:00 03/08/25 09:55 Enoxaparin 40 Mg/0.4 Ml Syringe SUB-Q Not Given DAILY KACIE Famotidine 20 mg 03/08/25 21:00 03/08/25 20:41 Famotidine 20 Mg Tablet PO 20 mg Q12HR KACIE Administration Gabapentin 100 mg 03/06/25 18:00 03/08/25 17:10 Gabapentin 100 Mg Capsule PO 100 mg QPM KACIE Administration Levothyroxine Sodium 25 mcg 03/09/25 06:30 03/09/25 05:28 Levothyroxine Sodium 25 Mcg Tablet PO 25 mcg DAILY@0630 KACIE Administration Morphine Sulfate 4 mg 03/05/25 17:29 Morphine Sulfate (*Crx) 4 Mg/Ml Inj IV PUSH Q2H PRN Pain Rated 7-10 Morphine Sulfate 2 mg 03/06/25 14:37 Morphine Sulfate (*Crx) 2 Mg/Ml Inj IV PUSH Q2H PRN Pain Rated 4-6 Ondansetron HCl 4 mg 03/05/25 17:29 03/08/25 09:55 Ondansetron Inj 4 Mg/2 Ml Vial IV PUSH 4 mg Q4H PRN Administration Nausea Phenol 1 spray 03/05/25 19:25 Phenol/Sod Pheno [place] Ortiz (*Bkc) MUCOUS MEM PRN PRN Sore Throat Radiology Results: ITS Impressions Abdomen/Pelvis CT 03/05/25 15:37 IMPRESSION: 1. Small bowel obstruction with transition point detailed above Small Bowel X-Ray 03/08/25 09:19 IMPRESSION: 1. Normal small bowel follow-through. Labs Labs: Laboratory Results - last 24 hr 03/09/25 04:33 WBC 8.4 RBC 3.69 L Hgb 10.7 L Hct 34.3 L MCV 93.0 MCH 29.0 MCHC 31.2 L RDW 14.2 Plt Count 200 MPV 11.6 H Immature Gran % (Auto) 0.5 Neut % (Auto) 68.0 Lymph % (Auto) 21.0 [place] % (Auto) 6.0 Eos % (Auto) 3.5 Baso % (Auto) 1.0 Lymph # (Auto) 1.76 [place] # (Auto) 0.5 Eos # (Auto) 0.3 Baso # (Auto) 0.1 Abs Immat Gran (auto) 0.04 H Absolute Neuts (auto) 5.7 Absolute Nucleated RBC 0.000 Nucleated RBC % 0.0 Sodium 139 Potassium 3.8 Chloride 106 Carbon Dioxide 28 Anion Gap 5 BUN 14 D Creatinine 0.87 Estim Creat Clear Calc 64 Estimated GFR > 60 Glucose 98 Calcium 8.8 Total Bilirubin 0.2 AST 32 ALT 33 Alkaline Phosphatase 58 Total Protein 6.1 L Albumin 3.7
[2025-03-09] MEDS: FAMOTIDINE 20 MG TABLET PO (08:29)
--- NOTE | 2025-03-09 08:36 | PM.PNGS ---
Progress Note: A&P Assessment and Plan (1) SBO (small bowel obstruction): Code(s): K56.609 - Unspecified intestinal obstruction, unspecified as to partial versus complete obstruction Status: Acute Assessment and Plan: small-bowel follow-through normal. Tolerating oral intake well. Okay to discharge on regular diet. No follow-up with surgery needed. Subjective Subjective Date/Time Seen: 03/09/25 08:36 Patient reports: no new complaints, feels better, pain is less, tolerating a regular diet, bowel movement and afebrile Review of Systems Review of Systems: All systems reviewed & are unremarkable except as noted in HPI and below (HPI) Exam Const: General: comfortable GI: Inspection: non-distended GI Palp: Yes Soft to palpation and No Tenderness to palpation present (GI) Objective Data Vital Signs Vital Signs: Vital Signs - 24 hr 03/08/25 13:50 03/08/25 20:00 03/08/25 20:08 Temperature 36.3 C L 36.9 C Pulse Rate 76 76 76 Respiratory Rate 18 16 16 Blood Pressure 119/68 137/71 Pulse Oximetry 100 98 98 Oxygen Delivery Room Air 03/09/25 06:19 Temperature 36.8 C Pulse Rate 66 Respiratory Rate 16 Blood Pressure 116/54 L Pulse Oximetry 97 Oxygen Delivery Intake/Output Intake/Output: Intake & Output 03/06/25 03/07/25 03/08/25 03/09/25 23:59 23:59 23:59 23:59 Intake Total 3030 1280 1810 150 Output Total 350 800 450 Balance 2680 480 1360 150 Meds/Results Medications: Active Medications Generic Name Dose Route Start Last Admin Trade Name Freq PRN Reason Stop Dose Admin Bupropion HCl 100 mg 03/06/25 18:00 03/08/25 17:10 Bupropion Hcl Sr (12hr) 100 Mg Tabcr PO 100 mg QPM KACIE Administration Enoxaparin Sodium 40 mg 03/06/25 09:00 03/09/25 08:30 Enoxaparin 40 Mg/0.4 Ml Syringe SUB-Q Not Given DAILY KACIE Famotidine 20 mg 03/08/25 21:00 03/09/25 08:29 Famotidine 20 Mg Tablet PO 20 mg Q12HR KACIE Administration Gabapentin 100 mg 03/06/25 18:00 03/08/25 17:10 Gabapentin 100 Mg Capsule PO 100 mg QPM KACIE Administration Levothyroxine Sodium 25 mcg 03/09/25 06:30 03/09/25 05:28 Levothyroxine Sodium 25 Mcg Tablet PO 25 mcg DAILY@0630 KACIE Administration Ondansetron HCl 4 mg 03/05/25 17:29 03/08/25 09:55 Ondansetron Inj 4 Mg/2 Ml Vial IV PUSH 4 mg Q4H PRN Administration Nausea Phenol 1 spray 03/05/25 19:25 Phenol/Sod Pheno [place] Ortiz (*B[facility]) MUCOUS MEM PRN PRN Sore Throat Radiology Results: ITS Impressions Abdomen/Pelvis CT 03/05/25 15:37 IMPRESSION: 1. Small bowel obstruction with transition point detailed above Small Bowel X-Ray 03/08/25 09:19 IMPRESSION: 1. Normal small bowel follow-through. Abdomen X-Ray 03/09/25 08:06 IMPRESSION: 1. Small amount residual oral contrast material in the colon with no dilated bowel to suggest obstruction. Labs Labs: Laboratory Results - last 24 hr 03/09/25 04:33 WBC 8.4 RBC 3.69 L Hgb 10.7 L Hct 34.3 L MCV 93.0 MCH 29.0 MCHC 31.2 L RDW 14.2 Plt Count 200 MPV 11.6 H Immature Gran % (Auto) 0.5 Neut % (Auto) 68.0 Lymph % (Auto) 21.0 [place] % (Auto) 6.0 Eos % (Auto) 3.5 Baso % (Auto) 1.0 Lymph # (Auto) 1.76 [place] # (Auto) 0.5 Eos # (Auto) 0.3 Baso # (Auto) 0.1 Abs Immat Gran (auto) 0.04 H Absolute Neuts (auto) 5.7 Absolute Nucleated RBC 0.000 Nucleated RBC % 0.0 Sodium 139 Potassium 3.8 Chloride 106 Carbon Dioxide 28 Anion Gap 5 BUN 14 D Creatinine 0.87 Estim Creat Clear Calc 64 Estimated GFR > 60 Glucose 98 Calcium 8.8 Total Bilirubin 0.2 AST 32 ALT 33 Alkaline Phosphatase 58 Total Protein 6.1 L Albumin 3.7
--- NOTE | 2025-03-09 10:26 | P.DS_ITS ---
DS: Admitting Diagnosis Discharge Date 03/09/25 Admitting Diagnosis - SBO DS: Discharge Diagnosis Discharge Diagnosis (1) SBO (small bowel obstruction): Code(s): K56.609 - Unspecified intestinal obstruction, unspecified as to partial versus complete obstruction Status: Acute (2) Hypertension: Qualifiers: Hypertension type: primary hypertension Qualified Code(s): I10 - Essential (primary) hypertension Code(s): I10 - Essential (primary) hypertension Status: Acute (3) PTSD (post-traumatic stress disorder): Code(s): F43.10 - Post-traumatic stress disorder, unspecified Status: Chronic (4) Hypothyroidism: Code(s): E03.9 - Hypothyroidism, unspecified Status: Acute (5) Multiple sclerosis: Code(s): G35 - Multiple sclerosis Status: Chronic DS: Summary Hospital Course Reason for hospitalization: - SBO Hospital Course: Patient is a 69 yo female with abdominal pain. In the ED lab work shows leukocytosis at 15.2, BUN of 18, glucose of 147, AST 38. Abdominal pelvis CT shows small-bowel obstruction with transition point. General surgery was consulted. NGT was placed. Patient was admitted for further evaluation. While admitted, patient's symptoms significantly improved s/p NGT placement. General surgery ordered SBFT which showed no signs of obstruction. Patient had return of bowel function and had multiple bowel movements. NGT was removed. Lilia ent was tolerating a regular diet. General surgery cleared for discharge with recommendation for outpatient colonoscopy. Patient noted to be mildly anemic (Hgb 10 with baseline 13). No signs of active bleeding. Likely hemodilutional and from epistaxis s/p NGT placement. Hemoglobin stable on discharge. Recommend outpatient repeat CBC in 7 days. Patient was discharged home in stable condition. Strict return precautions discussed. Status at Discharge Functional status at discharge: independent ambulation Time Spent with Patient Time attestation: Total time spent providing and/or coordinating discharge services: Time spent: Greater than 30 minutes Exam Narrative: General: NAD Eyes: EOMI ENT: neck supple Cardiovascular: Regular rate and rhythm Respiratory: Clear to auscultation, respirations even and unlabored on RA Gastrointestinal: Soft, non tender Genitourinary: no suprapubic tenderness Musculoskeletal: No edema Skin: warm, dry Neuro: Alert. Psych: Mood appropriate DS: Data Data Completed and Pending Completed studies during hospitalization: ITS Impressions Abdomen/Pelvis CT 03/05/25 15:37 IMPRESSION: 1. Small bowel obstruction with transition point detailed above Abdomen X-Ray 03/06/25 10:26 IMPRESSION: 1: NG tube tip in the stomach. Abdomen X-Ray 03/06/25 10:30 IMPRESSION: 1: NG tube tip in the stomach. 2: Partially visualized bowel gas is consistent with small bowel obstruction. Abdomen X-Ray 03/07/25 11:36 IMPRESSION: 1. Single short segment of residual mildly dilated small bowel in the left abdomen consistent with improving small bowel obstruction. Abdomen X-Ray 03/08/25 07:48 IMPRESSION: 1. Normal bowel gas pattern. Small Bowel X-Ray 03/08/25 09:19 IMPRESSION: 1. Normal small bowel follow-through. Abdomen X-Ray 03/09/25 08:06 IMPRESSION: 1. Small amount residual oral contrast material in the colon with no dilated bowel to suggest obstruction. Labs on day of discharge: Labs from last 24 hours 03/09/25 04:33 WBC 8.4 RBC 3.69 L Hgb 10.7 L Hct 34.3 L MCV 93.0 MCH 29.0 MCHC 31.2 L RDW 14.2 Plt Count 200 MPV 11.6 H Immature Gran % (Auto) 0.5 Neut % (Auto) 68.0 Lymph % (Auto) 21.0 [place] % (Auto) 6.0 Eos % (Auto) 3.5 Baso % (Auto) 1.0 Lymph # (Auto) 1.76 [place] # (Auto) 0.5 Eos # (Auto) 0.3 Baso # (Auto) 0.1 Abs Immat Gran (auto) 0.04 H Absolute Neuts (auto) 5.7 Absolute Nucleated RBC 0.000 Nucleated RBC % 0.0 Sodium 139 Potassium 3.8 Chloride 106 Carbon Dioxide 28 Anion Gap 5 BUN 14 D Creatinine 0.87 Estim Creat Clear Calc 64 Estimated GFR > 60 Glucose 98 Calcium 8.8 Total Bilirubin 0.2 AST 32 ALT 33 Alkaline Phosphatase 58 Total Protein 6.1 L Albumin 3.7 Discharge Plan Discharge Attending physician on discharge: Kaylee Jimenez Consulting providers: Armin Faith; Adi Mccrary; Shayy Mcgee Discharging Clinician: Shayy Mcgee Anticipated Discharge Date/Time: 03/09/25 10:24 Patient Disposition: Home Activity: as tolerated Diet: regular Discharge Instructions: * Would recommend calling GI to schedule outpatient colonoscopy. Follow up with PCP if referral is needed. Take all medications as prescribed. Follow-up with your primary care provider in one week. Have your CBC completed to evaluate anemia. Return to the emergency department if you develop chest pain, shortness of breath, persistent fever >100.4, confusion, loss of consciousness, increasing abdominal pain, inability to have a bowel movement, vomiting. Patient Instructions: Bowel Obstruction (DC) Patient Language: Georgian Stand Alone Forms: General Discharge Information Follow-up/Referrals: Amy*,[place], F[employer]PER[employer]OR [Primary Care Provider] - Call for Appointment Referral Note: 1 week, follow-up labs Discharge Medications: Continued bupropion HCl [Wellbutrin SR] 100 mg Tablet Sustained-Release 12 Hr 100 mg PO QPM hydrochlorothiazide 25 mg tablet 25 mg PO DAILY diazepam [Valium] 2 mg tablet 1 mg PO QHS PRN (Reason: Anxiety) levothyroxine 25 mcg tablet 25 mcg PO QAM lisinopril 40 mg tablet 40 mg PO DAILY meclizine 25 mg Tablet 25 mg PO BID PRN (Reason: Vertigo) Qty: 60 0RF ondansetron 4 mg tablet,disintegrating 4 mg PO Q8H PRN (Reason: nausea and vomiting) Qty: 14 0RF gabapentin 100 mg capsule 100 mg PO QPM Date of admission: 03/06/25 07:30 Primary Care Provider: [place]*Cnadelaria Crabtree Admitting Provider: Janki Lemus Attending physician on admission: Janki Lemus Condition: Stable
== END 2025-03-09 10:50 | disposition home or self-care (01) | DRG 390 ==
LOC: ANHED 17:34 → ANH2MED 18:32
PROVIDERS: Physician Assistant; Admitting Provider Student in an Organized Health Care Education/Training Program; Emergency Provider Emergency Medicine; PCP Registered Nurse; Visit Provider Physician Assistant
DX: K56.699 Other intestinal obstruction unspecified as to partial versus complete obstruction (principal); I10 Essential (primary) hypertension; D64.9 Anemia, unspecified; G35 Multiple sclerosis; E03.9 Hypothyroidism, unspecified; F10.90 Alcohol use, unspecified, uncomplicated; M17.11 Unilateral primary osteoarthritis, right knee; F43.12 Post-traumatic stress disorder, chronic; Z96.652 Presence of left artificial knee joint; Z87.19 Personal history of other diseases of the digestive system; Z90.49 Acquired absence of other specified parts of digestive tract
CPT/HCPCS: 36415; 74018; 74177; 74250; 78452; 80053; 82948; 85025; 85610; 85730; 93017; 96361; 96374; 96375; 96376; 99285; A9270; A9502; G0378; J0650; J1885; J2405; J2785; J3480; J7030; Q9967